=== PATIENT | male | born 1960 | race Caucasian/White ===

== ENCOUNTER → 2017-10-24 | Outpatient (CLI) | payer MEDICARE, OTHER ==
[2017-10-24 16:33] LABS: HCT 40.1 % (39.0-53.0); HGB 13.1 gm/dL (13.0-17.5); MCH 28.2 pg (25.0-35.0); MCHC 32.7 g/dL (31.0-37.0); MCV 86.2 fL (80.0-100.0); Mean Platelet Volume 7.5; Platelet Count 250 k/uL (150-450); RBC 4.65 m/uL (4.30-5.90); RDW 13.3 % (11.5-15.5); WBC 9.9 k/uL (3.8-10.6)
[2017-10-24 16:43] LABS: ALT 35 U/L (21-72); AST 23 U/L (17-59); Albumin 3.8 g/dL (3.5-5.0); Alkaline Phosphatase 69 U/L (38-126); Anion Gap 13 mmol/L; Blood Urea Nitrogen 24 mg/dL (9-20); Calcium 8.9 mg/dL (8.4-10.2); Carbon Dioxide 26 mmol/L (22-30); Chloride 105 mmol/L (98-107); Glucose 194 mg/dL (74-99); Potassium 4.2 mmol/L (3.5-5.1); Sodium 144 mmol/L (137-145); Total Bilirubin 0.2 mg/dL (0.2-1.3); Total Protein 6.8 g/dL (6.3-8.2)
[2017-10-24 16:46] LABS: Partial Thromboplastin Time 26.1 sec (22.0-30.0); Prothrombin Time 10.2 sec (9.0-12.0)
[2017-10-24 17:03] LABS: Appearance,Urine Clear (Clear); Bacteria,Urine Rare /hpf; Bilirubin,Urine Negative (Negative); Blood,Urine Negative (Negative); Color,Urine Yellow; Glucose,Urine (UA) Negative (Negative); Ketones,Urine Negative (Negative); Leukocyte Esterase,Urine Moderate (Negative); PH, Urine 5.5 (5.0-8.0); Protein,Urine Trace (Negative); RBC,Urine 2 /hpf (0-5); Specific Gravity,Urine 1.018 (1.001-1.035); Urobilinogen,Urine <2.0 mg/dL (<2.0); WBC,Urine 23 /hpf (0-5)
== END | disposition home or self-care (01) ==
LOC: LABPAT 15:52
PROVIDERS: ATTEND Orthopaedic Surgery
DX: Z01.812 Encounter for preprocedural laboratory examination (principal); Z79.01 Long term (current) use of anticoagulants
CPT/HCPCS: 36415; 80053; 81001; 85027; 85610; 85730; 87070

== ENCOUNTER → 2018-05-12 | Outpatient (CLI) | payer MEDICARE, OTHER ==
[2018-05-12 14:05] LABS: Basophils % (A) 0 %; Eosinophils # (A) 0.2 k/uL (0-0.7); Eosinophils % (A) 2 %; HGB 13.6 gm/dL (13.0-17.5); Lymphocytes % (A) 19 %; MCH 29.4 pg (25.0-35.0); MCHC 33.3 g/dL (31.0-37.0); MCV 88.3 fL (80.0-100.0); Mean Platelet Volume 7.4; Monocytes # (A) 0.5 k/uL (0-1.0); Monocytes % (A) 5 %; Neutrophils # (A) 7.3 k/uL (1.3-7.7); Neutrophils % (A) 71 %; Platelet Count 240 k/uL (150-450); RBC 4.64 m/uL (4.30-5.90); RDW 13.3 % (11.5-15.5); WBC 10.3 k/uL (3.8-10.6)
[2018-05-12 14:09] LABS: Appearance,Urine Clear (Clear); Bacteria,Urine Rare /hpf; Bilirubin,Urine Negative (Negative); Blood,Urine Negative (Negative); Color,Urine Yellow; Glucose,Urine (UA) Trace (Negative); Ketones,Urine Negative (Negative); Leukocyte Esterase,Urine Moderate (Negative); Mucus,Urine Rare /hpf; Nitrite,Urine Negative (Negative); PH, Urine 5.5 (5.0-8.0); Protein,Urine Trace (Negative); RBC,Urine 1 /hpf (0-5); Specific Gravity,Urine 1.018 (1.001-1.035); Squamous Epithelial Cell,Urine <1 /hpf (0-4); Urobilinogen,Urine <2.0 mg/dL (<2.0); WBC,Urine 25 /hpf (0-5)
[2018-05-12 14:21] LABS: INR 1.1 (<1.2); Partial Thromboplastin Time 27.1 sec (22.0-30.0); Prothrombin Time 10.4 sec (9.0-12.0)
[2018-05-12 14:51] LABS: ALT 34 U/L (21-72); AST 22 U/L (17-59); Albumin 3.8 g/dL (3.5-5.0); Alkaline Phosphatase 64 U/L (38-126); Anion Gap 9 mmol/L; Blood Urea Nitrogen 22 mg/dL (9-20); Calcium 9.2 mg/dL (8.4-10.2); Carbon Dioxide 28 mmol/L (22-30); Chloride 103 mmol/L (98-107); Glucose 157 mg/dL (74-99); Potassium 4.5 mmol/L (3.5-5.1); Sodium 140 mmol/L (137-145); Total Bilirubin 0.3 mg/dL (0.2-1.3); Total Protein 6.8 g/dL (6.3-8.2)
== END ==
LOC: LABPAT 13:07
PROVIDERS: ATTEND Orthopaedic Surgery
DX: Z01.812 Encounter for preprocedural laboratory examination (principal)
CPT/HCPCS: 36415; 80053; 81001; 85025; 85610; 85730; 87070

== ENCOUNTER → 2018-05-30 | Outpatient (CLI) | payer MEDICARE, OTHER ==
--- NOTE | 2018-05-30 11:57 | MR ---
EXAMINATION TYPE: MR shoulder RT wo con DATE OF EXAM: 05/30/2018 COMPARISON: NONE HISTORY: Right shoulder pain TECHNIQUE: Multiplanar, multisequence imaging of the right shoulder is performed without contrast. FINDINGS: Rotator Cuff: There is full-thickness retracted tear of the supraspinatus tendon retracted to level o f the acromioclavicular joint. There is mild to moderate diffuse atrophy of the supraspinatus muscle bulk. There is also full-thickness retracted tear of the infraspinatus tendon retracted almost to the acrom ioclavicular joints seen best near paracoronal image 24. Adjacent fluid is present extending and surr ounding the infraspinatus and teres minor muscles. Muscle bulk is fairly well maintained at level of the infraspinatus. Teres minor tendon remains intact. Subscapularis tendon is felt intact. Acromioclavicular Joint: There is moderate to severe joint space loss with capsular hypertrophy super iorly and moderate to severe inferior spurring. Underlying fat plane is lost. Glenohumeral Joint: There is high riding humeral head. There is moderate to large joint effusion. Mar ked superior glenohumeral joint space narrowing is present. Labrum: The superior labrum has advanced narrowing relative to the superiorly displaced humeral head. No abnormal signal is noted. Biceps Tendon: The long head of biceps is in normal location within bicipital groove. Bone marrow signal: No focal abnormal marrow signal is appreciated. Other: No additional significant abnormality is appreciated. IMPRESSION: Full-thickness retracted rotator cuff tears of supraspinatus and infraspinatus tendons wi th evidence of instability as there is high riding humeral head noted. Moderate to advanced AC and gl enohumeral joint arthropathy is seen.
== END | disposition home or self-care (01) ==
LOC: RADMRIMAIN 10:53
PROVIDERS: ATTEND Family Medicine
DX: M75.121 Complete rotator cuff tear or rupture of right shoulder, not specified as traumatic (principal); M19.011 Primary osteoarthritis, right shoulder

== ENCOUNTER → 2018-09-05 | Outpatient (CLI) | payer MEDICARE, OTHER ==
[2018-09-05 12:49] LABS: HCT 41.7 % (39.0-53.0); HGB 13.4 gm/dL (13.0-17.5); MCH 28.4 pg (25.0-35.0); MCHC 32.2 g/dL (31.0-37.0); MCV 88.1 fL (80.0-100.0); Mean Platelet Volume 6.9; Platelet Count 229 k/uL (150-450); RBC 4.73 m/uL (4.30-5.90); RDW 13.1 % (11.5-15.5); WBC 8.4 k/uL (3.8-10.6)
[2018-09-05 12:52] LABS: ALT 31 U/L (21-72); AST 19 U/L (17-59); Albumin 3.9 g/dL (3.5-5.0); Alkaline Phosphatase 64 U/L (38-126); Anion Gap 8 mmol/L; Blood Urea Nitrogen 27 mg/dL (9-20); Calcium 8.9 mg/dL (8.4-10.2); Carbon Dioxide 26 mmol/L (22-30); Chloride 106 mmol/L (98-107); Glucose 227 mg/dL (74-99); Potassium 4.5 mmol/L (3.5-5.1); Sodium 140 mmol/L (137-145); Total Bilirubin 0.4 mg/dL (0.2-1.3); Total Protein 6.7 g/dL (6.3-8.2)
[2018-09-05 12:59] LABS: Partial Thromboplastin Time 30.5 sec (22.0-30.0); Prothrombin Time 10.3 sec (9.0-12.0)
[2018-09-05 14:58] LABS: Appearance,Urine Clear (Clear); Bilirubin,Urine Negative (Negative); Blood,Urine Negative (Negative); Color,Urine Yellow; Glucose,Urine (UA) Negative (Negative); Ketones,Urine Negative (Negative); Leukocyte Esterase,Urine Small (Negative); Mucus,Urine Rare /hpf; Nitrite,Urine Negative (Negative); PH, Urine 5.5 (5.0-8.0); Protein,Urine Trace (Negative); RBC,Urine 1 /hpf (0-5); Specific Gravity,Urine 1.022 (1.001-1.035); Squamous Epithelial Cell,Urine 1 /hpf (0-4); Urobilinogen,Urine <2.0 mg/dL (<2.0); WBC,Urine 8 /hpf (0-5)
== END | disposition home or self-care (01) ==
LOC: LABPAT 11:33
PROVIDERS: ATTEND Orthopaedic Surgery
DX: Z01.812 Encounter for preprocedural laboratory examination (principal)
CPT/HCPCS: 36415; 80053; 81001; 85027; 85610; 85730; 87070

== ENCOUNTER → 2019-01-04 | Outpatient (CLI) | payer MEDICARE, OTHER ==
--- NOTE | 2019-01-04 15:38 | CT ---
EXAMINATION TYPE: CT soft tissue neck w con DATE OF EXAM: 01/04/2019 COMPARISON: None HISTORY: 58-year-old male for small history of thyroid cancer, Cervicalagia TECHNIQUE: Contiguous axial scanning of the soft tissues of the neck performed with IV Contrast, sarah ent injected with 100 mL of Isovue 300. Coronal/sagittal reconstructions performed. CT DLP: 1059.8 mGycm Automated exposure control for dose reduction was used. FINDINGS: Visualized intracranial structures, maxillary sinuses, and mastoid air cells appear clear. Rightward nasal septal deviation. Nasopharynx is clear. Bilateral palatine tonsillar hypertrophy and hypertrophy of the bilateral lingual tonsils as well. Epiglottis and prevertebral soft tissues are within normal limits. Slight medialization of the right common carotid artery resulting in asymmetric effacement of the rig ht piriform sinus. Glottic and subglottic structures as well as the tracheal column and visualized up per lungs otherwise appear clear. Patient is status post thyroidectomy. No abnormal enhancing soft tissue or nodularity seen within the thyroidectomy bed. Submandibular and parotid glands appear satisfactory though there is prominent fatty infiltration of the glands. Scattered nonenlarged cervical lymph nodes on both sides of the neck Bones: Mild degenerative disc disease throughout the cervical spine with scattered facet and uncovert ebral joint spurring causing variable mild neuroforaminal stenoses particularly on the left at C3-C4 and on the right at C4-C5. IMPRESSION: 1. STATUS POST THYROIDECTOMY. NO EVIDENCE FOR LOCOREGIONAL RECURRENCE OR CERVICAL LYMPHADENOPATHY. 2. BILATERAL PALATINE AND LINGUAL TONSILLAR HYPERTROPHY CROWDING THE OROPHARYNX.
== END | disposition home or self-care (01) ==
LOC: RADCTMAIN 13:44
PROVIDERS: ATTEND Family Medicine
DX: J35.1 Hypertrophy of tonsils (principal); E89.0 Postprocedural hypothyroidism; Z85.850 Personal history of malignant neoplasm of thyroid
CPT/HCPCS: 70491; Q9967

== ENCOUNTER 2020-06-10 21:32 | Emergency (ER) | payer MEDICARE, OTHER ==
[2020-06-10 21:42] VITALS: RESP 18
[2020-06-10] MEDS ORDERED: SODIUM CHLORIDE 0.9% 1,000 ML IV STA (22:09)
--- NOTE | 2020-06-10 23:05 | XR ---
EXAMINATION TYPE: XR chest 2V DATE OF EXAM: 06/10/2020 COMPARISON: 07/17/2017 HISTORY: Weakness TECHNIQUE: FINDINGS: Heart is normal. Lungs are clear of consolidation. There is no pleural effusion. There is n o heart failure. Bony thorax is intact. There is minor spurring in the thoracic spine. IMPRESSION: No active cardiopulmonary disease. No adverse change.
[2020-06-10 23:21] LABS: Basophils # (A) 0.1 k/uL (0-0.2); Basophils % (A) 2 %; Eosinophils # (A) 0.1 k/uL (0-0.7); Eosinophils % (A) 2 %; HCT 42.9 % (39.0-53.0); HGB 14.3 gm/dL (13.0-17.5); Lymphocytes # (A) 1.1 k/uL (1.0-4.8); Lymphocytes % (A) 16 %; MCH 30.7 pg (25.0-35.0); MCHC 33.4 g/dL (31.0-37.0); MCV 91.8 fL (80.0-100.0); Mean Platelet Volume 7.7; Monocytes # (A) 0.6 k/uL (0-1.0); Monocytes % (A) 8 %; Neutrophils % (A) 70 %; Platelet Count 262 k/uL (150-450); RBC 4.67 m/uL (4.30-5.90); RDW 12.1 % (11.5-15.5); WBC 7.1 k/uL (3.8-10.6)
[2020-06-10 23:25] LABS: Calcium 8.7 mg/dL (8.4-10.2); Total Bilirubin 0.7 mg/dL (0.2-1.3); Total Protein 7.4 g/dL (6.3-8.2)
--- NOTE | 2020-06-10 23:41 | ED ---
Weakness HPI - General Chief complaint: Weakness Stated complaint: Weakness Time Seen by Provider: 06/10/20 21:43 Source: patient, EMS Mode of arrival: EMS Limitations: no limitations - History of Present Illness Initial comments: Patient is a 59-year-old male, with history of heart disease, diabetes, presenting to emergency Department via EMS with complaints of possible dehydration. Patient states he is about 2.5 weeks out from being diagnosed with Covid. Patient states he did get the okay to return to work. He states he was feeling a little bit drained and weak today. He states he has been able to drink fluids with his appetite is low. He denies any chest pain, trouble breathing. Denies any abdominal pain, nausea, vomiting or diarrhea. He denies any fever or chills. Patient came into the ER via EMS along with his mother for a separate issue. He has no further complaints at this time. Upon arrival to the ER, his vital signs are stable. - Related Data Home Medications Medication Instructions Recorded Confirmed Betamethasone Dipropionate 1 applic TOPICAL BID PRN 01/22/15 05/18/18 [Diprolene AF 0.05% Cream] Clotrimazole Cream [Lotrimin Cream] 1 applic TOPICAL BID PRN 01/22/15 05/18/18 Fish Oil/Dha/Epa [Fish Oil 1,200 1 cap PO TID 01/22/15 05/18/18 mg Fish Oil] Levothyroxine Sodium [Unithroid] 350 mcg PO DAILY 01/22/15 05/18/18 Loratadine [Claritin] 10 mg PO DAILY 01/22/15 05/18/18 Methocarbamol [Robaxin] 500 mg PO QID PRN 01/22/15 05/18/18 Methylphenidate HCl [Ritalin] 10 mg PO DAILY 01/22/15 05/18/18 Metoprolol Tartrate [Lopressor] 50 mg PO BID 01/22/15 05/18/18 Mupirocin 2% Oint [Bactroban 2% 1 applic TOPICAL HS PRN 01/22/15 05/18/18 Oint] Niacin [Niaspan] 2,000 mg PO HS 01/22/15 05/18/18 Nitroglycerin Sl Tabs [Nitrostat] 0.4 mg SUBLINGUAL Q5M PRN 01/22/15 05/18/18 OLANZapine 7.5 mg PO HS 01/22/15 05/18/18 diphenhydrAMINE [Benadryl] 25 mg PO QID PRN 01/22/15 05/18/18 metFORMIN HCL 1,000 mg PO BID 01/22/15 05/18/18 Aspirin 81 mg PO DAILY 11/24/15 05/18/18 HYDROcodone/APAP 5-325MG [[place] 1 tab PO QID PRN 11/24/15 05/18/18 5-325] Simethicone Chew [Mylicon Chew] 80 mg PO DAILY 11/24/15 05/18/18 Simvastatin [Zocor] 80 mg PO HS 11/24/15 05/18/18 Testosterone [Androgel 1% Gel Pump] 1 pump TRANSDERM Q48H 11/24/15 05/18/18 carBAMazepine [TEGretol XR] 200 mg PO Q12H 11/24/15 05/18/18 traMADol HCl [Ultram] 50 mg PO DAILY PRN 11/24/15 05/18/18 Gabapentin [Neurontin] 300 mg PO DAILY 07/17/17 05/18/18 Gabapentin [Neurontin] 300 mg PO HS 07/17/17 05/18/18 Insulin Degludec [Tresiba 130 - 140 unit SQ HS 07/17/17 05/18/18 Flextouch U-200] Insulin Aspart [NovoLOG Flexpen] 35 - 40 units SQ AC-TID 05/18/18 05/18/18 Naproxen [Naprosyn] 500 mg PO Q12HR 05/18/18 05/18/18 Testosterone [Androgel 1% Gel Pump] 2 pump TOPICAL Q48H 05/18/18 05/18/18 Previous Rx's Medication Instructions Recorded Pantoprazole [Protonix] 40 mg PO BID #60 tablet. 07/18/17 Allergies Allergy/AdvReac Type Severity Reaction Status Date / Time codeine phosphate Allergy SOB Verified 06/10/20 21:42 [From Tylenol-Codeine] guaifenesin Allergy dehydration Verified 06/10/20 21:42 levofloxacin [From Levaquin] Allergy Anaphylaxis Verified 06/10/20 21:42 Penicillins Allergy Rash/Hives Verified 06/10/20 21:42 quetiapine Allergy headache Verified 06/10/20 21:42 topiramate Allergy dehydration Verified 06/10/20 21:42 meperidine HCl [From Demerol] AdvReac "altered Verified 06/10/20 21:42 state of mind" olanzapine AdvReac > 7.6 mg Verified 06/10/20 21:42 causes sleepiness entex Allergy Unknown Uncoded 06/10/20 21:42 wool Allergy twitches Uncoded 06/10/20 21:42 QUET AdvReac Unknown Uncoded 06/10/20 21:42 Review of Systems ROS Statement: Those systems with pertinent positive or pertinent negative responses have been documented in the HPI. ROS Other: All systems not noted in ROS Statement are negative. 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, obesity History of Any Multi-Drug Resistant Organisms: None Reported Past Surgical History: Joint Replacement, Tonsillectomy Additional Past Surgical History / Comment(s): L total knee arthroplasty, stephani eye surgery, thyroidectomy Past Anesthesia/Blood Transfusion Reactions: No Reported Reaction Additional Past Anesthesia/Blood Transfusion Reaction / Comment(s): had reaction to drainage tube-"had to be knocked out-woke up swining" Past Psychological History: ADD/ADHD, Anxiety, Bipolar, Depression, PTSD Past Alcohol Use History: Occasional Past Drug Use History: None Reported - Past Family History Father Family Medical History: Coronary Artery Disease (CAD), Diabetes Mellitus Additional Family Medical History / Comment(s): Father has had CABG. He is 79 yrs. old. Mother Family Medical History: Cancer, Diabetes Mellitus Additional Family Medical History / Comment(s): Mother had colon cancer with surgery. She is 75 yrs old. General Exam - General Exam Comments Initial Comments: GENERAL: Patient is well-developed and well-nourished. Patient is nontoxic and in no acute distress. HEAD: Atraumatic, normocephalic. EYES: Pupils equal round and reactive to light, extraocular movements intact, sclera anicteric, conjunctiva are normal. Eyelids were unremarkable. ENT: TMs normal, nares patent, oropharynx clear without exudates. Moist mucous membranes. NECK: Normal range of motion, supple without lymphadenopathy or JVD. LUNGS: Unlabored respirations. Breath sounds clear to auscultation bilaterally and equal. No wheezes rales or rhonchi. HEART: Regular rate and rhythm without murmurs, rubs or gallops. ABDOMEN: Soft, nontender, normoactive bowel sounds. No guarding, no rebound. No masses appreciated. : Deferred MUSCULOSKELETAL: Normal extremities with adequate strength and normal range of motion, no pitting or edema. No clubbing or cyanosis. NEUROLOGICAL: Patient is alert and oriented x 3. Motor and sensory are also intact. Cranial nerves II through XII grossly intact. Symmetrical smile. Normal speech, normal gait. PSYCH: Normal mood, normal affect. SKIN: Warm, Dry, normal turgor, no rashes or lesions noted. Limitations: no limitations Course Vital Signs 06/10/20 21:36 Temperature 99.2 F Pulse Rate 71 Respiratory 18 Rate Blood Pressure 105/37 O2 Sat by Pulse 97 Oximetry Medical Decision Making - Medical Decision Making Patient is a 59-year-old male presenting via EMS with complaints of possible dehydration, not feeling well today. He tested positive for COVID about 12 days ago. He did get the clear to return to work. His vital signs are stable. His exam is unremarkable, he is afebrile. Chest x-ray shows no acute process. Labs show a normal white count, creatinine is a bit elevated from baseline at 1.74, BUN is 36. Rest of labs is unremarkable. COVID test is pending. Patient received 1 L bolus of fluids. He has been eating and drinking the ER. He is stable for discharge. I discussed with patient to continue to increase fluid intake. We had a long discussion about his body is still recovering from a viral infection. He can follow up with his PCP. He is in agreement this plan of care. Return parameters were discussed with the patient he verbalizes understanding. Case discussed with Dr. Fregoso. - Lab Data Result diagrams: 06/10/20 22:50 06/10/20 22:50 Lab Results 06/10/20 06/10/20 Range/Units 22:50 22:50 WBC 7.1 (3.8-10.6) k/uL RBC 4.67 (4.30-5.90) m/uL Hgb 14.3 (13.0-17.5) gm/dL Hct 42.9 (39.0-53.0) % MCV 91.8 (80.0-100.0) fL MCH 30.7 (25.0-35.0) pg MCHC 33.4 (31.0-37.0) g/dL RDW 12.1 (11.5-15.5) % Plt Count 262 (150-450) k/uL Neutrophils % 70 % Lymphocytes % 16 % Monocytes % 8 % Eosinophils % 2 % Basophils % 2 % Neutrophils # 5.0 (1.3-7.7) k/uL Lymphocytes # 1.1 (1.0-4.8) k/uL Monocytes # 0.6 (0-1.0) k/uL Eosinophils # 0.1 (0-0.7) k/uL Basophils # 0.1 (0-0.2) k/uL Sodium 138 (137-145) mmol/L Potassium 5.0 (3.5-5.1) mmol/L Chloride 104 (98-107) mmol/L Carbon Dioxide 26 (22-30) mmol/L Anion Gap 8 mmol/L BUN 36 H (9-20) mg/dL Creatinine 1.74 H (0.66-1.25) mg/dL Est GFR (CKD-EPI)AfAm 49 (>60 ml/min/1.73 sqM) Est GFR (CKD-EPI)NonAf 42 (>60 ml/min/1.73 sqM) Glucose 114 H (74-99) mg/dL Calcium 8.7 (8.4-10.2) mg/dL Total Bilirubin 0.7 (0.2-1.3) mg/dL AST 43 (17-59) U/L ALT 34 (4-49) U/L Alkaline Phosphatase 66 (38-126) U/L Total Protein 7.4 (6.3-8.2) g/dL Albumin 4.0 (3.5-5.0) g/dL Disposition Clinical Impression: Dehydration, Viral illness Disposition: HOME SELF-CARE Condition: Stable Instructions (If sedation given, give patient instructions): Dehydration (ED) Additional Instructions: Please return to the Emergency Department if symptoms worsen or any other concerns. Continue to increase fluid intake. Follow-up with PCP. Is patient prescribed a controlled substance at d/c from ED?: No Referrals: Tati Dacosta DO [Primary Care Provider] - 1-2 days
[2020-06-11 00:26] VITALS: BP 114/66; PULSE 65; TEMP 98.3
== END 2020-06-11 00:26 | disposition home or self-care (01) ==
LOC: EC 21:32
DX: B34.9 Viral infection, unspecified (principal); E86.0 Dehydration; F31.9 Bipolar disorder, unspecified; F42.9 Obsessive-compulsive disorder, unspecified; F90.9 Attention-deficit hyperactivity disorder, unspecified type; F43.10 Post-traumatic stress disorder, unspecified; G47.33 Obstructive sleep apnea (adult) (pediatric); Z99.89 Dependence on other enabling machines and devices; Z79.899 Other long term (current) drug therapy; Z88.0 Allergy status to penicillin; Z88.1 Allergy status to other antibiotic agents; Z88.5 Allergy status to narcotic agent; Z88.8 Allergy status to other drugs, medicaments and biological substances; Z91.048 Other nonmedicinal substance allergy status; Z96.652 Presence of left artificial knee joint; Z20.828 Contact with and (suspected) exposure to other viral communicable diseases
CPT/HCPCS: 80053; 85025; 71046; 99285; 96360; U0003

== ENCOUNTER 2020-10-30 20:30 | Inpatient (IN) | payer MEDICARE, OTHER ==
[2020-10-30 22:08] LABS: Basophils # (A) 0.1 k/uL (0-0.2); Basophils % (A) 0 %; Eosinophils # (A) 0.4 k/uL (0-0.7); Eosinophils % (A) 4 %; HCT 39.4 % (39.0-53.0); HGB 13.4 gm/dL (13.0-17.5); Lymphocytes # (A) 1.4 k/uL (1.0-4.8); Lymphocytes % (A) 13 %; MCH 30.1 pg (25.0-35.0); MCHC 34.1 g/dL (31.0-37.0); MCV 88.3 fL (80.0-100.0); Mean Platelet Volume 7.4; Monocytes # (A) 0.7 k/uL (0-1.0); Monocytes % (A) 6 %; Neutrophils # (A) 8.7 k/uL (1.3-7.7); Neutrophils % (A) 76 %; Platelet Count 345 k/uL (150-450); RBC 4.46 m/uL (4.30-5.90); RDW 12.3 % (11.5-15.5); WBC 11.4 k/uL (3.8-10.6)
[2020-10-30 22:25] LABS: Calcium 9.4 mg/dL (8.4-10.2); Potassium 3.9 mmol/L (3.5-5.1); Total Bilirubin 0.5 mg/dL (0.2-1.3); Total Protein 7.4 g/dL (6.3-8.2)
--- NOTE | 2020-10-30 22:33 | XR ---
EXAMINATION TYPE: XR toes RT DATE OF EXAM: 10/30/2020 COMPARISON: NONE HISTORY: Pain TECHNIQUE: 3 views FINDINGS: There are some destructive changes involving the tuft of the distal phalanx of the big toe. There is soft tissue swelling. The metatarsals are intact. IMPRESSION: Destructive changes in the big toe suggestive of osteomyelitis.
[2020-10-30] MEDS ORDERED: VANCOMYCIN IV PER PHARMACY 1 EACH MISC MISCELLANE PRN (22:52)
[2020-10-30] MEDS ORDERED: SODIUM CHLORIDE 0.9% 1,000 ML IV STA (22:52)
[2020-10-30] MEDS: VANCOMYCIN 2,000 MG in SODIUM CHLORIDE 0.9% 500 ML 500 ML IVPB STA (23:06)
[2020-10-30] MEDS: CEFEPIME 2 GM in SODIUM CHLORIDE 0.9% 100 ML IVPB SCH (23:09)
--- NOTE | 2020-10-30 23:15 | ED ---
Skin/Abscess/FB HPI - General Chief complaint: Skin/Abscess/Foreign Body Stated complaint: toe infection Time Seen by Provider: 10/30/20 21:51 Source: patient Mode of arrival: wheelchair Limitations: no limitations - History of Present Illness Initial comments: 60-year-old male with history of diabetes presents to emergency Department with a chief complaint of a diabetic ulcer. 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 Patient reports the wounds on his right first and second toe have been progressively getting worse, yellow discharge, erythematous. Denies significant foul smell, for a toe. He does have diabetic neuropathy so he has limited sensation in his lower extremities.reports chills but no fevers. Denies any calf pain. - Related Data Home Medications Medication Instructions Recorded Confirmed Betamethasone Dipropionate 1 applic TOPICAL BID PRN 01/22/15 05/18/18 [Diprolene AF 0.05% Cream] Clotrimazole Cream [Lotrimin Cream] 1 applic TOPICAL BID PRN 01/22/15 05/18/18 Fish Oil/Dha/Epa [Fish Oil 1,200 1 cap PO TID 01/22/15 05/18/18 mg Fish Oil] Levothyroxine Sodium [Unithroid] 350 mcg PO DAILY 01/22/15 05/18/18 Loratadine [Claritin] 10 mg PO DAILY 01/22/15 05/18/18 Methocarbamol [Robaxin] 500 mg PO QID PRN 01/22/15 05/18/18 Methylphenidate HCl [Ritalin] 10 mg PO DAILY 01/22/15 05/18/18 Metoprolol Tartrate [Lopressor] 50 mg PO BID 01/22/15 05/18/18 Mupirocin 2% Oint [Bactroban 2% 1 applic TOPICAL HS PRN 01/22/15 05/18/18 Oint] Niacin [Niaspan] 2,000 mg PO HS 01/22/15 05/18/18 Nitroglycerin Sl Tabs [Nitrostat] 0.4 mg SUBLINGUAL Q5M PRN 01/22/15 05/18/18 OLANZapine 7.5 mg PO HS 01/22/15 05/18/18 diphenhydrAMINE [Benadryl] 25 mg PO QID PRN 01/22/15 05/18/18 metFORMIN HCL 1,000 mg PO BID 01/22/15 05/18/18 Aspirin 81 mg PO DAILY 11/24/15 05/18/18 HYDROcodone/APAP 5-325MG [[place] 1 tab PO QID PRN 11/24/15 05/18/18 5-325] Simethicone Chew [Mylicon Chew] 80 mg PO DAILY 11/24/15 05/18/18 Simvastatin [Zocor] 80 mg PO HS 11/24/15 05/18/18 Testosterone [Androgel 1% Gel Pump] 1 pump TRANSDERM Q48H 11/24/15 05/18/18 carBAMazepine [TEGretol XR] 200 mg PO Q12H 11/24/15 05/18/18 traMADol HCl [Ultram] 50 mg PO DAILY PRN 11/24/15 05/18/18 Gabapentin [Neurontin] 300 mg PO DAILY 07/17/17 05/18/18 Gabapentin [Neurontin] 300 mg PO HS 07/17/17 05/18/18 Insulin Degludec [Tresiba 130 - 140 unit SQ HS 07/17/17 05/18/18 Flextouch U-200] Insulin Aspart [NovoLOG Flexpen] 35 - 40 units SQ AC-TID 05/18/18 05/18/18 Naproxen [Naprosyn] 500 mg PO Q12HR 05/18/18 05/18/18 Testosterone [Androgel 1% Gel Pump] 2 pump TOPICAL Q48H 05/18/18 05/18/18 Previous Rx's Medication Instructions Recorded Pantoprazole [Protonix] 40 mg PO BID #60 tablet. 07/18/17 Allergies Allergy/AdvReac Type Severity Reaction Status Date / Time codeine phosphate Allergy SOB Verified 10/30/20 20:53 [From Tylenol-Codeine] guaifenesin Allergy dehydration Verified 10/30/20 20:53 levofloxacin [From Levaquin] Allergy Anaphylaxis Verified 10/30/20 20:53 Penicillins Allergy Rash/Hives Verified 10/30/20 20:53 quetiapine Allergy headache Verified 10/30/20 20:53 topiramate Allergy dehydration Verified 10/30/20 20:53 meperidine HCl [From Demerol] AdvReac "altered Verified 10/30/20 20:53 state of mind" olanzapine AdvReac > 7.6 mg Verified 10/30/20 20:53 causes sleepiness entex Allergy Unknown Uncoded 06/10/20 21:42 wool Allergy twitches Uncoded 06/10/20 21:42 QUET AdvReac Unknown Uncoded 06/10/20 21:42 Review of Systems ROS Statement: Those systems with pertinent positive or pertinent negative responses have been documented in the HPI. ROS Other: All systems not noted in ROS Statement are negative. 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, obesity History of Any Multi-Drug Resistant Organisms: None Reported Past Surgical History: Joint Replacement, Tonsillectomy Additional Past Surgical History / Comment(s): L total knee arthroplasty, stephani eye surgery, thyroidectomy Past Anesthesia/Blood Transfusion Reactions: No Reported Reaction Additional Past Anesthesia/Blood Transfusion Reaction / Comment(s): had reaction to drainage tube-"had to be knocked out-woke up swining" Past Psychological History: ADD/ADHD, Anxiety, Bipolar, Depression, PTSD Smoking Status: Former smoker Past Alcohol Use History: Occasional Past Drug Use History: None Reported - Past Family History Father Family Medical History: Coronary Artery Disease (CAD), Diabetes Mellitus Additional Family Medical History / Comment(s): Father has had CABG. He is 79 yrs. old. Mother Family Medical History: Cancer, Diabetes Mellitus Additional Family Medical History / Comment(s): Mother had colon cancer with surgery. She is 75 yrs old. General Exam Limitations: no limitations General appearance: alert, in no apparent distress, obese Head exam: Present: atraumatic, normocephalic, normal inspection Eye exam: Present: normal appearance, PERRL, EOMI Pupils: Present: normal accommodation ENT exam: Present: normal exam, normal oropharynx, mucous membranes moist Neck exam: Present: normal inspection, full ROM. Absent: tenderness Respiratory exam: Present: normal lung sounds bilaterally. Absent: respiratory distress Cardiovascular Exam: Present: regular rate, normal rhythm, normal heart sounds Extremities exam: Present: full ROM, normal capillary refill. Absent: normal inspection (Warm, erythematous, yellow discharge, on the right first and second toe. He does not have any nails on either toe.), tenderness (Diabetic neuropathy so no sensation in the toes), pedal edema Back exam: Present: normal inspection, full ROM. Absent: tenderness Neurological exam: Present: alert, oriented X3, normal gait Psychiatric exam: Present: normal affect, normal mood Skin exam: Present: warm, dry, intact, normal color Course Vital Signs 10/30/20 10/30/20 20:48 22:00 Temperature 99.2 F Pulse Rate 95 82 Respiratory 17 16 Rate Blood Pressure 111/61 112/70 O2 Sat by Pulse 96 97 Oximetry Medical Decision Making - Medical Decision Making 60-year-old male with type 2 diabetes and diabetic ulcers presents to the emergency department with a chief complaint of diabetic ulcer. On physical examination, he has erythematous, swollen and some yellow discharge noted on the is right big toe. Similar changes also noted to the second toe. CBC shows mild leukocytosis. CMP reveals elevated BUN and creatinine, however this appears to be his baseline. Lactic 3.5. Patient started on IV fluids and antibiotics. I spoke with inpatient pharmacy who suggested vancomycin and cefepime. Patient will be admitted for further medical management. Case discussed with . I spoke with Jessica Stubbs NP. Admitting is Dr Dixon Infectious disease on consult - Lab Data Result diagrams: 10/30/20 21:57 10/30/20 21:57 Lab Results 10/30/20 10/30/20 10/30/20 Range/Units 21:57 21:57 21:57 WBC 11.4 H (3.8-10.6) k/uL RBC 4.46 (4.30-5.90) m/uL Hgb 13.4 (13.0-17.5) gm/dL Hct 39.4 (39.0-53.0) % MCV 88.3 (80.0-100.0) fL MCH 30.1 (25.0-35.0) pg MCHC 34.1 (31.0-37.0) g/dL RDW 12.3 (11.5-15.5) % Plt Count 345 (150-450) k/uL MPV 7.4 Neutrophils % 76 % Lymphocytes % 13 % Monocytes % 6 % Eosinophils % 4 % Basophils % 0 % Neutrophils # 8.7 H (1.3-7.7) k/uL Lymphocytes # 1.4 (1.0-4.8) k/uL Monocytes # 0.7 (0-1.0) k/uL Eosinophils # 0.4 (0-0.7) k/uL Basophils # 0.1 (0-0.2) k/uL Sodium 136 L (137-145) mmol/L Potassium 3.9 (3.5-5.1) mmol/L Chloride 93 L (98-107) mmol/L Carbon Dioxide 28 (22-30) mmol/L Anion Gap 15 mmol/L BUN 38 H (9-20) mg/dL Creatinine 1.39 H (0.66-1.25) mg/dL Est GFR (CKD-EPI)AfAm 64 (>60 ml/min/1.73 sqM) Est GFR (CKD-EPI)NonAf 55 (>60 ml/min/1.73 sqM) Glucose 178 H (74-99) mg/dL Plasma Lactic Acid Jt 3.5 H* (0.7-2.0) mmol/L Calcium 9.4 (8.4-10.2) mg/dL Total Bilirubin 0.5 (0.2-1.3) mg/dL AST 36 (17-59) U/L ALT 51 H (4-49) U/L Alkaline Phosphatase 80 (38-126) U/L Total Protein 7.4 (6.3-8.2) g/dL Albumin 4.0 (3.5-5.0) g/dL Disposition Clinical Impression: Diabetic ulcer of toe, Osteomyelitis of toe of right foot Disposition: ADMITTED IP TO THIS HOSP Condition: Fair Is patient prescribed a controlled substance at d/c from ED?: No Referrals: Tati Dacosta DO [Primary Care Provider] - 1-2 days Time of Disposition: 23:15
[2020-10-30] MEDS ORDERED: ONDANSETRON 4 MG/2 ML VIAL IVP PRN (23:21)
[2020-10-30] MEDS ORDERED: NALOXONE 0.4 MG/ML 1 ML VIAL IV PRN (23:21)
[2020-10-30] MEDS ORDERED: LORazepam 2 MG/ML INJ IV PRN (23:21)
[2020-10-30] MEDS ORDERED: ACETAMINOPHEN TAB 325 MG TAB PO PRN (23:21)
[2020-10-30] MEDS ORDERED: HYDROcodone/APAP 5-325MG 1 EACH TAB PO STA (23:55)
[2020-10-31] MEDS: VANCOMYCIN 2,000 MG in SODIUM CHLORIDE 0.9% 500 ML 500 ML IVPB STA (00:05)
[2020-10-31] MEDS: SODIUM CHLORIDE 0.9% 1,000 ML IV SCH ×2 (00:08→13:14)
[2020-10-31] MEDS ORDERED: HYDROcodone/APAP 5-325MG 1 EACH TAB PO PRN ×2 (05:01→05:59)
[2020-10-31] MEDS ORDERED: LEVOTHYROXINE 100 MCG TAB PO SCH (06:30)
[2020-10-31 06:46] LABS: Basophils % (A) 0 %; Eosinophils # (A) 0.3 k/uL (0-0.7); Eosinophils % (A) 4 %; HCT 36.8 % (39.0-53.0); HGB 12.4 gm/dL (13.0-17.5); Lymphocytes # (A) 1.8 k/uL (1.0-4.8); Lymphocytes % (A) 19 %; MCH 30.1 pg (25.0-35.0); MCHC 33.8 g/dL (31.0-37.0); MCV 89.2 fL (80.0-100.0); Mean Platelet Volume 7.5; Monocytes # (A) 0.8 k/uL (0-1.0); Monocytes % (A) 8 %; Neutrophils # (A) 6.3 k/uL (1.3-7.7); Neutrophils % (A) 68 %; Platelet Count 292 k/uL (150-450); RBC 4.13 m/uL (4.30-5.90); RDW 11.8 % (11.5-15.5); WBC 9.3 k/uL (3.8-10.6)
[2020-10-31 07:01] LABS: African American GFR (CKD) 69 (>60 ml/min/1.73 sqM); Anion Gap 9 mmol/L; Blood Urea Nitrogen 36 mg/dL (9-20); Calcium 8.4 mg/dL (8.4-10.2); Carbon Dioxide 32 mmol/L (22-30); Chloride 96 mmol/L (98-107); Glucose 147 mg/dL (74-99); Non-African American GFR(CKD) 60 (>60 ml/min/1.73 sqM); Potassium 3.6 mmol/L (3.5-5.1); Sodium 137 mmol/L (137-145)
[2020-10-31 07:24] LABS: Glucose,Whole Blood 136 mg/dL (75-99)
[2020-10-31] MEDS: GABAPENTIN 300 MG CAP PO SCH ×2 (08:02→21:30)
[2020-10-31] MEDS: INSULIN ASPART (NovoLOG) 100 UNIT/ML VIAL SQ SCH ×4 (08:02→21:31)
[2020-10-31] MEDS ORDERED: BETAMETHASONE DIPROPIONATE 0.05% CREAM 15 GM TUBE TOPICAL PRN (08:10)
[2020-10-31] MEDS ORDERED: MUPIROCIN 2% OINT 22 GM TUBE TOPICAL PRN (08:10)
[2020-10-31] MEDS ORDERED: methocarbamoL 500 MG TAB PO PRN (08:10)
[2020-10-31] MEDS ORDERED: NITROGLYCERIN SL TABS 0.4 MG TAB SUBLINGUAL PRN (08:10)
[2020-10-31] MEDS ORDERED: GABAPENTIN 100 MG CAP PO SCH (09:00)
[2020-10-31] MEDS ORDERED: NON FORMULARY DRUG (Fish Oil/Dha/Epa [Fish Oil 1,200 Mg Fish Oil] 1 EACH Capsule) PO SCH (09:00)
[2020-10-31] MEDS: LORATADINE 10 MG TAB PO SCH (09:03)
[2020-10-31] MEDS: ASPIRIN 81 MG PO SCH (09:03)
[2020-10-31] MEDS: METOPROLOL TARTRATE 50 MG TAB PO SCH ×2 (09:03→21:30)
[2020-10-31] MEDS: PANTOPRAZOLE 40 MG TABLET PO SCH ×2 (09:03→17:36)
[2020-10-31] MEDS: SIMETHICONE 80 MG CHEWABLE PO SCH (09:03)
[2020-10-31] MEDS ORDERED: ALBUTEROL HFA INHALER INHALATION PRN (12:04)
[2020-10-31] MEDS ORDERED: guaiFENesin-DM 600/30MG 1 EACH TAB.ER.12H PO PRN (12:04)
[2020-10-31] MEDS ORDERED: ALBUTEROL NEBULIZED 2.5 MG/3 ML INHALATION PRN (12:04)
[2020-10-31] MEDS ORDERED: CLOTRIMAZOLE 1% CREAM 15 GM TUBE TOPICAL PRN (12:04)
[2020-10-31 12:06] LABS: Glucose,Whole Blood 174 mg/dL (75-99)
[2020-10-31] MEDS ORDERED: methocarbamoL 750 MG TAB PO PRN (12:12)
[2020-10-31] MEDS: CEFEPIME 2 GM in SODIUM CHLORIDE 0.9% 100 ML IVPB SCH (12:18)
[2020-10-31] MEDS ORDERED: INSULIN ASPART (NovoLOG) 100 UNIT/ML VIAL SQ SCH (12:30)
[2020-10-31] MEDS: VITAMIN C PO SCH (12:31)
[2020-10-31] MEDS: SUPER B COMPLEX PO SCH (12:31)
--- NOTE | 2020-10-31 13:13 | P.GSCN ---
History of Present Illness History of present illness: 60-year-old gentleman patient came to the emergency room sent by his money manager he noticed a redness swelling and drainage from the left foot big toe for the last 1 week patient also has a callus on the left foot second toe. Patient had a x-ray of the foot showed or destructive changes involving the distal phalanx consistent with ostial mellitus medical history history of diabetes hypert ension. Patient had a left greater total knee done in the past On examination neck is supple no bruit appreciated Chest clear first and second sound normal good entry both lungs Abdomen soft nontender Vascular brachial radial and femoral pulses are palpable dorsal pedis is palpable patient has a Brown induration of the both lower extremity suggestive of chronic venous hypertension left big toe is painful tender infected with the open open wound on the plantar aspect of the big toe draining pus Plan is patient is an IV antibiotic most likely she will need a amputation of the big toe I will discuss with infectious disease follow with you 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 Pt resides with mother and father. He uses a cane to ambulate. He was in [place]. He drives. Smoking Status: Former smoker Past Alcohol Use History: Occasional Additional Past Alcohol Use History / Comment(s): Pt started smoking in 1981 and quit in 2007. He is around 2nd hand smoke. Past Drug Use History: None Reported - Past Family History Father Family Medical History: Coronary Artery Disease (CAD), Diabetes Mellitus Additional Family Medical History / Comment(s): Father has had CABG. He is 79 yrs. old. Mother Family Medical History: Cancer, Diabetes Mellitus Additional Family Medical History / Comment(s): Mother had colon cancer with surgery. She is 75 yrs old. Medications and Allergies Home Medications Medication Instructions Recorded Confirmed Type Betamethasone Dipropionate 1 applic TOPICAL BID PRN 01/22/15 10/31/20 History [Diprolene AF 0.05% Cream] Clotrimazole Cream [Lotrimin Cream] 1 applic TOPICAL BID PRN 01/22/15 10/31/20 History Loratadine [Claritin] 10 mg PO PC-BRKFST 01/22/15 10/31/20 History Metoprolol Tartrate [Lopressor] 50 mg PO AC-BID 01/22/15 10/31/20 History Mupirocin 2% Oint [Bactroban 2% 1 applic TOPICAL HS PRN 01/22/15 10/31/20 History Oint] Nitroglycerin Sl Tabs [Nitrostat] 0.4 mg SL Q5M PRN 01/22/15 10/31/20 History diphenhydrAMINE [Benadryl] 25 - 50 mg PO QID 01/22/15 10/31/20 History metFORMIN HCL 1,000 mg PO AC-BID 01/22/15 10/31/20 History Aspirin 81 mg PO HS 11/24/15 10/31/20 History HYDROcodone/APAP 5-325MG [[place] 1 tab PO QID PRN 11/24/15 10/31/20 History 5-325] Simethicone Chew [Mylicon Chew] 80 mg PO DAILY PRN 11/24/15 10/31/20 History Gabapentin [Neurontin] 300 mg PO BID 07/17/17 10/31/20 History Insulin Degludec [Tresiba 60 unit SQ BID 07/17/17 10/31/20 History Flextouch U-200] Insulin Aspart [NovoLOG Flexpen] See Protocol SQ AC-TID 05/18/18 10/31/20 History Acetaminophen Tab [Tylenol Tab] 500 mg PO QID PRN 10/31/20 10/31/20 History Albuterol Inhaler [Ventolin Hfa 1 puff INHALATION RT-QID PRN 10/31/20 10/31/20 History Inhaler] Albuterol Nebulized [Ventolin 2.5 mg INHALATION RT-QID PRN 10/31/20 10/31/20 History Nebulized] Alogliptin Benzoate [Alogliptin] 25 mg PO PC-BRKFST 10/31/20 10/31/20 History Atorvastatin [Lipitor] 40 mg PO HS 10/31/20 10/31/20 History Bydureon 2mg/0.85ml Auto Injector 2 mg SQ Q7D 10/31/20 10/31/20 History Cholecalciferol [Vitamin D3 (25 50 mcg PO PC-BRKFST 10/31/20 10/31/20 History Mcg = 1000 Iu)] Diclofenac Sodium [Voltaren Gel] 1 applic TOPICAL AC-BID 10/31/20 10/31/20 History Empagliflozin [Jardiance] 25 mg PO PC-BRKFST 10/31/20 10/31/20 History Fish Oil/Dha/Epa [Fish Oil 1,200 1 cap PO -BRKFST 10/31/20 10/31/20 History mg Fish Oil] Fluticasone Nasal [place] [Flonase 2 spr EA NOSTRIL DAILY PRN 10/31/20 10/31/20 History Nasal [place]] Guaifenesin/Dextromethorphan 1 tab PO Q12H PRN 10/31/20 10/31/20 History [Mucinex Dm ER 1,200-60 mg Tab] Levothyroxine Sodium [Synthroid] 300 mcg PO AC-BRKFST 10/31/20 10/31/20 History Lipo-Flavonoid Plus 1 tab PO TID 10/31/20 10/31/20 History Magnesium Oxide [Davies] 500 mg PO AC-BID 10/31/20 10/31/20 History Melatonin 5 mg PO HS PRN 10/31/20 10/31/20 History Methocarbamol [Robaxin-750] 750 mg PO QID PRN 10/31/20 10/31/20 History Ahvqpugj-Qyprdjpwol-Djtc Oint 1 applic TOPICAL DAILY PRN 10/31/20 10/31/20 History [Triple Antibiotic Ointment] OLANZapine 7.5 mg PO HS 10/31/20 10/31/20 History Pantoprazole [Protonix] 40 mg PO PC-BRKFST 10/31/20 10/31/20 History Pentoxifylline [TRENtal] 400 mg PO BID 10/31/20 10/31/20 History SILVER sulfADIAZINE Cream 1 - 2 gm TOPICAL DAILY PRN 10/31/20 10/31/20 History [Silvadene 1% Cream] Sildenafil Citrate 50 mg PO DAILY PRN 10/31/20 10/31/20 History Super B Complex W/Vitamin C 1 tab PO PC-BRKFST 10/31/20 10/31/20 History Tamsulosin HCl [Flomax] 0.4 mg PO AC-SUPPER 10/31/20 10/31/20 History Testosterone [Androgel 1.62% Gel 1 pump TOPICAL Q48H 10/31/20 10/31/20 History Pump] Testosterone [Androgel 1.62% Gel 2 pump TOPICAL Q48H 10/31/20 10/31/20 History Pump] Valsartan 320 mg PO PC-BRKFST 10/31/20 10/31/20 History Vitamin E 400 unit PO PC-BRKFST 10/31/20 10/31/20 History carBAMazepine 400 mg PO BID@1800,2100 10/31/20 10/31/20 History carBAMazepine [TEGretol] 200 mg PO PC-BRKFST 10/31/20 10/31/20 History hydroCHLOROthiazide [Hydrodiuril] 25 mg PO AC-BID 10/31/20 10/31/20 History Allergies Allergy/AdvReac Type Severity Reaction Status Date / Time codeine phosphate Allergy Dyspnea Verified 10/31/20 10:09 [From Tylenol-Codeine] levofloxacin [From Levaquin] Allergy Anaphylaxis Verified 10/31/20 10:09 Penicillins Allergy Rash/Hives Verified 10/31/20 10:09 quetiapine Allergy headache Verified 10/31/20 10:09 guaifenesin AdvReac dehydration Verified 10/31/20 10:09 meperidine HCl [From Demerol] AdvReac "altered Verified 10/31/20 10:09 state of mind" olanzapine AdvReac > 7.6 mg Verified 10/31/20 10:09 causes sleepiness phenylephrine AdvReac dehydration Verified 10/31/20 10:09 pseudoephedrine AdvReac Unknown Verified 10/31/20 10:10 [From Entex T] topiramate AdvReac Dehydration Verified 10/31/20 10:09 and Manic wool AdvReac Urticarial Verified 10/31/20 10:09 gin AdvReac Headache Uncoded 10/31/20 10:09 Surgical - Exam Vital Signs Temp Pulse Resp BP Pulse Ox 99.2 F 95 17 111/61 96 10/30/20 20:48 10/30/20 20:48 10/30/20 20:48 10/30/20 20:48 10/30/20 20:48 Results - Labs 10/31/20 05:39 10/31/20 05:39 Abnormal Lab Results - Last 24 Hours (Table) 10/30/20 10/30/20 10/30/20 Range/Units 21:57 21:57 21:57 WBC 11.4 H (3.8-10.6) k/uL RBC (4.30-5.90) m/uL Hgb (13.0-17.5) gm/dL Hct (39.0-53.0) % Neutrophils # 8.7 H (1.3-7.7) k/uL Sodium 136 L (137-145) mmol/L Chloride 93 L (98-107) mmol/L Carbon Dioxide (22-30) mmol/L BUN 38 H (9-20) mg/dL Creatinine 1.39 H (0.66-1.25) mg/dL Glucose 178 H (74-99) mg/dL POC Glucose (mg/dL) (75-99) mg/dL Plasma Lactic Acid Jt 3.5 H* (0.7-2.0) mmol/L ALT 51 H (4-49) U/L 10/31/20 10/31/20 10/31/20 Range/Units 05:39 05:39 07:22 WBC (3.8-10.6) k/uL RBC 4.13 L (4.30-5.90) m/uL Hgb 12.4 L (13.0-17.5) gm/dL Hct 36.8 L (39.0-53.0) % Neutrophils # (1.3-7.7) k/uL Sodium (137-145) mmol/L Chloride 96 L (98-107) mmol/L Carbon Dioxide 32 H (22-30) mmol/L BUN 36 H (9-20) mg/dL Creatinine 1.30 H (0.66-1.25) mg/dL Glucose 147 H (74-99) mg/dL POC Glucose (mg/dL) 136 H (75-99) mg/dL Plasma Lactic Acid Jt (0.7-2.0) mmol/L ALT (4-49) U/L 10/31/20 Range/Units 12:01 WBC (3.8-10.6) k/uL RBC (4.30-5.90) m/uL Hgb (13.0-17.5) gm/dL Hct (39.0-53.0) % Neutrophils # (1.3-7.7) k/uL Sodium (137-145) mmol/L Chloride (98-107) mmol/L Carbon Dioxide (22-30) mmol/L BUN (9-20) mg/dL Creatinine (0.66-1.25) mg/dL Glucose (74-99) mg/dL POC Glucose (mg/dL) 174 H (75-99) mg/dL Plasma Lactic Acid Jt (0.7-2.0) mmol/L ALT (4-49) U/L Diabetes panel 10/30/20 10/31/20 Range/Units 21:57 05:39 Sodium 136 L 137 (137-145) mmol/L Potassium 3.9 3.6 (3.5-5.1) mmol/L Chloride 93 L 96 L (98-107) mmol/L Carbon Dioxide 28 32 H (22-30) mmol/L BUN 38 H 36 H (9-20) mg/dL Creatinine 1.39 H 1.30 H (0.66-1.25) mg/dL Glucose 178 H 147 H (74-99) mg/dL Calcium 9.4 8.4 (8.4-10.2) mg/dL AST 36 (17-59) U/L ALT 51 H (4-49) U/L Alkaline Phosphatase 80 (38-126) U/L Total Protein 7.4 (6.3-8.2) g/dL Albumin 4.0 (3.5-5.0) g/dL Calcium panel 10/30/20 10/31/20 Range/Units 21:57 05:39 Calcium 9.4 8.4 (8.4-10.2) mg/dL Albumin 4.0 (3.5-5.0) g/dL Pituitary panel 10/30/20 10/31/20 Range/Units 21:57 05:39 Sodium 136 L 137 (137-145) mmol/L Potassium 3.9 3.6 (3.5-5.1) mmol/L Chloride 93 L 96 L (98-107) mmol/L Carbon Dioxide 28 32 H (22-30) mmol/L BUN 38 H 36 H (9-20) mg/dL Creatinine 1.39 H 1.30 H (0.66-1.25) mg/dL Glucose 178 H 147 H (74-99) mg/dL Calcium 9.4 8.4 (8.4-10.2) mg/dL Adrenal panel 10/30/20 10/31/20 Range/Units 21:57 05:39 Sodium 136 L 137 (137-145) mmol/L Potassium 3.9 3.6 (3.5-5.1) mmol/L Chloride 93 L 96 L (98-107) mmol/L Carbon Dioxide 28 32 H (22-30) mmol/L BUN 38 H 36 H (9-20) mg/dL Creatinine 1.39 H 1.30 H (0.66-1.25) mg/dL Glucose 178 H 147 H (74-99) mg/dL Calcium 9.4 8.4 (8.4-10.2) mg/dL Total Bilirubin 0.5 (0.2-1.3) mg/dL AST 36 (17-59) U/L ALT 51 H (4-49) U/L Alkaline Phosphatase 80 (38-126) U/L Total Protein 7.4 (6.3-8.2) g/dL Albumin 4.0 (3.5-5.0) g/dL
[2020-10-31] MEDS: VITAMIN E (DL,TOCOPHERYL ACET) 400 UNIT CAP PO SCH (13:14)
[2020-10-31] MEDS: LINAGLIPTIN 5 MG TABLET PO SCH (13:14)
[2020-10-31] MEDS: DICLOFENAC SODIUM GEL 100 GM TUBE TOPICAL SCH ×2 (13:15→17:36)
[2020-10-31] MEDS: CHOLECALCIFEROL 25 MCG (1000 IU) TABLET PO SCH (13:18)
--- NOTE | 2020-10-31 13:19 | P.GSCN ---
History of Present Illness Consult date: 10/31/20 History of present illness: CHIEF COMPLAINT: Infection of the right great toe and second toe HISTORY OF PRESENT ILLNESS: This is a 60-year-old male with a known history of diabetes mellitus. He presents to the emergency room with complaints of worsening infection in his right great toe. He was sent to the emergency room by his crystal flat grinder who advised him to come to the emergency department to get IV antibiotics. Apparently 2 weeks ago patient had the right great toenail removed. And had developed an infection he had been on Keflex and outpatient setting. However, he has had worsening infection in the right great toe and second toe. There is increase in erythema, the toe is fluctuant. There is a yellowish drainage from the bottom portion of the toe. And the second toe is also erythematous. He has no pain but has diabetic neuropathy. He denies any fever, chills or sweats. PAST MEDICAL HISTORY: See list. PAST SURGICAL HISTORY: See list. MEDICATIONS: See list. ALLERGIES: See list. SOCIAL HISTORY: No illicit drug use. REVIEW OF SYSTEMS: CONSTITUTIONAL: Denies fever or chills. HEENT: Denies blurred vision, vision changes, or eye pain. Denies hemoptysis CARDIOVASCULAR: Denies chest pain or pressure. RESPIRATORY: No shortness of breath. GASTROINTESTINAL: See HPI for pertinent findings HEMATOLOGIC: Denies bleeding disorders. GENITOURINARY: Denies any blood in urine or increased urinary frequency. SKIN: Denies pruitis. Denies rash. PHYSICAL EXAM: VITAL SIGNS: Reviewed GENERAL: Well-developed in no acute distress. HEENT: No sclera icterus. Extraocular movements grossly intact. Moist buccal mucosa. Head is atraumatic, normocephalic. No nasal drainage. ABDOMEN: Soft. Nondistended. Nontender NEUROLOGIC: Alert and oriented. Cranial nerves II through XII grossly intact. Extremities: Right great toe has significant erythema and swelling. The toe is fluctuant. There is drainage from an opening on the bottom of the toe that she yellowish in color. The right great toenail has been removed. Second toes also red. He has significant foot swelling as well. No pain with palpation but has diabetic neuropathy LABORATORY DATA: WBC 11.4 down to 9.3 hemoglobin 12.4 creatinine 1.30 lactic 3.5 down to 1.8 A1c pending IMAGING: Right great toe x-ray shows destructive changes in the big toe suggestive of osteomyelitis ASSESSMENT: 1. Osteomyelitis of the right great toe and cellulitis of the second right toe 2. Diabetes mellitus type 2 PLAN: -Continue antibiotics per infectious disease -Recommend vascular surgery consult -Recommend tight control blood sugars -Continue supportive care -Further recommendations forthcoming per surgeon Thank you for this consultation Physician Facilities Maintenance Worker note has been reviewed by physician. Signing provider agrees with the documented findings, assessment, and plan of care. 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 Pt resides with mother and father. He uses a cane to ambulate. He was in [place]. He drives. Smoking Status: Former smoker Past Alcohol Use History: Occasional Additional Past Alcohol Use History / Comment(s): Pt started smoking in 1981 and quit in 2007. He is around 2nd hand smoke. Past Drug Use History: None Reported - Past Family History Father Family Medical History: Coronary Artery Disease (CAD), Diabetes Mellitus Additional Family Medical History / Comment(s): Father has had CABG. He is 79 yrs. old. Mother Family Medical History: Cancer, Diabetes Mellitus Additional Family Medical History / Comment(s): Mother had colon cancer with surgery. She is 75 yrs old. Medications and Allergies Home Medications Medication Instructions Recorded Confirmed Type Betamethasone Dipropionate 1 applic TOPICAL BID PRN 01/22/15 10/31/20 History [Diprolene AF 0.05% Cream] Clotrimazole Cream [Lotrimin Cream] 1 applic TOPICAL BID PRN 01/22/15 10/31/20 History Loratadine [Claritin] 10 mg PO PC-BRKFST 01/22/15 10/31/20 History Metoprolol Tartrate [Lopressor] 50 mg PO AC-BID 01/22/15 10/31/20 History Mupirocin 2% Oint [Bactroban 2% 1 applic TOPICAL HS PRN 01/22/15 10/31/20 History Oint] Nitroglycerin Sl Tabs [Nitrostat] 0.4 mg SL Q5M PRN 01/22/15 10/31/20 History diphenhydrAMINE [Benadryl] 25 - 50 mg PO QID 01/22/15 10/31/20 History metFORMIN HCL 1,000 mg PO AC-BID 01/22/15 10/31/20 History Aspirin 81 mg PO HS 11/24/15 10/31/20 History HYDROcodone/APAP 5-325MG [[place] 1 tab PO QID PRN 11/24/15 10/31/20 History 5-325] Simethicone Chew [Mylicon Chew] 80 mg PO DAILY PRN 11/24/15 10/31/20 History Gabapentin [Neurontin] 300 mg PO BID 07/17/17 10/31/20 History Insulin Degludec [Tresiba 60 unit SQ BID 07/17/17 10/31/20 History Flextouch U-200] Insulin Aspart [NovoLOG Flexpen] See Protocol SQ AC-TID 05/18/18 10/31/20 History Acetaminophen Tab [Tylenol Tab] 500 mg PO QID PRN 10/31/20 10/31/20 History Albuterol Inhaler [Ventolin Hfa 1 puff INHALATION RT-QID PRN 10/31/20 10/31/20 History Inhaler] Albuterol Nebulized [Ventolin 2.5 mg INHALATION RT-QID PRN 10/31/20 10/31/20 History Nebulized] Alogliptin Benzoate [Alogliptin] 25 mg PO PC-BRKFST 10/31/20 10/31/20 History Atorvastatin [Lipitor] 40 mg PO HS 10/31/20 10/31/20 History Bydureon 2mg/0.85ml Auto Injector 2 mg SQ Q7D 10/31/20 10/31/20 History Cholecalciferol [Vitamin D3 (25 50 mcg PO -KT 10/31/20 10/31/20 History Mcg = 1000 Iu)] Diclofenac Sodium [Voltaren Gel] 1 applic TOPICAL AC-BID 10/31/20 10/31/20 History Empagliflozin [Jardiance] 25 mg PO -KT 10/31/20 10/31/20 History Fish Oil/Dha/Epa [Fish Oil 1,200 1 cap PO -[facility] 10/31/20 10/31/20 History mg Fish Oil] Fluticasone Nasal [place] [Flonase 2 spr EA NOSTRIL DAILY PRN 10/31/20 10/31/20 History Nasal [place]] Guaifenesin/Dextromethorphan 1 tab PO Q12H PRN 10/31/20 10/31/20 History [Mucinex Dm ER 1,200-60 mg Tab] Levothyroxine Sodium [Synthroid] 300 mcg PO AC-KT 10/31/20 10/31/20 History Lipo-Flavonoid Plus 1 tab PO TID 10/31/20 10/31/20 History Magnesium Oxide [[place]] 500 mg PO AC-BID 10/31/20 10/31/20 History Melatonin 5 mg PO HS PRN 10/31/20 10/31/20 History Methocarbamol [Robaxin-750] 750 mg PO QID PRN 10/31/20 10/31/20 History Dpirxvyo-Dajmpnwirk-Vwjl Oint 1 applic TOPICAL DAILY PRN 10/31/20 10/31/20 History [Triple Antibiotic Ointment] OLANZapine 7.5 mg PO HS 10/31/20 10/31/20 History Pantoprazole [Protonix] 40 mg PO -BRKFST 10/31/20 10/31/20 History Pentoxifylline [TRENtal] 400 mg PO BID 10/31/20 10/31/20 History SILVER sulfADIAZINE Cream 1 - 2 gm TOPICAL DAILY PRN 10/31/20 10/31/20 History [Silvadene 1% Cream] Sildenafil Citrate 50 mg PO DAILY PRN 10/31/20 10/31/20 History Super B Complex W/Vitamin C 1 tab PO PC-BRKFST 10/31/20 10/31/20 History Tamsulosin HCl [Flomax] 0.4 mg PO AC-SUPPER 10/31/20 10/31/20 History Testosterone [Androgel 1.62% Gel 1 pump TOPICAL Q48H 10/31/20 10/31/20 History Pump] Testosterone [[place] 1.62% Gel 2 pump TOPICAL Q48H 10/31/20 10/31/20 History Pump] Valsartan 320 mg PO PC-BRKFST 10/31/20 10/31/20 History Vitamin E 400 unit PO PC-BRKFST 10/31/20 10/31/20 History carBAMazepine 400 mg PO BID@1800,2100 10/31/20 10/31/20 History carBAMazepine [TEGretol] 200 mg PO PC-BRKFST 10/31/20 10/31/20 History hydroCHLOROthiazide [Hydrodiuril] 25 mg PO AC-BID 10/31/20 10/31/20 History Allergies Allergy/AdvReac Type Severity Reaction Status Date / Time codeine phosphate Allergy Dyspnea Verified 10/31/20 10:09 [From Tylenol-Codeine] levofloxacin [From Levaquin] Allergy Anaphylaxis Verified 10/31/20 10:09 Penicillins Allergy Rash/Hives Verified 10/31/20 10:09 quetiapine Allergy headache Verified 10/31/20 10:09 guaifenesin AdvReac dehydration Verified 10/31/20 10:09 meperidine HCl [From Demerol] AdvReac "altered Verified 10/31/20 10:09 state of mind" olanzapine AdvReac > 7.6 mg Verified 10/31/20 10:09 causes sleepiness phenylephrine AdvReac dehydration Verified 10/31/20 10:09 pseudoephedrine AdvReac Unknown Verified 10/31/20 10:10 [From Entex T] topiramate AdvReac Dehydration Verified 10/31/20 10:09 and Manic wool AdvReac Urticarial Verified 10/31/20 10:09 gin AdvReac Headache Uncoded 10/31/20 10:09 Surgical - Exam Vital Signs Temp Pulse Resp BP Pulse Ox 99.2 F 95 17 111/61 96 10/30/20 20:48 10/30/20 20:48 10/30/20 20:48 10/30/20 20:48 10/30/20 20:48 Results - Labs 10/31/20 05:39 10/31/20 05:39 Abnormal Lab Results - Last 24 Hours (Table) 10/30/20 10/30/20 10/30/20 Range/Units 21:57 21:57 21:57 WBC 11.4 H (3.8-10.6) k/uL RBC (4.30-5.90) m/uL Hgb (13.0-17.5) gm/dL Hct (39.0-53.0) % Neutrophils # 8.7 H (1.3-7.7) k/uL Sodium 136 L (137-145) mmol/L Chloride 93 L (98-107) mmol/L Carbon Dioxide (22-30) mmol/L BUN 38 H (9-20) mg/dL Creatinine 1.39 H (0.66-1.25) mg/dL Glucose 178 H (74-99) mg/dL POC Glucose (mg/dL) (75-99) mg/dL Plasma Lactic Acid Jt 3.5 H* (0.7-2.0) mmol/L ALT 51 H (4-49) U/L 10/31/20 10/31/20 10/31/20 Range/Units 05:39 05:39 07:22 WBC (3.8-10.6) k/uL RBC 4.13 L (4.30-5.90) m/uL Hgb 12.4 L (13.0-17.5) gm/dL Hct 36.8 L (39.0-53.0) % Neutrophils # (1.3-7.7) k/uL Sodium (137-145) mmol/L Chloride 96 L (98-107) mmol/L Carbon Dioxide 32 H (22-30) mmol/L BUN 36 H (9-20) mg/dL Creatinine 1.30 H (0.66-1.25) mg/dL Glucose 147 H (74-99) mg/dL POC Glucose (mg/dL) 136 H (75-99) mg/dL Plasma Lactic Acid Jt (0.7-2.0) mmol/L ALT (4-49) U/L 10/31/20 Range/Units 12:01 WBC (3.8-10.6) k/uL RBC (4.30-5.90) m/uL Hgb (13.0-17.5) gm/dL Hct (39.0-53.0) % Neutrophils # (1.3-7.7) k/uL Sodium (137-145) mmol/L Chloride (98-107) mmol/L Carbon Dioxide (22-30) mmol/L BUN (9-20) mg/dL Creatinine (0.66-1.25) mg/dL Glucose (74-99) mg/dL POC Glucose (mg/dL) 174 H (75-99) mg/dL Plasma Lactic Acid Jt (0.7-2.0) mmol/L ALT (4-49) U/L Diabetes panel 10/30/20 10/31/20 Range/Units 21:57 05:39 Sodium 136 L 137 (137-145) mmol/L Potassium 3.9 3.6 (3.5-5.1) mmol/L Chloride 93 L 96 L (98-107) mmol/L Carbon Dioxide 28 32 H (22-30) mmol/L BUN 38 H 36 H (9-20) mg/dL Creatinine 1.39 H 1.30 H (0.66-1.25) mg/dL Glucose 178 H 147 H (74-99) mg/dL Calcium 9.4 8.4 (8.4-10.2) mg/dL AST 36 (17-59) U/L ALT 51 H (4-49) U/L Alkaline Phosphatase 80 (38-126) U/L Total Protein 7.4 (6.3-8.2) g/dL Albumin 4.0 (3.5-5.0) g/dL Calcium panel 10/30/20 10/31/20 Range/Units 21:57 05:39 Calcium 9.4 8.4 (8.4-10.2) mg/dL Albumin 4.0 (3.5-5.0) g/dL Pituitary panel 10/30/20 10/31/20 Range/Units 21:57 05:39 Sodium 136 L 137 (137-145) mmol/L Potassium 3.9 3.6 (3.5-5.1) mmol/L Chloride 93 L 96 L (98-107) mmol/L Carbon Dioxide 28 32 H (22-30) mmol/L BUN 38 H 36 H (9-20) mg/dL Creatinine 1.39 H 1.30 H (0.66-1.25) mg/dL Glucose 178 H 147 H (74-99) mg/dL Calcium 9.4 8.4 (8.4-10.2) mg/dL Adrenal panel 10/30/20 10/31/20 Range/Units 21:57 05:39 Sodium 136 L 137 (137-145) mmol/L Potassium 3.9 3.6 (3.5-5.1) mmol/L Chloride 93 L 96 L (98-107) mmol/L Carbon Dioxide 28 32 H (22-30) mmol/L BUN 38 H 36 H (9-20) mg/dL Creatinine 1.39 H 1.30 H (0.66-1.25) mg/dL Glucose 178 H 147 H (74-99) mg/dL Calcium 9.4 8.4 (8.4-10.2) mg/dL Total Bilirubin 0.5 (0.2-1.3) mg/dL AST 36 (17-59) U/L ALT 51 H (4-49) U/L Alkaline Phosphatase 80 (38-126) U/L Total Protein 7.4 (6.3-8.2) g/dL Albumin 4.0 (3.5-5.0) g/dL
[2020-10-31 14:06] VITALS: BMI 40.8
[2020-10-31] MEDS: VANCOMYCIN 2,000 MG in SODIUM CHLORIDE 0.9% 500 ML 500 ML IVPB SCH (16:26)
--- NOTE | 2020-10-31 16:36 | P.CONS ---
History of Present Illness - Reason for Consult Consult date: 10/31/20 Right big toeOsteomyelitis Requesting physician: Velvet Dixon - Chief Complaint Right big toe infection x weeks - History of Present Illness Patient is a 60-year-old male with past medical history significant for diabetes mellitus in this patient did have a extraction of the right big toe nail by his documentation nurse patient seemed to have a problem with nonhealing swelling and redness of the right big toe for the last 2 weeks, patient has been treated with an antibiotic by mouth with the patient was taking 3 times a day again The Patient Did Not Remember the Name of That Capsule, Which Apparently Did Have a X-Ray Done at His Guest Services Manager Office and Was Told There Is Infection in the Morning and Advised to Go to the Hospital for IV Antibiotic Therapy, patient denies having any fever or any chills, patient did complain of pain to the right big toe to be more of a throbbing in nature 6-7 out of 10 and no radiation with associated swelling redness and did have mild drainage no foul-smelling though patient was evaluated by the ER physician on arrival to the ER the patient did have low-grade fever of 99.4 white count mildly elevated at 11.4, lactic acid wa s elevated patient did have x-rays of the right foot with evidence of destructive changes in the big toe suggestive of ostial myelitis patient was admitted to the hospital infectious disease was consulted for further management of antibiotic therapy Review of Systems Positive point has been mentioned in the HPI rest of the systems are negative 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, obesity History of Any Multi-Drug Resistant Organisms: None Reported Past Surgical History: Joint Replacement, Tonsillectomy Additional Past Surgical History / Comment(s): L total knee arthroplasty, stephani eye surgery, thyroidectomy Past Anesthesia/Blood Transfusion Reactions: No Reported Reaction Additional Past Anesthesia/Blood Transfusion Reaction / Comm: had reaction to drainage tube-"had to be knocked out-woke up swinging" Past Psychological History: ADD/ADHD, Anxiety, Bipolar, Depression, PTSD Additional Psychological History / Comment(s): implusive control disorder. Pt resides with mother and father. He uses a cane to ambulate. He was in [place]. He drives. Smoking Status: Former smoker Past Alcohol Use History: Occasional Additional Past Alcohol Use History / Comment(s): Pt started smoking in 1981 and quit in 2007. He is around 2nd hand smoke. Past Drug Use History: None Reported - Past Family History Father Family Medical History: Coronary Artery Disease (CAD), Diabetes Mellitus Additional Family Medical History / Comment(s): Father has had CABG. He is 79 yrs. old. Mother Family Medical History: Cancer, Diabetes Mellitus Additional Family Medical History / Comment(s): Mother had colon cancer with surgery. She is 75 yrs old. Medications and Allergies Home Medications Medication Instructions Recorded Confirmed Type Betamethasone Dipropionate 1 applic TOPICAL BID PRN 01/22/15 10/31/20 History [Diprolene AF 0.05% Cream] Clotrimazole Cream [Lotrimin Cream] 1 applic TOPICAL BID PRN 01/22/15 10/31/20 History Loratadine [Claritin] 10 mg PO PC-BRKFST 01/22/15 10/31/20 History Metoprolol Tartrate [Lopressor] 50 mg PO AC-BID 01/22/15 10/31/20 History Mupirocin 2% Oint [Bactroban 2% 1 applic TOPICAL HS PRN 01/22/15 10/31/20 History Oint] Nitroglycerin Sl Tabs [Nitrostat] 0.4 mg SL Q5M PRN 01/22/15 10/31/20 History diphenhydrAMINE [Benadryl] 25 - 50 mg PO QID 01/22/15 10/31/20 History metFORMIN HCL 1,000 mg PO AC-BID 01/22/15 10/31/20 History Aspirin 81 mg PO HS 11/24/15 10/31/20 History HYDROcodone/APAP 5-325MG [[place] 1 tab PO QID PRN 11/24/15 10/31/20 History 5-325] Simethicone Chew [Mylicon Chew] 80 mg PO DAILY PRN 11/24/15 10/31/20 History Gabapentin [Neurontin] 300 mg PO BID 07/17/17 10/31/20 History Insulin Degludec [Tresiba 60 unit SQ BID 07/17/17 10/31/20 History Flextouch U-200] Insulin Aspart [NovoLOG Flexpen] See Protocol SQ AC-TID 05/18/18 10/31/20 History Acetaminophen Tab [Tylenol Tab] 500 mg PO QID PRN 10/31/20 10/31/20 History Albuterol Inhaler [Ventolin Hfa 1 puff INHALATION RT-QID PRN 10/31/20 10/31/20 History Inhaler] Albuterol Nebulized [Ventolin 2.5 mg INHALATION RT-QID PRN 10/31/20 10/31/20 History Nebulized] Alogliptin Benzoate [Alogliptin] 25 mg PO PC-BRKFST 10/31/20 10/31/20 History Atorvastatin [Lipitor] 40 mg PO HS 10/31/20 10/31/20 History Bydureon 2mg/0.85ml Auto Injector 2 mg SQ Q7D 10/31/20 10/31/20 History Cholecalciferol [Vitamin D3 (25 50 mcg PO PC-BRKFST 10/31/20 10/31/20 History Mcg = 1000 Iu)] Diclofenac Sodium [Voltaren Gel] 1 applic TOPICAL AC-BID 10/31/20 10/31/20 History Empagliflozin [Jardiance] 25 mg PO PC-BRKFST 10/31/20 10/31/20 History Fish Oil/Dha/Epa [Fish Oil 1,200 1 cap PO PC-BRKFST 10/31/20 10/31/20 History mg Fish Oil] Fluticasone Nasal [place] [Flonase 2 spr EA NOSTRIL DAILY PRN 10/31/20 10/31/20 History Nasal [place]] Guaifenesin/Dextromethorphan 1 tab PO Q12H PRN 10/31/20 10/31/20 History [Mucinex Dm ER 1,200-60 mg Tab] Levothyroxine Sodium [Synthroid] 300 mcg PO AC-BRKFST 10/31/20 10/31/20 History Lipo-Flavonoid Plus 1 tab PO TID 10/31/20 10/31/20 History Magnesium Oxide [Davies] 500 mg PO AC-BID 10/31/20 10/31/20 History Melatonin 5 mg PO HS PRN 10/31/20 10/31/20 History Methocarbamol [Robaxin-750] 750 mg PO QID PRN 10/31/20 10/31/20 History Zbluyqmm-Eumqrpxfrz-Nnwk Oint 1 applic TOPICAL DAILY PRN 10/31/20 10/31/20 History [Triple Antibiotic Ointment] OLANZapine 7.5 mg PO HS 10/31/20 10/31/20 History Pantoprazole [Protonix] 40 mg PO PC-BRKFST 10/31/20 10/31/20 History Pentoxifylline [TRENtal] 400 mg PO BID 10/31/20 10/31/20 History SILVER sulfADIAZINE Cream 1 - 2 gm TOPICAL DAILY PRN 10/31/20 10/31/20 History [Silvadene 1% Cream] Sildenafil Citrate 50 mg PO DAILY PRN 10/31/20 10/31/20 History Super B Complex W/Vitamin C 1 tab PO PC-BRKFST 10/31/20 10/31/20 History Tamsulosin HCl [Flomax] 0.4 mg PO AC-SUPPER 10/31/20 10/31/20 History Testosterone [Androgel 1.62% Gel 1 pump TOPICAL Q48H 10/31/20 10/31/20 History Pump] Testosterone [Androgel 1.62% Gel 2 pump TOPICAL Q48H 10/31/20 10/31/20 History Pump] Valsartan 320 mg PO PC-BRKFST 10/31/20 10/31/20 History Vitamin E 400 unit PO PC-BRKFST 10/31/20 10/31/20 History carBAMazepine 400 mg PO BID@1800,2100 10/31/20 10/31/20 History carBAMazepine [TEGretol] 200 mg PO PC-BRKFST 10/31/20 10/31/20 History hydroCHLOROthiazide [Hydrodiuril] 25 mg PO AC-BID 10/31/20 10/31/20 History Allergies Allergy/AdvReac Type Severity Reaction Status Date / Time codeine phosphate Allergy Dyspnea Verified 10/31/20 10:09 [From Tylenol-Codeine] levofloxacin [From Levaquin] Allergy Anaphylaxis Verified 10/31/20 10:09 Penicillins Allergy Rash/Hives Verified 10/31/20 10:09 quetiapine Allergy headache Verified 10/31/20 10:09 guaifenesin AdvReac dehydration Verified 10/31/20 10:09 meperidine HCl [From Demerol] AdvReac "altered Verified 10/31/20 10:09 state of mind" olanzapine AdvReac > 7.6 mg Verified 10/31/20 10:09 causes sleepiness phenylephrine AdvReac dehydration Verified 10/31/20 10:09 pseudoephedrine AdvReac Unknown Verified 10/31/20 10:10 [From Entex T] topiramate AdvReac Dehydration Verified 10/31/20 10:09 and Manic wool AdvReac Urticarial Verified 10/31/20 10:09 gin AdvReac Headache Uncoded 10/31/20 10:09 Physical Exam Vitals: Vital Signs Temp Pulse Pulse Resp BP BP Pulse Ox 10/31/20 12:02 98.6 F 72 18 109/74 94 L 10/31/20 08:00 72 18 10/31/20 04:58 98 F 77 18 117/66 96 10/31/20 00:35 83 16 117/73 10/30/20 22:00 82 16 112/70 97 10/30/20 20:48 99.2 F 95 17 111/61 96 Intake and Output 10/31/20 10/31/20 10/31/20 06:59 14:59 22:59 Other: Voiding Method Toilet # Voids 1 Weight 122.016 kg GENERAL DESCRIPTION: Middle-aged male lying in bed, no distress. No tachypnea or accessory muscle of respiration use. HEENT: Shows Pallor , no scleral icterus. Oral mucous membrane is dry. No pharyngeal erythema or thrush NECK: Trachea central, no thyromegaly. LUNGS: Unlabored breathing. Clear to auscultation anteriorly. No wheeze or crackle. HEART: S1, S2, regular rate and rhythm. No loud murmur ABDOMEN: Soft, no tenderness , guarding or rigidity, no organomegaly EXTREMITIES: Right big toe did have swelling redness crepitus purulent drainage SKIN: No rash, no masses palpable. NEUROLOGICAL: The patient is awake, alert, oriented x3, mood and affect normal. Results CBC & Chem 7: 10/31/20 05:39 10/31/20 05:39 Labs: Abnormal Lab Results - Last 24 Hours (Table) 10/30/20 10/30/20 10/30/20 Range/Units 21:57 21:57 21:57 WBC 11.4 H (3.8-10.6) k/uL RBC (4.30-5.90) m/uL Hgb (13.0-17.5) gm/dL Hct (39.0-53.0) % Neutrophils # 8.7 H (1.3-7.7) k/uL Sodium 136 L (137-145) mmol/L Chloride 93 L (98-107) mmol/L Carbon Dioxide (22-30) mmol/L BUN 38 H (9-20) mg/dL Creatinine 1.39 H (0.66-1.25) mg/dL Glucose 178 H (74-99) mg/dL POC Glucose (mg/dL) (75-99) mg/dL Plasma Lactic Acid Jt 3.5 H* (0.7-2.0) mmol/L ALT 51 H (4-49) U/L 10/31/20 10/31/20 10/31/20 Range/Units 05:39 05:39 07:22 WBC (3.8-10.6) k/uL RBC 4.13 L (4.30-5.90) m/uL Hgb 12.4 L (13.0-17.5) gm/dL Hct 36.8 L (39.0-53.0) % Neutrophils # (1.3-7.7) k/uL Sodium (137-145) mmol/L Chloride 96 L (98-107) mmol/L Carbon Dioxide 32 H (22-30) mmol/L BUN 36 H (9-20) mg/dL Creatinine 1.30 H (0.66-1.25) mg/dL Glucose 147 H (74-99) mg/dL POC Glucose (mg/dL) 136 H (75-99) mg/dL Plasma Lactic Acid Jt (0.7-2.0) mmol/L ALT (4-49) U/L 10/31/20 Range/Units 12:01 WBC (3.8-10.6) k/uL RBC (4.30-5.90) m/uL Hgb (13.0-17.5) gm/dL Hct (39.0-53.0) % Neutrophils # (1.3-7.7) k/uL Sodium (137-145) mmol/L Chloride (98-107) mmol/L Carbon Dioxide (22-30) mmol/L BUN (9-20) mg/dL Creatinine (0.66-1.25) mg/dL Glucose (74-99) mg/dL POC Glucose (mg/dL) 174 H (75-99) mg/dL Plasma Lactic Acid Jt (0.7-2.0) mmol/L ALT (4-49) U/L Assessment and Plan Assessment: 1- patient presented to hospital with a right big toe pain swelling and redness started after he did have extension of the toenail by his documentation nurse more than 2 weeks ago failing outpatient oral antibiotic therapy with evidence of destructive changes on the x-ray representing acute osteomyelitis in this patient with underlying diabetes mellitus 2-Patient with multiple antibiotic ALLERGIES that would limit the number of antibiotic safe to use (1) Osteomyelitis of toe of right foot Current Visit: Yes Status: Acute Code(s): M86.9 - OSTEOMYELITIS, UNSPECIFIED SNOMED Code(s): 550638010 Plan: 1-Vancomycin pharmacy to dose target trough of 15 while watching kidney function and Vanco trough closely 2-cefepime 2 g every 12 hours 3-await possible amputation and deep cultures per vascular surgery We will follow on clinical condition and cultures to further adjust medication if needed Thank you for this consultation will follow this patient with you Time with Patient: Greater than 30
[2020-10-31 17:00] LABS: Glucose,Whole Blood 147 mg/dL (75-99)
[2020-10-31] MEDS: MAGNESIUM OXIDE 400 MG TAB PO SCH (17:35)
[2020-10-31] MEDS: carBAMazepine 200 MG TAB PO SCH ×2 (17:36→21:30)
[2020-10-31] MEDS: TAMSULOSIN 0.4 MG CAP.ER.24H PO SCH (17:36)
[2020-10-31 20:53] LABS: Glucose,Whole Blood 199 mg/dL (75-99)
[2020-10-31 20:55] LABS: Glucose,Whole Blood 184 mg/dL (75-99)
[2020-10-31] MEDS ORDERED: MELATONIN 5 MG TABLET PO PRN (21:00)
[2020-10-31] MEDS ORDERED: GABAPENTIN 300 MG CAP PO SCH (21:00)
[2020-10-31] MEDS ORDERED: INSULIN DETEMIR (LEVEMIR) 100 UNIT/ML SYR SQ SCH (21:00)
[2020-10-31] MEDS: OLANZapine 7.5 MG TAB PO SCH (21:29)
[2020-10-31] MEDS: HYDROcodone/APAP 5-325MG 1 EACH TAB PO PRN (21:29)
[2020-10-31] MEDS: PENTOXIFYLLINE 400 MG TABLET.ER PO SCH (21:30)
[2020-10-31] MEDS: ATORVASTATIN 40 MG TAB PO SCH (21:30)
--- NOTE | 2020-10-31 22:40 | P.HPIM ---
History of Present Illness H&P Date: 10/31/20 Chief Complaint: foot infection Patient is a 60-year-old male with a known history of diabetes type 2 insulin- dependent, morbid obesity BMI 40.9, hypertension, hyperlipidemia, osteoarthritis, obstructive sleep apnea on CPAP at home, hypothyroidism and degenerative disc disease and chronic back pain, anxiety, bipolar disorder and PTSD and multiple other medical problems presents to ER due to complaints of right great toe infection. Patient was seen by his baby attendant yesterday and was advised to go to ER for IV antibiotics. Patient has been having pain, redness and swelling of the great toe for the past 1 to 2 days. Patient is also having purulent discharge on the plantar surface of the great toe. Patient does have diabetic neuropathy and has limited sensation in his lower extremities. Patient denied any complaints of fever. Did have some chills at home. No complaints of chest pain or shortness of breath. There is no dysuria or hematuria. Lab data showed WBC 11.4, hemoglobin 13.4 and platelets 345 Sodium 136 potassium 3.9 chloride 93 BUN 38 and creatinine 1.39 and lactic acid level 3.5 and coronavirus PCR not detected X-ray of the toe showed destructive changes in the big toe suggestive of osteomyelitis. Review of Systems Constitutional: Patient denies any fever . + chills . No generalized weakness or weight loss. Abdomen: Patient denied nausea vomiting and diarrhea and abdominal pain. Cardiovascular: Patient denies any chest pain or short of breath no palpitations. Respiratory: patient denied any cough or sputum production. No shortness of breath Neurologic: Patient denied any numbness or tingling headache. Musculoskeletal: Patient denies any complaints of joint swelling or deformity.Right toe swelling and redness and pain. Skin: Negative Psychiatric: Negative Endocrine: No heat or cold intolerance. No recent weight gain. Genitourinary: No dysuria or hematuria. 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, obesity History of Any Multi-Drug Resistant Organisms: None Reported Past Surgical History: Joint Replacement, Tonsillectomy Additional Past Surgical History / Comment(s): L total knee arthroplasty, stephani eye surgery, thyroidectomy Past Anesthesia/Blood Transfusion Reactions: No Reported Reaction Additional Past Anesthesia/Blood Transfusion Reaction / Comment(s): had reaction to drainage tube-"had to be knocked out-woke up swinging" Past Psychological History: ADD/ADHD, Anxiety, Bipolar, Depression, PTSD Additional Psychological History / Comment(s): implusive control disorder. Pt resides with mother and father. He uses a cane to ambulate. He was in [place]. He drives. Smoking Status: Former smoker Past Alcohol Use History: Occasional Additional Past Alcohol Use History / Comment(s): Pt started smoking in 1981 and quit in 2007. He is around 2nd hand smoke. Past Drug Use History: None Reported - Past Family History Father Family Medical History: Coronary Artery Disease (CAD), Diabetes Mellitus Additional Family Medical History / Comment(s): Father has had CABG. He is 79 yrs. old. Mother Family Medical History: Cancer, Diabetes Mellitus Additional Family Medical History / Comment(s): Mother had colon cancer with surgery. She is 75 yrs old. Medications and Allergies Home Medications Medication Instructions Recorded Confirmed Type Betamethasone Dipropionate 1 applic TOPICAL BID PRN 01/22/15 10/31/20 History [Diprolene AF 0.05% Cream] Clotrimazole Cream [Lotrimin Cream] 1 applic TOPICAL BID PRN 01/22/15 10/31/20 History Loratadine [Claritin] 10 mg PO PC-BRKFST 01/22/15 10/31/20 History Metoprolol Tartrate [Lopressor] 50 mg PO AC-BID 01/22/15 10/31/20 History Mupirocin 2% Oint [Bactroban 2% 1 applic TOPICAL HS PRN 01/22/15 10/31/20 History Oint] Nitroglycerin Sl Tabs [Nitrostat] 0.4 mg SL Q5M PRN 01/22/15 10/31/20 History diphenhydrAMINE [Benadryl] 25 - 50 mg PO QID 01/22/15 10/31/20 History metFORMIN HCL 1,000 mg PO AC-BID 01/22/15 10/31/20 History Aspirin 81 mg PO HS 11/24/15 10/31/20 History HYDROcodone/APAP 5-325MG [[place] 1 tab PO QID PRN 11/24/15 10/31/20 History 5-325] Simethicone Chew [Mylicon Chew] 80 mg PO DAILY PRN 11/24/15 10/31/20 History Gabapentin [Neurontin] 300 mg PO BID 07/17/17 10/31/20 History Insulin Degludec [Tresiba 60 unit SQ BID 07/17/17 10/31/20 History Flextouch U-200] Insulin Aspart [NovoLOG Flexpen] See Protocol SQ AC-TID 05/18/18 10/31/20 History Acetaminophen Tab [Tylenol Tab] 500 mg PO QID PRN 10/31/20 10/31/20 History Albuterol Inhaler [Ventolin Hfa 1 puff INHALATION RT-QID PRN 10/31/20 10/31/20 History Inhaler] Albuterol Nebulized [Ventolin 2.5 mg INHALATION RT-QID PRN 10/31/20 10/31/20 History Nebulized] Alogliptin Benzoate [Alogliptin] 25 mg PO PC-BRKFST 10/31/20 10/31/20 History Atorvastatin [Lipitor] 40 mg PO HS 10/31/20 10/31/20 History Bydureon 2mg/0.85ml Auto Injector 2 mg SQ Q7D 10/31/20 10/31/20 History Cholecalciferol [Vitamin D3 (25 50 mcg PO PC-BRKFST 10/31/20 10/31/20 History Mcg = 1000 Iu)] Diclofenac Sodium [Voltaren Gel] 1 applic TOPICAL AC-BID 10/31/20 10/31/20 History Empagliflozin [Jardiance] 25 mg PO PC-BRKFST 10/31/20 10/31/20 History Fish Oil/Dha/Epa [Fish Oil 1,200 1 cap PO PC-BRKFST 10/31/20 10/31/20 History mg Fish Oil] Fluticasone Nasal [place] [Flonase 2 spr EA NOSTRIL DAILY PRN 10/31/20 10/31/20 History Nasal [place]] Guaifenesin/Dextromethorphan 1 tab PO Q12H PRN 10/31/20 10/31/20 History [Mucinex Dm ER 1,200-60 mg Tab] Levothyroxine Sodium [Synthroid] 300 mcg PO AC-BRKFST 10/31/20 10/31/20 History Lipo-Flavonoid Plus 1 tab PO TID 10/31/20 10/31/20 History Magnesium Oxide [[place]ies] 500 mg PO AC-BID 10/31/20 10/31/20 History Melatonin 5 mg PO HS PRN 10/31/20 10/31/20 History Methocarbamol [Robaxin-750] 750 mg PO QID PRN 10/31/20 10/31/20 History Axklwisr-Gclmdblfla-Jzql Oint 1 applic TOPICAL DAILY PRN 10/31/20 10/31/20 History [Triple Antibiotic Ointment] OLANZapine 7.5 mg PO HS 10/31/20 10/31/20 History Pantoprazole [Protonix] 40 mg PO PC-BRKFST 10/31/20 10/31/20 History Pentoxifylline [TRENtal] 400 mg PO BID 10/31/20 10/31/20 History SILVER sulfADIAZINE Cream 1 - 2 gm TOPICAL DAILY PRN 10/31/20 10/31/20 History [Silvadene 1% Cream] Sildenafil Citrate 50 mg PO DAILY PRN 10/31/20 10/31/20 History Super B Complex W/Vitamin C 1 tab PO PC-BRKFST 10/31/20 10/31/20 History Tamsulosin HCl [Flomax] 0.4 mg PO AC-SUPPER 10/31/20 10/31/20 History Testosterone [Androgel 1.62% Gel 1 pump TOPICAL Q48H 10/31/20 10/31/20 History Pump] Testosterone [Androgel 1.62% Gel 2 pump TOPICAL Q48H 10/31/20 10/31/20 History Pump] Valsartan 320 mg PO PC-BRKFST 10/31/20 10/31/20 History Vitamin E 400 unit PO PC-BRKFST 10/31/20 10/31/20 History carBAMazepine 400 mg PO BID@1800,2100 10/31/20 10/31/20 History carBAMazepine [TEGretol] 200 mg PO PC-BRKFST 10/31/20 10/31/20 History hydroCHLOROthiazide [Hydrodiuril] 25 mg PO AC-BID 10/31/20 10/31/20 History Allergies Allergy/AdvReac Type Severity Reaction Status Date / Time codeine phosphate Allergy Dyspnea Verified 10/31/20 10:09 [From Tylenol-Codeine] levofloxacin [From Levaquin] Allergy Anaphylaxis Verified 10/31/20 10:09 Penicillins Allergy Rash/Hives Verified 10/31/20 10:09 quetiapine Allergy headache Verified 10/31/20 10:09 guaifenesin AdvReac dehydration Verified 10/31/20 10:09 meperidine HCl [From Demerol] AdvReac "altered Verified 10/31/20 10:09 state of mind" olanzapine AdvReac > 7.6 mg Verified 10/31/20 10:09 causes sleepiness phenylephrine AdvReac dehydration Verified 10/31/20 10:09 pseudoephedrine AdvReac Unknown Verified 10/31/20 10:10 [From Entex T] topiramate AdvReac Dehydration Verified 10/31/20 10:09 and Manic wool AdvReac Urticarial Verified 10/31/20 10:09 gin AdvReac Headache Uncoded 10/31/20 10:09 Physical Exam Vitals: Vital Signs Temp Pulse Pulse Resp BP BP Pulse Ox 10/31/20 04:58 98 F 77 18 117/66 96 10/31/20 00:35 83 16 117/73 10/30/20 22:00 82 16 112/70 97 10/30/20 20:48 99.2 F 95 17 111/61 96 Intake and Output 10/30/20 10/31/20 10/31/20 22:59 06:59 14:59 Other: Weight 122.016 kg PHYSICAL EXAMINATION: Patient is lying in the bed comfortably, no acute distress, awake alert and oriented.obese. HEENT: Normocephalic. Neck is supple. Pupils reactive. Nostrils clear. Oral cavity is moist. Ears reveal no drainage. Neck reveals no JVD, carotid bruits, or thyromegaly. CHEST EXAMINATION: Trachea is central. Symmetrical expansion. Lung wolf clear to auscultation and percussion. CARDIAC: Normal S1, S2 with no gallops. No murmurs ABDOMEN: Soft. Bowel sounds normal. No organomegaly. No abdominal bruits. Extremities: reveal no edema. No clubbing or cyanosis Right toe swelling redness and chronic lower extremity brawny skin discol oration. Following discharge from the right great toe plantar surface. Neurologically awake, alert, oriented x3 with well-coordinated movements. No focal deficits noted Skin: No rash or skin lesions. Psychiatric: Coperative. Nonsuicidal Musculoskeletal: No joint swelling or deformity. Normal range of motion. Results CBC & Chem 7: 10/31/20 05:39 10/31/20 05:39 Labs: Abnormal Lab Results - Last 24 Hours (Table) 10/30/20 10/30/20 10/30/20 Range/Units 21:57 21:57 21:57 WBC 11.4 H (3.8-10.6) k/uL RBC (4.30-5.90) m/uL Hgb (13.0-17.5) gm/dL Hct (39.0-53.0) % Neutrophils # 8.7 H (1.3-7.7) k/uL Sodium 136 L (137-145) mmol/L Chloride 93 L (98-107) mmol/L Carbon Dioxide (22-30) mmol/L BUN 38 H (9-20) mg/dL Creatinine 1.39 H (0.66-1.25) mg/dL Glucose 178 H (74-99) mg/dL POC Glucose (mg/dL) (75-99) mg/dL Plasma Lactic Acid Jt 3.5 H* (0.7-2.0) mmol/L ALT 51 H (4-49) U/L 10/31/20 10/31/20 10/31/20 Range/Units 05:39 05:39 07:22 WBC (3.8-10.6) k/uL RBC 4.13 L (4.30-5.90) m/uL Hgb 12.4 L (13.0-17.5) gm/dL Hct 36.8 L (39.0-53.0) % Neutrophils # (1.3-7.7) k/uL Sodium (137-145) mmol/L Chloride 96 L (98-107) mmol/L Carbon Dioxide 32 H (22-30) mmol/L BUN 36 H (9-20) mg/dL Creatinine 1.30 H (0.66-1.25) mg/dL Glucose 147 H (74-99) mg/dL POC Glucose (mg/dL) 136 H (75-99) mg/dL Plasma Lactic Acid Jt (0.7-2.0) mmol/L ALT (4-49) U/L Thrombosis Risk Factor Assmnt - DVT/VTE Prophylaxis DVT/VTE Prophylaxis: Pharmacologic Prophylaxis ordered - Choose All That Apply Any of the Below Risk Factors Present?: Yes Each Factor Represents 1 point: Age 41-60 years, Obesity (BMI >25), Swollen legs (current) Other Risk Factors: No Other congenital or acquired thrombophilia - If yes, enter type in comment: No Thrombosis Risk Factor Assessment Total Risk Factor Score: 3 Thrombosis Risk Factor Assessment Level: Moderate Risk Assessment and Plan Assessment: Right great toe diabetic foot infection. Failed outpatient antibiotic therapy. Possible acute osteomyelitis of the great toe Lactic acidosis Acute kidney injury likely prerenal. 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 Diabetic peripheral neuropathy DVT prophylaxis with heparin subcu Plan: Patient will be continued IV hydration with normal saline and broad-spectrum antibiotics in the form of vancomycin and cefepime. Follow-up blood cultures and continue with wound care. Vascular surgery and ID and general surgery was consulted. Possible suspected underlying peripheral vascular disease and patient may need amputation of the great toe. Further recommendations based on clinical course. Continue with insulin dosing and adjust as needed. Prognosis is guarded at this time. Time with Patient: Greater than 30
[2020-11-01] MEDS: SODIUM CHLORIDE 0.9% 1,000 ML IV SCH ×3 (00:06→23:29)
[2020-11-01] MEDS: HEPARIN SODIUM,PORCINE 5,000 UNIT/ML 1 ML VIAL SQ SCH ×4 (00:07→23:25)
[2020-11-01] MEDS: LEVOTHYROXINE 100 MCG TAB PO SCH (06:22)
[2020-11-01] MEDS ORDERED: LEVOTHYROXINE 100 MCG TAB PO SCH (06:30)
[2020-11-01 07:23] LABS: Glucose,Whole Blood 162 mg/dL (75-99)
[2020-11-01 07:58] LABS: Glucose,Whole Blood 166 mg/dL (75-99)
[2020-11-01 08:05] LABS: Basophils # (A) 0.1 k/uL (0-0.2); Basophils % (A) 1 %; Eosinophils # (A) 0.3 k/uL (0-0.7); Eosinophils % (A) 4 %; HCT 36.4 % (39.0-53.0); HGB 12.3 gm/dL (13.0-17.5); Lymphocytes # (A) 1.4 k/uL (1.0-4.8); Lymphocytes % (A) 18 %; MCHC 33.7 g/dL (31.0-37.0); MCV 89.1 fL (80.0-100.0); Mean Platelet Volume 7.4; Monocytes # (A) 0.4 k/uL (0-1.0); Monocytes % (A) 5 %; Neutrophils # (A) 5.6 k/uL (1.3-7.7); Neutrophils % (A) 71 %; Platelet Count 301 k/uL (150-450); RBC 4.08 m/uL (4.30-5.90); RDW 12.3 % (11.5-15.5); WBC 7.8 k/uL (3.8-10.6)
[2020-11-01] MEDS: SIMETHICONE 80 MG CHEWABLE PO SCH (08:07)
[2020-11-01] MEDS: PENTOXIFYLLINE 400 MG TABLET.ER PO SCH ×2 (08:08→22:01)
[2020-11-01] MEDS: GABAPENTIN 300 MG CAP PO SCH ×2 (08:10→21:20)
[2020-11-01] MEDS: LINAGLIPTIN 5 MG TABLET PO SCH (08:10)
[2020-11-01] MEDS: LORATADINE 10 MG TAB PO SCH (08:10)
[2020-11-01] MEDS: PANTOPRAZOLE 40 MG TABLET PO SCH ×2 (08:10→17:52)
[2020-11-01] MEDS: METOPROLOL TARTRATE 50 MG TAB PO SCH ×2 (08:10→21:19)
[2020-11-01 08:11] LABS: African American GFR (CKD) >90 (>60 ml/min/1.73 sqM); Anion Gap 10 mmol/L; Blood Urea Nitrogen 25 mg/dL (9-20); Calcium 8.8 mg/dL (8.4-10.2); Carbon Dioxide 28 mmol/L (22-30); Chloride 101 mmol/L (98-107); Glucose 175 mg/dL (74-99); Non-African American GFR(CKD) 81 (>60 ml/min/1.73 sqM); Potassium 3.8 mmol/L (3.5-5.1); Sodium 139 mmol/L (137-145)
[2020-11-01] MEDS: carBAMazepine 200 MG TAB PO SCH ×3 (08:11→22:01)
[2020-11-01] MEDS: INSULIN ASPART (NovoLOG) 100 UNIT/ML VIAL SQ SCH ×4 (08:12→21:09)
[2020-11-01] MEDS: DICLOFENAC SODIUM GEL 100 GM TUBE TOPICAL SCH ×2 (08:12→17:52)
[2020-11-01] MEDS: VITAMIN C PO SCH (08:13)
[2020-11-01] MEDS: MAGNESIUM OXIDE 400 MG TAB PO SCH ×2 (08:13→17:52)
[2020-11-01] MEDS: SUPER B COMPLEX PO SCH (08:13)
[2020-11-01] MEDS: CHOLECALCIFEROL 25 MCG (1000 IU) TABLET PO SCH (08:13)
[2020-11-01] MEDS: VANCOMYCIN 2,000 MG in SODIUM CHLORIDE 0.9% 500 ML 500 ML IVPB SCH ×2 (08:13→19:48)
[2020-11-01] MEDS: ASPIRIN 81 MG PO SCH (08:14)
[2020-11-01] MEDS: VITAMIN E (DL,TOCOPHERYL ACET) 400 UNIT CAP PO SCH (08:14)
--- NOTE | 2020-11-01 11:15 | P.PN ---
Progress Note - Text Progress Note Date: 11/01/20 Patient's currently nothing by mouth. He scheduled for left great toe. Patient today by Dr. Vega. On exam there is draining pus from his toe. The second toes inflamed as well.
[2020-11-01 11:45] LABS: Glucose,Whole Blood 153 mg/dL (75-99)
[2020-11-01] MEDS ORDERED: KETAMINE 10 MG/ML 20 ML VIAL ONE (12:57)
[2020-11-01] MEDS ORDERED: MIDAZOLAM 2 MG/2 ML VIAL ONE (12:57)
[2020-11-01] MEDS ORDERED: PROPOFOL 10 MG/ML 20 ML VIAL IV ONE (12:57)
[2020-11-01] MEDS ORDERED: LIDOCAINE 1% INJ 10MG/ML (20 ML MDV) ONE (12:57)
[2020-11-01] MEDS ORDERED: fentaNYL (PF) 50 MCG/ML 2 ML AMP ONE (12:57)
[2020-11-01] MEDS ORDERED: SODIUM CHLORIDE 0.9% 1,000 ML IV ONE (13:00)
[2020-11-01] MEDS ORDERED: LIDOCAINE 1% (PF) 10 MG/ML (30 ML SDV) SQ ONE (13:00)
[2020-11-01] MEDS ORDERED: LACTATED RINGERS 1,000 ML IV ONE (13:37)
[2020-11-01 13:56] LABS: Hemoglobin A1C 6.4 % (4.0-6.0)
[2020-11-01 14:09] LABS: Glucose,Whole Blood 126 mg/dL (75-99)
[2020-11-01] MEDS: CEFEPIME 2 GM in SODIUM CHLORIDE 0.9% 100 ML IVPB SCH ×4 (15:12→23:27)
[2020-11-01] MEDS: HYDROcodone/APAP 5-325MG 1 EACH TAB PO PRN ×2 (15:17→21:20)
--- NOTE | 2020-11-01 16:02 | CONS ---
CONSULTATION This is a 60 year old gentleman who has been admitted with multiple medical problems. Patient noticed some bilateral lower extremity swelling, consulted for vascular evaluation. The patient has no history of claudication or rest pain. No history of DVT in the past. PAST SURGICAL HISTORY: Patient has had a C-spine surgery in the past and also patient had a pericardial window placed in the past. EXAMINATION: The patient was seen in his room. Brachial, radial pulses are palpable. Bilateral femorals are palpable. Left foot dorsal pedis is 1+, right foot by the Doppler. There is mild swelling noted of the lower extremity. No evidence of any varicosity and no history of brown induration. No calf tenderness noted. At this point, patient is stable from vascular point of view. Patient has mild swelling of the lower extremity, probably CELSO styles will help. Thank you for this consultation. MARTHA / CARINE: [id number] /
--- NOTE | 2020-11-01 16:07 | OP ---
OPERATIVE REPORT PREOP DIAGNOSIS: Wet gangrene left foot big toe. POSTOP DIAGNOSIS: Wet gangrene left foot big toe. OPERATION: Left foot big toe amputation at metatarsophalangeal joint. DESCRIPTION OF PROCEDURE: This patient was brought to the operating room and the left foot was prepped and drapes applied in a usual sterile manner. Under local and IV sedation, 1% lidocaine was infiltrated into the left foot and incision was made on the dorsal aspect of the foot. Elliptical incision went circumferentially around the big toe and toward the plantar aspect and deepened through skin, fat, and fascia. The patient has history of redness and swelling for the last 2 weeks. Then we deepened the incision, plantar and dorsal aspect. Tendons were divided off the big toe and there was some bleeding noted which was controlled by 5-0 Prolene suture. The incisions were deepened to the metatarsophalangeal joint and big toe was from the head of the metatarsal bone and specimen was removed which was sent for culture and sensitivity. Hemostasis was controlled. The wound was copiously irrigated with hydrogen peroxide and saline and incision was closed with 2 layers using 0-Vicryl with interrupted suture and 3-0 nylon interrupted suture. Dressing applied. The patient tolerated the procedure well and transferred to the recovery room in satisfactory condition. MMODL / IJN: [id number] /
[2020-11-01 17:12] LABS: Glucose,Whole Blood 109 mg/dL (75-99)
[2020-11-01] MEDS: TAMSULOSIN 0.4 MG CAP.ER.24H PO SCH (17:52)
[2020-11-01 20:04] LABS: Glucose,Whole Blood 129 mg/dL (75-99)
[2020-11-01] MEDS: ATORVASTATIN 40 MG TAB PO SCH (21:19)
[2020-11-01] MEDS: OLANZapine 7.5 MG TAB PO SCH (22:01)
[2020-11-02 07:42] LABS: Glucose,Whole Blood 159 mg/dL (75-99)
[2020-11-02] MEDS: INSULIN ASPART (NovoLOG) 100 UNIT/ML VIAL SQ SCH ×4 (08:41→21:46)
[2020-11-02] MEDS: DICLOFENAC SODIUM GEL 100 GM TUBE TOPICAL SCH ×2 (08:42→15:36)
[2020-11-02] MEDS: GABAPENTIN 300 MG CAP PO SCH ×2 (08:42→21:47)
[2020-11-02] MEDS: ASPIRIN 81 MG PO SCH (08:42)
[2020-11-02] MEDS: PENTOXIFYLLINE 400 MG TABLET.ER PO SCH ×2 (08:42→21:47)
[2020-11-02] MEDS: METOPROLOL TARTRATE 50 MG TAB PO SCH ×2 (08:42→21:47)
[2020-11-02] MEDS: LORATADINE 10 MG TAB PO SCH (08:42)
[2020-11-02] MEDS: carBAMazepine 200 MG TAB PO SCH ×3 (08:42→21:47)
[2020-11-02] MEDS: LINAGLIPTIN 5 MG TABLET PO SCH (08:43)
[2020-11-02] MEDS: MAGNESIUM OXIDE 400 MG TAB PO SCH ×2 (08:43→16:04)
[2020-11-02] MEDS: CHOLECALCIFEROL 25 MCG (1000 IU) TABLET PO SCH (08:43)
[2020-11-02] MEDS: SIMETHICONE 80 MG CHEWABLE PO SCH (08:43)
[2020-11-02] MEDS: LEVOTHYROXINE 100 MCG TAB PO SCH (08:43)
[2020-11-02] MEDS: PANTOPRAZOLE 40 MG TABLET PO SCH ×2 (08:43→16:05)
[2020-11-02] MEDS: VITAMIN E (DL,TOCOPHERYL ACET) 400 UNIT CAP PO SCH (08:43)
[2020-11-02] MEDS: HEPARIN SODIUM,PORCINE 5,000 UNIT/ML 1 ML VIAL SQ SCH ×3 (08:43→23:05)
[2020-11-02] MEDS: VITAMIN C PO SCH (08:46)
[2020-11-02] MEDS: SUPER B COMPLEX PO SCH (08:46)
[2020-11-02] MEDS: VANCOMYCIN 2,000 MG in SODIUM CHLORIDE 0.9% 500 ML 500 ML IVPB SCH ×2 (08:48→20:51)
[2020-11-02] MEDS: HYDROcodone/APAP 5-325MG 1 EACH TAB PO PRN ×3 (08:54→20:52)
[2020-11-02 09:24] LABS: African American GFR (CKD) 95.1 (60.0-200.0)
--- NOTE | 2020-11-02 10:05 | PN ---
PROGRESS NOTE 60 -year-old gentleman who came in with left foot big toe wet gangrene. Patient went for amputation of the left foot big toe. The second toe has redness that is improving. Today we have changed the dressing. Continue with IV antibiotic. He has minimal drainage noted. One foot elevation, nonweightbearing. MMODL / IJN: [id number] /
[2020-11-02 11:07] LABS: Glucose,Whole Blood 203 mg/dL (75-99)
[2020-11-02] MEDS: CEFEPIME 2 GM in SODIUM CHLORIDE 0.9% 100 ML IVPB SCH ×2 (12:17→23:06)
[2020-11-02] MEDS: TAMSULOSIN 0.4 MG CAP.ER.24H PO SCH (16:08)
[2020-11-02 17:45] LABS: Glucose,Whole Blood 134 mg/dL (75-99)
[2020-11-02] MEDS: SODIUM CHLORIDE 0.9% 1,000 ML IV SCH ×2 (19:00→23:07)
--- NOTE | 2020-11-02 19:14 | PN ---
PROGRESS NOTE DATE OF SERVICE: 11/02/2020 REASON FOR FOLLOWUP: Left big toe osteomyelitis. INTERVAL HISTORY: The patient is currently afebrile. The patient is breathing comfortably. He is status post left big toe amputation. Tolerated the procedure. Did mention the pain is coming back. No chest pain, shortness of breath or cough. No abdominal pain or diarrhea. PHYSICAL EXAMINATION: Blood pressure 149/84, pulse of 73, temperature 98.3. He is 97% on room air. General description: The patient is a middle-aged male lying in bed in no distress. Respiratory system: Unlabored breathing, clear to auscultation anteriorly. Heart S1, S2. Regular rate and rhythm. Abdomen soft, no tenderness. The left big toe is currently dressed up. No obvious drainage on the dressing. LABS: Wound cultures currently pending. DIAGNOSTIC IMPRESSION/PLAN: Patient with left big toe osteomyelitis status post amputation, failing outpatient therapy. The patient is covered cefepime and vancomycin to continue while waiting for the culture to finalize. Continue supportive care. MMODL / IJN: [id number] /
[2020-11-02 20:50] LABS: Glucose,Whole Blood 191 mg/dL (75-99)
[2020-11-02] MEDS: ATORVASTATIN 40 MG TAB PO SCH (21:47)
[2020-11-02] MEDS: OLANZapine 7.5 MG TAB PO SCH (21:47)
--- NOTE | 2020-11-03 01:53 | P.PN ---
Subjective Progress Note Date: 11/01/20 Patient is a 60-year-old male with a known history of diabetes type 2 insulin- dependent, morbid obesity BMI 40.9, hypertension, hyperlipidemia, osteoarthritis, obstructive sleep apnea on CPAP at home, hypothyroidism and degenerative disc disease and chronic back pain, anxiety, bipolar disorder and PTSD and multiple other medical problems presents to ER due to complaints of right great toe infection. Patient was seen by his materials branch chief yesterday and was advised to go to ER for IV antibiotics. Patient has been having pain, redness and swelling of the great toe for the past 1 to 2 days. Patient is also having purulent discharge on the plantar surface of the great toe. Patient does have diabetic neuropathy and has limited sensation in his lower extremities. Patient denied any complaints of fever. Did have some chills at home. No complaints of chest pain or shortness of breath. There is no dysuria or hematuria. Lab data showed WBC 11.4, hemoglobin 13.4 and platelets 345 Sodium 136 potassium 3.9 chloride 93 BUN 38 and creatinine 1.39 and lactic acid level 3.5 and coronavirus PCR not detected X-ray of the toe showed destructive changes in the big toe suggestive of osteomyelitis. 11/01/2020 Patient is currently lying in the bed. He still complains of right great toe and leg pain. Patient is scheduled for to amputation today. Patient is being continued on broad-spectrum antibiotics. Blood sugar is controlled. Patient states that he takes 130 units of Levemir. Since the blood sugar is not elevated we will continue with insulin sliding scale currently. Patient is n.p.o. Monitor CBC. Denied any complaints of chest pain or shortness of breath. Patient has been afebrile. No nausea vomiting or abdominal pain or diarrhea. Medications reviewed. Objective - Vital Signs Vital signs: Vital Signs Temp 98.0 F 11/01/20 14:04 Pulse 69 11/01/20 14:30 Resp 16 11/01/20 14:30 BP 141/84 11/01/20 14:30 Pulse Ox 99 11/01/20 14:30 Intake & Output 10/31/20 11/01/20 11/01/20 18:59 06:59 18:59 Intake Total 2520 850 600 Output Total 100 Balance 2520 850 500 Weight 122.016 kg Intake: IV 600 Intake, IV Titration 1800 100 Amount Cefepime 2 gm In Sodium 100 100 Chloride 0.9% 100 ml @ 200 mls/hr IVPB Q12H [facility] Rx#:[id number] Sodium Chloride 0.9% 1, 1200 000 ml @ 75 mls/hr IV . [id number] [facility] Rx#:[id number] Vancomycin 2,000 mg In 500 Sodium Chloride 0.9% 500 ml 500 ml @ 167 mls/hr IVPB Q16H [facility] Rx#: [id number] Oral 720 750 Output: Estimated Blood Loss 100 Other: Voiding Method Toilet Toilet # Voids 4 3 - Exam PHYSICAL EXAMINATION: Patient is lying in the bed comfortably, no acute distress, awake alert and oriented.obese. HEENT: Normocephalic. Neck is supple. Pupils reactive. Nostrils clear. Oral cavity is moist. Ears reveal no drainage. Neck reveals no JVD, carotid bruits, or thyromegaly. CHEST EXAMINATION: Trachea is central. Symmetrical expansion. Lung wolf clear to auscultation and percussion. CARDIAC: Normal S1, S2 with no gallops. No murmurs ABDOMEN: Soft. Bowel sounds normal. No organomegaly. No abdominal bruits. Extremities: reveal no edema. No clubbing or cyanosis Right toe swelling redness and chronic lower extremity brawny skin discoloration. Following discharge from the right great toe plantar surface. Neurologically awake, alert, oriented x3 with well-coordinated movements. No focal deficits noted Skin: No rash or skin lesions. Psychiatric: Coperative. Nonsuicidal Musculoskeletal: No joint swelling or deformity. Normal range of motion. - Labs CBC & Chem 7: 11/01/20 07:33 11/02/20 05:21 Labs: Abnormal Lab Results - Last 24 Hours (Table) 10/31/20 10/31/20 10/31/20 Range/Units 16:56 20:49 20:53 RBC (4.30-5.90) m/uL Hgb (13.0-17.5) gm/dL Hct (39.0-53.0) % BUN (9-20) mg/dL Glucose (74-99) mg/dL POC Glucose (mg/dL) 147 H 199 H 184 H (75-99) mg/dL Hemoglobin A1c (4.0-6.0) % 11/01/20 11/01/20 11/01/20 Range/Units 07:22 07:33 07:33 RBC 4.08 L (4.30-5.90) m/uL Hgb 12.3 L (13.0-17.5) gm/dL Hct 36.4 L (39.0-53.0) % BUN 25 H (9-20) mg/dL Glucose 175 H (74-99) mg/dL POC Glucose (mg/dL) 162 H (75-99) mg/dL Hemoglobin A1c (4.0-6.0) % 11/01/20 11/01/20 11/01/20 Range/Units 07:36 07:56 11:43 RBC (4.30-5.90) m/uL Hgb (13.0-17.5) gm/dL Hct (39.0-53.0) % BUN (9-20) mg/dL Glucose (74-99) mg/dL POC Glucose (mg/dL) 166 H 153 H (75-99) mg/dL Hemoglobin A1c 6.4 H (4.0-6.0) % 11/01/20 Range/Units 14:06 RBC (4.30-5.90) m/uL Hgb (13.0-17.5) gm/dL Hct (39.0-53.0) % BUN (9-20) mg/dL Glucose (74-99) mg/dL POC Glucose (mg/dL) 126 H (75-99) mg/dL Hemoglobin A1c (4.0-6.0) % Microbiology - Last 24 Hours (Table) 10/31/20 12:05 Gram Stain - Preliminary Toe - Right First Wound Culture - Preliminary 10/30/20 22:10 Blood Culture - Preliminary Blood No Growth after 24 hours 10/30/20 21:57 Blood Culture - Preliminary Blood No Growth after 24 hours Assessment and Plan Assessment: Right great toe diabetic foot infection. Failed outpatient antibiotic therapy. Possible acute osteomyelitis of the great toe Lactic acidosis Acute kidney injury likely prerenal. 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 Diabetic peripheral neuropathy DVT prophylaxis with heparin subcu Plan: Patient will be continued IV hydration with normal saline and broad-spectrum antibiotics in the form of vancomycin and cefepime. Follow-up blood cultures and continue with wound care. Vascular surgery and ID and general surgery is following. OR today. . Possible suspected underlying peripheral vascular disease and patient may need amputation of the great toe. Further r ecommendations based on clinical course. Continue with insulin dosing and adjust as needed. Prognosis is guarded at this time. Time with Patient: Greater than 30
--- NOTE | 2020-11-03 01:58 | P.PN ---
Subjective Progress Note Date: 11/02/20 Principal diagnosis: s/p Right great toe amputation. OM Patient is a 60-year-old male with a known history of diabetes type 2 insulin- dependent, morbid obesity BMI 40.9, hypertension, hyperlipidemia, osteoarthritis, obstructive sleep apnea on CPAP at home, hypothyroidism and degenerative disc disease and chronic back pain, anxiety, bipolar disorder and PTSD and multiple other medical problems presents to ER due to complaints of right great toe infection. Patient was seen by his deoiling machine operator yesterday and was advised to go to ER for IV antibiotics. Patient has been having pain, redness and swelling of the great toe for the past 1 to 2 days. Patient is also having purulent discharge on the plantar surface of the great toe. Patient does have diabetic neuropathy and has limited sensation in his lower extremities. Patient denied any complaints of fever. Did have some chills at home. No complaints of chest pain or shortness of breath. There is no dysuria or hematuria. Lab data showed WBC 11.4, hemoglobin 13.4 and platelets 345 Sodium 136 potassium 3.9 chloride 93 BUN 38 and creatinine 1.39 and lactic acid level 3.5 and coronavirus PCR not detected X-ray of the toe showed destructive changes in the big toe suggestive of osteomyelitis. 11/01/2020 Patient is currently lying in the bed. He still complains of right great toe and leg pain. Patient is scheduled for to amputation today. Patient is being continued on broad-spectrum antibiotics. Blood sugar is controlled. Patient states that he takes 130 units of Levemir. Since the blood sugar is not elevated we will continue with insulin sliding scale currently. Patient is n.p.o. Monitor CBC. Denied any complaints of chest pain or shortness of breath. Patient has been afebrile. No nausea vomiting or abdominal pain or diarrhea. 11/02/2020 Patient is status post amputation of the great toe. Pain is controlled. Patient is being continued on antibiotics now vancomycin and cefepime. ID is on board. Follow-up wound culture report. Patient has been afebrile. No complain ts of nausea vomiting abdominal pain. Blood sugar is controlled with slight insulin sliding scale. We will continue to follow and adjust insulin dose at home. Patient is on 130 units of Levemir/Lantus as per home medications but patient is only insulin sliding scale currently. Current medications reviewed. Medications reviewed. Objective - Vital Signs Vital signs: Vital Signs Temp 98.3 F 11/02/20 20:25 Pulse 76 11/02/20 20:47 Resp 20 11/02/20 20:25 BP 152/72 11/02/20 20:25 Pulse Ox 98 11/02/20 20:25 Intake & Output 11/02/20 11/02/20 11/03/20 06:59 18:59 06:59 Intake Total 1340 Output Total 800 Balance 540 Intake: Intake, IV Titration 1100 Amount Cefepime 2 gm In Sodium Chloride 0.9% 100 ml @ 200 mls/hr IVPB Q12H [facility] Rx#:[id number] Sodium Chloride 0.9% 1, 600 000 ml @ 75 mls/hr IV . [id number] [facility] Rx#:[id number] Vancomycin 2,000 mg In 500 Sodium Chloride 0.9% 500 ml 500 ml @ 167 mls/hr IVPB Q12H [facility] Rx#: [id number] Oral 240 Output: Urine 800 Other: Voiding Method Toilet # Voids - Exam PHYSICAL EXAMINATION: Patient is lying in the bed comfortably, no acute distress, awake alert and oriented.obese. HEENT: Normocephalic. Neck is supple. Pupils reactive. Nostrils clear. Oral cavity is moist. Ears reveal no drainage. Neck reveals no JVD, carotid bruits, or thyromegaly. CHEST EXAMINATION: Trachea is central. Symmetrical expansion. Lung wolf clear to auscultation and percussion. CARDIAC: Normal S1, S2 with no gallops. No murmurs ABDOMEN: Soft. Bowel sounds normal. No organomegaly. No abdominal bruits. Extremities: reveal no edema. No clubbing or cyanosis Right great toe amputation. Wound is dressed at this time. Neurologically awake, alert, oriented x3 with well-coordinated movements. No focal deficits noted Skin: No rash or skin lesions. Psychiatric: Coperative. Nonsuicidal Musculoskeletal: No joint swelling or deformity. Normal range of motion. - Labs CBC & Chem 7: 11/01/20 07:33 11/02/20 05:21 Labs: Abnormal Lab Results - Last 24 Hours (Table) 11/02/20 11/02/20 11/02/20 Range/Units 07:40 11:06 17:43 POC Glucose (mg/dL) 159 H 203 H 134 H (75-99) mg/dL 11/02/20 Range/Units 20:45 POC Glucose (mg/dL) 191 H (75-99) mg/dL Microbiology - Last 24 Hours (Table) 10/30/20 22:10 Blood Culture - Preliminary Blood No Growth after 72 hours 10/30/20 21:57 Blood Culture - Preliminary Blood No Growth after 72 hours 11/01/20 13:22 Gram Stain - Preliminary Toe - Right First Tissue Culture - Preliminary 11/01/20 13:22 Anaerobic Culture - Preliminary Toe - Right First Assessment and Plan Assessment: Right great toe diabetic foot infection. Failed outpatient antibiotic therapy. s/p Amputation acute osteomyelitis of the great toe Lactic acidosis Acute kidney injury likely prerenal. 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 Diabetic peripheral neuropathy DVT prophylaxis with heparin subcu Plan: Patient will be continued IV hydration with normal saline and broad-spectrum antibiotics in the form of vancomycin and cefepime. Follow-up blood cultures and continue with wound care. Vascular surgery and ID and general surgery is following. s/p amputation of the great toe. Further recommendations based on clinical course. Continue with insulin dosing and adjust as needed. Prognosis is guarded at this time. Time with Patient: Greater than 30
[2020-11-03] MEDS ORDERED: VANCOMYCIN TROUGH DUE 1 EACH MISC MISCELLANE ONE (07:00)
[2020-11-03 07:30] LABS: Glucose,Whole Blood 143 mg/dL (75-99)
[2020-11-03] MEDS: INSULIN ASPART (NovoLOG) 100 UNIT/ML VIAL SQ SCH ×4 (07:41→22:18)
[2020-11-03] MEDS: LORATADINE 10 MG TAB PO SCH (07:41)
[2020-11-03] MEDS: VITAMIN E (DL,TOCOPHERYL ACET) 400 UNIT CAP PO SCH (07:41)
[2020-11-03] MEDS: HEPARIN SODIUM,PORCINE 5,000 UNIT/ML 1 ML VIAL SQ SCH ×3 (07:41→22:18)
[2020-11-03] MEDS: LEVOTHYROXINE 100 MCG TAB PO SCH (07:44)
[2020-11-03] MEDS: GABAPENTIN 300 MG CAP PO SCH ×2 (07:44→22:03)
[2020-11-03] MEDS: CHOLECALCIFEROL 25 MCG (1000 IU) TABLET PO SCH (07:44)
[2020-11-03] MEDS: SIMETHICONE 80 MG CHEWABLE PO SCH (07:44)
[2020-11-03] MEDS: ASPIRIN 81 MG PO SCH (07:44)
[2020-11-03] MEDS: PANTOPRAZOLE 40 MG TABLET PO SCH ×2 (07:44→17:34)
[2020-11-03] MEDS: MAGNESIUM OXIDE 400 MG TAB PO SCH ×2 (07:44→17:34)
[2020-11-03] MEDS: LINAGLIPTIN 5 MG TABLET PO SCH (07:44)
[2020-11-03] MEDS: carBAMazepine 200 MG TAB PO SCH ×3 (07:44→22:02)
[2020-11-03] MEDS: PENTOXIFYLLINE 400 MG TABLET.ER PO SCH ×2 (07:45→22:01)
[2020-11-03] MEDS: METOPROLOL TARTRATE 50 MG TAB PO SCH ×2 (07:45→22:02)
[2020-11-03] MEDS: DICLOFENAC SODIUM GEL 100 GM TUBE TOPICAL SCH ×2 (07:49→17:35)
[2020-11-03] MEDS: VANCOMYCIN 2,000 MG in SODIUM CHLORIDE 0.9% 500 ML 500 ML IVPB SCH (07:51)
[2020-11-03 10:42] LABS: Basophils # (A) 0.03 X 10*3/uL (0.00-0.10); Basophils % (A) 0.4 %; Eosinophils # (A) 0.24 X 10*3/uL (0.04-0.35); Eosinophils % (A) 3.1 %; HCT 34.9 % (39.6-50.0); HGB 11.3 g/dL (13.0-17.0); Lymphocytes # (A) 1.58 X 10*3/uL (0.90-5.00); Lymphocytes % (A) 20.4 %; MCH 29.5 pg (27.0-32.0); MCHC 32.4 g/dL (32.0-37.0); MCV 91.1 fL (80.0-97.0); Mean Platelet Volume 10.3 fL (9.5-12.2); Monocytes # (A) 0.65 X 10*3/uL (0.20-1.00); Monocytes % (A) 8.4 %; Neutrophils # (A) 5.22 X 10*3/uL (1.80-7.70); Neutrophils % (A) 67.4 %; Platelet Count 313 X 10*3/uL (140-440); RBC 3.83 X 10*6/uL (4.40-5.60); RDW 11.6 % (11.5-14.5); WBC 7.74 X 10*3/uL (4.50-10.00)
[2020-11-03 10:58] LABS: BUN/Creat Ratio 26.67 Ratio (12.00-20.00); Calcium 8.9 mg/dL (8.7-10.3); Non-African American GFR(CKD) 93.2 (60.0-200.0); Potassium 4.5 mmol/L (3.5-5.5)
[2020-11-03] MEDS: HYDROcodone/APAP 5-325MG 1 EACH TAB PO PRN ×2 (11:00→22:12)
[2020-11-03 11:35] LABS: Glucose,Whole Blood 211 mg/dL (75-99)
[2020-11-03] MEDS: CEFEPIME 2 GM in SODIUM CHLORIDE 0.9% 100 ML IVPB SCH ×2 (12:29→22:00)
--- NOTE | 2020-11-03 12:41 | P.PN ---
Subjective Progress Note Date: 11/03/20 s/p Right great toe amputation. OM Patient is a 60-year-old male with a known history of diabetes type 2 insulin- dependent, morbid obesity BMI 40.9, hypertension, hyperlipidemia, os teoarthritis, obstructive sleep apnea on CPAP at home, hypothyroidism and degenerative disc disease and chronic back pain, anxiety, bipolar disorder and PTSD and multiple other medical problems presents to ER due to complaints of right great toe infection. Patient was seen by his chair post machine operator yesterday and was advised to go to ER for IV antibiotics. Patient has been having pain, redness and swelling of the great toe for the past 1 to 2 days. Patient is also having purulent discharge on the plantar surface of the great toe. Patient does have diabetic neuropathy and has limited sensation in his lower extremities. Patient denied any complaints of fever. Did have some chills at home. No complaints of chest pain or shortness of breath. There is no dysuria or hematuria. Lab data showed WBC 11.4, hemoglobin 13.4 and platelets 345 Sodium 136 potassium 3.9 chloride 93 BUN 38 and creatinine 1.39 and lactic acid level 3.5 and coronavirus PCR not detected X-ray of the toe showed destructive changes in the big toe suggestive of osteomyelitis. 11/01/2020 Patient is currently lying in the bed. He still complains of right great toe and leg pain. Patient is scheduled for to amputation today. Patient is being continued on broad-spectrum antibiotics. Blood sugar is controlled. Patient states that he takes 130 units of Levemir. Since the blood sugar is not elevated we will continue with insulin sliding scale currently. Patient is n.p.o. Monitor CBC. Denied any complaints of chest pain or shortness of breath. Patient has been afebrile. No nausea vomiting or abdominal pain or diarrhea. 11/02/2020 Patient is status post amputation of the great toe. Pain is controlled. Patient is being continued on antibiotics now vancomycin and cefepime. ID is on board. Follow-up wound culture report. Patient has been afebrile. No complaints of nausea vomiting abdominal pain. Blood sugar is controlled with slight insulin sliding scale. We will continue to follow and adjust insulin dose at home. Patient is on 130 units of Levemir/Lantus as per home medications but patient is only insulin sliding scale currently. 11/03/2020 Patient is seen and evaluated in follow-up with no acute overnight issues. Patient is status post right great toe amputation with Dr. Vega. Patient is maintained on IV antibiotics in the form cefepime and vancomycin and infectious disease is following. Preliminary wound culture showing presumptive MRSA and waiting for finalization. Patient will likely require IV antibiotic therapy. Patient is to continue with nonweightbearing of that right lower extremity. Patient currently has the lower extremity elevated and continued to do so while at rest. Patient will likely be requiring some form of rehab and social work following working on accepting facilities. Review of systems: Constitutional: No reports of fatigue, fever, or chills Cardiovascular: No reports of chest pain or palpitations Respiratory: No reports of shortness of breath or cough GI: No reports of nausea, vomiting, or diarrhea : No reports of dysuria or retention Neurovascular: No reports of weakness or numbness All medications have been reviewed. Objective - Vital Signs Vital signs: Vital Signs Temp 97.8 F 11/03/20 05:30 Pulse 71 11/03/20 05:30 Resp 20 11/03/20 05:30 BP 162/82 11/03/20 05:30 Pulse Ox 97 11/03/20 05:30 Intake & Output 11/02/20 11/03/20 11/03/20 18:59 06:59 18:59 Intake Total 1340 1200 Output Total 800 1600 500 Balance 540 -400 -500 Intake: Intake, IV Titration 1100 1200 Amount Cefepime 2 gm In Sodium 100 Chloride 0.9% 100 ml @ 200 mls/hr IVPB Q12H [facility] Rx#:[id number] Sodium Chloride 0.9% 1, 600 600 000 ml @ 75 mls/hr IV . [id number] [facility] Rx#:[id number] Vancomycin 2,000 mg In 500 500 Sodium Chloride 0.9% 500 ml 500 ml @ 167 mls/hr IVPB Q12H [facility] Rx#: [id number] Oral 240 Output: Urine 800 1600 500 Other: Voiding Method Toilet Toilet - Exam Patient is lying in the bed comfortably, no acute distress, awake alert and oriented.obese. HEENT: Normocephalic. Neck is supple. Pupils reactive. Nostrils clear. Oral cavity is moist. Ears reveal no drainage. Neck reveals no JVD, carotid bruits, or thyromegaly. CHEST EXAMINATION: Trachea is central. Symmetrical expansion. Lung wolf clear to auscultation and percussion. CARDIAC: Normal S1, S2 with no gallops. No murmurs ABDOMEN: Soft. Bowel sounds normal. No organomegaly. No abdominal bruits. Extremities: reveal no edema. No clubbing or cyanosis Right great toe amputation. Wound is dressed at this time. Dressing is dry and intact with lower extremity elevated Neurologically awake, alert, oriented x3 with well-coordinated movements. No focal deficits noted Skin: No rash or skin lesions. Psychiatric: Cooperative. Non-suicidal Musculoskeletal: No joint swelling or deformity. Normal range of motion. - Labs CBC & Chem 7: 11/03/20 06:39 11/03/20 06:39 Labs: Abnormal Lab Results - Last 24 Hours (Table) 11/02/20 11/02/20 11/03/20 Range/Units 17:43 20:45 06:39 RBC (4.40-5.60) X 10*6/uL Hgb (13.0-17.0) g/dL Hct (39.6-50.0) % BUN/Creatinine Ratio 26.67 H (12.00-20.00) Ratio Glucose 155 H (70-110) mg/dL POC Glucose (mg/dL) 134 H 191 H (75-99) mg/dL 11/03/20 11/03/20 Range/Units 06:39 07:08 RBC 3.83 L (4.40-5.60) X 10*6/uL Hgb 11.3 L (13.0-17.0) g/dL Hct 34.9 L (39.6-50.0) % BUN/Creatinine Ratio (12.00-20.00) Ratio Glucose (70-110) mg/dL POC Glucose (mg/dL) 143 H (75-99) mg/dL Microbiology - Last 24 Hours (Table) 10/31/20 12:05 Gram Stain - Preliminary Toe - Right First Wound Culture - Preliminary Presumptive MRSA 10/30/20 22:10 Blood Culture - Preliminary Blood No Growth after 72 hours 10/30/20 21:57 Blood Culture - Preliminary Blood No Growth after 72 hours Assessment and Plan Assessment: Right great toe diabetic foot infection. Failed outpatient antibiotic therapy. s/p Amputation acute osteomyelitis of the great toe Lactic acidosis Acute kidney injury likely prerenal. 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 Diabetic peripheral neuropathy DVT prophylaxis with heparin subcu Plan: Patient will be continued IV hydration with normal saline and broad-spectrum antibiotics in the form of vancomycin and cefepime. Preliminary culture sowing presumptive MRSA and awaiting finalization. Patient will likely require IV antibiotic therapy in the outpatient setting. Infectious disease following. Continue to monitor blood sugars before meals and at bedtime and continue sliding scale at this time. Will hold home dose as blood sugars have been on the lower side. Social work following and working on placement for continued PT/OT therapy along with IV antibiotic therapy.
--- NOTE | 2020-11-03 14:10 | PN ---
PROGRESS NOTE This patient was seen today. This patient had a left big toe amputation done. The patient has also some mild tenderness noted in the left foot second toe. No drainage noted. PLAN: Plan is if the patient goes to snf, patient needs to be seen by me this Tuesday in my office and continue with IV antibiotic and local care. The patient should be still nonweightbearing. MMMARILUL / IJN: [id number] /
[2020-11-03 17:00] LABS: Glucose,Whole Blood 177 mg/dL (75-99)
[2020-11-03] MEDS: TAMSULOSIN 0.4 MG CAP.ER.24H PO SCH (17:34)
[2020-11-03 20:18] LABS: Glucose,Whole Blood 185 mg/dL (75-99)
[2020-11-03] MEDS: ATORVASTATIN 40 MG TAB PO SCH (22:02)
[2020-11-03] MEDS: OLANZapine 7.5 MG TAB PO SCH (22:03)
[2020-11-03] MEDS: VANCOMYCIN 1,750 MG in SODIUM CHLORIDE 0.9% 500 ML 500 ML IVPB SCH (22:36)
[2020-11-03] MEDS: SODIUM CHLORIDE 0.9% 1,000 ML IV SCH (22:41)
[2020-11-03] MEDS: FLUTICASONE 50MCG/SPRAY NASAL 16GM EA NOSTRIL PRN (23:22)
--- NOTE | 2020-11-04 03:41 | PN ---
PROGRESS NOTE DATE OF SERVICE: 11/03/2020 REASON FOR FOLLOWUP: Left big toe osteomyelitis. INTERVAL HISTORY: Patient is currently afebrile. The patient is breathing comfortably. Denies having any chest pain. No shortness of breath or cough. No abdominal pain or any worsening pain to the left foot. PHYSICAL EXAMINATION: Blood pressure 173/88 with a pulse of 66, temperature 98.2. He is 96% on room air. General description is a middle-aged male up in the chair in no distress. Respiratory system: Unlabored breathing, clear to auscultation anteriorly. Heart S1, S2. Regular rate and rhythm. Abdomen is soft, no tenderness. Left big toe is currently dressed. No obvious drainage on the dressing. LAB: Hemoglobin 11.1, white count 7.74, creatinine 0.92. Local culture with MRSA. DIAGNOSTIC IMPRESSION AND PLAN: Patient with MRSA left big toe osteomyelitis, status post left big toe amputation with infected part removed. Patient will be considered for a short course of IV vancomycin on discharge especially with the patient is going to the [facility]. This was discussed with the case aide. MMODL / IJN: [id number] /
[2020-11-04] MEDS: CEFEPIME 2 GM in SODIUM CHLORIDE 0.9% 100 ML IVPB SCH ×2 (03:50→12:17)
[2020-11-04 05:02] VITALS: RESP 18
[2020-11-04 07:03] LABS: Glucose,Whole Blood 184 mg/dL (75-99)
[2020-11-04] MEDS: LORATADINE 10 MG TAB PO SCH (08:31)
[2020-11-04] MEDS: PENTOXIFYLLINE 400 MG TABLET.ER PO SCH (08:31)
[2020-11-04] MEDS: VITAMIN E (DL,TOCOPHERYL ACET) 400 UNIT CAP PO SCH (08:31)
[2020-11-04] MEDS: HEPARIN SODIUM,PORCINE 5,000 UNIT/ML 1 ML VIAL SQ SCH ×2 (08:31→16:48)
[2020-11-04] MEDS: METOPROLOL TARTRATE 50 MG TAB PO SCH (08:31)
[2020-11-04] MEDS: ASPIRIN 81 MG PO SCH (08:31)
[2020-11-04] MEDS: SIMETHICONE 80 MG CHEWABLE PO SCH (08:31)
[2020-11-04] MEDS: GABAPENTIN 300 MG CAP PO SCH (08:31)
[2020-11-04] MEDS: LINAGLIPTIN 5 MG TABLET PO SCH (08:31)
[2020-11-04] MEDS: MAGNESIUM OXIDE 400 MG TAB PO SCH ×2 (08:32→17:53)
[2020-11-04] MEDS: PANTOPRAZOLE 40 MG TABLET PO SCH ×2 (08:32→17:53)
[2020-11-04] MEDS: CHOLECALCIFEROL 25 MCG (1000 IU) TABLET PO SCH (08:32)
[2020-11-04] MEDS: LEVOTHYROXINE 100 MCG TAB PO SCH (08:32)
[2020-11-04] MEDS: VANCOMYCIN 1,750 MG in SODIUM CHLORIDE 0.9% 500 ML 500 ML IVPB SCH (08:33)
[2020-11-04] MEDS: INSULIN ASPART (NovoLOG) 100 UNIT/ML VIAL SQ SCH ×3 (08:33→17:53)
[2020-11-04] MEDS: carBAMazepine 200 MG TAB PO SCH ×2 (08:33→17:53)
[2020-11-04] MEDS: FLUTICASONE 50MCG/SPRAY NASAL 16GM EA NOSTRIL PRN (08:35)
[2020-11-04] MEDS: DICLOFENAC SODIUM GEL 100 GM TUBE TOPICAL SCH ×2 (08:35→17:53)
[2020-11-04 11:30] LABS: Glucose,Whole Blood 257 mg/dL (75-99)
[2020-11-04 11:53] VITALS: BP 158/83; PULSE 69; TEMP 98.2
[2020-11-04] MEDS: SODIUM CHLORIDE 0.9% 1,000 ML IV SCH (11:53)
[2020-11-04] MEDS ORDERED: LIDOCAINE 1% INJ 10MG/ML (20 ML MDV) SQ ONE (13:02)
--- NOTE | 2020-11-04 13:35 | IR ---
PICC LINE PLACEMENT: HISTORY: Infection requiring long-term antibiotic therapy PROCEDURE: Ultrasound and fluoroscopic guidance of PICC line placement. COMPLICATIONS: None ANESTHESIA: 1. 1% Lidocaine locally. FINDINGS/TECHNIQUE: The procedure was explained to the patient. The risks, complications, benefits and alternatives were discussed and any questions were answered. Informed consent was obtained. The patient was placed supine on the fluoroscopic table and prepped and draped in the usual sterile fash ion. Utilizing a 21 gauge needle and sonographic and fluoroscopic guidance, access in the left basi lic vein was achieved and there is placement of a 0.018 guidewire. The vein is patent. A 4-F sheath was placed over the guidewire. The guidewire and dilator were removed and a 4-F. PICC line was plac ed through the sheath with the tip at the level of the SVC. The sheath was removed, the catheter was flushed and sutured into position. The patient was stable throughout the procedure and remained sta ble upon discharge from the Department of Radiology. The vein puncture was patent under ultrasound. A james scale image was obtained to document patency of the vein punctured. All elements of the maximal barrier technique were utilized. FLUOROSCOPY TIME: 0.2 minutes and one image submitted IMPRESSION: Successful PICC line placement under ultrasound and fluoroscopic guidance.
--- NOTE | 2020-11-04 14:09 | P.DS ---
Providers Date of admission: 10/30/20 23:12 Expected date of discharge: 11/04/20 Attending physician: Velvet Dixon Consults: 10/30/20 23:21 Consult Physician Stat Consulting Provider: Aziza Bauman Consult Reason/Comments: Diabetic ulcer, osteomyelitis Do you want consulting provider notified?: Yes 10/31/20 10:37 Consult Physician Stat Consulting Provider: Buddy Ortiz Consult Reason/Comments: Non-healing diabetic ulcer on right 1st and 2nd toe, osteomyelitis Do you want consulting provider notified?: Yes 10/31/20 12:27 Consult Physician Routine Consulting Provider: Mick Vega Consult Reason/Comments: Right great toe osteomyelitis Do you want consulting provider notified?: Yes Primary care physician: Tati Brown Hospital Course: Final diagnosis left great toe diabetic foot infection. Failed outpatient antibiotic therapy. s/p Amputation acute osteomyelitis of the great toe Lactic acidosis Acute kidney injury likely prerenal. 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 Diabetic peripheral neuropathy DVT prophylaxis with heparin subcu Discharge disposition Patient is being discharged in a stable condition with guarded prognosis to [facility]. Patient will follow-up with Dr. Brown in the outpatient setting upon discharge. Patient also instructed to follow-up with vascular surgery Dr. Vega in the outpatient setting. Patient did receive a PICC line and is maintained on IV antibiotics in the form of vancomycin twice daily for the next 2 weeks and pharmacy to dose. Total time taken is greater than 35 minutes. Hospital course Patient is a 60-year-old male with a known history of diabetes type 2 insulin- dependent, morbid obesity BMI 40.9, hypertension, hyperlipidemia, osteoarthritis, obstructive sleep apnea on CPAP at home, hypothyroidism and degenerative disc disease and chronic back pain, anxiety, bipolar disorder and PTSD and multiple other medical problems presents to ER due to complaints of right great toe infection. Patient was seen by his pmp project manager yesterday and was advised to go to ER for IV antibiotics. Patient has been having pain, redness and swelling of the great toe for the past 1 to 2 days. Patient is also having purulent discharge on the plantar surface of the great toe. Patient does have diabetic neuropathy and has limited sensation in his lower extremities. Patient denied any complaints of fever. Did have some chills at home. No complaints of chest pain or shortness of breath. There is no dysuria or hematuria. Lab data showed WBC 11.4, hemoglobin 13.4 and platelets 345 Sodium 136 potassium 3.9 chloride 93 BUN 38 and creatinine 1.39 and lactic acid level 3.5 and coronavirus PCR not detected X-ray of the toe showed destructive changes in the big toe suggestive of osteomyelitis. 11/01/2020 Patient is currently lying in the bed. He still complains of right great toe and leg pain. Patient is scheduled for to amputation today. Patient is being continued on broad-spectrum antibiotics. Blood sugar is controlled. Patient states that he takes 130 units of Levemir. Since the blood sugar is not elevated we will continue with insulin sliding scale currently. Patient is n.p.o. Monitor CBC. Denied any complaints of chest pain or shortness of breath. Patient has been afebrile. No nausea vomiting or abdominal pain or diarrhea. 11/02/2020 Patient is status post amputation of the great toe. Pain is controlled. Patient is being continued on antibiotics now vancomycin and cefepime. ID is on board. Follow-up wound culture report. Patient has been afebrile. No complaints of nausea vomiting abdominal pain. Blood sugar is controlled with slight insulin sliding scale. We will continue to follow and adjust insulin dose at home. Patient is on 130 units of Levemir/Lantus as per home medications but patient is only insulin sliding scale currently. 11/03/2020 Patient is seen and evaluated in follow-up with no acute overnight issues. Patient is status post left great toe amputation with Dr. Vega. Patient is maintained on IV antibiotics in the form cefepime and vancomycin and infectious disease is following. Preliminary wound culture showing presumptive MRSA and waiting for finalization. Patient will likely require IV antibiotic therapy. Patient is to continue with nonweightbearing of that right lower extremity. Patient currently has the lower extremity elevated and continued to do so while at rest. Patient will likely be requiring some form of rehab and social work following working on accepting facilities. 11/04/2020 Patient has received a PICC line and will be continuing with IV vancomycin twice daily with pharmacy to dose and close monitoring of outpatient labs for the next 2 weeks. Patient also going to [facility] for continued PT/OT therapy. Patient is to continue with nonweightbearing of that left lower extremity. Cultures finalized showing MRSA. Currently patient denies any chest pain, shortness of breath, or palpitations. Patient is afebrile. Patient denies any nausea or vomiting and is tolerating diet. Recommend to continue with Accu-Cheks before meals and at bedtime and continue sliding scale at this time. Patient does take long-acting insulin although has not been requiring it during hospitalization. Patient to follow-up with Dr. Vega this Tuesday for his appointment. On exam vital signs are stable. Cardio S1, S2 are muffled. Respiratory system shows diminished breath sounds at the bases with no rhonchi noted. Abdomen is soft , obese, and nontender. Nervous system shows diffuse weakness. Please refer to medication reconciliation sheet for a list of medications. Patient Condition at Discharge: Fair Plan - Discharge Summary New Discharge Prescriptions: New Vancomycin 1,750 mg IVPB Q12HR 14 Days #28 vial INSULIN ASPART (NovoLOG) [NovoLOG (formulary)] 0 unit SQ ACHS vial Pantoprazole [Protonix] 40 mg PO AC-BID tablet. Continue Nitroglycerin Sl Tabs [Nitrostat] 0.4 mg SL Q5M PRN PRN Reason: Chest Pain Metoprolol Tartrate [Lopressor] 50 mg PO AC-BID Loratadine [Claritin] 10 mg PO PC-BRKFST diphenhydrAMINE [Benadryl] 25 - 50 mg PO QID Clotrimazole Cream [Lotrimin Cream] 1 applic TOPICAL BID PRN PRN Reason: fungal infection Betamethasone Dipropionate [Diprolene AF 0.05% Cream] 1 applic TOPICAL BID PRN PRN Reason: right hand rash Mupirocin 2% Oint [Bactroban 2% Oint] 1 applic TOPICAL HS PRN PRN Reason: MINOR CUTS/SORES Aspirin 81 mg PO HS Simethicone Chew [Mylicon Chew] 80 mg PO DAILY PRN PRN Reason: Indigestion Insulin Degludec [Tresiba Flextouch U-200] 60 unit SQ BID Testosterone [Androgel 1.62% Gel Pump] 1 pump TOPICAL Q48H Testosterone [Androgel 1.62% Gel Pump] 2 pump TOPICAL Q48H Bydureon 2mg/0.85ml Auto Injector 2 mg SQ Q7D Lipo-Flavonoid Plus 1 tab PO TID Super B Complex W/Vitamin C 1 tab PO PC-BRKFST Acetaminophen Tab [Tylenol] 500 mg PO QID PRN PRN Reason: Pain Albuterol Inhaler [Ventolin Hfa Inhaler] 1 puff INHALATION RT-QID PRN PRN Reason: Shortness Of Breath Albuterol Nebulized [Ventolin Nebulized] 2.5 mg INHALATION RT-QID PRN PRN Reason: Shortness Of Breath Alogliptin Benzoate [Alogliptin] 25 mg PO PC-BRKFST Atorvastatin [Lipitor] 40 mg PO HS Cholecalciferol [Vitamin D3 (25 Mcg = 1000 Iu)] 50 mcg PO PC-BRKFST Empagliflozin [Jardiance] 25 mg PO PC-BRKFST Fish Oil/Dha/Epa [Fish Oil 1,200 mg Fish Oil] 1 cap PO PC-BRKFST Fluticasone Nasal Leon [Flonase Nasal Leon] 2 spr EA NOSTRIL DAILY PRN PRN Reason: Allergy Symptoms Guaifenesin/Dextromethorphan [Mucinex Dm ER 1,200-60 mg Tab] 1 tab PO Q12H PRN PRN Reason: Congestion Levothyroxine Sodium [Synthroid] 300 mcg PO AC-BRKFST Magnesium Oxide [Davies] 500 mg PO AC-BID Melatonin 5 mg PO HS PRN PRN Reason: Insomnia Fvnsbssm-Tkumsbxflm-Gspb Oint [Triple Antibiotic Ointment] 1 applic TOPICAL DAILY PRN PRN Reason: minor cuts/sores Pentoxifylline [TRENtal] 400 mg PO BID Sildenafil Citrate 50 mg PO DAILY PRN PRN Reason: E.D. SILVER sulfADIAZINE Cream [Silvadene 1% Cream] 1 - 2 gm TOPICAL DAILY PRN PRN Reason: cuts/sores Tamsulosin HCl [Flomax] 0.4 mg PO AC-SUPPER Vitamin E 400 unit PO PC-BRKFST carBAMazepine 400 mg PO BID@1800,2100 #6 tab Gabapentin [Neurontin] 300 mg PO BID #6 cap HYDROcodone/APAP 5-325MG [[place] 5-325] 1 tab PO QID PRN #10 tab PRN Reason: Pain OLANZapine 7.5 mg PO HS #6 tab Methocarbamol [Robaxin-750] 750 mg PO QID PRN #10 tab PRN Reason: Muscle Spasm carBAMazepine [TEGretol] 200 mg PO -BRKFST #4 tab Diclofenac Sodium [Voltaren Gel] 1 applic TOPICAL AC-BID #15 gram Discontinued metFORMIN HCL 1,000 mg PO AC-BID Insulin Aspart [NovoLOG Flexpen] See Protocol SQ AC-TID hydroCHLOROthiazide [Hydrodiuril] 25 mg PO AC-BID Pantoprazole [Protonix] 40 mg PO -BRKFST Valsartan 320 mg PO -BRKFST Discharge Medication List Betamethasone Dipropionate [Diprolene AF 0.05% Cream] 1 applic TOPICAL BID PRN 01/22/15 [History] Clotrimazole Cream [Lotrimin Cream] 1 applic TOPICAL BID PRN 01/22/15 [History] Loratadine [Claritin] 10 mg PO -BRKFST 01/22/15 [History] Metoprolol Tartrate [Lopressor] 50 mg PO AC-BID 01/22/15 [History] Mupirocin 2% Oint [Bactroban 2% Oint] 1 applic TOPICAL HS PRN 01/22/15 [History] Nitroglycerin Sl Tabs [Nitrostat] 0.4 mg SL Q5M PRN 01/22/15 [History] diphenhydrAMINE [Benadryl] 25 - 50 mg PO QID 01/22/15 [History] Aspirin 81 mg PO HS 11/24/15 [History] Simethicone Chew [Mylicon Chew] 80 mg PO DAILY PRN 11/24/15 [History] Insulin Degludec [Tresiba Flextouch U-200] 60 unit SQ BID 07/17/17 [History] Acetaminophen Tab [Tylenol] 500 mg PO QID PRN 10/31/20 [History] Albuterol Inhaler [Ventolin Hfa Inhaler] 1 puff INHALATION RT-QID PRN 10/31/20 [History] Albuterol Nebulized [Ventolin Nebulized] 2.5 mg INHALATION RT-QID PRN 10/31/20 [History] Alogliptin Benzoate [Alogliptin] 25 mg PO -BRKFST 10/31/20 [History] Atorvastatin [Lipitor] 40 mg PO HS 10/31/20 [History] Bydureon 2mg/0.85ml Auto Injector 2 mg SQ Q7D 10/31/20 [History] Cholecalciferol [Vitamin D3 (25 Mcg = 1000 Iu)] 50 mcg PO PC-BRKFST 10/31/20 [History] Empagliflozin [Jardiance] 25 mg PO PC-BRKFST 10/31/20 [History] Fish Oil/Dha/Epa [Fish Oil 1,200 mg Fish Oil] 1 cap PO PC-BRKFST 10/31/20 [History] Fluticasone Nasal Leon [Flonase Nasal Leon] 2 spr EA NOSTRIL DAILY PRN 10/31/20 [History] Guaifenesin/Dextromethorphan [Mucinex Dm ER 1,200-60 mg Tab] 1 tab PO Q12H PRN 10/31/20 [History] Levothyroxine Sodium [Synthroid] 300 mcg PO AC-BRKFST 10/31/20 [History] Lipo-Flavonoid Plus 1 tab PO TID 10/31/20 [History] Magnesium Oxide [Davies] 500 mg PO AC-BID 10/31/20 [History] Melatonin 5 mg PO HS PRN 10/31/20 [History] Nsspuzlh-Irpbqszkvc-Bssh Oint [Triple Antibiotic Ointment] 1 applic TOPICAL DAILY PRN 10/31/20 [History] Pentoxifylline [TRENtal] 400 mg PO BID 10/31/20 [History] SILVER sulfADIAZINE Cream [Silvadene 1% Cream] 1 - 2 gm TOPICAL DAILY PRN 10/31/20 [History] Sildenafil Citrate 50 mg PO DAILY PRN 10/31/20 [History] Super B Complex W/Vitamin C 1 tab PO PC-BRKFST 10/31/20 [History] Tamsulosin HCl [Flomax] 0.4 mg PO AC-SUPPER 10/31/20 [History] Testosterone [Androgel 1.62% Gel Pump] 1 pump TOPICAL Q48H 10/31/20 [History] Testosterone [Androgel 1.62% Gel Pump] 2 pump TOPICAL Q48H 10/31/20 [History] Vitamin E 400 unit PO PC-BRKFST 10/31/20 [History] Diclofenac Sodium [Voltaren Gel] 1 applic TOPICAL AC-BID #15 gram 11/04/20 [Rx] Gabapentin [Neurontin] 300 mg PO BID #6 cap 11/04/20 [Rx] HYDROcodone/APAP 5-325MG [[place] 5-325] 1 tab PO QID PRN #10 tab 11/04/20 [Rx] INSULIN ASPART (NovoLOG) [NovoLOG (formulary)] 0 unit SQ ACHS vial 11/04/20 [Rx] Methocarbamol [Robaxin-750] 750 mg PO QID PRN #10 tab 11/04/20 [Rx] OLANZapine 7.5 mg PO HS #6 tab 11/04/20 [Rx] Pantoprazole [Protonix] 40 mg PO AC-BID tablet. 11/04/20 [Rx] Vancomycin 1,750 mg IVPB Q12HR 14 Days #28 vial 11/04/20 [Rx] carBAMazepine 400 mg PO BID@1800,2100 #6 tab 11/04/20 [Rx] carBAMazepine [TEGretol] 200 mg PO PC-BRKFST #4 tab 11/04/20 [Rx] Follow up Appointment(s)/Referral(s): Tati Brown DO [Primary Care Provider] - 1-2 days Mick Vega MD [STAFF PHYSICIAN] - 11/07/20 10:15 am Ambulatory/Diagnostic Orders: Basic Metabolic Panel [LAB.AMB] Time Frame: 1 Week, Location: None Selected C Reactive Protein [LAB.AMB] Location: None Selected Complete Blood Count w/diff [LAB.AMB] Time Frame: 1 Week, Location: None Select ed Erythrocyte Sedimentation Rate [LAB.AMB] Location: None Selected Activity/Diet/Wound Care/Special Instructions: Patient is going to [facility] Activity as tolerated Continue with IV antibiotic therapy in the form of vancomycin with pharmacy to dose twice daily for 2 weeks Repeat labs weekly Continue to monitor blood sugars before meals and at bedtime and treat accordingly with sliding scale Continue consistent carbohydrate diet Follow-up with Dr. Vega in the outpatient setting this Tuesday for follow-up appointment Follow-up with infectious disease in the outpatient setting Discharge Disposition: TRANSFER TO [facility]/F
[2020-11-04] MEDS: HYDROcodone/APAP 5-325MG 1 EACH TAB PO PRN (16:47)
[2020-11-04 17:03] LABS: Glucose,Whole Blood 198 mg/dL (75-99)
[2020-11-04] MEDS: TAMSULOSIN 0.4 MG CAP.ER.24H PO SCH (17:53)
[2020-11-05] MEDS ORDERED: VANCOMYCIN TROUGH DUE 1 EACH MISC MISCELLANE ONE (08:00)
== END 2020-11-04 20:00 | DRG 617 ==
LOC: EC 20:30 → 5NMEDONC 23:12
PROVIDERS: ADMIT Internal Medicine; ATTEND Internal Medicine
PROC: 02HV33Z Insertion of Infusion Device into Superior Vena Cava, Percutaneous Approach (ICD-10-PCS; 2020-11-04)
PROC: 0Y6Q0Z0 Detachment at Left 1st Toe, Complete, Open Approach (ICD-10-PCS; principal; 2020-11-04 11:20)
DX: E11.69 Type 2 diabetes mellitus with other specified complication (principal); M86.172 Other acute osteomyelitis, left ankle and foot; Z68.41 Body mass index [BMI] 40.0-44.9, adult; E11.52 Type 2 diabetes mellitus with diabetic peripheral angiopathy with gangrene; I96 Gangrene, not elsewhere classified; E87.1 Hypo-osmolality and hyponatremia; E87.2 Acidosis; Z16.24 Resistance to multiple antibiotics; N17.9 Acute kidney failure, unspecified; L97.519 Non-pressure chronic ulcer of other part of right foot with unspecified severity; E86.1 Hypovolemia; E66.01 Morbid (severe) obesity due to excess calories; E11.621 Type 2 diabetes mellitus with foot ulcer; E11.42 Type 2 diabetes mellitus with diabetic polyneuropathy; Z79.4 Long term (current) use of insulin; F31.9 Bipolar disorder, unspecified; Z20.822 Contact with and (suspected) exposure to COVID-19; F43.10 Post-traumatic stress disorder, unspecified; L03.031 Cellulitis of right toe; F90.9 Attention-deficit hyperactivity disorder, unspecified type; I87.8 Other specified disorders of veins; K21.9 Gastro-esophageal reflux disease without esophagitis; E78.5 Hyperlipidemia, unspecified; I10 Essential (primary) hypertension; G47.33 Obstructive sleep apnea (adult) (pediatric); E89.0 Postprocedural hypothyroidism; M47.9 Spondylosis, unspecified; M17.0 Bilateral primary osteoarthritis of knee; G51.0 Bell's palsy; G89.29 Other chronic pain; M54.9 Dorsalgia, unspecified; Z79.82 Long term (current) use of aspirin; Z79.890 Hormone replacement therapy; Z79.899 Other long term (current) drug therapy; Z85.850 Personal history of malignant neoplasm of thyroid; Z71.3 Dietary counseling and surveillance; Z90.89 Acquired absence of other organs; Z96.652 Presence of left artificial knee joint; Z87.891 Personal history of nicotine dependence; Z98.890 Other specified postprocedural states; Z88.1 Allergy status to other antibiotic agents; Z88.5 Allergy status to narcotic agent; Z88.0 Allergy status to penicillin; Z88.8 Allergy status to other drugs, medicaments and biological substances; Z91.048 Other nonmedicinal substance allergy status; Z82.49 Family history of ischemic heart disease and other diseases of the circulatory system; Z80.0 Family history of malignant neoplasm of digestive organs; Z83.3 Family history of diabetes mellitus; B95.62 Methicillin resistant Staphylococcus aureus infection as the cause of diseases classified elsewhere
CPT/HCPCS: 36415; 36573; 80048; 80053; 80202; 82565; 83036; 83605; 85025; 87040; 87070; 87075; 87077; 87186; 87205; 87635; 94640; 96361; 96365; 99284

== ENCOUNTER 2020-12-26 05:43 | Inpatient (IN) | payer MEDICARE, OTHER ==
[2020-12-26] MEDS ORDERED: DEXAMETHASONE SOD PHOSPHATE 10 MG/ML 1 ML VIAL IV STA (05:50)
[2020-12-26] MEDS ORDERED: SODIUM CHLORIDE 0.9% 1,000 ML IV STA ×2 (05:50)
[2020-12-26] MEDS ORDERED: valACYclovir 500 MG TAB PO STA (05:50)
--- NOTE | 2020-12-26 05:52 | ED ---
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 4 days of slurred speech which she attributed to prior Castro's palsy bilateral resolved. Patient also admits to taking increasing medications tonight for chronic pain. Patient denying any active headache or head trauma. No recent fevers. Patient is having slurred speech which he doesattempt to talk. Patient also complaining of generalized weakness over the last few days (Reynaldo Dunn) - Related Data Home Medications Medication Instructions Recorded Confirmed Betamethasone Dipropionate 1 applic TOPICAL BID PRN 01/22/15 12/26/20 [Diprolene AF 0.05% Cream] Loratadine [Claritin] 10 mg PO PC-BRKFST PRN 01/22/15 12/26/20 Nitroglycerin Sl Tabs [Nitrostat] 0.4 mg SL Q5M PRN 01/22/15 12/26/20 Insulin Degludec [Tresiba 60 unit SQ BID 07/17/17 12/26/20 Flextouch U-200] Albuterol Nebulized [Ventolin 2.5 mg INHALATION RT-Q4H PRN 10/31/20 12/26/20 Nebulized] Bydureon 2mg/0.85ml Auto Injector 2 mg SQ Q7D 10/31/20 12/26/20 Empagliflozin [Jardiance] 25 mg PO PC-BRKFST 10/31/20 12/26/20 Fish Oil/Dha/Epa [Fish Oil 1,200 1 cap PO PC-BRKFST 10/31/20 12/26/20 mg Fish Oil] Fluticasone Nasal [place] [Flonase 2 spr EA NOSTRIL DAILY PRN 10/31/20 12/26/20 Nasal [place]] Pentoxifylline [TRENtal] 400 mg PO BID 10/31/20 12/26/20 Sildenafil Citrate 50 mg PO DAILY PRN 10/31/20 12/26/20 Tamsulosin HCl [Flomax] 0.4 mg PO AC-SUPPER 10/31/20 12/26/20 Testosterone [Androgel 1.62% Gel 1 pump TOPICAL Q48H 10/31/20 12/26/20 Pump] Testosterone [Androgel 1.62% Gel 2 pump TOPICAL Q48H 10/31/20 12/26/20 Pump] Albuterol Sulfate [Proventil Hfa] 2 puff INHALATION RT-QID PRN 12/26/20 12/26/20 Atorvastatin [Lipitor] 40 mg PO HS 12/26/20 12/26/20 Levothyroxine Sodium [Synthroid] 350 mcg PO DAILY 12/26/20 12/26/20 Metoprolol Succinate [Toprol XL] 50 mg PO BID 12/26/20 12/26/20 OLANZapine 7.5 mg PO HS 12/26/20 12/26/20 Previous Rx's Medication Instructions Recorded Diclofenac Sodium [Voltaren Gel] 1 applic TOPICAL AC-BID #15 gram 11/04/20 Pantoprazole [Protonix] 40 mg PO AC-BID tablet. 11/04/20 carBAMazepine 400 mg PO BID@1800,2100 #6 tab 11/04/20 carBAMazepine [TEGretol] 200 mg PO PC-BRKFST #4 tab 11/04/20 Aspirin 325 mg PO DAILY tab 12/31/20 Collagenase [Santyl] 1 applic TOPICAL DAILY applic 12/31/20 Gabapentin [Neurontin] 300 mg PO BID #6 cap 12/31/20 HYDROcodone/APAP 5-325MG [[place] 1 tab PO HS PRN #6 tab 12/31/20 5-325] predniSONE [Deltasone] 20 mg PO BID tab 12/31/20 valACYclovir [Valtrex] 1,000 mg PO BID 7 Days #14 tab 12/31/20 Allergies Allergy/AdvReac Type Severity Reaction Status Date / Time codeine phosphate Allergy Dyspnea Verified 12/26/20 11:15 [From Tylenol-Codeine] levofloxacin [From Levaquin] Allergy Anaphylaxis Verified 12/26/20 11:15 Penicillins Allergy Rash/Hives Verified 12/26/20 11:15 quetiapine Allergy headache Verified 12/26/20 11:15 guaifenesin AdvReac dehydration Verified 12/26/20 11:15 meperidine HCl [From Demerol] AdvReac "altered Verified 12/26/20 11:15 state of mind" olanzapine AdvReac > 7.6 mg Verified 12/26/20 11:15 causes sleepiness phenylephrine AdvReac dehydration Verified 12/26/20 11:15 pseudoephedrine AdvReac Unknown Verified 12/26/20 11:15 [From Entex T] topiramate AdvReac Dehydration Verified 12/26/20 11:15 and Manic wool AdvReac Urticarial Verified 12/26/20 11:15 gin AdvReac Headache Uncoded 10/31/20 10:09 Review of Systems ROS Other: All systems not noted in ROS Statement are negative. <Reynaldo Guthrie - Last Filed: 12/26/20 08:51> ROS Other: All systems not noted in ROS Statement are negative. <Reynaldo Dunn - Last Filed: 12/31/20 21:54> ROS Statement: Those systems with pertinent positive or pertinent negative responses have been documented in the HPI. 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, obesity History of Any Multi-Drug Resistant Organisms: MRSA Date of last positivie culture/infection: 10/31/20 MDRO Source:: MRSA TOE Past Surgical History: Joint Replacement, Tonsillectomy Additional Past Surgical History / Comment(s): L total knee arthroplasty, stephani eye surgery, thyroidectomy Past Anesthesia/Blood Transfusion Reactions: No Reported Reaction Additional Past Anesthesia/Blood Transfusion Reaction / Comment(s): had reaction to drainage tube-"had to be knocked out-woke up swinging" Past Psychological History: ADD/ADHD, Anxiety, Bipolar, Depression, PTSD Additional Psychological History / Comment(s): implusive control disorder. Pt resides with mother and father. He uses a cane to ambulate. He was in [place]. He drives. Smoking Status: Former smoker Past Alcohol Use History: Occasional Additional Past Alcohol Use History / Comment(s): Pt started smoking in 1981 and quit in 2007. He is around 2nd hand smoke. Past Drug Use History: None Reported - Past Family History Father Family Medical History: Coronary Artery Disease (CAD), Diabetes Mellitus Additional Family Medical History / Comment(s): Father has had CABG. He is 79 yrs. old. Mother Family Medical History: Cancer, Diabetes Mellitus Additional Family Medical History / Comment(s): Mother had colon cancer with surgery. She is 75 yrs old. <Reynaldo Dunn - Last Filed: 12/31/20 21:54> General Exam General appearance: alert, in no apparent distress Head exam: Present: atraumatic, normocephalic, normal inspection Eye exam: Present: normal appearance, PERRL, EOMI. Absent: scleral icterus, conjunctival injection, periorbital swelling ENT exam: Present: normal exam, mucous membranes moist Neck exam: Present: normal inspection. Absent: tenderness, meningismus, lymphadenopathy Respiratory exam: Present: normal lung sounds bilaterally. Absent: respiratory distress, wheezes, rales, rhonchi, stridor Cardiovascular Exam: Present: regular rate, normal rhythm, normal heart sounds. Absent: systolic murmur, diastolic murmur, rubs, gallop, clicks GI/Abdominal exam: Present: soft, normal bowel sounds. Absent: distended, tenderness, guarding, rebound, rigid Extremities exam: Present: normal inspection, full ROM, normal capillary refill. Absent: tenderness, pedal edema, joint swelling, calf tenderness Back exam: Present: normal inspection Neurological exam: Present: alert, oriented X3, CN II-XII intact Expanded Neurological exam: Present: ataxia, other Patient oriented to: Present: person, place, time Speech: Present: expressive aphasia Ataxia: Present: yes Cerebellar function: Finger to Nose: Normal, Heel to Raymond: Normal, Romberg: Normal Upper motor neuron: Romulo Neglect: Normal, Pronator Drift: Normal, Babinski Sign: Normal, Sensory Extinction: Normal Sensory exam: Upper Extremity Light Touch: Normal, Upper Extremity Pin Prick: Normal, Upper Extremity Temperature: Normal, UE 2 Point Discrimination: Normal, Lower Extremity Light Touch: Normal, Lower Extremity Pin Prick: Normal, Lower Extremity Temperature: Normal, LE 2 Point Discrimination: Normal Motor strength exam: RUE: 5, LUE: 5, RLE: 5, LLE: 5 Eye Response: (4) open spontaneously Motor Response: (6) obeys commands Verbal Response: (5) oriented Psychiatric exam: Present: normal affect, normal mood Skin exam: Present: warm, dry, intact, normal color. Absent: rash <Reynaldo Dunn - Last Filed: 12/31/20 21:54> - General Exam Comments Initial Comments: NIH of 2, 4 days (Reynaldo Dunn) Course <Reynaldo Dunn - Last Filed: 12/31/20 21:54> Vital Signs 12/26/20 12/26/20 12/26/20 05:47 06:59 07:00 Temperature 98.4 F 98.3 F Pulse Rate 85 75 76 Respiratory 20 20 18 Rate Blood Pressure 104/70 105/59 104/54 O2 Sat by Pulse 98 95 94 L Oximetry 12/26/20 12/26/20 12:00 13:58 Temperature 98.3 F Pulse Rate 89 89 Respiratory 18 18 Rate Blood Pressure 110/55 110/55 O2 Sat by Pulse 96 96 Oximetry - Reevaluation(s) Reevaluation #1: 12/26/20 06:51 Medical record is reviewed (Reynaldo Dunn) Reevaluation #2: 12/26/20 06:51 Patient symptoms remain here in the emergency department. 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 Patient coming in for slurred speech worsening mental status. Patient is having signs of acute CVA (Reynaldo Dunn) - Lab Data Lab Results 12/26/20 12/26/20 12/26/20 Range/Units 05:59 06:10 06:10 WBC 9.6 (3.8-10.6) k/uL RBC 4.31 (4.30-5.90) m/uL Hgb 12.6 L (13.0-17.5) gm/dL Hct 37.7 L (39.0-53.0) % MCV 87.5 (80.0-100.0) fL MCH 29.3 (25.0-35.0) pg MCHC 33.5 (31.0-37.0) g/dL RDW 12.8 (11.5-15.5) % Plt Count 314 (150-450) k/uL MPV 7.6 Absolute Nucleated RBC (0.00-0.00) X 10*3/uL Neutrophils % 72 % Lymphocytes % 17 % Monocytes % 6 % Eosinophils % 3 % Basophils % 0 % Neutrophils # 7.0 (1.3-7.7) k/uL Lymphocytes # 1.7 (1.0-4.8) k/uL Monocytes # 0.6 (0-1.0) k/uL Eosinophils # 0.3 (0-0.7) k/uL Basophils # 0.0 (0-0.2) k/uL NRBC/100 WBC Diff (0.0-0.0) /100 WBCS PT 10.4 (9.0-12.0) sec INR 1.0 (<1.2) APTT 25.8 (22.0-30.0) sec Sodium (137-145) mmol/L Potassium (3.5-5.1) mmol/L Chloride (98-107) mmol/L Carbon Dioxide (22-30) mmol/L Anion Gap mmol/L BUN (9-20) mg/dL Creatinine (0.66-1.25) mg/dL Est GFR (CKD-EPI)AfAm (>60 ml/min/1.73 sqM) Est GFR (CKD-EPI)NonAf (>60 ml/min/1.73 sqM) BUN/Creatinine Ratio (12.00-20.00) Ratio Glucose (74-99) mg/dL POC Glucose (mg/dL) 152 H (75-99) mg/dL POC Glu [employer] Member ID Meena Liriano Calcium (8.4-10.2) mg/dL Phosphorus (2.5-4.5) mg/dL Magnesium (1.6-2.3) mg/dL Total Bilirubin (0.2-1.3) mg/dL AST (17-59) U/L ALT (4-49) U/L Alkaline Phosphatase (38-126) U/L Creatine Kinase (55-170) U/L Troponin I (0.000-0.034) ng/mL Total Protein (6.3-8.2) g/dL Albumin (3.5-5.0) g/dL Triglycerides (0.0-149.0) mg/dL Cholesterol (0-200) mg/dL LDL Cholesterol, Calc (0.0-131.0) mg/dL VLDL Cholesterol, Calc (5.00-40.00) mg/dL HDL Cholesterol (40.0-60.0) mg/dL Cholesterol/HDL Ratio Vitamin B12 (200.0-944.0) pg/mL Folate ng/mL Serum Alcohol mg/dL Coronavirus (PCR) (Not Detectd) 12/26/20 12/26/20 12/26/20 Range/Units 06:10 06:10 09:35 WBC (3.8-10.6) k/uL RBC (4.30-5.90) m/uL Hgb (13.0-17.5) gm/dL Hct (39.0-53.0) % MCV (80.0-100.0) fL MCH (25.0-35.0) pg MCHC (31.0-37.0) g/dL RDW (11.5-15.5) % Plt Count (150-450) k/uL MPV Absolute Nucleated RBC (0.00-0.00) X 10*3/uL Neutrophils % % Lymphocytes % % Monocytes % % Eosinophils % % Basophils % % Neutrophils # (1.3-7.7) k/uL Lymphocytes # (1.0-4.8) k/uL Monocytes # (0-1.0) k/uL Eosinophils # (0-0.7) k/uL Basophils # (0-0.2) k/uL NRBC/100 WBC Diff (0.0-0.0) /100 WBCS PT (9.0-12.0) sec INR (<1.2) APTT (22.0-30.0) sec Sodium 139 (137-145) mmol/L Potassium 4.5 (3.5-5.1) mmol/L Chloride 100 (98-107) mmol/L Carbon Dioxide 31 H (22-30) mmol/L Anion Gap 8 mmol/L BUN 57 H (9-20) mg/dL Creatinine 1.87 H (0.66-1.25) mg/dL Est GFR (CKD-EPI)AfAm 45 (>60 ml/min/1.73 sqM) Est GFR (CKD-EPI)NonAf 39 (>60 ml/min/1.73 sqM) BUN/Creatinine Ratio (12.00-20.00) Ratio Glucose 150 H (74-99) mg/dL POC Glucose (mg/dL) (75-99) mg/dL POC Glu [employer] Member ID Calcium 8.7 (8.4-10.2) mg/dL Phosphorus 4.4 (2.5-4.5) mg/dL Magnesium 3.0 H (1.6-2.3) mg/dL Total Bilirubin 0.4 (0.2-1.3) mg/dL AST 24 (17-59) U/L ALT 22 (4-49) U/L Alkaline Phosphatase 57 (38-126) U/L Creatine Kinase 58 (55-170) U/L Troponin I <0.012 <0.012 (0.000-0.034) ng/mL Total Protein 6.9 (6.3-8.2) g/dL Albumin 3.6 (3.5-5.0) g/dL Triglycerides (0.0-149.0) mg/dL Cholesterol (0-200) mg/dL LDL Cholesterol, Calc (0.0-131.0) mg/dL VLDL Cholesterol, Calc (5.00-40.00) mg/dL HDL Cholesterol (40.0-60.0) mg/dL Cholesterol/HDL Ratio Vitamin B12 (200.0-944.0) pg/mL Folate ng/mL Serum Alcohol <10 mg/dL Coronavirus (PCR) (Not Detectd) 12/26/20 12/26/20 12/26/20 Range/Units 12:08 13:07 16:36 WBC (3.8-10.6) k/uL RBC (4.30-5.90) m/uL Hgb (13.0-17.5) gm/dL Hct (39.0-53.0) % MCV (80.0-100.0) fL MCH (25.0-35.0) pg MCHC (31.0-37.0) g/dL RDW (11.5-15.5) % Plt Count (150-450) k/uL MPV Absolute Nucleated RBC (0.00-0.00) X 10*3/uL Neutrophils % % Lymphocytes % % Monocytes % % Eosinophils % % Basophils % % Neutrophils # (1.3-7.7) k/uL Lymphocytes # (1.0-4.8) k/uL Monocytes # (0-1.0) k/uL Eosinophils # (0-0.7) k/uL Basophils # (0-0.2) k/uL NRBC/100 WBC Diff (0.0-0.0) /100 WBCS PT (9.0-12.0) sec INR (<1.2) APTT (22.0-30.0) sec Sodium (137-145) mmol/L Potassium (3.5-5.1) mmol/L Chloride (98-107) mmol/L Carbon Dioxide (22-30) mmol/L Anion Gap mmol/L BUN (9-20) mg/dL Creatinine (0.66-1.25) mg/dL Est GFR (CKD-EPI)AfAm (>60 ml/min/1.73 sqM) Est GFR (CKD-EPI)NonAf (>60 ml/min/1.73 sqM) BUN/Creatinine Ratio (12.00-20.00) Ratio Glucose (74-99) mg/dL POC Glucose (mg/dL) 155 H (75-99) mg/dL POC Glu [employer] Crew Member ID Katheryn Davies Calcium (8.4-10.2) mg/dL Phosphorus (2.5-4.5) mg/dL Magnesium (1.6-2.3) mg/dL Total Bilirubin (0.2-1.3) mg/dL AST (17-59) U/L ALT (4-49) U/L Alkaline Phosphatase (38-126) U/L Creatine Kinase (55-170) U/L Troponin I <0.012 (0.000-0.034) ng/mL Total Protein (6.3-8.2) g/dL Albumin (3.5-5.0) g/dL Triglycerides (0.0-149.0) mg/dL Cholesterol (0-200) mg/dL LDL Cholesterol, Calc (0.0-131.0) mg/dL VLDL Cholesterol, Calc (5.00-40.00) mg/dL HDL Cholesterol (40.0-60.0) mg/dL Cholesterol/HDL Ratio Vitamin B12 (200.0-944.0) pg/mL Folate ng/mL Serum Alcohol mg/dL Coronavirus (PCR) Not Detected (Not Detectd) 12/26/20 12/27/20 12/27/20 Range/Units 20:29 05:33 05:33 WBC 7.19 (3.8-10.6) k/uL RBC 3.73 L (4.30-5.90) m/uL Hgb 10.8 L (13.0-17.5) gm/dL Hct 34.4 L (39.0-53.0) % MCV 92.2 (80.0-100.0) fL MCH 29.0 (25.0-35.0) pg MCHC 31.4 L (31.0-37.0) g/dL RDW 12.4 (11.5-15.5) % Plt Count 297 (150-450) k/uL MPV 10.7 Absolute Nucleated RBC 0 (0.00-0.00) X 10*3/uL Neutrophils % % Lymphocytes % % Monocytes % % Eosinophils % % Basophils % % Neutrophils # (1.3-7.7) k/uL Lymphocytes # (1.0-4.8) k/uL Monocytes # (0-1.0) k/uL Eosinophils # (0-0.7) k/uL Basophils # (0-0.2) k/uL NRBC/100 WBC Diff 0 (0.0-0.0) /100 WBCS PT (9.0-12.0) sec INR (<1.2) APTT (22.0-30.0) sec Sodium 142 (137-145) mmol/L Potassium 4.7 (3.5-5.1) mmol/L Chloride 105 (98-107) mmol/L Carbon Dioxide 28.7 (22-30) mmol/L Anion Gap 8.30 mmol/L BUN 35.0 H (9-20) mg/dL Creatinine 1.3 (0.66-1.25) mg/dL Est GFR (CKD-EPI)AfAm 69.2 (>60 ml/min/1.73 sqM) Est GFR (CKD-EPI)NonAf 59.7 L (>60 ml/min/1.73 sqM) BUN/Creatinine Ratio 26.92 H (12.00-20.00) Ratio Glucose 180 H (74-99) mg/dL POC Glucose (mg/dL) 197 H (75-99) mg/dL POC Glu [employer] Crew Member ID GildardoEstela Calcium 8.6 L (8.4-10.2) mg/dL Phosphorus (2.5-4.5) mg/dL Magnesium (1.6-2.3) mg/dL Total Bilirubin (0.2-1.3) mg/dL AST (17-59) U/L ALT (4-49) U/L Alkaline Phosphatase (38-126) U/L Creatine Kinase (55-170) U/L Troponin I (0.000-0.034) ng/mL Total Protein (6.3-8.2) g/dL Albumin (3.5-5.0) g/dL Triglycerides 160.0 H (0.0-149.0) mg/dL Cholesterol 158 (0-200) mg/dL LDL Cholesterol, Calc 95.0 (0.0-131.0) mg/dL VLDL Cholesterol, Calc 32.00 (5.00-40.00) mg/dL HDL Cholesterol 31.0 L (40.0-60.0) mg/dL Cholesterol/HDL Ratio 5.10 Vitamin B12 (200.0-944.0) pg/mL Folate ng/mL Serum Alcohol mg/dL Coronavirus (PCR) (Not Detectd) 12/27/20 Range/Units 05:33 WBC (3.8-10.6) k/uL RBC (4.30-5.90) m/uL Hgb (13.0-17.5) gm/dL Hct (39.0-53.0) % MCV (80.0-100.0) fL MCH (25.0-35.0) pg MCHC (31.0-37.0) g/dL RDW (11.5-15.5) % Plt Count (150-450) k/uL MPV Absolute Nucleated RBC (0.00-0.00) X 10*3/uL Neutrophils % % Lymphocytes % % Monocytes % % Eosinophils % % Basophils % % Neutrophils # (1.3-7.7) k/uL Lymphocytes # (1.0-4.8) k/uL Monocytes # (0-1.0) k/uL Eosinophils # (0-0.7) k/uL Basophils # (0-0.2) k/uL NRBC/100 WBC Diff (0.0-0.0) /100 WBCS PT (9.0-12.0) sec INR (<1.2) APTT (22.0-30.0) sec Sodium (137-145) mmol/L Potassium (3.5-5.1) mmol/L Chloride (98-107) mmol/L Carbon Dioxide (22-30) mmol/L Anion Gap mmol/L BUN (9-20) mg/dL Creatinine (0.66-1.25) mg/dL Est GFR (CKD-EPI)AfAm (>60 ml/min/1.73 sqM) Est GFR (CKD-EPI)NonAf (>60 ml/min/1.73 sqM) BUN/Creatinine Ratio (12.00-20.00) Ratio Glucose (74-99) mg/dL POC Glucose (mg/dL) (75-99) mg/dL POC Glu [employer] Crew Member ID Calcium (8.4-10.2) mg/dL Phosphorus (2.5-4.5) mg/dL Magnesium (1.6-2.3) mg/dL Total Bilirubin (0.2-1.3) mg/dL AST (17-59) U/L ALT (4-49) U/L Alkaline Phosphatase (38-126) U/L Creatine Kinase (55-170) U/L Troponin I (0.000-0.034) ng/mL Total Protein (6.3-8.2) g/dL Albumin (3.5-5.0) g/dL Triglycerides (0.0-149.0) mg/dL Cholesterol (0-200) mg/dL LDL Cholesterol, Calc (0.0-131.0) mg/dL VLDL Cholesterol, Calc (5.00-40.00) mg/dL HDL Cholesterol (40.0-60.0) mg/dL Cholesterol/HDL Ratio Vitamin B12 426.0 (200.0-944.0) pg/mL Folate 8.7 ng/mL Serum Alcohol mg/dL Coronavirus (PCR) (Not Detectd) Disposition <Reynaldo Guthrie - Last Filed: 12/26/20 08:51> <Reynaldo Dunn - Last Filed: 12/31/20 21:54> Clinical Impression: CVA (cerebral vascular accident), Castro's palsy Disposition: ADMITTED IP TO THIS [facility] Condition: Stable
[2020-12-26] MEDS ORDERED: DEXAMETHASONE SOD PHOSPHATE 4 MG/ML 1 ML VIAL IV SCH (06:00)
[2020-12-26 06:02] LABS: Glucose,Whole Blood 152 mg/dL (75-99)
[2020-12-26 06:19] LABS: Basophils % (A) 0 %; Eosinophils # (A) 0.3 k/uL (0-0.7); Eosinophils % (A) 3 %; HCT 37.7 % (39.0-53.0); HGB 12.6 gm/dL (13.0-17.5); Lymphocytes # (A) 1.7 k/uL (1.0-4.8); Lymphocytes % (A) 17 %; MCH 29.3 pg (25.0-35.0); MCHC 33.5 g/dL (31.0-37.0); MCV 87.5 fL (80.0-100.0); Mean Platelet Volume 7.6; Monocytes # (A) 0.6 k/uL (0-1.0); Monocytes % (A) 6 %; Neutrophils % (A) 72 %; Platelet Count 314 k/uL (150-450); RBC 4.31 m/uL (4.30-5.90); RDW 12.8 % (11.5-15.5); WBC 9.6 k/uL (3.8-10.6)
[2020-12-26 06:28] LABS: Partial Thromboplastin Time 25.8 sec (22.0-30.0); Prothrombin Time 10.4 sec (9.0-12.0)
[2020-12-26] MEDS ORDERED: ASPIRIN 325 MG TAB PO STA (06:54)
--- NOTE | 2020-12-26 06:54 | XR ---
EXAMINATION TYPE: XR chest 1V DATE OF EXAM: 12/26/2020 COMPARISON: Chest x-ray June 10, 2020 HISTORY: Altered mental status and weakness. TECHNIQUE: Single AP portable frontal upright view of the chest is obtained. FINDINGS: Diminished inspiration on current study. There is no suspicious new focal air space opacity , pleural effusion, or pneumothorax seen. The cardiac silhouette size is enlarged. The osseous str uctures are intact. IMPRESSION: Mild cardiomegaly without acute pulmonary process.
[2020-12-26 07:51] LABS: ALT 22 U/L (4-49); AST 24 U/L (17-59); African American GFR (CKD) 45 (>60 ml/min/1.73 sqM); Albumin 3.6 g/dL (3.5-5.0); Alcohol <10 mg/dL; Alkaline Phosphatase 57 U/L (38-126); Anion Gap 8 mmol/L; Blood Urea Nitrogen 57 mg/dL (9-20); Calcium 8.7 mg/dL (8.4-10.2); Carbon Dioxide 31 mmol/L (22-30); Chloride 100 mmol/L (98-107); Creatine Kinase 58 U/L (55-170); Glucose 150 mg/dL (74-99); Non-African American GFR(CKD) 39 (>60 ml/min/1.73 sqM); Phosphorus 4.4 mg/dL (2.5-4.5); Potassium 4.5 mmol/L (3.5-5.1); Sodium 139 mmol/L (137-145); Total Bilirubin 0.4 mg/dL (0.2-1.3); Total Protein 6.9 g/dL (6.3-8.2)
--- NOTE | 2020-12-26 08:17 | CT ---
EXAMINATION TYPE: CT brain wo con for TPA DATE OF EXAM: 12/26/2020 HISTORY: Weakness, acute onset neuro deficit. CT DLP: 1086.4 mGycm. Automated Exposure Control for Dose Reduction was Utilized. TECHNIQUE: CT scan of the head is performed without contrast. COMPARISON: None. FINDINGS: There is no acute intracranial hemorrhage or midline shift identified. There is mild diff use ventricular and sulcal prominence consistent with diffuse age-related cerebral atrophy. Thornton-whit e matter differentiation is maintained. Patchy cerumen in the bilateral external auditory canals. Th e globes are intact and the visualized sinuses are clear. IMPRESSION: No acute intracranial hemorrhage or midline shift.
[2020-12-26] MEDS: SODIUM CHLORIDE 0.9% 1,000 ML IV SCH ×2 (08:48→19:41)
[2020-12-26] MEDS ORDERED: valACYclovir 500 MG TAB PO SCH (09:00)
[2020-12-26] MEDS ORDERED: valACYclovir HCL 1,000 MG TABLET PO SCH (09:00)
--- NOTE | 2020-12-26 10:01 | ECHOF ---
Referral Reason:Thrombus MEASUREMENTS -------- HEIGHT: 172.7 cm WEIGHT: 127.9 kg BP: IVSd: 1.1 cm (0.6 - 1.1) LVIDd: 4.3 cm (3.9 - 5.3) LVPWd: 1.3 cm (0.6 - 1.1) IVSs: 1.7 cm LVIDs: 2.3 cm LVPWs: 1.9 cm MV EXCURSION: 15.618 mm (> 18.000) MV EF SLOPE: 169 mm/s (70 - 150) EPSS: 0.7 cm MV E Onur: 1.03 m/s MV DecT: 186 ms MV A Onur: 0.93 m/s MV E/A Ratio: 1.11 RAP: 5.00 mmHg RVSP: 8.86 mmHg FINDINGS -------- This was a technically difficult study with suboptimal views. The left ventricular size is normal. Left ventricular wall thickness is normal. Overall left vent ricular systolic function is normal with, an EF between 55 - 60 %. The RV was not well visualized. The left atrial size is normal. The right atrium was not well visualized. Lumason used The aortic valve was not well visualized. The mitral valve is normal. There is trace mitral regurgitation. The tricuspid valve appears structurally normal. Trace tricuspid regurgitation present. Right inder tricular systolic pressure is normal at < 35 mmHg. The pulmonic valve was not well visualized. The aortic root size is normal. Normal inferior vena cava with normal inspiratory collapse consistent with estimated right atrial pre ssure of 5 mmHg. There is no pericardial effusion. CONCLUSIONS -------- 1. The left ventricular size is normal. 2. Left ventricular wall thickness is normal. 3. Overall left ventricular systolic function is normal with, an EF between 55 - 60 %. 4. There is trace mitral regurgitation. 5. Trace tricuspid regurgitation present. 6. There is no pericardial effusion. PEDIATRIC OCCUPATIONAL THERAPIST: Rosalind Verma RDCS
--- NOTE | 2020-12-26 16:04 | US ---
EXAMINATION TYPE: US carotid duplex BILAT DATE OF EXAM: 12/26/2020 COMPARISON: NONE CLINICAL HISTORY: Facial weakness, rule out CVA. facial weakness EXAM MEASUREMENTS: RIGHT: Peak Systolic Velocity (PSV) cm/sec ----- Right CCA: 66.3 ----- Right ICA: 76.4 ----- Right ECA: 63.4 ICA/CCA ratio: 1.2 RIGHT: End Diastole cm/sec ----- Right CCA: 15.4 ----- Right ICA: 21.2 ----- Right ECA: 0 LEFT: Peak Systolic Velocity (PSV) cm/sec ----- Left CCA: 72.1 ----- Left ICA: 88.1 ----- Left ECA: 105.5 ICA/CCA ratio: 1.2 LEFT: End Diastole cm/sec ----- Left CCA: 15.4 ----- Left ICA: 18.3 ----- Left ECA: 9.5 VERTEBRALS (direction of flow): Right Vertebral: Antegrade Left Vertebral: Antegrade Rhythm: Normal No significant stenosis seen. There is mild plaque at the right carotid bulb which is not hemodynamic ally significant. IMPRESSION: No evidence of hemodynamically significant stenosis bilaterally. Criteria for Assigning % of Stenosis / Diameter reduction (Estimation based on the indirect measurements of the internal carotid artery velocities (ICA PSV). 1. Normal (no stenosis)=ICA PSV < 125 cm/s: ratio < 2.0: ICA EDV<40 cm/s. 2. Less than 50% stenosis=ICA PSV < 125 cm/s: ratio < 2.0: ICA EDV<40 cm/s. 3. 50 to 69% stenosis=ICA PSV of 125 to 230 cm/s: ration 2.0 ? 4.0: ICA EDV 40-100 cm/s. 4. Greater than 70% stenosis to near occlusion= ICA PSV > 230 cm/s: ratio > 4.0: ICA EDV > 100 cm/s. 5. Near occlusion= ICA PSV velocities may be low or undetectable: variable ratio and ICA EDV. 6. Total occlusion=unable to detect flow.
[2020-12-26 16:37] LABS: Glucose,Whole Blood 155 mg/dL (75-99)
[2020-12-26] MEDS ORDERED: LORATADINE 10 MG TAB PO PRN (17:01)
[2020-12-26] MEDS ORDERED: NITROGLYCERIN SL TABS 0.4 MG TAB SUBLINGUAL PRN (17:01)
[2020-12-26] MEDS ORDERED: BETAMETHASONE DIPROPIONATE 0.05% CREAM 15 GM TUBE TOPICAL PRN (17:01)
[2020-12-26] MEDS ORDERED: NON FORMULARY DRUG (Sildenafil Citrate [Sildenafil Citrate] 100 MG Tablet) PO PRN (17:01)
[2020-12-26] MEDS ORDERED: ALBUTEROL NEBULIZED 2.5 MG/3 ML INHALATION PRN (17:01)
[2020-12-26] MEDS ORDERED: ALBUTEROL HFA INHALER INHALATION PRN (17:01)
[2020-12-26] MEDS ORDERED: HYDROcodone/APAP 5-325MG 1 EACH TAB PO PRN (17:01)
[2020-12-26] MEDS ORDERED: FLUTICASONE 50MCG/SPRAY NASAL 16GM EA NOSTRIL PRN (17:01)
--- NOTE | 2020-12-26 17:12 | P.HPIM ---
History of Present Illness Patient is a 60-year-old male came in with the weakness in the left side of the face involving the forehead patient is diagnosed with Castro's palsy. Patient had a history was positive water through 4 years ago. Patient was comparing of generalized weakness and able to take care of himself at home. Patient has multiple medical problems including diabetes mellitus with the diabetic foot infections and patient had a recent amputation procedure on the left foot and patient has VAC in place patient has significant weakness will need to be evaluated by physical therapy and occupational therapy may need placement again. Patient appears to be quite weak. On exam patient does have asterixis I discontinued anticholinergic medications are do not see any medications because encephalopathy EEG will be obtained neurology was consulted. Review of Systems REVIEW OF SYSTEMS: CONSTITUTIONAL: No fever, no malaise, no fatigue. HEENT: No recent visual problems or hearing problems. Denied any sore throat. CARDIOVASCULAR: No chest pain, orthopnea, PND, no palpitations, no syncope. PULMONARY: No shortness of breath, no cough, no hemoptysis. GASTROINTESTINAL: No diarrhea, no nausea, no vomiting, no abdominal pain. NEUROLOGICAL: No headaches. HEMATOLOGICAL: Denies any bleeding or petechiae. GENITOURINARY: Denies any burning micturition, frequency, or urgency. MUSCULOSKELETAL/RHEUMATOLOGICAL: Denies any joint pain, swelling, or any muscle pain. ENDOCRINE: Denies any polyuria or polydipsia. The rest of the 14-point review of systems is negative. 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, BLAYNE with CPAP, IDDM type II, neuropathy bilateral lower extremities, hypothroid- thyroidectomy d/t cancer, arthritis/ DJD in back and bilateral knees, obesity History of Any Multi-Drug Resistant Organisms: MRSA Date of last positivie culture/infection: 10/31/20 MDRO Source:: MRSA TOE Past Surgical History: Joint Replacement, Tonsillectomy Additional Past Surgical History / Comment(s): L great toe amputation, L total knee arthroplasty, stephani eye surgery, thyroidectomy Past Anesthesia/Blood Transfusion Reactions: No Reported Reaction Additional Past Anesthesia/Blood Transfusion Reaction / Comment(s): had reaction to drainage tube-"had to be knocked out-woke up swinging" Smoking Status: Former smoker, Second hand smoke exposure - Past Family History Father Family Medical History: Coronary Artery Disease (CAD), Diabetes Mellitus Additional Family Medical History / Comment(s): Father has had CABG. He is 84 yrs. old. Mother Family Medical History: Cancer, Diabetes Mellitus Additional Family Medical History / Comment(s): Mother had colon cancer with surgery. She is 80 yrs old. Medications and Allergies Home Medications Medication Instructions Recorded Confirmed Type Betamethasone Dipropionate 1 applic TOPICAL BID PRN 01/22/15 12/26/20 History [Diprolene AF 0.05% Cream] Loratadine [Claritin] 10 mg PO PC-BRKFST PRN 01/22/15 12/26/20 History Nitroglycerin Sl Tabs [Nitrostat] 0.4 mg SL Q5M PRN 01/22/15 12/26/20 History Aspirin 81 mg PO HS 11/24/15 12/26/20 History Insulin Degludec [Tresiba 60 unit SQ BID 07/17/17 12/26/20 History Flextouch U-200] Albuterol Nebulized [Ventolin 2.5 mg INHALATION RT-Q4H PRN 10/31/20 12/26/20 History Nebulized] Bydureon 2mg/0.85ml Auto Injector 2 mg SQ Q7D 10/31/20 12/26/20 History Empagliflozin [Jardiance] 25 mg PO PC-BRKFST 10/31/20 12/26/20 History Fish Oil/Dha/Epa [Fish Oil 1,200 1 cap PO PC-BRKFST 10/31/20 12/26/20 History mg Fish Oil] Fluticasone Nasal [place] [Flonase 2 spr EA NOSTRIL DAILY PRN 10/31/20 12/26/20 History Nasal [place]] Pentoxifylline [TRENtal] 400 mg PO BID 10/31/20 12/26/20 History Sildenafil Citrate 50 mg PO DAILY PRN 10/31/20 12/26/20 History Tamsulosin HCl [Flomax] 0.4 mg PO AC-SUPPER 10/31/20 12/26/20 History Testosterone [Androgel 1.62% Gel 1 pump TOPICAL Q48H 10/31/20 12/26/20 History Pump] Testosterone [Androgel 1.62% Gel 2 pump TOPICAL Q48H 10/31/20 12/26/20 History Pump] Diclofenac Sodium [Voltaren Gel] 1 applic TOPICAL AC-BID #15 gram 11/04/20 12/26/20 Rx Gabapentin [Neurontin] 300 mg PO BID #6 cap 11/04/20 12/26/20 Rx Pantoprazole [Protonix] 40 mg PO AC-BID tablet. 11/04/20 12/26/20 Rx carBAMazepine 400 mg PO BID@1800,2100 #6 tab 11/04/20 12/26/20 Rx carBAMazepine [TEGretol] 200 mg PO PC-BRKFST #4 tab 11/04/20 12/26/20 Rx Albuterol Sulfate [Proventil Hfa] 2 puff INHALATION RT-QID PRN 12/26/20 12/26/20 History Atorvastatin [Lipitor] 40 mg PO HS 12/26/20 12/26/20 History HYDROcodone/APAP 5-325MG [[place] 1 tab PO HS PRN 12/26/20 12/26/20 History 5-325] Levothyroxine Sodium [Synthroid] 350 mcg PO DAILY 12/26/20 12/26/20 History Metoprolol Succinate [Toprol XL] 50 mg PO BID 12/26/20 12/26/20 History OLANZapine 7.5 mg PO HS 12/26/20 12/26/20 History Allergies Allergy/AdvReac Type Severity Reaction Status Date / Time codeine phosphate Allergy Dyspnea Verified 12/26/20 11:15 [From Tylenol-Codeine] levofloxacin [From Levaquin] Allergy Anaphylaxis Verified 12/26/20 11:15 Penicillins Allergy Rash/Hives Verified 12/26/20 11:15 quetiapine Allergy headache Verified 12/26/20 11:15 guaifenesin AdvReac dehydration Verified 12/26/20 11:15 meperidine HCl [From Demerol] AdvReac "altered Verified 12/26/20 11:15 state of mind" olanzapine AdvReac > 7.6 mg Verified 12/26/20 11:15 causes sleepiness phenylephrine AdvReac dehydration Verified 12/26/20 11:15 pseudoephedrine AdvReac Unknown Verified 12/26/20 11:15 [From Entex T] topiramate AdvReac Dehydration Verified 12/26/20 11:15 and Manic wool AdvReac Urticarial Verified 12/26/20 11:15 gin AdvReac Headache Uncoded 10/31/20 10:09 Physical Exam Vitals: Vital Signs Temp Pulse Pulse Resp BP BP Pulse Ox 12/26/20 14:00 98.4 F 82 20 115/72 98 12/26/20 13:58 98.3 F 89 18 110/55 96 12/26/20 12:00 89 18 110/55 96 12/26/20 07:00 98.3 F 76 18 104/54 94 L 12/26/20 06:59 75 20 105/59 95 12/26/20 05:47 98.4 F 85 20 104/70 98 Intake and Output 12/26/20 12/26/20 12/26/20 06:59 14:59 22:59 Other: Voiding Method Urinal # Voids 1 Weight 127.913 kg 127.913 kg 127.9 kg PHYSICAL EXAMINATION: GENERAL: The patient is alert and oriented x3, not in any acute distress. Well developed, well nourished. HEENT: Pupils are round and equally reacting to light. EOMI. No scleral icterus. No conjunctival pallor. Normocephalic, atraumatic. No pharyngeal erythema. No thyromegaly. CARDIOVASCULAR: S1 and S2 present. No murmurs, rubs, or gallops. PULMONARY: Chest is clear to auscultation, no wheezing or crackles. ABDOMEN: Soft, nontender, nondistended, normoactive bowel sounds. No palpable organomegaly. MUSCULOSKELETAL: No joint swelling or deformity. EXTREMITIES: No cyanosis, clubbing, or pedal edema. Patient has a amputation of the left great toe with a wound VAC in place NEUROLOGICAL: Does have lower motor neuron palsy of the facial nerve paralysis and also forehead as well as the lower part of the entire left side of the face. Patient has significant asterixis generalized weakness no other focal weakness apart from described above. SKIN: No rashes. Results CBC & Chem 7: 12/26/20 06:10 12/26/20 06:10 Labs: Abnormal Lab Results - Last 24 Hours (Table) 12/26/20 12/26/20 12/26/20 Range/Units 05:59 06:10 06:10 Hgb 12.6 L (13.0-17.5) gm/dL Hct 37.7 L (39.0-53.0) % Carbon Dioxide 31 H (22-30) mmol/L BUN 57 H (9-20) mg/dL Creatinine 1.87 H (0.66-1.25) mg/dL Glucose 150 H (74-99) mg/dL POC Glucose (mg/dL) 152 H (75-99) mg/dL Magnesium 3.0 H (1.6-2.3) mg/dL 12/26/20 Range/Units 16:36 Hgb (13.0-17.5) gm/dL Hct (39.0-53.0) % Carbon Dioxide (22-30) mmol/L BUN (9-20) mg/dL Creatinine (0.66-1.25) mg/dL Glucose (74-99) mg/dL POC Glucose (mg/dL) 155 H (75-99) mg/dL Magnesium (1.6-2.3) mg/dL Thrombosis Risk Factor Assmnt - Choose All That Apply Any of the Below Risk Factors Present?: Yes Each Factor Represents 1 point: Age 41-60 years, Medical pt on bed rest, Obesity (BMI >25), Swollen legs (current) Other Risk Factors: Yes Each Risk Factor Represents 2 Points: Malignancy Other congenital or acquired thrombophilia - If yes, enter type in comment: No Thrombosis Risk Factor Assessment Total Risk Factor Score: 6 Thrombosis Risk Factor Assessment Level: High Risk Assessment and Plan Plan: Generalized weakness due to recent hospitalization and peripheral neuropathy from diabetes mellitus patient the leg be evaluated by physical therapy and occupational therapy will need to be discharged to subacute rehabilitation again. 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 -Type 2 diabetes mellitus patient blood sugars are expected to go because of which I'm we will increase the long-acting insulin and continue with the rest of the regimen patient is on very high-dose of for insulin and on multiple occasions for diabetes mellitus -Diabetic peripheral neuropathy -Acute renal failure baseline creatinine is within normal limits patient has elevated creatinine to 1.8 probably prerenal azotemia patient will be started on IV fluids will repeat basic metabolic profile again tomorrow -Gastroesophageal reflux disease -Hyperlipidemia -Hypertension -Sleep apnea -Hyperthyroidism next and-peripheral vascular disease -Diabetes mellitus with a amputation of the left great toe patient has a wound VAC in place which will be continued -DVT Prophylaxis with subcutaneous heparin
[2020-12-26] MEDS ORDERED: AUTO INJECTOR SQ SCH (17:15)
[2020-12-26] MEDS ORDERED: BYDUREON SQ SCH (17:15)
[2020-12-26] MEDS: DICLOFENAC SODIUM GEL 100 GM TUBE TOPICAL SCH (18:01)
[2020-12-26] MEDS: TAMSULOSIN 0.4 MG CAP.ER.24H PO SCH (18:01)
[2020-12-26] MEDS: carBAMazepine 200 MG TAB PO SCH ×2 (18:02→20:31)
[2020-12-26] MEDS: PANTOPRAZOLE 40 MG TABLET PO SCH (18:02)
[2020-12-26] MEDS: INSULIN DETEMIR (LEVEMIR) 100 UNIT/ML SYR SQ SCH (20:30)
[2020-12-26] MEDS: GABAPENTIN 300 MG CAP PO SCH (20:31)
[2020-12-26] MEDS: valACYclovir 500 MG TAB PO SCH (20:31)
[2020-12-26] MEDS: METOPROLOL SUCCINATE (ER) 50 MG TAB.ER.24H PO SCH (20:31)
[2020-12-26] MEDS: predniSONE 20 MG TAB PO SCH (20:31)
[2020-12-26] MEDS: ATORVASTATIN 80 MG TAB PO SCH (20:31)
[2020-12-26] MEDS: OLANZapine 7.5 MG TAB PO SCH (20:32)
[2020-12-26] MEDS: PENTOXIFYLLINE 400 MG TABLET.ER PO SCH (20:32)
[2020-12-26 20:36] LABS: Glucose,Whole Blood 197 mg/dL (75-99)
[2020-12-26] MEDS ORDERED: ASPIRIN 81 MG PO SCH (21:00)
[2020-12-26] MEDS ORDERED: ATORVASTATIN 40 MG TAB PO SCH (21:00)
--- NOTE | 2020-12-26 23:23 | P.CNNES ---
History of Present Illness Consult date: 12/26/20 Requesting physician: Reynaldo Dunn Reason for Consult: CVA History of Present Illness: Patient is a 60-year-old male came to the hospital clean room technician today at 5:43 AM because of difficulty with walking and talking. Patient states that he woke up at 3 AM from a very weird dream. He got up, went to the bathroom. When he was trying to get back to his bed, he couldn't walk, couldn't talk therefore he called the ambulance by pressed emergency alert, and EMS was called. Patient states he has strength in the arms but has no strength in the legs. Patient not a very good historian. As per EMS flow sheet when they arrived patient was alert and oriented 4 sitting on the edge of the bed. Patient had complained of increased weakness, tremors and severe difficulty standing/walking. Patient states that he has been seen by his PCP Dr. Breaux yesterday 12/25/2020 for the increased weakness and had his medications adjusted and was scheduled for an MRI to rule out CVA/aneurysm. He had mentioned that he had gotten out of bed to use the bathroom and nearly fell multiple times due to severe weakness and tremors. Patient has a wound VAC connected to his left foot due to recent toe amputation. His blood glucose was 191. Blood pressure 134/94, pulse rate 75 saturation 99% and temperature 99.1. Vital signs on arrival blood pressure 104/70, pulse rate 85, temperature 98.4. Blood test shows normal CBC, PT/PTT, electrolytes, BU and is 57, creatinine 1.87. Hepatic panel is normal. Troponin negative. Blood alcohol level negative. [place] virus PCR negative. CT head showed no acute intracranial hemorrhage or midline shift. Chest x-ray showed mild cardiomegaly without acute pulmonary process. 2-D echo showed left-ventricular size normal. Left ventricular wall thickness is normal. EF is 55-60%. Trace MR. EKG with normal sinus rhythm. Patient's last hemoglobin A1c 6.4 on 11/01/2020. Patient's home medications include [place], Lipitor 40 mg, olanzapine 7.5 mg at bedtime, metoprolol, carbamazepine 200 mg in the morning and 400 mg twice a day, (total 1000 mg daily), gabapentin 300 mg twice a day, insulin, aspirin 81 mg. 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 Patient states that he uses crutches. At present patient states that he still f eels weakness in the legs and arms. His speech outcomes and goes". Speech therapist was just recently in, and patient states that he was told that he is "grasping for words". He never had a CVA before. He denies any worsening of his Castro's palsy. Patient has smoked 1 pack per day for 5-6 years, quit in 2007. He has hypertension. He has diabetes since December 1996. Review of Systems Patient has left big toe amputation. Patient denies any chest pain shortness of breath, denies any double vision. Denies any loss of vision. Denies hoarseness sore throat dysphagia. Denies abdominal pain, nausea vomiting diarrhea. 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, BLAYNE with CPAP, IDDM type II, neuropathy bilateral lower extremities, hypothroid- thyroidectomy d/t cancer, arthritis/ DJD in back and bilateral knees, obesity History of Any Multi-Drug Resistant Organisms: MRSA Date of last positivie culture/infection: 10/31/20 MDRO Source:: MRSA TOE Past Surgical History: Joint Replacement, Tonsillectomy Additional Past Surgical History / Comment(s): L great toe amputation, L total knee arthroplasty, stephani eye surgery, thyroidectomy Past Anesthesia/Blood Transfusion Reactions: No Reported Reaction Additional Past Anesthesia/Blood Transfusion Reaction / Comment(s): had reaction to drainage tube-"had to be knocked out-woke up swinging" Smoking Status: Former smoker, Second hand smoke exposure - Past Family History Father Family Medical History: Coronary Artery Disease (CAD), Diabetes Mellitus Additional Family Medical History / Comment(s): Father has had CABG. He is 84 yrs. old. Mother Family Medical History: Cancer, Diabetes Mellitus Additional Family Medical History / Comment(s): Mother had colon cancer with surgery. She is 80 yrs old. Medications and Allergies Home Medications Medication Instructions Recorded Confirmed Type Betamethasone Dipropionate 1 applic TOPICAL BID PRN 01/22/15 12/26/20 History [Diprolene AF 0.05% Cream] Loratadine [Claritin] 10 mg PO PC-BRKFST PRN 01/22/15 12/26/20 History Nitroglycerin Sl Tabs [Nitrostat] 0.4 mg SL Q5M PRN 01/22/15 12/26/20 History Aspirin 81 mg PO HS 11/24/15 12/26/20 History Insulin Degludec [Tresiba 60 unit SQ BID 07/17/17 12/26/20 History Flextouch U-200] Albuterol Nebulized [Ventolin 2.5 mg INHALATION RT-Q4H PRN 10/31/20 12/26/20 History Nebulized] Bydureon 2mg/0.85ml Auto Injector 2 mg SQ Q7D 10/31/20 12/26/20 History Empagliflozin [Jardiance] 25 mg PO PC-BRKFST 10/31/20 12/26/20 History Fish Oil/Dha/Epa [Fish Oil 1,200 1 cap PO PC-BRKFST 10/31/20 12/26/20 History mg Fish Oil] Fluticasone Nasal [place] [Flonase 2 spr EA NOSTRIL DAILY PRN 10/31/20 12/26/20 History Nasal [place]] Pentoxifylline [TRENtal] 400 mg PO BID 10/31/20 12/26/20 History Sildenafil Citrate 50 mg PO DAILY PRN 10/31/20 12/26/20 History Tamsulosin HCl [Flomax] 0.4 mg PO AC-SUPPER 10/31/20 12/26/20 History Testosterone [Androgel 1.62% Gel 1 pump TOPICAL Q48H 10/31/20 12/26/20 History Pump] Testosterone [Androgel 1.62% Gel 2 pump TOPICAL Q48H 10/31/20 12/26/20 History Pump] Diclofenac Sodium [Voltaren Gel] 1 applic TOPICAL AC-BID #15 gram 11/04/20 12/26/20 Rx Gabapentin [Neurontin] 300 mg PO BID #6 cap 11/04/20 12/26/20 Rx Pantoprazole [Protonix] 40 mg PO AC-BID tablet. 11/04/20 12/26/20 Rx carBAMazepine 400 mg PO BID@1800,2100 #6 tab 11/04/20 12/26/20 Rx carBAMazepine [TEGretol] 200 mg PO PC-BRKFST #4 tab 11/04/20 12/26/20 Rx Albuterol Sulfate [Proventil Hfa] 2 puff INHALATION RT-QID PRN 12/26/20 12/26/20 History Atorvastatin [Lipitor] 40 mg PO HS 12/26/20 12/26/20 History HYDROcodone/APAP 5-325MG [[place] 1 tab PO HS PRN 12/26/20 12/26/20 History 5-325] Levothyroxine Sodium [Synthroid] 350 mcg PO DAILY 12/26/20 12/26/20 History Metoprolol Succinate [Toprol XL] 50 mg PO BID 12/26/20 12/26/20 History OLANZapine 7.5 mg PO HS 12/26/20 12/26/20 History Allergies Allergy/AdvReac Type Severity Reaction Status Date / Time codeine phosphate Allergy Dyspnea Verified 12/26/20 11:15 [From Tylenol-Codeine] levofloxacin [From Levaquin] Allergy Anaphylaxis Verified 12/26/20 11:15 Penicillins Allergy Rash/Hives Verified 12/26/20 11:15 quetiapine Allergy headache Verified 12/26/20 11:15 guaifenesin AdvReac dehydration Verified 12/26/20 11:15 meperidine HCl [From Demerol] AdvReac "altered Verified 12/26/20 11:15 state of mind" olanzapine AdvReac > 7.6 mg Verified 12/26/20 11:15 causes sleepiness phenylephrine AdvReac dehydration Verified 12/26/20 11:15 pseudoephedrine AdvReac Unknown Verified 12/26/20 11:15 [From Entex T] topiramate AdvReac Dehydration Verified 12/26/20 11:15 and Manic wool AdvReac Urticarial Verified 12/26/20 11:15 gin AdvReac Headache Uncoded 10/31/20 10:09 Physical Examination - Vital Signs Vital Signs: Vital Signs Temp Pulse Pulse Resp BP BP Pulse Ox 12/26/20 14:00 98.4 F 82 20 115/72 98 05/07/21 13:58 98.3 F 89 18 110/55 96 12/26/20 12:00 89 18 110/55 96 12/26/20 07:00 98.3 F 76 18 104/54 94 L 12/26/20 06:59 75 20 105/59 95 12/26/20 05:47 98.4 F 85 20 104/70 98 Intake and Output 12/26/20 12/26/20 12/26/20 06:59 14:59 22:59 Other: # Voids 1 Weight 127.913 kg 127.913 kg Patient is a middle aged male, in no acute distress. Patient is alert awake oriented to time place and person. Speech is mildly slurred, but is probably baseline and language functions are normal. Attention, concentration and fund of knowledge is adequate. Patient knows that he is in [facility], and that it is December 2020. On cranial examination, pupils are round and reacting to light, visual wolf are full on confrontation, extraocular muscles are intact with no nystagmus. Patient has left facial weakness, peripheral type with some blepharospasm, tongue protrudes to the midline. Palatal elevation and sensation normal, hearing and shoulder shrug normal, facial sensation normal. Shoulder shrug normal. On muscle strength testing, there is no pronator drift and the strength is normal in arms and legs distally and proximally. Deep tendon reflexes are 2+ in the biceps, brachioradialis and knees, patient has amputated toe on the left. Flat plantar on the right. Sensory to touch is equal with no neglect. Cerebellar function showed no ataxia for [id number] testing. No dysdiadochokinesia. Tone and bulk of muscles normal. Gait patient walks with a walker here although at home he uses crutches. On general examination, there is no carotid bruit or murmur, S1-S2 audible. Abdomen is soft nontender. Chest is clear. Patient has trophic skin changes from peripheral arterial disease in the lower legs. He has bilateral knee surgeries in the past. Patient has prominent myoclonic jerks of his upper extremities bilaterally. Results - Laboratory Findings CBC and BMP: 12/26/20 06:10 12/26/20 06:10 Abnormal Lab Findings: Abnormal Labs 12/26/20 12/26/20 12/26/20 05:59 06:10 06:10 Hgb 12.6 L Hct 37.7 L Carbon Dioxide 31 H BUN 57 H Creatinine 1.87 H Glucose 150 H POC Glucose (mg/dL) 152 H Magnesium 3.0 H Assessment and Plan Assessment: * 60-year-old male admitted with an episode of difficulty with walking, and speaking. Patient's current examination is nonfocal. He has significant myoclonic jerks of outstretched hands, consistent with metabolic dysfunction, or from medication use. His falls could be related to myoclonic jerks. H owever need to rule out TIA/CVA. * Diabetes * Peripheral arterial disease, status post left big toe amputation * Bipolar disorder * History of left Castro's palsy with residual deficits. Plan: * MRI of the brain to rule out any acute stroke. * Carotid Doppler revealed no hemodynamically significant stenosis bilaterally. Antegrade flow in both vertebral arteries. * 2-D echo showed normal left ventricular size. Normal left-ventricular wall thickness. EF is 55-60%. Trace MR. * Hemoglobin A1c 6.4 on 11/01/2020. * Continue aspirin 325 mg and Lipitor 80 mg. * Check fasting lipid panel, B12, folate. * Tegretol level is 7.6 (4-12). Patient is on fairly high dose Tegretol, but levels are acceptable range. * Limit opiates, Neurontin, as these can produce myoclonic jerks. * Dr. Villaseñor covering neurology service over the weekend.
[2020-12-27] MEDS: HEPARIN SODIUM,PORCINE/PF 5,000 UNIT/0.5 ML SYRINGE SQ SCH ×4 (01:34→21:40)
[2020-12-27] MEDS: SODIUM CHLORIDE 0.9% 1,000 ML IV SCH ×3 (02:09→21:41)
[2020-12-27] MEDS: LEVOTHYROXINE 100 MCG TAB PO SCH (05:46)
[2020-12-27] MEDS: ASPIRIN 325 MG TAB PO SCH (07:54)
[2020-12-27] MEDS: METOPROLOL SUCCINATE (ER) 50 MG TAB.ER.24H PO SCH ×2 (07:54→21:39)
[2020-12-27] MEDS: predniSONE 20 MG TAB PO SCH ×2 (07:54→21:40)
[2020-12-27] MEDS: valACYclovir 500 MG TAB PO SCH ×2 (07:55→21:38)
[2020-12-27] MEDS: PENTOXIFYLLINE 400 MG TABLET.ER PO SCH ×2 (07:55→21:39)
[2020-12-27] MEDS: PANTOPRAZOLE 40 MG TABLET PO SCH ×2 (07:56→17:43)
[2020-12-27] MEDS: carBAMazepine 200 MG TAB PO SCH ×3 (07:56→21:39)
[2020-12-27] MEDS: DICLOFENAC SODIUM GEL 100 GM TUBE TOPICAL SCH ×2 (07:56→17:39)
[2020-12-27] MEDS: INSULIN DETEMIR (LEVEMIR) 100 UNIT/ML SYR SQ SCH ×2 (07:57→21:38)
[2020-12-27] MEDS: GABAPENTIN 300 MG CAP PO SCH ×2 (07:57→21:39)
[2020-12-27] MEDS: NON FORMULARY DRUG (Empagliflozin [Jardiance] 25 MG Tablet) PO SCH (07:57)
[2020-12-27 09:25] LABS: HCT 34.4 % (39.6-50.0); HGB 10.8 g/dL (13.0-17.0); MCHC 31.4 g/dL (32.0-37.0); MCV 92.2 fL (80.0-97.0); Mean Platelet Volume 10.7 fL (9.5-12.2); Platelet Count 297 X 10*3/uL (140-440); RBC 3.73 X 10*6/uL (4.40-5.60); RDW 12.4 % (11.5-14.5); WBC 7.19 X 10*3/uL (4.50-10.00)
[2020-12-27 09:38] LABS: African American GFR (CKD) 69.2 (60.0-200.0); Anion Gap 8.3 mmol/L (4.00-12.00); BUN/Creat Ratio 26.92 Ratio (12.00-20.00); Calcium 8.6 mg/dL (8.7-10.3); Carbon Dioxide 28.7 mmol/L (21.6-31.8); Chol/HDL Ratio 5.1; Folate, Serum 8.7 ng/mL; Non-African American GFR(CKD) 59.7 (60.0-200.0); Potassium 4.7 mmol/L (3.5-5.5)
--- NOTE | 2020-12-27 12:37 | P.PN ---
Subjective Patient is a 60-year-old male came in with the weakness in the left side of the face involving the forehead patient is diagnosed with Castro's palsy. Patient had a history was positive water through 4 years ago. Patient was comparing of generalized weakness and able to take care of himself at home. Patient has multiple medical problems including diabetes mellitus with the diabetic foot infections and patient had a recent amputation procedure on the left foot and patient has VAC in place patient has significant weakness will need to be evalua sundeep by physical therapy and occupational therapy may need placement again. Patient appears to be quite weak. On exam patient does have asterixis I discontinued anticholinergic medications are do not see any medications because encephalopathy EEG will be obtained neurology was consulted. 12/27/2020 Neurology evaluated the patient and patient apparently gave him history of slurred speech. Patient does have generalized weakness for which patient will be getting rotation. Because of the episode of slurred speech and myoclonic activity, neurology is recommending MRI. Patient's creatinine improved 1.3 patient will be continued on IV fluids but will cut down the IV fluids to 75 mL per hour patient had a Tegretol level which is within normal limits and the B12 level is also within normal limits. Patient's hemoglobin did drop but this is secondary to hemodynamic effect from IV fluids. That sugars are fairly well controlled in spite of systemic steroids. Constitutional: Denied any fatigue denied any fever. Cardio vascular: denied any chest pain, palpitations Gastrointestinal denied any nausea vomiting Pulmonary: Denied any shortness of breath cough Neurologic denied any new focal deficits All inpatient medications were reviewed and appropriate changes in these medications as dictated in the interval history and assessment and plan. Objective - Vital Signs Vital signs: Vital Signs Temp 97.5 F L 12/27/20 07:00 Pulse 72 12/27/20 08:00 Resp 18 12/27/20 08:00 BP 127/79 12/27/20 07:00 Pulse Ox 95 12/27/20 07:36 Intake & Output 12/26/20 12/27/20 12/27/20 18:59 06:59 18:59 Output Total 2800 Balance -2800 Weight 127.9 kg Output: Urine 2800 Other: Voiding Method Urinal Urinal Urinal # Voids 1 1 1 - Exam PHYSICAL EXAMINATION: GENERAL: The patient is alert and oriented x3, not in any acute distress. Well developed, well nourished. HEENT: Pupils are round and equally reacting to light. EOMI. No scleral icterus. No conjunctival pallor. Normocephalic, atraumatic. No pharyngeal erythema. No thyromegaly. CARDIOVASCULAR: S1 and S2 present. No murmurs, rubs, or gallops. PULMONARY: Chest is clear to auscultation, no wheezing or crackles. ABDOMEN: Soft, nontender, nondistended, normoactive bowel sounds. No palpable organomegaly. MUSCULOSKELETAL: No joint swelling or deformity. EXTREMITIES: No cyanosis, clubbing, or pedal edema. Patient has a amputation of the left great toe with a wound VAC in place NEUROLOGICAL: Does have lower motor neuron palsy of the facial nerve paralysis and also forehead as well as the lower part of the entire left side of the face. Patient has significant asterixis generalized weakness no other focal weakness apart from described above. SKIN: No rashes. - Labs CBC & Chem 7: 12/27/20 05:33 12/27/20 05:33 Labs: Abnormal Lab Results - Last 24 Hours (Table) 12/26/20 12/26/20 12/27/20 Range/Units 16:36 20:29 05:33 RBC (4.40-5.60) X 10*6/uL Hgb (13.0-17.0) g/dL Hct (39.6-50.0) % MCHC (32.0-37.0) g/dL BUN 35.0 H (9.0-27.0) mg/dL Est GFR (CKD-EPI)NonAf 59.7 L (60.0-200.0) BUN/Creatinine Ratio 26.92 H (12.00-20.00) Ratio Glucose 180 H (70-110) mg/dL POC Glucose (mg/dL) 155 H 197 H (75-99) mg/dL Calcium 8.6 L (8.7-10.3) mg/dL Triglycerides 160.0 H (0.0-149.0) mg/dL HDL Cholesterol 31.0 L (40.0-60.0) mg/dL 12/27/20 Range/Units 05:33 RBC 3.73 L (4.40-5.60) X 10*6/uL Hgb 10.8 L (13.0-17.0) g/dL Hct 34.4 L (39.6-50.0) % MCHC 31.4 L (32.0-37.0) g/dL BUN (9.0-27.0) mg/dL Est GFR (CKD-EPI)NonAf (60.0-200.0) BUN/Creatinine Ratio (12.00-20.00) Ratio Glucose (70-110) mg/dL POC Glucose (mg/dL) (75-99) mg/dL Calcium (8.7-10.3) mg/dL Triglycerides (0.0-149.0) mg/dL HDL Cholesterol (40.0-60.0) mg/dL Assessment and Plan Plan: Generalized weakness due to recent hospitalization and peripheral neuropathy from diabetes mellitus patient the leg be evaluated by physical therapy and occupational therapy will need to be discharged to subacute rehabilitation again. 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 Patient is also being evaluated for TIA, my suspicion is extremely low for TIA patient had a normal ejection fraction carotid Doppler did not show any significant abnormality -Myoclonus /asterixis: Etiology of this encephalopathy is not clear neurology evaluated the patient, Tegretol levels are essentially within normal limits -Type 2 diabetes mellitus patient blood sugars are expected to go because of which I'm we will increase the long-acting insulin and continue with the rest of the regimen patient is on very high-dose of for insulin and on multiple occasions for diabetes mellitus -Diabetic peripheral neuropathy -Acute renal failure baseline creatinine is within normal limits patient has elevated creatinine to 1.8, with fluids it has come down to 1.3 patient will continued on fluids were cut down trended down to 75 mL per hour -Gastroesophageal reflux disease -Hyperlipidemia -Hypertension -Sleep apnea -Hyperthyroidism next and-peripheral vascular disease -Diabetes mellitus with a amputation of the left great toe patient has a wound VAC in place which will be continued -DVT Prophylaxis with subcutaneous heparin
[2020-12-27] MEDS: TAMSULOSIN 0.4 MG CAP.ER.24H PO SCH (17:42)
--- NOTE | 2020-12-27 19:31 | P.PN ---
Subjective Progress Note Date: 12/27/20 The patient is a 60-year-old male who is seen in neurologic follow-up on December 27, 2020, via teleneurology. The patient reports that he was feeling fine until he began eating lunch. He said that after he ate his lunch he started to feel little bit weak. He reports having some jerky movements of his extremities. He was able to sit, carefully. His symptoms resolved. The patient reports having myoclonic jerking movements of his upper extremities for the past 6 months or so. He reports a history of Castro's palsy, on 2 separate occasions. The patient's chart has been reviewed. His neurologic symptoms are somewhat inconsistent. Objective - Vital Signs Vital signs: Vital Signs Temp 97.7 F 12/27/20 15:00 Pulse 73 12/27/20 15:00 Resp 18 12/27/20 15:00 BP 127/83 12/27/20 15:00 Pulse Ox 99 12/27/20 15:00 Intake & Output 12/26/20 12/27/20 12/27/20 18:59 06:59 18:59 Output Total 2800 Balance -2800 Weight 127.9 kg Output: Urine 2800 Other: Voiding Method Urinal Urinal Urinal # Voids 1 1 3 - Exam Gen.: The patient is reclining in the bed. He is in no acute distress. He is obese. HEENT: Head is atraumatic, normocephalic. Fundus not visualized. There is no scleral icterus. Mucous membranes are moist. Extremities: There is evidence of venous stasis the bilateral lower extremities. Patient also has a VAC to his left foot. He is status post amputation of the left great toe. Neurological examination Mental status: The patient is awake, alert and oriented 3. His speech is clear. Cranial nerves: Pupils are equal at 3 millimeters and reactive. Visual field testing is inconsistent. Extraocular movements are intact. There is no nystagmus. Facial sensation is intact. There is left ptosis and left lower motor neuron facial droop. Patient is unable to raise his left eyebrow. Tongue protrudes midline. Shoulder shrug is symmetric. Motor: Strength is 5/5. Coordination: There are noted to be myoclonic jerking type movements of the fingers and hands, with [id number] testing. Deep tendon reflexes: 3+/4+ in the bilateral upper extremities. Bilateral patellar reflexes 2+/4+. Abnormal movements: Myoclonic jerking movements of the fingers and hands. There are darting movements of the patient's tongue. - Labs CBC & Chem 7: 12/27/20 05:33 12/27/20 05:33 Labs: Abnormal Lab Results - Last 24 Hours (Table) 12/26/20 12/26/20 12/27/20 Range/Units 16:36 20:29 05:33 RBC (4.40-5.60) X 10*6/uL Hgb (13.0-17.0) g/dL Hct (39.6-50.0) % MCHC (32.0-37.0) g/dL BUN 35.0 H (9.0-27.0) mg/dL Est GFR (CKD-EPI)NonAf 59.7 L (60.0-200.0) BUN/Creatinine Ratio 26.92 H (12.00-20.00) Ratio Glucose 180 H (70-110) mg/dL POC Glucose (mg/dL) 155 H 197 H (75-99) mg/dL Calcium 8.6 L (8.7-10.3) mg/dL Triglycerides 160.0 H (0.0-149.0) mg/dL HDL Cholesterol 31.0 L (40.0-60.0) mg/dL 12/27/20 Range/Units 05:33 RBC 3.73 L (4.40-5.60) X 10*6/uL Hgb 10.8 L (13.0-17.0) g/dL Hct 34.4 L (39.6-50.0) % MCHC 31.4 L (32.0-37.0) g/dL BUN (9.0-27.0) mg/dL Est GFR (CKD-EPI)NonAf (60.0-200.0) BUN/Creatinine Ratio (12.00-20.00) Ratio Glucose (70-110) mg/dL POC Glucose (mg/dL) (75-99) mg/dL Calcium (8.7-10.3) mg/dL Triglycerides (0.0-149.0) mg/dL HDL Cholesterol (40.0-60.0) mg/dL Assessment and Plan Assessment: 1. Left peripheral facial droop, with inconsistent history of intermittent weakness, [id number] TIA 2. Myoclonic jerking movements of the bilateral upper extremities with tardive dyskinetic movements of the tongue-likely secondary to previous medication effect 3. 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 Recent amputation of the left great toe 5. History of bipolar disorder 6. Diabetes mellitus type 2 Plan: 1. We'll change MRI order to stat, so that will be done first thing Tuesday morning. If MRI reveals no signs of acute infarct and patient remains neurologically stable, then he will be safe for discharge. Time with Patient: Less than 30 (spent 25 minutes with patient via teleneurology)
[2020-12-27] MEDS: ATORVASTATIN 80 MG TAB PO SCH (21:39)
[2020-12-27] MEDS: OLANZapine 7.5 MG TAB PO SCH (21:39)
[2020-12-27 21:49] LABS: Glucose,Whole Blood 116 mg/dL (75-99)
[2020-12-28] MEDS: LEVOTHYROXINE 100 MCG TAB PO SCH (05:37)
[2020-12-28] MEDS: NON FORMULARY DRUG (Empagliflozin [Jardiance] 25 MG Tablet) PO SCH (07:15)
[2020-12-28] MEDS: ASPIRIN 325 MG TAB PO SCH (07:15)
[2020-12-28] MEDS: DICLOFENAC SODIUM GEL 100 GM TUBE TOPICAL SCH ×2 (07:15→12:36)
[2020-12-28] MEDS: predniSONE 20 MG TAB PO SCH ×2 (07:15→21:09)
[2020-12-28] MEDS: PENTOXIFYLLINE 400 MG TABLET.ER PO SCH ×2 (07:16→21:10)
[2020-12-28] MEDS: GABAPENTIN 300 MG CAP PO SCH ×2 (07:16→21:09)
[2020-12-28] MEDS: valACYclovir 500 MG TAB PO SCH ×2 (07:16→21:10)
[2020-12-28] MEDS: HEPARIN SODIUM,PORCINE/PF 5,000 UNIT/0.5 ML SYRINGE SQ SCH ×3 (07:16→21:10)
[2020-12-28] MEDS: METOPROLOL SUCCINATE (ER) 50 MG TAB.ER.24H PO SCH ×2 (07:16→21:09)
[2020-12-28] MEDS: PANTOPRAZOLE 40 MG TABLET PO SCH ×2 (07:17→16:49)
[2020-12-28] MEDS: INSULIN DETEMIR (LEVEMIR) 100 UNIT/ML SYR SQ SCH ×2 (07:17→21:10)
[2020-12-28] MEDS: carBAMazepine 200 MG TAB PO SCH ×3 (07:17→21:10)
--- NOTE | 2020-12-28 12:06 | P.PN ---
Subjective Patient is a 60-year-old male came in with the weakness in the left side of the face involving the forehead patient is diagnosed with Castro's palsy. Patient had a history was positive water through 4 years ago. Patient was comparing of generalized weakness and able to take care of himself at home. Patient has multiple medical problems including diabetes mellitus with the diabetic foot infections and patient had a recent amputation procedure on the left foot and patient has VAC in place patient has significant weakness will need to be evalua sundeep by physical therapy and occupational therapy may need placement again. Patient appears to be quite weak. On exam patient does have asterixis I discontinued anticholinergic medications are do not see any medications because encephalopathy EEG will be obtained neurology was consulted. 12/27/2020 Neurology evaluated the patient and patient apparently gave him history of slurred speech. Patient does have generalized weakness for which patient will be getting rotation. Because of the episode of slurred speech and myoclonic activity, neurology is recommending MRI. Patient's creatinine improved 1.3 patient will be continued on IV fluids but will cut down the IV fluids to 75 mL per hour patient had a Tegretol level which is within normal limits and the B12 level is also within normal limits. Patient's hemoglobin did drop but this is secondary to hemodynamic effect from IV fluids. That sugars are fairly well controlled in spite of systemic steroids. 12/28/2020 Patient is awaiting MRI and EEG tomorrow. Patient probably can be discharged to subacute rehabilitation after that. Constitutional: Denied any fatigue denied any fever. Cardio vascular: denied any chest pain, palpitations Gastrointestinal denied any nausea vomiting Pulmonary: Denied any shortness of breath cough Neurologic denied any new focal deficits All inpatient medications were reviewed and appropriate changes in these medications as dictated in the interval history and assessment and plan. Objective - Vital Signs Vital signs: Vital Signs Temp 98.1 F 12/28/20 07:00 Pulse 75 12/28/20 08:00 Resp 16 12/28/20 08:00 BP 131/76 12/28/20 07:00 Pulse Ox 95 12/28/20 08:48 Intake & Output 12/27/20 12/28/20 12/28/20 18:59 06:59 18:59 Intake Total 240 660 200 Output Total 900 250 Balance 240 -240 -50 Intake: Oral 240 660 200 Output: Urine 900 250 Other: Voiding Method Urinal Urinal Urinal # Voids 3 2 2 - Exam PHYSICAL EXAMINATION: GENERAL: The patient is alert and oriented x3, not in any acute distress. Well developed, well nourished. HEENT: Pupils are round and equally reacting to light. EOMI. No scleral icterus. No conjunctival pallor. Normocephalic, atraumatic. No pharyngeal erythema. No thyromegaly. CARDIOVASCULAR: S1 and S2 present. No murmurs, rubs, or gallops. PULMONARY: Chest is clear to auscultation, no wheezing or crackles. ABDOMEN: Soft, nontender, nondistended, normoactive bowel sounds. No palpable organomegaly. MUSCULOSKELETAL: No joint swelling or deformity. EXTREMITIES: No cyanosis, clubbing, or pedal edema. Patient has a amputation of the left great toe with a wound VAC in place NEUROLOGICAL: Does have lower motor neuron palsy of the facial nerve paralysis and also forehead as well as the lower part of the entire left side of the face. Patient has significant asterixis generalized weakness no other focal weakness apart from described above. SKIN: No rashes. - Labs CBC & Chem 7: 12/27/20 05:33 12/27/20 05:33 Labs: Abnormal Lab Results - Last 24 Hours (Table) 12/27/20 Range/Units 21:47 POC Glucose (mg/dL) 116 H (75-99) mg/dL Assessment and Plan Plan: Generalized weakness due to recent hospitalization and peripheral neuropathy from diabetes mellitus patient the leg be evaluated by physical therapy and occupational therapy will need to be discharged to subacute rehabilitation again. 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 Patient is also being evaluated for TIA, my suspicion is low for TIA patient had a normal ejection fraction carotid Doppler did not show any significant abnormality -Myoclonus /asterixis: Etiology of this encephalopathy is not clear neurology evaluated the patient, Tegretol levels are essentially within normal limits. Patient will undergo EGD tomorrow -Type 2 diabetes mellitus patient blood sugars are expected to go because of w mounika I'm we will increase the long-acting insulin and continue with the rest of the regimen patient is on very high-dose of for insulin and on multiple occasions for diabetes mellitus, patient's blood sugars are well controlled -Diabetic peripheral neuropathy -Acute renal failure baseline creatinine is within normal limits patient has elevated creatinine to 1.8, with fluids it has come down to 1.3, repeat basic metabolic profile tomorrow this can you IV fluids -Gastroesophageal reflux disease -Hyperlipidemia -Hypertension -Sleep apnea -Hyperthyroidism next and-peripheral vascular disease -Diabetes mellitus with a amputation of the left great toe patient has a wound VAC in place which will be continued -DVT Prophylaxis with subcutaneous heparin
[2020-12-28] MEDS: TAMSULOSIN 0.4 MG CAP.ER.24H PO SCH (16:49)
[2020-12-28 20:43] LABS: Glucose,Whole Blood 180 mg/dL (75-99)
[2020-12-28] MEDS: ATORVASTATIN 80 MG TAB PO SCH (21:09)
[2020-12-28] MEDS: OLANZapine 7.5 MG TAB PO SCH (21:10)
[2020-12-29] MEDS: LEVOTHYROXINE 100 MCG TAB PO SCH (05:33)
[2020-12-29 07:12] LABS: Glucose,Whole Blood 146 mg/dL (75-99)
[2020-12-29] MEDS: NON FORMULARY DRUG (Empagliflozin [Jardiance] 25 MG Tablet) PO SCH (08:02)
[2020-12-29] MEDS: GABAPENTIN 300 MG CAP PO SCH ×2 (08:06→21:51)
[2020-12-29] MEDS: PANTOPRAZOLE 40 MG TABLET PO SCH ×2 (08:06→17:59)
[2020-12-29] MEDS: predniSONE 20 MG TAB PO SCH ×2 (08:06→21:51)
[2020-12-29] MEDS: INSULIN DETEMIR (LEVEMIR) 100 UNIT/ML SYR SQ SCH ×2 (08:06→21:49)
[2020-12-29] MEDS: HEPARIN SODIUM,PORCINE/PF 5,000 UNIT/0.5 ML SYRINGE SQ SCH ×3 (08:06→21:51)
[2020-12-29] MEDS: ASPIRIN 325 MG TAB PO SCH (08:06)
[2020-12-29] MEDS: METOPROLOL SUCCINATE (ER) 50 MG TAB.ER.24H PO SCH ×2 (08:06→21:51)
[2020-12-29] MEDS: valACYclovir 500 MG TAB PO SCH ×2 (08:08→21:50)
[2020-12-29] MEDS: DICLOFENAC SODIUM GEL 100 GM TUBE TOPICAL SCH ×2 (08:08→15:24)
[2020-12-29] MEDS: carBAMazepine 200 MG TAB PO SCH ×3 (08:10→21:51)
[2020-12-29] MEDS: PENTOXIFYLLINE 400 MG TABLET.ER PO SCH ×2 (08:10→21:50)
[2020-12-29 09:25] LABS: African American GFR (CKD) 84.7 (60.0-200.0); BUN/Creat Ratio 21.82 Ratio (12.00-20.00); Calcium 8.9 mg/dL (8.7-10.3); Non-African American GFR(CKD) 73.1 (60.0-200.0); Potassium 5.3 mmol/L (3.5-5.5)
--- NOTE | 2020-12-29 10:39 | P.CONS ---
History of Present Illness - Chief Complaint Gait disturbance - History of Present Illness I had the opportunity to see patient for inpatient rehab consultation with regard to gait disturbance. Patient admitted to [facility] December 26 with history of falling down. Patient describes this as getting up off toilet and sitting back down and toilet roughly. Patient noted to have left [place] palsy/facial weakness as well as mental status change. Seen by neurology, Dr. Junior is working up stroke and EEG and MRI pending. Carotid Doppler, head CT were both negative. Chest x-ray with mild cardiomegaly. Speech therapy reports swallow and communication/cognition evaluations within normal limits and discontinue. PT reports supervision to minimal assistance for bed mobility transfers and minimal assistance for gait 40 feet with roller walker. OT prescribed. Previous functional history as elicited from patient: 60-year-old ambidextrous per these right more than left) male who lives and 2 floor home with his parents. Previously mom was lying most of the cooking but doubt i.e. LAD. Dad does the laundry in the driving of the mom. Patient describes independent with own driving, sitdown shower and gait with crutches and right arm and can in left hand. Patient currently on long-term/disability from an AV. PCP Dr. Breaux. Patient has history smoking and no longer smokes and doesn't drink. Review of Systems Review of systems: ENT: Denies sneezes or discharge. Eyes: Denies discharge or photophobia. Cardiac: Denies chest pain or palpitation. Pulmonary: Denies cough or shortness of breath. Gastrointestinal: Denies nausea, emesis, constipation, diarrhea. Genitourinary: Denies discharge or frequency. Musculoskeletal: Denies muscle or bone aches. Recent amputation left great toe. Neurologic: Denies motor or sensory change. Endocrine: Denies shakes or sweats. Oncology: Denies cancers. Dermatologic: Denies rash, itching, pruritus. ALLERGY/immunology: Denies sneezes, rashes. 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, BLAYNE with CPAP, IDDM type II, neuropathy bilateral lower extremities, hypothroid- thyroidectomy d/t cancer, arthritis/ DJD in back and bilateral knees, obesity History of Any Multi-Drug Resistant Organisms: MRSA Year Discovered:: 10/31/20 MDRO Source:: MRSA TOE Past Surgical History: Joint Replacement, Tonsillectomy Additional Past Surgical History / Comment(s): L great toe amputation, L total knee arthroplasty, stephani eye surgery, thyroidectomy Past Anesthesia/Blood Transfusion Reactions: No Reported Reaction Additional Past Anesthesia/Blood Transfusion Reaction / Comm: had reaction to drainage tube-"had to be knocked out-woke up swinging" Smoking Status: Former smoker, Second hand smoke exposure - Past Family History Father Family Medical History: Coronary Artery Disease (CAD), Diabetes Mellitus Additional Family Medical History / Comment(s): Father has had CABG. He is 84 yrs. old. Mother Family Medical History: Cancer, Diabetes Mellitus Additional Family Medical History / Comment(s): Mother had colon cancer with surgery. She is 80 yrs old. Medications and Allergies Home Medications Medication Instructions Recorded Confirmed Type Betamethasone Dipropionate 1 applic TOPICAL BID PRN 01/22/15 12/26/20 History [Diprolene AF 0.05% Cream] Loratadine [Claritin] 10 mg PO PC-BRKFST PRN 01/22/15 12/26/20 History Nitroglycerin Sl Tabs [Nitrostat] 0.4 mg SL Q5M PRN 01/22/15 12/26/20 History Aspirin 81 mg PO HS 11/24/15 12/26/20 History Insulin Degludec [Tresiba 60 unit SQ BID 07/17/17 12/26/20 History Flextouch U-200] Albuterol Nebulized [Ventolin 2.5 mg INHALATION RT-Q4H PRN 10/31/20 12/26/20 History Nebulized] Bydureon 2mg/0.85ml Auto Injector 2 mg SQ Q7D 10/31/20 12/26/20 History Empagliflozin [Jardiance] 25 mg PO PC-BRKFST 10/31/20 12/26/20 History Fish Oil/Dha/Epa [Fish Oil 1,200 1 cap PO PC-BRKFST 10/31/20 12/26/20 History mg Fish Oil] Fluticasone Nasal [place] [Flonase 2 spr EA NOSTRIL DAILY PRN 10/31/20 12/26/20 History Nasal [place]] Pentoxifylline [TRENtal] 400 mg PO BID 10/31/20 12/26/20 History Sildenafil Citrate 50 mg PO DAILY PRN 10/31/20 12/26/20 History Tamsulosin HCl [Flomax] 0.4 mg PO AC-SUPPER 10/31/20 12/26/20 History Testosterone [Androgel 1.62% Gel 1 pump TOPICAL Q48H 10/31/20 12/26/20 History Pump] Testosterone [Androgel 1.62% Gel 2 pump TOPICAL Q48H 10/31/20 12/26/20 History Pump] Diclofenac Sodium [Voltaren Gel] 1 applic TOPICAL AC-BID #15 gram 11/04/20 12/26/20 Rx Gabapentin [Neurontin] 300 mg PO BID #6 cap 11/04/20 12/26/20 Rx Pantoprazole [Protonix] 40 mg PO AC-BID tablet. 11/04/20 12/26/20 Rx carBAMazepine 400 mg PO BID@1800,2100 #6 tab 11/04/20 12/26/20 Rx carBAMazepine [TEGretol] 200 mg PO PC-BRKFST #4 tab 11/04/20 12/26/20 Rx Albuterol Sulfate [Proventil Hfa] 2 puff INHALATION RT-QID PRN 12/26/20 12/26/20 History Atorvastatin [Lipitor] 40 mg PO HS 12/26/20 12/26/20 History HYDROcodone/APAP 5-325MG [[place] 1 tab PO HS PRN 12/26/20 12/26/20 History 5-325] Levothyroxine Sodium [Synthroid] 350 mcg PO DAILY 12/26/20 12/26/20 History Metoprolol Succinate [Toprol XL] 50 mg PO BID 12/26/20 12/26/20 History OLANZapine 7.5 mg PO HS 12/26/20 12/26/20 History Allergies Allergy/AdvReac Type Severity Reaction Status Date / Time codeine phosphate Allergy Dyspnea Verified 12/26/20 11:15 [From Tylenol-Codeine] levofloxacin [From Levaquin] Allergy Anaphylaxis Verified 12/26/20 11:15 Penicillins Allergy Rash/Hives Verified 12/26/20 11:15 quetiapine Allergy headache Verified 12/26/20 11:15 guaifenesin AdvReac dehydration Verified 12/26/20 11:15 meperidine HCl [From Demerol] AdvReac "altered Verified 12/26/20 11:15 state of mind" olanzapine AdvReac > 7.6 mg Verified 12/26/20 11:15 causes sleepiness phenylephrine AdvReac dehydration Verified 12/26/20 11:15 pseudoephedrine AdvReac Unknown Verified 12/26/20 11:15 [From Entex T] topiramate AdvReac Dehydration Verified 12/26/20 11:15 and Manic wool AdvReac Urticarial Verified 12/26/20 11:15 gin AdvReac Headache Uncoded 10/31/20 10:09 Physical Exam Vitals: Vital Signs Temp Pulse Resp BP Pulse Ox 12/29/20 08:00 73 18 12/29/20 07:00 97.8 F 73 18 158/96 99 12/29/20 00:25 98.1 F 68 18 139/75 99 12/28/20 20:00 72 18 12/28/20 19:31 97.6 F 73 16 150/84 100 12/28/20 14:40 97.9 F 72 18 144/89 96 12/28/20 12:37 75 16 Intake and Output 12/28/20 12/29/20 12/29/20 22:59 06:59 14:59 Intake Total 590 250 Output Total 625 1050 Balance -35 -800 Intake: Oral 590 250 Output: Urine 625 1050 Other: Voiding Method Urinal Urinal # Voids 2 2 # Bowel Movements 1 Skin: Good color, texture, turgor. General: Obese build and comfortable appearance. Head: Normocephalic, atraumatic. Eyes: Symmetric. Pupils equal round. Ears: Symmetric. Hearing within normal limits. Mouth: Clear. Neck: Supple. Carotid without bruit. Cardiac: Regular rate and rhythm. Lungs: Clear anteriorly and posteriorly. Abdomen: Soft active nontender. Extremities: Normal tone. Left foot clean and dressed. Neurological: Mental status: Alert, cooperative, pleasant. Cranial nerves: Symmetric facial tone and trapezius. Motor: Normal strength and isolation all 4 limbs. Sensation: Intact throughout. DTRs: Symmetric and equal throughout. Mobility: Sits and stands without assistance or verbal cueing or loss of balance. Results CBC & Chem 7: 12/27/20 05:33 12/29/20 05:08 Labs: Abnormal Lab Results - Last 24 Hours (Table) 12/28/20 12/29/20 12/29/20 Range/Units 20:42 05:08 07:11 BUN/Creatinine Ratio 21.82 H (12.00-20.00) Ratio Glucose 146 H (70-110) mg/dL POC Glucose (mg/dL) 180 H 146 H (75-99) mg/dL Assessment and Plan (1) Rader's palsy Current Visit: Yes Status: Acute Code(s): G51.0 - RADER'S PALSY SNOMED Code(s): 362089887 (2) CVA (cerebral vascular accident) Current Visit: Yes Status: Acute Code(s): I63.9 - CEREBRAL INFARCTION, UNSPECIFIED SNOMED Code(s): 657930615 Plan: Impression: 1. Gait disturbance due to stroke or TIA with now resolved left facial weakn ess. 2. Bipolar. 3. Hypothyroid. 4. ASCVD with history of recent left great toe amputation. 5. Diabetes. 6. Hypertension. 7. Dyslipidemia. 8. Sleep apnea. 9. Osteoarthritis. 10. Reflux. Comments and plan: At this time PT and SCHOOL BUSINESS MANAGER have evaluated patient. In fact SCHOOL BUSINESS MANAGER as determined there are no goals to work and is discontinued. Would await OT evaluation. At this time it seems reasonable suspect that patient had TIA which is now resolved. Will however follow closely with yourself for ongoing PT and OT and possible safety concerns and need for inpatient rehab.
[2020-12-29 11:47] LABS: Glucose,Whole Blood 136 mg/dL (75-99)
--- NOTE | 2020-12-29 16:03 | P.PN ---
Subjective Progress Note Date: 12/29/20 Patient was seen at bedside. The please refer to Dr. Junior's and Dr. Villaseñor's note for further neurological detailed history as well as workup. Patient denies any further myoclonic jerks. He feels back to baseline. Objective - Vital Signs Vital signs: Vital Signs Temp 97.6 F 12/29/20 15:00 Pulse 70 12/29/20 15:00 Resp 18 12/29/20 15:00 BP 142/83 12/29/20 15:00 Pulse Ox 100 12/29/20 15:00 Intake & Output 12/28/20 12/29/20 12/29/20 18:59 06:59 18:59 Intake Total 840 600 240 Output Total 250 1675 760 Balance 590 -3495 -520 Intake: Oral 840 600 240 Output: Urine 250 1675 760 Other: Voiding Method Urinal Urinal Urinal # Voids 2 2 # Bowel Movements 1 - Exam Gen.: The patient is reclining in the bed. He is in no acute distress. He is obese. Extremities: There is evidence of venous stasis the bilateral lower extremities. Patient also has a VAC to his left foot. He is status post amputation of the left great toe. Neurological examination Mental status: The patient is awake, alert and oriented 3. His speech is clear . Cranial nerves: Pupils are equal at 3 millimeters and reactive. Visual field testing is inconsistent. Extraocular movements are intact. There is no nystagmus. Facial sensation is intact. There is left ptosis and left lower motor neuron facial droop. Patient is unable to raise his left eyebrow. Tongue protrudes midline. Shoulder shrug is symmetric. Motor: Strength is 5/5. Coordination: There are noted to be myoclonic jerking type movements of the fingers and hands, with [id number] testing. There is no further myoclonic jerks. Deep tendon reflexes: 3+/4+ in the bilateral upper extremities. Bilateral patellar reflexes 2+/4+. - Labs CBC & Chem 7: 12/27/20 05:33 12/29/20 05:08 Labs: Abnormal Lab Results - Last 24 Hours (Table) 12/28/20 12/29/20 12/29/20 Range/Units 20:42 05:08 07:11 BUN/Creatinine Ratio 21.82 H (12.00-20.00) Ratio Glucose 146 H (70-110) mg/dL POC Glucose (mg/dL) 180 H 146 H (75-99) mg/dL 12/29/20 Range/Units 11:46 BUN/Creatinine Ratio (12.00-20.00) Ratio Glucose (70-110) mg/dL POC Glucose (mg/dL) 136 H (75-99) mg/dL Assessment and Plan Assessment: 1. Left peripheral facial droop, with inconsistent history of intermittent weakness. On examination is nonfocal. Possible TIA 2. Myoclonic jerking movements of the bilateral upper extremities with tardive dyskinetic movements of the tongue-likely secondary to previous medication effect---resolved 3. 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 Recent amputation of the left great toe 5. History of bipolar disorder 6. Diabetes mellitus type 2 Plan: * Carotid Doppler revealed no hemodynamically significant stenosis bilaterally. Antegrade flow in both vertebral arteries. * 2-D echo showed normal left ventricular size. Normal left-ventricular wall thickness. EF is 55-60%. Trace MR. * Hemoglobin A1c 6.4 on 11/01/2020. * Continue aspirin 325 mg and Lipitor 80 mg. * Check fasting lipid panel, B12, folate. * Tegretol level is 7.6 (4-12). Patient is on fairly high dose Tegretol, but levels are acceptable range. * Limit opiates, Neurontin, as these can produce myoclonic jerks. * EEG (12/29/2020) ordered by primary team: Preliminary report: It is an abnormal routine EEG. The background slowing is suggestive of mild encephalopathy. There are focal slowing, epileptiform discharges or seizure on the EEG. * Pending MRI Brain. If MRI reveals no signs of acute infarct and patient remains neurologically stable, then he will be safe for discharge. The plan is discussed with the patient's nurse. Josue Bass MD Neuro-Hospitalist Time with Patient: Less than 30
--- NOTE | 2020-12-29 16:11 | PN ---
PROGRESS NOTE DATE OF SERVICE: 12/29/2020 This 60-year-old gentleman who was admitted with weakness and diabetic peripheral neuropathy is being evaluated to rule out the possibility of acute stroke at this time. The patient had an MRI ordered as well as EEG. No chest pain. No palpitations. No fever. The patient had bilateral Castro's palsy with partial recovery on both sides. On exam, alert and oriented x3. Pulse 70, blood pressure 142/83, respiration 18, temperature 97.6, pulse ox 100% on 2 L. HEENT: Conjunctivae normal. NECK: No jugular venous distention. CARDIOVASCULAR SYSTEM: S1, S2 muffled. RESPIRATORY SYSTEM: Breath sounds diminished at the bases. ABDOMEN: Soft, non-tender. NERVOUS SYSTEM: Mild diffuse weakness and bilateral facial palsy, old, right more than the left. Labs show glucose 146, WBC 7.1, hemoglobin 10.8. ASSESSMENT: 1. Weakness. Rule out acute TIA or acute stroke. 2. Peripheral neuropathy. 3. History of bilateral Castro's palsy, right more than the left. 4. History of myoclonus. 5. Diabetes mellitus, type 2. 6. Diabetic peripheral neuropathy. 7. Acute renal failure. 8. Gastroesophageal reflux disease. 9. Hypertension. 10.Hyperlipidemia. 11.Sleep apnea. 12.Hypothyroidism. 13.Degenerative joint disease. 14.History of methicillin-resistant Staphylococcus aeruginosa. 15.Attention deficit disorder, attention deficit hyperactivity disorder. 16.Anxiety, bipolar, depression, post-traumatic stress disorder. 17.History of impulse control disorder. RECOMMENDATIONS AND DISCUSSION: I recommend to continue current medications, continue with the monitoring, symptomatic treatment. I recommend MRI and EEG, further neuro workup, PT/OT evaluation. Guarded prognosis because of multiple complex medical issues. Further recommendations to follow. Dr. Parker is evaluating the patient for possible inpatient rehab. MMODL / IJN: [id number] /
--- NOTE | 2020-12-29 17:05 | EEG ---
ELECTROENCEPHALOGRAM REPORT DATE OF SERVICE: 12/29/2020. CLINICAL HISTORY: This is a 60-year-old gentleman with myoclonic jerks. Video EEG is obtained to evaluate for seizure epileptiform activity. RELEVANT MEDICATION: The patient is on Tegretol. DESCRIPTION: Wakefulness and drowsiness are obtained. During wakefulness there is a posterior- dominant rhythm of 6-7 hertz activity. The activity is well modulated. During drowsiness there is slowing and attenuation of the background activity. There is no physiological stage II sleep. There is no focal slowing. Interictal and ictal: None. ACTIVATION PROCEDURE: Photic stimulation did not evoke a posterior driving response. Hyperventilation is not performed. CLINICAL INTERPRETATION: This is an abnormal routine EEG. The background slowing is suggestive of mild encephalopathy. There are no focal slowing, epileptiform discharges or seizure on the EEG. Clinical correlation is recommended. MARTHA / CARINE: [id number] / MTDD
[2020-12-29] MEDS: TAMSULOSIN 0.4 MG CAP.ER.24H PO SCH (17:59)
--- NOTE | 2020-12-29 18:05 | MR ---
EXAMINATION TYPE: MR brain wo con DATE OF EXAM: 12/29/2020 COMPARISON: None HISTORY: CVA Multiplanar multiecho imaging of the brain was performed without contrast. There is mild cerebral atrophy. There is no mass effect nor mid line shift. There is no evidence of i ntracranial hemorrhage. Diffusion images show no evidence of an acute infarct. There are a few scatte red small foci of abnormal increased signal at the james-white matter junction of both cerebral hemisp heres on the FLAIR images. Total number is approximately 10 and these measure 2 to 3 mm. Brainstem is intact. There is no evidence of posterior fossa mass. Corpus callosum is intact. Sella t urcica is intact. There is no evidence of orbital mass. IMPRESSION: Mild atrophy. Scattered small white matter high signal foci of uncertain significance. This could rel ate to minimal microvascular ischemia. No evidence of cortical infarct.
[2020-12-29 18:29] LABS: Glucose,Whole Blood 200 mg/dL (75-99)
[2020-12-29 20:46] LABS: Glucose,Whole Blood 208 mg/dL (75-99)
[2020-12-29] MEDS: ATORVASTATIN 80 MG TAB PO SCH (21:50)
[2020-12-29] MEDS: OLANZapine 7.5 MG TAB PO SCH (21:51)
[2020-12-30] MEDS: LEVOTHYROXINE 100 MCG TAB PO SCH (05:35)
[2020-12-30] MEDS: ASPIRIN 325 MG TAB PO SCH (07:18)
[2020-12-30] MEDS: HEPARIN SODIUM,PORCINE/PF 5,000 UNIT/0.5 ML SYRINGE SQ SCH ×2 (07:18→17:19)
[2020-12-30] MEDS: GABAPENTIN 300 MG CAP PO SCH ×2 (07:18→20:33)
[2020-12-30] MEDS: PANTOPRAZOLE 40 MG TABLET PO SCH ×2 (07:18→17:19)
[2020-12-30] MEDS: METOPROLOL SUCCINATE (ER) 50 MG TAB.ER.24H PO SCH ×2 (07:19→20:33)
[2020-12-30] MEDS: INSULIN DETEMIR (LEVEMIR) 100 UNIT/ML SYR SQ SCH ×2 (07:19→21:51)
[2020-12-30] MEDS: NON FORMULARY DRUG (Empagliflozin [Jardiance] 25 MG Tablet) PO SCH (07:19)
[2020-12-30] MEDS: predniSONE 20 MG TAB PO SCH ×2 (07:19→20:33)
[2020-12-30] MEDS: carBAMazepine 200 MG TAB PO SCH ×3 (07:21→21:44)
[2020-12-30 07:22] LABS: Glucose,Whole Blood 129 mg/dL (75-99)
[2020-12-30] MEDS: PENTOXIFYLLINE 400 MG TABLET.ER PO SCH ×2 (07:22→21:44)
[2020-12-30] MEDS: valACYclovir 500 MG TAB PO SCH ×2 (07:22→21:44)
[2020-12-30] MEDS: DICLOFENAC SODIUM GEL 100 GM TUBE TOPICAL SCH ×2 (07:23→17:08)
[2020-12-30 09:10] LABS: Basophils # (A) 0.03 X 10*3/uL (0.00-0.10); Basophils % (A) 0.3 %; Eosinophils # (A) 0.14 X 10*3/uL (0.04-0.35); Eosinophils % (A) 1.4 %; HCT 37.3 % (39.6-50.0); HGB 11.9 g/dL (13.0-17.0); Lymphocytes # (A) 2.06 X 10*3/uL (0.90-5.00); Lymphocytes % (A) 20.5 %; MCH 28.9 pg (27.0-32.0); MCHC 31.9 g/dL (32.0-37.0); MCV 90.5 fL (80.0-97.0); Mean Platelet Volume 10.1 fL (9.5-12.2); Monocytes # (A) 0.74 X 10*3/uL (0.20-1.00); Monocytes % (A) 7.4 %; Neutrophils # (A) 7.01 X 10*3/uL (1.80-7.70); Neutrophils % (A) 69.9 %; Platelet Count 337 X 10*3/uL (140-440); RBC 4.12 X 10*6/uL (4.40-5.60); RDW 12.2 % (11.5-14.5); WBC 10.03 X 10*3/uL (4.50-10.00)
[2020-12-30 09:47] LABS: African American GFR (CKD) 84.7 (60.0-200.0); Anion Gap 8.4 mmol/L (4.00-12.00); BUN/Creat Ratio 21.82 Ratio (12.00-20.00); Calcium 8.9 mg/dL (8.7-10.3); Carbon Dioxide 26.6 mmol/L (21.6-31.8); Non-African American GFR(CKD) 73.1 (60.0-200.0); Potassium 5.3 mmol/L (3.5-5.5)
[2020-12-30 11:45] LABS: Glucose,Whole Blood 144 mg/dL (75-99)
--- NOTE | 2020-12-30 15:50 | PN ---
PROGRESS NOTE DATE OF SERVICE: 12/30/2020 This 60-year-old gentleman admitted with multiple medical issues, including weakness and tiredness, also had old bilateral Castro's palsy. The patient also had an MRI scan which did not show any acute stroke at this time. TIA was suspected, but the patient also had a significant left toe infection as well as wound V.A.C. Dr. Bauman is following the patient closely. Cultures are not available. Past medical history reviewed. REVIEW OF SYSTEMS: CARDIOVASCULAR SYSTEM: No angina, palpitations. RESPIRATORY SYSTEM: As mentioned earlier. GI: As mentioned earlier. : No dysuria or retention. NERVOUS SYSTEM: No numbness. Otherwise as mentioned earlier. CURRENT MEDICATIONS: [place] 5 mg, Ventolin, aspirin, Lipitor, diprolene, Tegretol, Flonase, Neurontin, heparin, Synthroid, Toprol-XL, prednisone and Valtrex. PHYSICAL EXAMINATION: Patient is alert, oriented x3. Pulse is 75, blood pressure 133/80, respiration 15, temperature 97.6, pulse ox 100% on 2 L. HEENT: Conjunctivae normal. NECK: No jugular venous distention. CARDIOVASCULAR SYSTEM: S1, S2 muffled. RESPIRATORY SYSTEM: Breath sounds diminished at the bases. No rhonchi. No crackles. ABDOMEN: Soft, non-tender. LEGS: Left foot infection. NERVOUS SYSTEM: Diffusely weak. Old facial palsy, right more than the left. LABS: WBC 10.3, hemoglobin 11.9. ASSESSMENT: 1. Weakness, possible acute transient ischemic attack. No acute stroke evident on the MRI scan. 2. Left foot toe infection with wound V.A.C. 3. Peripheral neuropathy, bilateral. 4. History of bilateral Castro's palsy, right more than the left. 5. History of myoclonus. 6. Diabetes mellitus, type 2. 7. Diabetic peripheral neuropathy. 8. Acute renal failure. 9. Gastroesophageal reflux disease. 10.Hypertension. 11.Hyperlipidemia. 12.Sleep apnea. 13.Hypothyroidism. 14.History of degenerative joint disease. 15.History of methicillin-resistant Staphylococcus aeruginosa. 16.History of attention deficit disorder, attention deficit hyperactivity disorder. 17.Anxiety, bipolar, depression, post-traumatic stress disorder. 18.History of impulse control disorder. RECOMMENDATIONS AND DISCUSSION: I recommend to continue current medications, continue with the monitoring, symptomatic treatment. I would also recommend cultures. Continue the rest of medications. Continue with Lipitor and aspirin. Closely follow with Neurology as well as Infectious Disease. Guarded prognosis because of multiple complex medical issues. Further recommendations to follow. MMMARILUL / IJN: [id number] /
[2020-12-30 16:59] LABS: Glucose,Whole Blood 176 mg/dL (75-99)
[2020-12-30] MEDS: COLLAGENASE 250 UNIT/GM OINTMENT 30 GM TUBE TOPICAL SCH (17:19)
[2020-12-30] MEDS: TAMSULOSIN 0.4 MG CAP.ER.24H PO SCH (17:19)
--- NOTE | 2020-12-30 18:43 | CONS ---
DATE OF CONSULTATION: 12/30/2020 This is a 60 -year-old gentleman. The patient had gangrene of the left foot big toe. Patient went for ray amputation and also there was superficial ulcer of the tip of the 2nd and 3rd toe. The patient went home on VAC therapy. The patient had an episode of facial numbness and difficulty in speech. He has been admitted for further evaluation. The patient had a CT scan of the brain which was negative for intracranial bleed or ischemia. Ultrasound of the carotid shows 60 to 49% stenosis bilaterally. PHYSICAL EXAMINATION: Patient was seen in his room, lying comfortably in bed. NECK: Supple. Trachea central. CHEST: Clear to auscultation. ABDOMEN: Soft. Femorals are 1+ bilateral. Left foot stump is granulating and 2nd, 3rd toe has superficial ulcer. PLAN: We will hold back therapy and start him on Santyl cream daily. The patient is under the care of Infectious Disease. The patient will follow in the wound clinic at [facility] on Tuesday. We will follow with you. MMMARILUL / ADRYN: [id number] / MTDD
[2020-12-30] MEDS: ATORVASTATIN 80 MG TAB PO SCH (20:33)
[2020-12-30] MEDS: OLANZapine 7.5 MG TAB PO SCH (21:44)
[2020-12-30 21:55] LABS: Glucose,Whole Blood 143 mg/dL (75-99)
--- NOTE | 2020-12-30 23:44 | P.CONS ---
History of Present Illness - Reason for Consult Consult date: 12/30/20 Left toe infection Requesting physician: Russell Thompson - Chief Complaint slurred speech x few days - History of Present Illness Patient is a 60-year male who was recently admitted at this facility did have an draining of the left great toe patient status post amputation of the left big toe cultures were positive for MRSA and the patient was advised vancomycin pharmacy to dose local wound care has been wound VAC to the left big toe patient was discharged to the custodial for the patient has been discharged home patient have her follow-up with me in the office and has been following up with Dr. Vega the wound care center patient admitted to the hospital with on 12/27/2019 for evaluation of slurred speech and patient is currently being worked up for possible CVA patient is in the hospital for 4 days and the patient wound VAC was not changed infectious disease consulted last evening for evaluation of the left foot and local wound care, patient denies having any fever or any chills, patient denies having pain to the left foot decapitation site, patient did have a superficial incision and hammertoe deformity of the left second and third toe however repeat denies any pain to those area did have minimal swelling but no drainage and the patient is c urrently not on any systemic antibiotic therapy the patient did not have any fever during this hospital stay did have a normal white count slightly up to 10.03 today Review of Systems Positive point has been mentioned in the HPI rest of the systems are negative Past Medical History Past Medical History: Cancer, Chest Pain / Angina, Diabetes Mellitus, GERD/Reflux, Hyperlipidemia, Hypertension, Osteoarthritis (OA), Sleep Apnea/C PAP/BIPAP, Thyroid Disorder, Vascular Disorder Additional Past Medical History / Comment(s): Skin disorder which pt states is from being in [place]-causes sores, chronic venous stasis, pt recently had L great toe osteomylitis/amputation and currently has wound vac in place, 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, BLAYNE with CPAP, IDDM type II, neuropathy bilateral lower extremities, hypothroid- thyroidectomy d/t cancer, arthritis/ DJD in back and bilateral knees, obesity History of Any Multi-Drug Resistant Organisms: MRSA Year Discovered:: 10/31/20 MDRO Source:: MRSA TOE Past Surgical History: Joint Replacement, Tonsillectomy Additional Past Surgical History / Comment(s): L great toe amputation, L total knee arthroplasty, stephani eye surgery, thyroidectomy Past Anesthesia/Blood Transfusion Reactions: No Reported Reaction Additional Past Anesthesia/Blood Transfusion Reaction / Comm: had reaction to drainage tube-"had to be knocked out-woke up swinging" Smoking Status: Former smoker, Second hand smoke exposure - Past Family History Father Family Medical History: Coronary Artery Disease (CAD), Diabetes Mellitus Additional Family Medical History / Comment(s): Father has had CABG. He is 84 yrs. old. Mother Family Medical History: Cancer, Diabetes Mellitus Additional Family Medical History / Comment(s): Mother had colon cancer with surgery. She is 80 yrs old. Medications and Allergies Home Medications Medication Instructions Recorded Confirmed Type Betamethasone Dipropionate 1 applic TOPICAL BID PRN 01/22/15 12/26/20 History [Diprolene AF 0.05% Cream] Loratadine [Claritin] 10 mg PO PC-BRKFST PRN 01/22/15 12/26/20 History Nitroglycerin Sl Tabs [Nitrostat] 0.4 mg SL Q5M PRN 01/22/15 12/26/20 History Insulin Degludec [Tresiba 60 unit SQ BID 07/17/17 12/26/20 History Flextouch U-200] Albuterol Nebulized [Ventolin 2.5 mg INHALATION RT-Q4H PRN 10/31/20 12/26/20 History Nebulized] Bydureon 2mg/0.85ml Auto Injector 2 mg SQ Q7D 10/31/20 12/26/20 History Empagliflozin [Jardiance] 25 mg PO PC-BRKFST 10/31/20 12/26/20 History Fish Oil/Dha/Epa [Fish Oil 1,200 1 cap PO PC-BRKFST 10/31/20 12/26/20 History mg Fish Oil] Fluticasone Nasal [place] [Flonase 2 spr EA NOSTRIL DAILY PRN 10/31/20 12/26/20 History Nasal [place]] Pentoxifylline [TRENtal] 400 mg PO BID 10/31/20 12/26/20 History Sildenafil Citrate 50 mg PO DAILY PRN 10/31/20 12/26/20 History Tamsulosin HCl [Flomax] 0.4 mg PO AC-SUPPER 10/31/20 12/26/20 History Testosterone [Androgel 1.62% Gel 1 pump TOPICAL Q48H 10/31/20 12/26/20 History Pump] Testosterone [Androgel 1.62% Gel 2 pump TOPICAL Q48H 10/31/20 12/26/20 History Pump] Diclofenac Sodium [Voltaren Gel] 1 applic TOPICAL AC-BID #15 gram 11/04/20 12/26/20 Rx Pantoprazole [Protonix] 40 mg PO AC-BID tablet. 11/04/20 12/26/20 Rx carBAMazepine 400 mg PO BID@1800,2100 #6 tab 11/04/20 12/26/20 Rx carBAMazepine [TEGretol] 200 mg PO PC-BRKFST #4 tab 11/04/20 12/26/20 Rx Albuterol Sulfate [Proventil Hfa] 2 puff INHALATION RT-QID PRN 12/26/20 12/26/20 History Atorvastatin [Lipitor] 40 mg PO HS 12/26/20 12/26/20 History Levothyroxine Sodium [Synthroid] 350 mcg PO DAILY 12/26/20 12/26/20 History Metoprolol Succinate [Toprol XL] 50 mg PO BID 12/26/20 12/26/20 History OLANZapine 7.5 mg PO HS 12/26/20 12/26/20 History Aspirin 325 mg PO DAILY tab 12/31/20 Rx Collagenase [Santyl] 1 applic TOPICAL DAILY applic 12/31/20 Rx Gabapentin [Neurontin] 300 mg PO BID #6 cap 12/31/20 Rx HYDROcodone/APAP 5-325MG [[place] 1 tab PO HS PRN #6 tab 12/31/20 Rx 5-325] predniSONE [Deltasone] 20 mg PO BID tab 12/31/20 Rx valACYclovir [Valtrex] 1,000 mg PO BID 7 Days #14 tab 12/31/20 Rx Allergies Allergy/AdvReac Type Severity Reaction Status Date / Time codeine phosphate Allergy Dyspnea Verified 12/26/20 11:15 [From Tylenol-Codeine] levofloxacin [From Levaquin] Allergy Anaphylaxis Verified 12/26/20 11:15 Penicillins Allergy Rash/Hives Verified 12/26/20 11:15 quetiapine Allergy headache Verified 12/26/20 11:15 guaifenesin AdvReac dehydration Verified 12/26/20 11:15 meperidine HCl [From Demerol] AdvReac "altered Verified 12/26/20 11:15 state of mind" olanzapine AdvReac > 7.6 mg Verified 12/26/20 11:15 causes sleepiness phenylephrine AdvReac dehydration Verified 12/26/20 11:15 pseudoephedrine AdvReac Unknown Verified 12/26/20 11:15 [From Entex T] topiramate AdvReac Dehydration Verified 12/26/20 11:15 and Manic wool AdvReac Urticarial Verified 12/26/20 11:15 gin AdvReac Headache Uncoded 10/31/20 10:09 Physical Exam Vitals: Vital Signs Temp Pulse Resp BP Pulse Ox 12/30/20 07:00 97.6 F 75 15 133/83 100 12/30/20 01:07 98.4 F 73 16 163/77 99 12/29/20 20:00 70 18 12/29/20 19:28 98.0 F 73 14 153/81 100 12/29/20 15:00 97.6 F 70 18 142/83 100 12/29/20 13:23 73 18 Intake and Output 12/29/20 12/30/20 12/30/20 22:59 06:59 14:59 Intake Total 416 Output Total 1560 550 700 Balance -1560 -550 -284 Intake: Oral 416 Output: Urine 1560 550 700 Other: Voiding Method Toilet Urinal # Voids 1 1 # Bowel Movements 1 GENERAL DESCRIPTION: Middle-aged male lying in bed, no distress. No tachypnea or accessory muscle of respiration use. HEENT: Shows Pallor , no scleral icterus. Oral mucous membrane is dry. No pharyngeal erythema or thrush NECK: Trachea central, no thyromegaly. LUNGS: Unlabored breathing. Clear to auscultation anteriorly. No wheeze or crackle. HEART: S1, S2, regular rate and rhythm. No loud murmur ABDOMEN: Soft, no tenderness , guarding or rigidity, no organomegaly EXTREMITIES: Left Big toe amputation site base looks clean with no slough tissue however he did have significant swelling of the second and third toe with hammertoe deformity. SKIN: No rash, no masses palpable. NEUROLOGICAL: The patient is awake, alert, oriented x3, mood and affect normal. Results CBC & Chem 7: 12/30/20 05:35 12/30/20 05:35 Labs: Abnormal Lab Results - Last 24 Hours (Table) 12/29/20 12/29/20 12/29/20 Range/Units 11:46 18:27 20:44 WBC (4.50-10.00) X 10*3/uL RBC (4.40-5.60) X 10*6/uL Hgb (13.0-17.0) g/dL Hct (39.6-50.0) % MCHC (32.0-37.0) g/dL Immature Gran # (0.00-0.04) X 10*3/uL BUN/Creatinine Ratio (12.00-20.00) Ratio POC Glucose (mg/dL) 136 H 200 H 208 H (75-99) mg/dL 12/30/20 12/30/20 12/30/20 Range/Units 05:35 05:35 07:21 WBC 10.03 H (4.50-10.00) X 10*3/uL RBC 4.12 L (4.40-5.60) X 10*6/uL Hgb 11.9 L (13.0-17.0) g/dL Hct 37.3 L (39.6-50.0) % MCHC 31.9 L (32.0-37.0) g/dL Immature Gran # 0.05 H (0.00-0.04) X 10*3/uL BUN/Creatinine Ratio 21.82 H (12.00-20.00) Ratio POC Glucose (mg/dL) 129 H (75-99) mg/dL Assessment and Plan Assessment: 1-patient with left foot/great toe amputation site wound, patient wound bed looks clean with no evidence of any slough tissue or cellulitis recommend local wound care 2-patient did have a hammertoe deformity to the left second and third toe with evidence of more swelling and slight redness to the left second toe concern for secondary infection (1) Osteomyelitis of left foot Status: Acute Code(s): M86.9 - OSTEOMYELITIS, UNSPECIFIED SNOMED Code(s): [id number] Plan: 1-we will obtain x-rays of the left foot 2-check a CRP and sed rate 3-vascular surgery to evaluate his second toe and the patient may need amputation of the toe with concern for hammertoe deformity and recurrent infection versus IV antibiotic therapy 4-local wound care with Aquacel silver dressing and hold on the wound VAC We will follow on clinical condition and cultures to further adjust medication if needed Thank you for this consultation we will follow the patient along with you Time with Patient: Greater than 30
[2020-12-31] MEDS: HEPARIN SODIUM,PORCINE/PF 5,000 UNIT/0.5 ML SYRINGE SQ SCH ×3 (00:41→16:20)
[2020-12-31] MEDS: LEVOTHYROXINE 100 MCG TAB PO SCH (06:01)
[2020-12-31 07:56] LABS: Glucose,Whole Blood 139 mg/dL (75-99)
[2020-12-31 08:11] VITALS: BP 143/82; PULSE 73; RESP 15; TEMP 98.6
[2020-12-31] MEDS: DICLOFENAC SODIUM GEL 100 GM TUBE TOPICAL SCH (08:22)
[2020-12-31] MEDS: carBAMazepine 200 MG TAB PO SCH (08:26)
[2020-12-31] MEDS: PENTOXIFYLLINE 400 MG TABLET.ER PO SCH (08:26)
[2020-12-31] MEDS: valACYclovir 500 MG TAB PO SCH (08:26)
[2020-12-31] MEDS: METOPROLOL SUCCINATE (ER) 50 MG TAB.ER.24H PO SCH (08:27)
[2020-12-31] MEDS: predniSONE 20 MG TAB PO SCH (08:27)
[2020-12-31] MEDS: NON FORMULARY DRUG (Empagliflozin [Jardiance] 25 MG Tablet) PO SCH (08:27)
[2020-12-31] MEDS: INSULIN DETEMIR (LEVEMIR) 100 UNIT/ML SYR SQ SCH (08:27)
[2020-12-31] MEDS: PANTOPRAZOLE 40 MG TABLET PO SCH (08:27)
[2020-12-31] MEDS: GABAPENTIN 300 MG CAP PO SCH (08:27)
[2020-12-31] MEDS: ASPIRIN 325 MG TAB PO SCH (08:27)
[2020-12-31] MEDS: COLLAGENASE 250 UNIT/GM OINTMENT 30 GM TUBE TOPICAL SCH (08:28)
--- NOTE | 2020-12-31 08:32 | XR ---
EXAMINATION TYPE: XR foot complete LT DATE OF EXAM: 12/31/2020 COMPARISON: NONE HISTORY: Pain TECHNIQUE: Three views are submitted. FINDINGS: The osseous structures are intact. There is no acute fracture or dislocation. Calcaneal spur noted . Soft tissue edema seen. There is previous amputation of the first digit. There is loss of cortical margin of the tuft of the second digit. IMPRESSION: 1. Findings suggestive of osteomyelitis distal phalanx second digit. 2. Correlate for diffuse cellulitis. 3. Postsurgical changes.
[2020-12-31] MEDS ORDERED: VANCOMYCIN IV PER PHARMACY 1 EACH MISC MISCELLANE PRN (10:08)
[2020-12-31] MEDS ORDERED: VANCOMYCIN 2,500 MG in SODIUM CHLORIDE 0.9% 500 ML 500 ML IVPB ONE (10:30)
[2020-12-31 12:01] LABS: Glucose,Whole Blood 165 mg/dL (75-99)
--- NOTE | 2020-12-31 12:54 | P.DS ---
Providers Date of admission: 12/27/20 14:20 Expected date of discharge: 12/31/20 Attending physician: Russell Thompson Consults: 12/26/20 06:54 Consult Physician Routine Consulting Provider: Ester Junior Consult Reason/Comments: cva Do you want consulting provider notified?: Yes 12/29/20 08:30 Consult Physician Routine Consulting Provider: Paul Parker Consult Reason/Comments: possible IPR Do you want consulting provider notified?: Yes 12/29/20 15:16 Consult Physician Routine Consulting Provider: Aziza aBuman Consult Reason/Comments: left toe infection, wound vac on from home-care Do you want consulting provider notified?: Yes 12/30/20 11:32 Consult Physician Routine Consulting Provider: Mick Vega Consult Reason/Comments: evalulation of left second toe Do you want consulting provider notified?: Yes Primary care physician: Tati Brown Hospital Course: Final diagnosis Weakness, possible acute transient ischemic attack. 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 Patient will follow-up with Dr. Brown upon discharge. Patient will continue with IV antibiotics per infectious disease and will be following also up with the wound care center on scheduled appointment January 05 at 4:[address] Vega. Total time taken is greater than 35 minutes. Hospital course This is a 60-year-old male who was recently admitted with weakness and fatigue along with Castro's palsy and neurological workup with MRI did not show an acute stroke with possible TIA suspected. Patient also found to have significant left toe infection and wound VAC and was being closely monitored by infectious disease. Patient will continue with IV antibiotic therapy and will be following up with Dr. Bauman along with Dr. Vega in the outpatient setting. Does have a scheduled appointment on Tuesday at 4:[address] Vega at the wound care center. Patient to continue with local wound care. Patient will also continue on aspirin and statin in the outpatient setting. Currently no reports of chest pain, shortness of breath, or palpitations. Patient is afebrile. No reports of nausea or vomiting and patient is tolerating diet. Patient will be discharged to [facility] today. Guarded prognosis. On exam vital signs are stable. Cardio S1, S2 are muffled. Respiratory shows diminished breath sounds at the bases with no wheezing or rhonchi noted. Abdomen is soft and nontender. Nervous system shows mild diffuse weakness. Please refer to medication reconciliation sheet for a list of medications. Patient Condition at Discharge: Stable Plan - Discharge Summary Discharge Rx Participant: No New Discharge Prescriptions: New Aspirin 325 mg PO DAILY tab predniSONE [Deltasone] 20 mg PO BID tab valACYclovir [Valtrex] 1,000 mg PO BID 7 Days #14 tab Collagenase [Santyl] 1 applic TOPICAL DAILY applic Continue Nitroglycerin Sl Tabs [Nitrostat] 0.4 mg SL Q5M PRN PRN Reason: Chest Pain Loratadine [Claritin] 10 mg PO PC-BRKFST PRN PRN Reason: Allergy Symptoms Betamethasone Dipropionate [Diprolene AF 0.05% Cream] 1 applic TOPICAL BID PRN PRN Reason: right hand rash Insulin Degludec [Tresiba Flextouch U-200] 60 unit SQ BID Testosterone [Androgel 1.62% Gel Pump] 1 pump TOPICAL Q48H Testosterone [Androgel 1.62% Gel Pump] 2 pump TOPICAL Q48H Bydureon 2mg/0.85ml Auto Injector 2 mg SQ Q7D Albuterol Nebulized [Ventolin Nebulized] 2.5 mg INHALATION RT-Q4H PRN PRN Reason: Shortness Of Breath Empagliflozin [Jardiance] 25 mg PO PC-BRKFST Fish Oil/Dha/Epa [Fish Oil 1,200 mg Fish Oil] 1 cap PO PC-BRKFST Fluticasone Nasal [place] [Flonase Nasal [place]] 2 spr EA NOSTRIL DAILY PRN PRN Reason: Allergy Symptoms Pentoxifylline [TRENtal] 400 mg PO BID Sildenafil Citrate 50 mg PO DAILY PRN PRN Reason: E.D. Tamsulosin HCl [Flomax] 0.4 mg PO AC-SUPPER Pantoprazole [Protonix] 40 mg PO AC-BID tablet. carBAMazepine 400 mg PO BID@1800,2100 #6 tab carBAMazepine [TEGretol] 200 mg PO PC-BRKFST #4 tab Diclofenac Sodium [Voltaren Gel] 1 applic TOPICAL AC-BID #15 gram Levothyroxine Sodium [Synthroid] 350 mcg PO DAILY Metoprolol Succinate [Toprol XL] 50 mg PO BID OLANZapine 7.5 mg PO HS Albuterol Sulfate [Proventil Hfa] 2 puff INHALATION RT-QID PRN PRN Reason: Wheezing Atorvastatin [Lipitor] 40 mg PO HS Gabapentin [Neurontin] 300 mg PO BID #6 cap Changed HYDROcodone/APAP 5-325MG [[place] 5-325] 1 tab PO HS PRN #6 tab PRN Reason: Pain Discontinued Aspirin 81 mg PO HS Discharge Medication List Betamethasone Dipropionate [Diprolene AF 0.05% Cream] 1 applic TOPICAL BID PRN 01/22/15 [History] Loratadine [Claritin] 10 mg PO PC-BRKFST PRN 01/22/15 [History] Nitroglycerin Sl Tabs [Nitrostat] 0.4 mg SL Q5M PRN 01/22/15 [History] Insulin Degludec [Tresiba Flextouch U-200] 60 unit SQ BID 07/17/17 [History] Albuterol Nebulized [Ventolin Nebulized] 2.5 mg INHALATION RT-Q4H PRN 10/31/20 [History] Bydureon 2mg/0.85ml Auto Injector 2 mg SQ Q7D 10/31/20 [History] Empagliflozin [Jardiance] 25 mg PO PC-BRKFST 10/31/20 [History] Fish Oil/Dha/Epa [Fish Oil 1,200 mg Fish Oil] 1 cap PO PC-BRKFST 10/31/20 [History] Fluticasone Nasal [place] [Flonase Nasal [place]] 2 spr EA NOSTRIL DAILY PRN 10/31/20 [History] Pentoxifylline [TRENtal] 400 mg PO BID 10/31/20 [History] Sildenafil Citrate 50 mg PO DAILY PRN 10/31/20 [History] Tamsulosin HCl [Flomax] 0.4 mg PO AC-SUPPER 10/31/20 [History] Testosterone [Androgel 1.62% Gel Pump] 1 pump TOPICAL Q48H 10/31/20 [History] Testosterone [Androgel 1.62% Gel Pump] 2 pump TOPICAL Q48H 10/31/20 [History] Diclofenac Sodium [Voltaren Gel] 1 applic TOPICAL AC-BID #15 gram 11/04/20 [Rx] Pantoprazole [Protonix] 40 mg PO AC-BID tablet. 11/04/20 [Rx] carBAMazepine 400 mg PO BID@1800,2100 #6 tab 11/04/20 [Rx] carBAMazepine [TEGretol] 200 mg PO PC-BRKFST #4 tab 11/04/20 [Rx] Albuterol Sulfate [Proventil Hfa] 2 puff INHALATION RT-QID PRN 12/26/20 [History] Atorvastatin [Lipitor] 40 mg PO HS 12/26/20 [History] Levothyroxine Sodium [Synthroid] 350 mcg PO DAILY 12/26/20 [History] Metoprolol Succinate [Toprol XL] 50 mg PO BID 12/26/20 [History] OLANZapine 7.5 mg PO HS 12/26/20 [History] Aspirin 325 mg PO DAILY tab 12/31/20 [Rx] Collagenase [Santyl] 1 applic TOPICAL DAILY applic 12/31/20 [Rx] Gabapentin [Neurontin] 300 mg PO BID #6 cap 12/31/20 [Rx] HYDROcodone/APAP 5-325MG [[place] 5-325] 1 tab PO HS PRN #6 tab 12/31/20 [Rx] predniSONE [Deltasone] 20 mg PO BID tab 12/31/20 [Rx] valACYclovir [Valtrex] 1,000 mg PO BID 7 Days #14 tab 12/31/20 [Rx] Follow up Appointment(s)/Referral(s): Tati Brown DO [Primary Care Provider] - 1-2 days Mick Vega MD [STAFF PHYSICIAN] - 1 Week Activity/Diet/Wound Care/Special Instructions: Appointment for wound care at [facility] on January 05 at 4:15pm with Dr. Vega Patient is going to [facility] Activity as tolerated Continue with IV antibiotics Continue to monitor blood sugars before meals and at bedtime continue with local wound care Continue consistent carb diet Repeat labs in 2-3 days Follow-up with Dr. Vega outpatient on scheduled appointment Discharge Disposition: TRANSFER TO SNF/ECF
--- NOTE | 2020-12-31 13:19 | CDI ---
Documentation Clarification Form Date: 12/31/2020 01:06:40 PM From: Lisette Diaz CCS, CCDS Admit Date: 12/27/2020 02:20:00 PM Patient Name: Naga Landaverde Visit Number: [id number] Discharge Date: ATTENTION: The Clinical Documentation Specialists (CDI) and [facility] Coding Staff appreciate your assistance in clarifying documentation. Please respond to the clarification below the line at the bottom and electronically sign. The CDI & [facility] Coding staff will review the response and follow-up if needed. Please note: Queries are made part of the Legal Health Record. If you have any questions, please contact the author of this message via ITS. Dr. Russell Thompson: Diabetes is documented in the 12/26 History & Physical and subsequent Progress Notes. Additional specificity regarding the diabetes diagnosis and associated conditions is requested. History/Risk Factors per the 12/26 H/P: Castro's Palsy, DM II, recent Left Great Toe Amputation with Wound VAC in place, GERD, Hyperlipidemia, Hypertension, Osteoarthritis, Hypothyroid status post Thyroidectomy, DJD, Chronic venous stasis, BLAYNE, MRSA. Clinical Indicators: Presented to the ED on 12/26 with Altered mental status & weakness. Patient admits to taking increased medications for chronic pain. Slurred speech. Patient had bilateral Castro's Palsy recently with resolved symptoms. Admitted with CVA & Castro's Palsy. Home medications: Toprol, Tegretol, Nitro sl, Claritin, Synthroid, Insulin sq, Jardiance, Lipitor,INH Albuterol, Valtrex, Prednisone, [place], Neurontin, Santyl and Aspirin LAB: BUN 57, Creatinine 1.87 Glucose 12/26: 150. 5/8: 180. 5/10: 146. 5/11: 107 Treatment 12/26: IV Decadron, IV fluid 1,000 mls @ 999 mls/hr q1H, IV fluid 1,000 mls @ 75 mls/hr q13H, INH Ventolin, Home meds. 12/27: Heparin sq 12/31: IV Vancomycin Please clarify any associated conditions of diabetes, if known: [ ] Hyperglycemia [ ] Other, please specify [ ] Unable to Determine (Template Last Revised: October 2020) Hyperglycemia MTDD
--- NOTE | 2020-12-31 19:04 | P.PN ---
Subjective Progress Note Date: 12/31/20 patient was seen at bedside and he feels back to baseline. He denies of any new neurological symptoms. MR the brain is reported as mild atrophy. Scattered small white matter high signal foci of uncertain significance. This could relate to minimal microvascular ischemia. No evidence of cortical infarct. I reviewed the MRI of the brain and on DWI, I don't see anything that started out for acute/subacute ischemic stroke. Objective - Vital Signs Vital signs: Vital Signs Temp 98.6 F 12/31/20 07:00 Pulse 73 12/31/20 07:00 Resp 15 12/31/20 07:00 BP 143/82 12/31/20 07:00 Pulse Ox 94 L 12/31/20 07:00 Intake & Output 12/31/20 12/31/20 01/01/21 06:59 18:59 06:59 Intake Total 1080 1118 Output Total 2975 1000 Balance -1895 118 Intake: Oral 1080 1118 Output: Urine 2975 1000 Other: Voiding Method Toilet Toilet Urinal Urinal # Voids 3 # Bowel Movements 0 - Exam Gen.: The patient is reclining in the bed. He is in no acute distress. He is obese. Extremities: There is evidence of venous stasis the bilateral lower extremities. Patient also has a VAC to his left foot. He is status post amputation of the left great toe. Neurological examination Mental status: The patient is awake, alert and oriented 3. His speech is clear. Cranial nerves: Pupils are equal at 3 millimeters and reactive. Visual field testing is inconsistent. Extraocular movements are intact. There is no nystagmus. Facial sensation is intact. There is left ptosis and left lower motor neuron facial droop. Patient is unable to raise his left eyebrow. Tongue protrudes midline. Shoulder shrug is symmetric. Motor: Strength is 5/5. Coordination: There are noted to be myoclonic jerking type movements of the fingers and hands, with [id number] testing. There is no further myoclonic jerks. Deep tendon reflexes: 3+/4+ in the bilateral upper extremities. Bilateral patellar reflexes 2+/4+. - Labs CBC & Chem 7: 12/30/20 05:35 12/30/20 05:35 Labs: Abnormal Lab Results - Last 24 Hours (Table) 12/30/20 12/31/20 12/31/20 Range/Units 21:49 06:30 06:30 ESR 40 H (0-15) mm/hr POC Glucose (mg/dL) 143 H (75-99) mg/dL C-Reactive Protein 1.6 H (<1.0) mg/dL 12/31/20 12/31/20 Range/Units 07:54 11:59 ESR (0-15) mm/hr POC Glucose (mg/dL) 139 H 165 H (75-99) mg/dL C-Reactive Protein (<1.0) mg/dL Microbiology - Last 24 Hours (Table) 12/30/20 16:08 Blood Culture - Preliminary Blood No Growth after 24 hours 12/30/20 16:27 Gram Stain - Preliminary Toe - Left Second Wound Culture - Preliminary Assessment and Plan Assessment: 1. Left peripheral facial droop, with inconsistent history of intermittent weakness. On examination is nonfocal. Possible TIA. Not acute or subacute ischemia 2. Myoclonic jerking movements of the bilateral upper extremities with tardive dyskinetic movements of the tongue-likely secondary to previous medication effect---resolved 3. 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 Recent amputation of the left great toe 5. History of bipolar disorder 6. Diabetes mellitus type 2 Plan: * Carotid Doppler revealed no hemodynamically significant stenosis bilaterally. Antegrade flow in both vertebral arteries. * 2-D echo showed normal left ventricular size. Normal left-ventricular wall thickness. EF is 55-60%. Trace MR. * Hemoglobin A1c 6.4 on 11/01/2020. * Continue aspirin 325 mg and Lipitor 80 mg. * Check fasting lipid panel, B12, folate. * Tegretol level is 7.6 (4-12). Patient is on fairly high dose Tegretol, but levels are acceptable range. * Limit opiates, Neurontin, as these can produce myoclonic jerks. * EEG (12/29/2020) ordered by primary team: It is an abnormal routine EEG. The background slowing is suggestive of mild encephalopathy. There are focal slowing, epileptiform discharges or seizure on the EEG. * MR the brain is reported as mild atrophy. Scattered small white matter high signal foci of uncertain significance. This could relate to minimal microvascular ischemia. No evidence of cortical infarct. I reviewed the MRI of the brain and on DWI, I don't see anything that started out for acute/subacute ischemic stroke. * There is no further neurological work-up. The patient needs to follow-up with a neurologist as outpatient within 2 weeks. The plan is discussed with the patient's nurse. Josue Bass MD Neuro-Hospitalist Time with Patient: Less than 30
[2020-12-31] MEDS ORDERED: VANCOMYCIN 1,750 MG in SODIUM CHLORIDE 0.9% 500 ML 500 ML IVPB SCH (21:00)
== END 2020-12-31 16:29 | DRG 638 ==
LOC: EC 05:43 → 6NMEDSUR 09:02 → 3SCARD 11:54 → 6NMEDSUR 12:03 → OBSVTOIN 12-27 14:20
PROVIDERS: ADMIT Hospitalist; ATTEND Hospitalist
DX: E11.69 Type 2 diabetes mellitus with other specified complication (principal); M86.172 Other acute osteomyelitis, left ankle and foot; G45.9 Transient cerebral ischemic attack, unspecified; N17.9 Acute kidney failure, unspecified; E11.628 Type 2 diabetes mellitus with other skin complications; E11.51 Type 2 diabetes mellitus with diabetic peripheral angiopathy without gangrene; E11.42 Type 2 diabetes mellitus with diabetic polyneuropathy; E11.65 Type 2 diabetes mellitus with hyperglycemia; Z79.4 Long term (current) use of insulin; Z89.412 Acquired absence of left great toe; Z20.822 Contact with and (suspected) exposure to COVID-19; L08.9 Local infection of the skin and subcutaneous tissue, unspecified; M20.42 Other hammer toe(s) (acquired), left foot; I65.23 Occlusion and stenosis of bilateral carotid arteries; R47.81 Slurred speech; G25.3 Myoclonus; R27.8 Other lack of coordination; E89.0 Postprocedural hypothyroidism; K21.9 Gastro-esophageal reflux disease without esophagitis; E78.5 Hyperlipidemia, unspecified; E66.9 Obesity, unspecified; G47.33 Obstructive sleep apnea (adult) (pediatric); G89.29 Other chronic pain; M19.90 Unspecified osteoarthritis, unspecified site; I10 Essential (primary) hypertension; F43.10 Post-traumatic stress disorder, unspecified; F41.9 Anxiety disorder, unspecified; F32.9 Major depressive disorder, single episode, unspecified; F90.9 Attention-deficit hyperactivity disorder, unspecified type; F63.9 Impulse disorder, unspecified; F17.210 Nicotine dependence, cigarettes, uncomplicated; R29.6 Repeated falls; Z96.652 Presence of left artificial knee joint; Z88.1 Allergy status to other antibiotic agents; Z88.5 Allergy status to narcotic agent; Z88.0 Allergy status to penicillin; Z88.8 Allergy status to other drugs, medicaments and biological substances; Z91.048 Other nonmedicinal substance allergy status; Z79.82 Long term (current) use of aspirin; Z79.899 Other long term (current) drug therapy; Z79.890 Hormone replacement therapy; Z79.2 Long term (current) use of antibiotics; Z86.69 Personal history of other diseases of the nervous system and sense organs; Z86.14 Personal history of Methicillin resistant Staphylococcus aureus infection; Z82.49 Family history of ischemic heart disease and other diseases of the circulatory system; Z83.3 Family history of diabetes mellitus; Z80.0 Family history of malignant neoplasm of digestive organs; G51.0 Bell's palsy; G47.30 Sleep apnea, unspecified; R29.810 Facial weakness; F31.9 Bipolar disorder, unspecified; R26.9 Unspecified abnormalities of gait and mobility; I25.10 Atherosclerotic heart disease of native coronary artery without angina pectoris; Z91.81 History of falling
CPT/HCPCS: 36415; 70450; 70551; 71045; 80048; 80053; 80061; 80156; 80299; 80320; 82550; 82607; 82746; 83735; 84100; 84443; 84484; 85025; 85027; 85610; 85652; 85730; 86140; 87040; 87070; 87077; 87186; 87205; 87635; 93005; 93306; 93880; 94640; 94760; 95816; 95819; 96374; 99285

== ENCOUNTER → 2021-03-23 | Outpatient (CLI) | payer MEDICARE, OTHER ==
[2021-03-23 21:19] LABS: African American GFR (CKD) 69.2 (60.0-200.0); Albumin 3.6 g/dL (3.80-4.90); Albumin/Globulin Ratio 1.24 (1.60-3.17); Anion Gap 12.9 mmol/L (4.00-12.00); BUN/Creat Ratio 22.31 Ratio (12.00-20.00); Calcium 8.8 mg/dL (8.7-10.3); Carbon Dioxide 25.1 mmol/L (21.6-31.8); Chol/HDL Ratio 5.41; Globulin 2.9 g/dL (1.6-3.3); Non-African American GFR(CKD) 59.7 (60.0-200.0); Total Bilirubin 0.3 mg/dL (0.2-1.2); Total Protein 6.5 g/dL (6.2-8.2)
[2021-03-23 21:24] LABS: Hemoglobin A1C 9.1 % (4.0-6.0)
[2021-03-23 23:01] LABS: Urine Creatinine 106.3 mg/dL
== END | disposition home or self-care (01) ==
LOC: LABWHC1 12:23
PROVIDERS: ATTEND Internal Medicine Endocrinology, Diabetes & Metabolism
DX: E11.65 Type 2 diabetes mellitus with hyperglycemia (principal)
CPT/HCPCS: 36415; 80053; 80061; 82043; 82570; 83036; 83721; 84443

== ENCOUNTER 2021-04-12 19:55 | Inpatient (IN) | payer MEDICARE, OTHER ==
[2021-04-12] MEDS ORDERED: SODIUM CHLORIDE 0.9% 1,000 ML IV STA (21:33)
[2021-04-12] MEDS ORDERED: SODIUM CHLORIDE 0.9% 500 ML 500 ML IV ONE (21:33)
--- NOTE | 2021-04-12 22:10 | ED ---
Altered Mental Status HPI - General Chief Complaint: Altered Mental Status Stated Complaint: Mental health Time Seen by Provider: 04/12/21 21:22 Source: patient, EMS, RN notes reviewed, old records reviewed Mode of arrival: EMS Limitations: altered mental status - History of Present Illness Initial Comments: This is a 60-year-old male to the ER for evaluation. Patient presents today for evaluation regards to altered mental status unresponsiveness weakness. Patient has history of psychiatric illness as well as complicated medical history. On arrival to the ER he is very somnolent and a poor story and states he feels weak all over and is mildly dizzy. Patient is recent fevers or traumas, no change in medications denies drugs or alcohol. MD Complaint: altered mental status, confusion, decreased responsiveness -: hour(s) Severity: moderate Consistency of Symptoms: waxing and waning, getting worse Context: history of similar presentation Associated Symptoms: denies other symptoms - Related Data Home Medications Medication Instructions Recorded Confirmed Loratadine [Claritin] 10 mg PO PC-BRKFST PRN 01/22/15 04/12/21 Nitroglycerin Sl Tabs [Nitrostat] 0.4 mg SL Q5M PRN 01/22/15 04/12/21 Insulin Degludec [Tresiba 60 unit SQ BID 07/17/17 04/12/21 Flextouch U-200] Albuterol Nebulized [Ventolin 2.5 mg INHALATION RT-Q4H PRN 10/31/20 04/12/21 Nebulized] Bydureon 2mg/0.85ml Auto Injector 2 mg SQ Q7D 10/31/20 04/12/21 Empagliflozin [Jardiance] 25 mg PO PC-BRKFST 10/31/20 04/12/21 Fish Oil/Dha/Epa [Fish Oil 1,200 1 cap PO PC-BRKFST 10/31/20 04/12/21 mg Fish Oil] Fluticasone Nasal [place] [Flonase 2 spr EA NOSTRIL DAILY PRN 10/31/20 04/12/21 Nasal [place]] Pentoxifylline [TRENtal] 400 mg PO BID 10/31/20 04/12/21 Sildenafil Citrate 50 mg PO DAILY PRN 10/31/20 04/12/21 Tamsulosin HCl [Flomax] 0.4 mg PO AC-SUPPER 10/31/20 04/12/21 Testosterone [Androgel 1.62% Gel 1 pump TOPICAL Q48H 10/31/20 04/12/21 Pump] Testosterone [Androgel 1.62% Gel 2 pump TOPICAL Q48H 10/31/20 04/12/21 Pump] Albuterol Sulfate [Proventil Hfa] 2 puff INHALATION RT-QID PRN 12/26/20 04/12/21 Atorvastatin [Lipitor] 40 mg PO HS 12/26/20 04/12/21 Levothyroxine Sodium [Synthroid] 350 mcg PO DAILY 12/26/20 04/12/21 Metoprolol Succinate [Toprol XL] 50 mg PO BID 12/26/20 04/12/21 OLANZapine 7.5 mg PO HS 12/26/20 04/12/21 Baclofen [Lioresal] 20 mg PO BID PRN 04/12/21 04/12/21 Sulfamethoxazole/Trimethoprim 1 tab PO BID 04/12/21 04/12/21 [Bactrim DS 800-160 mg] carBAMazepine [carBAMazepine ER] 400 mg PO Q12H 04/12/21 04/12/21 hydroCHLOROthiazide [Hydrodiuril] 25 mg PO BID 04/12/21 04/12/21 Previous Rx's Medication Instructions Recorded Diclofenac Sodium [Voltaren Gel] 1 applic TOPICAL AC-BID #15 gram 11/04/20 Pantoprazole [Protonix] 40 mg PO AC-BID tablet. 11/04/20 carBAMazepine [TEGretol] 200 mg PO PC-BRKFST #4 tab 11/04/20 Aspirin 325 mg PO DAILY tab 12/31/20 Gabapentin [Neurontin] 300 mg PO BID #6 cap 12/31/20 Allergies Allergy/AdvReac Type Severity Reaction Status Date / Time codeine phosphate Allergy Dyspnea Verified 04/12/21 22:28 [From Tylenol-Codeine] levofloxacin [From Levaquin] Allergy Anaphylaxis Verified 04/12/21 22:28 Penicillins Allergy Rash/Hives Verified 04/12/21 22:28 quetiapine Allergy headache Verified 04/12/21 22:28 guaifenesin AdvReac dehydration Verified 04/12/21 22:28 meperidine HCl [From Demerol] AdvReac "altered Verified 04/12/21 22:28 state of mind" olanzapine AdvReac > 7.6 mg Verified 04/12/21 22:28 causes sleepiness phenylephrine AdvReac dehydration Verified 04/12/21 22:28 pseudoephedrine AdvReac Unknown Verified 04/12/21 22:28 [From Entex T] topiramate AdvReac Dehydration Verified 04/12/21 22:28 and Manic wool AdvReac Urticarial Verified 04/12/21 22:28 gin AdvReac Headache Uncoded 10/31/20 10:09 Review of Systems ROS Statement: Those systems with pertinent positive or pertinent negative responses have been documented in the HPI. ROS Other: All systems not noted in ROS Statement are negative. 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, BLAYNE with CPAP, IDDM type II, neuropathy bilateral lower extremities, hypothroid- thyroidectomy d/t cancer, arthritis/ DJD in back and bilateral knees, obesity History of Any Multi-Drug Resistant Organisms: None Reported, MRSA Date of last positivie culture/infection: 10/31/20 MDRO Source:: MRSA TOE Past Surgical History: Joint Replacement, Tonsillectomy Additional Past Surgical History / Comment(s): L great toe amputation, L total knee arthroplasty, stephani eye surgery, thyroidectomy Past Anesthesia/Blood Transfusion Reactions: No Reported Reaction Additional Past Anesthesia/Blood Transfusion Reaction / Comment(s): had reaction to drainage tube-"had to be knocked out-woke up swinging" Past Psychological History: ADD/ADHD, Anxiety, Bipolar, Depression, PTSD Smoking Status: Former smoker, Second hand smoke exposure Past Alcohol Use History: None Reported Past Drug Use History: None Reported - Past Family History Father Family Medical History: Coronary Artery Disease (CAD), Diabetes Mellitus Additional Family Medical History / Comment(s): Father has had CABG. He is 84 yrs. old. Mother Family Medical History: Cancer, Diabetes Mellitus Additional Family Medical History / Comment(s): Mother had colon cancer with surgery. She is 80 yrs old. General Exam Limitations: altered mental status, physical limitation General appearance: alert, lethargic, obese Head exam: Present: atraumatic, normocephalic, normal inspection Eye exam: Present: normal appearance, PERRL, EOMI. Absent: scleral icterus, conjunctival injection, periorbital swelling ENT exam: Present: normal exam, mucous membranes moist Neck exam: Present: normal inspection. Absent: tenderness, meningismus, lymphadenopathy Respiratory exam: Present: normal lung sounds bilaterally. Absent: respiratory distress, wheezes, rales, rhonchi, stridor Cardiovascular Exam: Present: regular rate, normal rhythm, normal heart sounds. Absent: systolic murmur, diastolic murmur, rubs, gallop, clicks GI/Abdominal exam: Present: soft, normal bowel sounds. Absent: distended, tenderness, guarding, rebound, rigid Extremities exam: Present: normal inspection, full ROM, normal capillary refill. Absent: tenderness, pedal edema, joint swelling, calf tenderness Back exam: Present: normal inspection Neurological exam: Present: alert, oriented X3, CN II-XII intact Psychiatric exam: Present: normal affect, normal mood Skin exam: Present: warm, dry, intact, normal color. Absent: rash Course Vital Signs 04/12/21 04/12/21 04/13/21 19:59 20:06 00:00 Pulse Rate 82 68 67 Respiratory 18 18 18 Rate Blood Pressure 114/67 167/72 153/95 O2 Sat by Pulse 95 97 97 Oximetry - Reevaluation(s) Reevaluation #1: 04/13/21 01:07 Medical record is reviewed Reevaluation #2: 04/13/21 01:07 Patient symptoms are mildly improving here in the emergency department but he states he still does not feel completely well her back to himself Reevaluation #3: 04/13/21 01:07 Patient denies any headache chest pain shortness breath or abdominal pain - Consultations Consultation #1: Spoke with [facility] review admit this patient Medical Decision Making - Medical Decision Making 60 male to the ER for altered mental status and unresponsiveness. No acute cause found patient replacement observation he still does not feel that he is at baseline - Lab Data Result diagrams: 04/12/21 22:24 04/12/21 22:24 Lab Results 04/12/21 04/12/21 04/12/21 Range/Units 22:24 22:24 22:24 WBC 9.0 (3.8-10.6) k/uL RBC 4.36 (4.30-5.90) m/uL Hgb 14.0 (13.0-17.5) gm/dL Hct 42.0 (39.0-53.0) % MCV 96.4 (80.0-100.0) fL MCH 32.1 (25.0-35.0) pg MCHC 33.3 (31.0-37.0) g/dL RDW 14.0 (11.5-15.5) % Plt Count 353 (150-450) k/uL MPV 7.3 Neutrophils % 58 % Lymphocytes % 27 % Monocytes % 7 % Eosinophils % 3 % Basophils % 1 % Neutrophils # 5.2 (1.3-7.7) k/uL Lymphocytes # 2.4 (1.0-4.8) k/uL Monocytes # 0.6 (0-1.0) k/uL Eosinophils # 0.3 (0-0.7) k/uL Basophils # 0.1 (0-0.2) k/uL PT 10.6 (9.0-12.0) sec INR 1.0 (<1.2) APTT 24.0 (22.0-30.0) sec Sodium (137-145) mmol/L Potassium (3.5-5.1) mmol/L Chloride (98-107) mmol/L Carbon Dioxide (22-30) mmol/L Anion Gap mmol/L BUN (9-20) mg/dL Creatinine (0.66-1.25) mg/dL Est GFR (CKD-EPI)AfAm (>60 ml/min/1.73 sqM) Est GFR (CKD-EPI)NonAf (>60 ml/min/1.73 sqM) Glucose (74-99) mg/dL POC Glucose (mg/dL) (75-99) mg/dL POC Glu P[employer] D[employer] Worker ID Calcium (8.4-10.2) mg/dL Total Bilirubin (0.2-1.3) mg/dL AST (17-59) U/L ALT (4-49) U/L Alkaline Phosphatase (38-126) U/L Ammonia (<30) umol/L Creatine Kinase (55-170) U/L Troponin I (0.000-0.034) ng/mL Total Protein (6.3-8.2) g/dL Albumin (3.5-5.0) g/dL Urine Color Yellow Urine Appearance Clear (Clear) Urine pH 6.0 (5.0-8.0) Ur Specific [place] 1.018 (1.001-1.035) Urine Protein Negative (Negative) Urine Glucose (UA) 4+ H (Negative) Urine Ketones Negative (Negative) Urine Blood Negative (Negative) Urine Nitrite Negative (Negative) Urine Bilirubin Negative (Negative) Urine Urobilinogen <2.0 (<2.0) mg/dL Ur Leukocyte Esterase Negative (Negative) Urine Opiates Screen Not Detected (NotDetected) Ur Oxycodone Screen Not Detected (NotDetected) Urine Methadone Screen Not Detected (NotDetected) Ur Propoxyphene Screen Not Detected (NotDetected) Ur Barbiturates Screen Not Detected (NotDetected) U Tricyclic Antidepress Not Detected (NotDetected) Ur Phencyclidine Scrn Not Detected (NotDetected) Ur Amphetamines Screen Not Detected (NotDetected) U Methamphetamines Scrn Not Detected (NotDetected) U Benzodiazepines Scrn Detected H (NotDetected) Urine Cocaine Screen Not Detected (NotDetected) U Marijuana (THC) Screen Not Detected (NotDetected) Serum Alcohol mg/dL 04/12/21 04/12/21 04/12/21 Range/Units 22:24 22:24 22:24 WBC (3.8-10.6) k/uL RBC (4.30-5.90) m/uL Hgb (13.0-17.5) gm/dL Hct (39.0-53.0) % MCV (80.0-100.0) fL MCH (25.0-35.0) pg MCHC (31.0-37.0) g/dL RDW (11.5-15.5) % Plt Count (150-450) k/uL MPV Neutrophils % % Lymphocytes % % Monocytes % % Eosinophils % % Basophils % % Neutrophils # (1.3-7.7) k/uL Lymphocytes # (1.0-4.8) k/uL Monocytes # (0-1.0) k/uL Eosinophils # (0-0.7) k/uL Basophils # (0-0.2) k/uL PT (9.0-12.0) sec INR (<1.2) APTT (22.0-30.0) sec Sodium 136 L (137-145) mmol/L Potassium 3.8 (3.5-5.1) mmol/L Chloride 98 (98-107) mmol/L Carbon Dioxide 26 (22-30) mmol/L Anion Gap 12 mmol/L BUN 46 H (9-20) mg/dL Creatinine 1.68 H (0.66-1.25) mg/dL Est GFR (CKD-EPI)AfAm 51 (>60 ml/min/1.73 sqM) Est GFR (CKD-EPI)NonAf 44 (>60 ml/min/1.73 sqM) Glucose 188 H (74-99) mg/dL POC Glucose (mg/dL) (75-99) mg/dL POC Glu P[employer] D[employer] Worker ID Calcium 9.7 (8.4-10.2) mg/dL Total Bilirubin 0.2 (0.2-1.3) mg/dL AST 26 (17-59) U/L ALT 21 (4-49) U/L Alkaline Phosphatase 75 (38-126) U/L Ammonia 15 (<30) umol/L Creatine Kinase 56 (55-170) U/L Troponin I <0.012 (0.000-0.034) ng/mL Total Protein 7.4 (6.3-8.2) g/dL Albumin 4.3 (3.5-5.0) g/dL Urine Color Urine Appearance (Clear) Urine pH (5.0-8.0) Ur Specific [place] (1.001-1.035) Urine Protein (Negative) Urine Glucose (UA) (Negative) Urine Ketones (Negative) Urine Blood (Negative) Urine Nitrite (Negative) Urine Bilirubin (Negative) Urine Urobilinogen (<2.0) mg/dL Ur Leukocyte Esterase (Negative) Urine Opiates Screen (NotDetected) Ur Oxycodone Screen (NotDetected) Urine Methadone Screen (NotDetected) Ur Propoxyphene Screen (NotDetected) Ur Barbiturates Screen (NotDetected) U Tricyclic Antidepress (NotDetected) Ur Phencyclidine Scrn (NotDetected) Ur Amphetamines Screen (NotDetected) U Methamphetamines Scrn (NotDetected) U Benzodiazepines Scrn (NotDetected) Urine Cocaine Screen (NotDetected) U Marijuana (THC) Screen (NotDetected) Serum Alcohol <10 mg/dL 04/12/21 04/12/21 Range/Units 22:30 23:44 WBC (3.8-10.6) k/uL RBC (4.30-5.90) m/uL Hgb (13.0-17.5) gm/dL Hct (39.0-53.0) % MCV (80.0-100.0) fL MCH (25.0-35.0) pg MCHC (31.0-37.0) g/dL RDW (11.5-15.5) % Plt Count (150-450) k/uL MPV Neutrophils % % Lymphocytes % % Monocytes % % Eosinophils % % Basophils % % Neutrophils # (1.3-7.7) k/uL Lymphocytes # (1.0-4.8) k/uL Monocytes # (0-1.0) k/uL Eosinophils # (0-0.7) k/uL Basophils # (0-0.2) k/uL PT (9.0-12.0) sec INR (<1.2) APTT (22.0-30.0) sec Sodium (137-145) mmol/L Potassium (3.5-5.1) mmol/L Chloride (98-107) mmol/L Carbon Dioxide (22-30) mmol/L Anion Gap mmol/L BUN (9-20) mg/dL Creatinine (0.66-1.25) mg/dL Est GFR (CKD-EPI)AfAm (>60 ml/min/1.73 sqM) Est GFR (CKD-EPI)NonAf (>60 ml/min/1.73 sqM) Glucose (74-99) mg/dL POC Glucose (mg/dL) 212 H 167 H (75-99) mg/dL POC Glu P[employer] D[employer] Worker ID Beverley Padilla Kathryn Calcium (8.4-10.2) mg/dL Total Bilirubin (0.2-1.3) mg/dL AST (17-59) U/L ALT (4-49) U/L Alkaline Phosphatase (38-126) U/L Ammonia (<30) umol/L Creatine Kinase (55-170) U/L Troponin I (0.000-0.034) ng/mL Total Protein (6.3-8.2) g/dL Albumin (3.5-5.0) g/dL Urine Color Urine Appearance (Clear) Urine pH (5.0-8.0) Ur Specific [place] (1.001-1.035) Urine Protein (Negative) Urine Glucose (UA) (Negative) Urine Ketones (Negative) Urine Blood (Negative) Urine Nitrite (Negative) Urine Bilirubin (Negative) Urine Urobilinogen (<2.0) mg/dL Ur Leukocyte Esterase (Negative) Urine Opiates Screen (NotDetected) Ur Oxycodone Screen (NotDetected) Urine Methadone Screen (NotDetected) Ur Propoxyphene Screen (NotDetected) Ur Barbiturates Screen (NotDetected) U Tricyclic Antidepress (NotDetected) Ur Phencyclidine Scrn (NotDetected) Ur Amphetamines Screen (NotDetected) U Methamphetamines Scrn (NotDetected) U Benzodiazepines Scrn (NotDetected) Urine Cocaine Screen (NotDetected) U Marijuana (THC) Screen (NotDetected) Serum Alcohol mg/dL - EKG Data -: EKG Interpreted by Me (EKG shows sinus rhythm 77 HI 186 QRS 122 QTC 468) - Radiology Data Radiology results: report reviewed (CT brain is negative for acute disease), image reviewed Disposition Clinical Impression: Altered mental status, Syncope, Weakness Disposition: ADMITTED IP TO THIS [facility] Condition: Good Is patient prescribed a controlled substance at d/c from ED?: No Referrals: Tati Dacosta DO [Primary Care Provider] - 1-2 days
[2021-04-12 22:32] LABS: Glucose,Whole Blood 212 mg/dL (75-99)
[2021-04-12 22:46] LABS: Basophils # (A) 0.1 k/uL (0-0.2); Basophils % (A) 1 %; Eosinophils # (A) 0.3 k/uL (0-0.7); Eosinophils % (A) 3 %; Lymphocytes # (A) 2.4 k/uL (1.0-4.8); Lymphocytes % (A) 27 %; MCH 32.1 pg (25.0-35.0); MCHC 33.3 g/dL (31.0-37.0); MCV 96.4 fL (80.0-100.0); Mean Platelet Volume 7.3; Monocytes # (A) 0.6 k/uL (0-1.0); Monocytes % (A) 7 %; Neutrophils # (A) 5.2 k/uL (1.3-7.7); Neutrophils % (A) 58 %; Platelet Count 353 k/uL (150-450); RBC 4.36 m/uL (4.30-5.90)
[2021-04-12 23:06] LABS: Prothrombin Time 10.6 sec (9.0-12.0)
[2021-04-12 23:26] LABS: ALT 21 U/L (4-49); AST 26 U/L (17-59); African American GFR (CKD) 51 (>60 ml/min/1.73 sqM); Albumin 4.3 g/dL (3.5-5.0); Alcohol <10 mg/dL; Alkaline Phosphatase 75 U/L (38-126); Anion Gap 12 mmol/L; Blood Urea Nitrogen 46 mg/dL (9-20); Calcium 9.7 mg/dL (8.4-10.2); Carbon Dioxide 26 mmol/L (22-30); Chloride 98 mmol/L (98-107); Creatine Kinase 56 U/L (55-170); Glucose 188 mg/dL (74-99); Non-African American GFR(CKD) 44 (>60 ml/min/1.73 sqM); Potassium 3.8 mmol/L (3.5-5.1); Sodium 136 mmol/L (137-145); Total Bilirubin 0.2 mg/dL (0.2-1.3); Total Protein 7.4 g/dL (6.3-8.2)
[2021-04-12 23:45] LABS: Glucose,Whole Blood 167 mg/dL (75-99)
[2021-04-13 00:14] LABS: Appearance,Urine Clear (Clear); Bilirubin,Urine Negative (Negative); Blood,Urine Negative (Negative); Color,Urine Yellow; Glucose,Urine (UA) 4+ (Negative); Ketones,Urine Negative (Negative); Leukocyte Esterase,Urine Negative (Negative); Nitrite,Urine Negative (Negative); Protein,Urine Negative (Negative); Specific Gravity,Urine 1.018 (1.001-1.035); Urobilinogen,Urine <2.0 mg/dL (<2.0)
--- NOTE | 2021-04-13 00:17 | CT ---
EXAMINATION TYPE: CT brain wo con DATE OF EXAM: 04/13/2021 COMPARISON: 12/26/2020 HISTORY: ETOH CT DLP: 1074.4 mGycm Automated exposure control for dose reduction was used. Ventricles and sulci appear normal. There is no mass effect nor midline shift. There is no sign of in tracranial hemorrhage. Calvarium is intact. There is no evidence of cerebral edema. Skull base is int act. There is normal aeration of the mastoid sinuses. IMPRESSION: Negative unenhanced head CT scan. There is minimal ethmoid sinusitis unchanged.
[2021-04-13 00:37] LABS: Amphetamine Screen,Urine Not Detected (NotDetected); Barbiturate Screen,Urine Not Detected (NotDetected); Benzodiazepines Screen,Urine Detected (NotDetected); Cocaine Screen,Urine Not Detected (NotDetected); Methadone Screen, Urine Not Detected (NotDetected); Opiate Screen,Urine Not Detected (NotDetected); Oxycodone Screen, Urine Not Detected (NotDetected); Phencyclidine Screen,Urine Not Detected (NotDetected); Tricyclic Antidepressant,Urine Not Detected (NotDetected); Urn Cannabinoid Scrn Not Detected (NotDetected)
[2021-04-13] MEDS ORDERED: ONDANSETRON 4 MG/2 ML VIAL IVP PRN (01:03)
[2021-04-13] MEDS ORDERED: NALOXONE 0.4 MG/ML 1 ML VIAL IV PRN (01:03)
[2021-04-13] MEDS ORDERED: MORPHINE SULFATE 4 MG/ML SYRINGE IV PRN (01:03)
[2021-04-13] MEDS: SODIUM CHLORIDE 0.9% 1,000 ML IV SCH ×3 (01:52→16:22)
[2021-04-13] MEDS ORDERED: PANTOPRAZOLE 40 MG/10 ML VIAL IV SCH (09:00)
[2021-04-13 09:33] LABS: Glucose,Whole Blood 320 mg/dL (75-99)
[2021-04-13 11:25] LABS: Glucose,Whole Blood 272 mg/dL (75-99)
[2021-04-13] MEDS: INSULIN ASPART (NovoLOG) 100 UNIT/ML VIAL SQ SCH ×3 (12:04→22:28)
[2021-04-13] MEDS ORDERED: ALBUTEROL HFA INHALER INHALATION PRN (13:06)
[2021-04-13] MEDS ORDERED: LORATADINE 10 MG TAB PO PRN (13:06)
[2021-04-13] MEDS ORDERED: NITROGLYCERIN SL TABS 0.4 MG TAB SUBLINGUAL PRN (13:06)
[2021-04-13] MEDS ORDERED: ALBUTEROL NEBULIZED 2.5 MG/3 ML INHALATION PRN (13:06)
[2021-04-13] MEDS ORDERED: FLUTICASONE 50MCG/SPRAY NASAL 16GM EA NOSTRIL PRN (13:06)
[2021-04-13] MEDS: carBAMazepine 400 MG TAB.ER.12H PO SCH (13:40)
[2021-04-13 16:44] LABS: Glucose,Whole Blood 246 mg/dL (75-99)
[2021-04-13] MEDS: DICLOFENAC SODIUM GEL 100 GM TUBE TOPICAL SCH (16:51)
[2021-04-13] MEDS ORDERED: TESTOSTERONE TOPICAL SCH ×2 (17:00)
[2021-04-13] MEDS: TAMSULOSIN 0.4 MG CAP.ER.24H PO SCH (17:08)
[2021-04-13] MEDS: PANTOPRAZOLE 40 MG TABLET PO SCH (17:08)
[2021-04-13 22:06] LABS: Glucose,Whole Blood 194 mg/dL (75-99)
[2021-04-13] MEDS: GABAPENTIN 300 MG CAP PO SCH (22:28)
[2021-04-13] MEDS: METOPROLOL SUCCINATE (ER) 50 MG TAB.ER.24H PO SCH (22:28)
[2021-04-13] MEDS: hydroCHLOROthiazide 25 MG TAB PO SCH (22:28)
[2021-04-13] MEDS: INSULIN DETEMIR (LEVEMIR) 100 UNIT/ML SYR SQ SCH (22:28)
[2021-04-13] MEDS: ATORVASTATIN 40 MG TAB PO SCH (22:28)
[2021-04-13] MEDS: OLANZapine 7.5 MG TAB PO SCH (22:58)
[2021-04-13] MEDS: SULFAMETHOX-TMP 800-160MG 1 EACH TAB PO SCH (22:58)
[2021-04-13] MEDS: PENTOXIFYLLINE 400 MG TABLET.ER PO SCH (22:58)
--- NOTE | 2021-04-14 00:36 | P.HPIM ---
History of Present Illness H&P Date: 04/13/21 Chief Complaint: altered mental status changes/syncopal episode Mr. Landaverde is a 60-year-old male with a past medical history of diabetes mellitus, hypertension, left great toe osteomyelitis/amputation, left-sided Castro's palsy, BLAYNE, bilateral lower extremity neuropathy, hypothyroidism, anxiety, bipolar disorder, PTSD, depression brought in by EMS for change in mental status. Patient is a poor historian. So tried to reach his family, his sister answered but she was not present when this episode of mental status change happened. As per discussion with his sister, he was found to be less interactive when his brother and [id number] went to meet him. Patient was out in the hot weather for few hours before this episode happened. But she was not sure on the course of the events. At the time of my examination patient is in the observation unit sitting at the end of the bed and comfortable. He mentioned that he has significant psychiatric history and chronic medical conditions. He denied having any chest pain or palpitations. No abdominal pain nausea vomiting or diarrhea. No dysuria or hematuria. He denies having any headaches, blurring of vision, double vision, hearing loss, slurred speech. Patient denies having any weakness in his extremities but complains of generalized weakness. He denies having any fevers chills or rigors. No sick contacts. In the ER at the time of admission patient's vital signs temperature 99.1, heart rate 76, respiratory 16, blood pressure 111 x 68 saturating at 98% on room air. Patient had an EKG showing normal sinus rhythm. On reviewing his labs white count of 9, hemoglobin 14, platelets 353. Sodium 136, potassium 3.8, chloride 98, bicarb 26, BUN 46, creatinine 1.68. Patient's urine is positive for 4+ glucose. And his UDS is positive for benzos. Review of Systems REVIEW OF SYSTEMS: CONSTITUTIONAL: No fever, no malaise, no fatigue. HEENT: No headache, no neck stiffness, no blurring of vision CARDIOVASCULAR: No chest pain, no palpitations PULMONARY: No cough or difficulty in breathing GASTROINTESTINAL: No Abdominal pain nausea vomiting or diarrhea NEUROLOGICAL: No weakness of extremities HEMATOLOGICAL: Denies any bleeding or petechiae. GENITOURINARY: Denies any burning micturition, frequency, or urgency. MUSCULOSKELETAL/RHEUMATOLOGICAL: Denies any joint pain, swelling, or any muscle pain. ENDOCRINE: Denies polyuria polydipsia or heat or cold intolerance The rest of the 14-point review of systems is negative. Past Medical History Past Medical History: Cancer, Chest Pain / Angina, Diabetes Mellitus, GERD/Reflux, Hyperlipidemia, Hypertension, Osteoarthritis (OA), Sleep Apnea/CPAP/BIPAP, Thyroid Disorder, Vascular Disorder Additional Past Medical History / Comment(s): Skin disorder which pt states is from being in [place]-causes sores, chronic venous stasis, pt recently had L great toe osteomylitis/amputation, 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, BLAYNE with CPAP, IDDM type II, neuropathy bilateral lower extremities, hypothroid- thyroidectomy d/t cancer, arthritis/ DJD in back and bilateral knees, obesity History of Any Multi-Drug Resistant Organisms: None Reported, MRSA Date of last positivie culture/infection: 10/31/20 MDRO Source:: MRSA TOE Past Surgical History: Joint Replacement, Tonsillectomy Additional Past Surgical History / Comment(s): L great toe amputation, L total knee arthroplasty, stephani eye surgery, thyroidectomy Past Anesthesia/Blood Transfusion Reactions: No Reported Reaction Additional Past Anesthesia/Blood Transfusion Reaction / Comment(s): had reaction to drainage tube-"had to be knocked out-woke up swinging" Past Psychological History: ADD/ADHD, Anxiety, Bipolar, Depression, PTSD Additional Psychological History / Comment(s): implusive control disorder. Pt resides with mother and father. He uses a cane to ambulate. He was in [facility]. He drives. Smoking Status: Former smoker, Second hand smoke exposure Past Alcohol Use History: None Reported Additional Past Alcohol Use History / Comment(s): Pt started smoking in 1981 and quit in 2007. He is around 2nd hand smoke. Past Drug Use History: None Reported - Past Family History Father Family Medical History: Coronary Artery Disease (CAD), Diabetes Mellitus Additional Family Medical History / Comment(s): Father has had CABG. He is 84 yrs. old. Mother Family Medical History: Cancer, Diabetes Mellitus Additional Family Medical History / Comment(s): Mother had colon cancer with surgery. She is 80 yrs old. Medications and Allergies Home Medications Medication Instructions Recorded Confirmed Type Loratadine [Claritin] 10 mg PO PC-BRKFST PRN 01/22/15 04/12/21 History Nitroglycerin Sl Tabs [Nitrostat] 0.4 mg SL Q5M PRN 01/22/15 04/12/21 History Insulin Degludec [Tresiba 60 unit SQ BID 07/17/17 04/12/21 History Flextouch U-200] Albuterol Nebulized [Ventolin 2.5 mg INHALATION RT-Q4H PRN 10/31/20 04/12/21 History Nebulized] Bydureon 2mg/0.85ml Auto Injector 2 mg SQ Q7D 10/31/20 04/12/21 History Empagliflozin [Jardiance] 25 mg PO PC-BRKFST 10/31/20 04/12/21 History Fish Oil/Dha/Epa [Fish Oil 1,200 1 cap PO PC-BRKFST 10/31/20 04/12/21 History mg Fish Oil] Fluticasone Nasal [place] [Flonase 2 spr EA NOSTRIL DAILY PRN 10/31/20 04/12/21 History Nasal [place]] Pentoxifylline [TRENtal] 400 mg PO BID 10/31/20 04/12/21 History Sildenafil Citrate 50 mg PO DAILY PRN 10/31/20 04/12/21 History Tamsulosin HCl [Flomax] 0.4 mg PO AC-SUPPER 10/31/20 04/12/21 History Testosterone [Androgel 1.62% Gel 1 pump TOPICAL Q48H 10/31/20 04/12/21 History Pump] Testosterone [Androgel 1.62% Gel 2 pump TOPICAL Q48H 10/31/20 04/12/21 History Pump] Diclofenac Sodium [Voltaren Gel] 1 applic TOPICAL AC-BID #15 gram 11/04/20 04/12/21 Rx Pantoprazole [Protonix] 40 mg PO AC-BID tablet. 11/04/20 04/12/21 Rx carBAMazepine [TEGretol] 200 mg PO PC-BRKFST #4 tab 11/04/20 04/12/21 Rx Albuterol Sulfate [Proventil Hfa] 2 puff INHALATION RT-QID PRN 12/26/20 04/12/21 History Atorvastatin [Lipitor] 40 mg PO HS 12/26/20 04/12/21 History Levothyroxine Sodium [Synthroid] 350 mcg PO DAILY 12/26/20 04/12/21 History Metoprolol Succinate [Toprol XL] 50 mg PO BID 12/26/20 04/12/21 History OLANZapine 7.5 mg PO HS 12/26/20 04/12/21 History Aspirin 325 mg PO DAILY tab 12/31/20 04/12/21 Rx Gabapentin [Neurontin] 300 mg PO BID #6 cap 12/31/20 04/12/21 Rx Baclofen [Lioresal] 20 mg PO BID PRN 04/12/21 04/12/21 History Sulfamethoxazole/Trimethoprim 1 tab PO BID 04/12/21 04/12/21 History [Bactrim DS 800-160 mg] carBAMazepine [carBAMazepine ER] 400 mg PO Q12H 04/12/21 04/12/21 History hydroCHLOROthiazide [Hydrodiuril] 25 mg PO BID 04/12/21 04/12/21 History Allergies Allergy/AdvReac Type Severity Reaction Status Date / Time codeine phosphate Allergy Dyspnea Verified 04/12/21 22:28 [From Tylenol-Codeine] levofloxacin [From Levaquin] Allergy Anaphylaxis Verified 04/12/21 22:28 Penicillins Allergy Rash/Hives Verified 04/12/21 22:28 quetiapine Allergy headache Verified 04/12/21 22:28 guaifenesin AdvReac dehydration Verified 04/12/21 22:28 meperidine HCl [From Demerol] AdvReac "altered Verified 04/12/21 22:28 state of mind" olanzapine AdvReac > 7.6 mg Verified 04/12/21 22:28 causes sleepiness phenylephrine AdvReac dehydration Verified 04/12/21 22:28 pseudoephedrine AdvReac Unknown Verified 04/12/21 22:28 [From Entex T] topiramate AdvReac Dehydration Verified 04/12/21 22:28 and Manic wool AdvReac Urticarial Verified 04/12/21 22:28 gin AdvReac Headache Uncoded 10/31/20 10:09 Physical Exam Vitals: Vital Signs Temp Pulse Pulse Resp BP BP Pulse Ox 04/13/21 13:25 98.7 F 76 16 109/55 98 04/13/21 08:18 97.7 F 98 16 135/72 98 04/13/21 06:15 68 16 132/71 97 04/13/21 01:49 99.1 F 76 16 111/68 98 04/13/21 00:00 67 18 153/95 97 04/12/21 20:06 68 18 167/72 97 04/12/21 19:59 82 18 114/67 95 Intake and Output 04/13/21 04/13/21 04/13/21 06:59 14:59 22:59 Other: Voiding Method Urinal Weight 121.109 kg PHYSICAL EXAMINATION: GENERAL: Comfortably lying up in the bed appears to be no acute distress. HEENT: Pupils are round and equally reacting to light. EOMI. No scleral icterus. No conjunctival pallor. Left sided Belly's palsy CARDIOVASCULAR: S1 and S2 present. No murmurs, rubs, or gallops. PULMONARY: Bilateral breath sounds positive. No wheeze or crackles.. ABDOMEN: Soft,non -tender, normal bowel sounds. No guarding or rigidity. MUSCULOSKELETAL: No joint swelling or deformity. Left foot is in a an ezekiel banadage. EXTREMITIES: Hyperpigmneted skin on both lower extremities NEUROLOGICAL: Gross neurological examination did not reveal any focal deficits. SKIN:No rash Results CBC & Chem 7: 04/12/21 22:24 04/12/21 22:24 Labs: Abnormal Lab Results - Last 24 Hours (Table) 04/12/21 04/12/21 04/12/21 Range/Units 22:24 22:24 22:30 Sodium 136 L (137-145) mmol/L BUN 46 H (9-20) mg/dL Creatinine 1.68 H (0.66-1.25) mg/dL Glucose 188 H (74-99) mg/dL POC Glucose (mg/dL) 212 H (75-99) mg/dL Urine Glucose (UA) 4+ H (Negative) U Benzodiazepines Scrn Detected H (NotDetected) 04/12/21 04/13/21 04/13/21 Range/Units 23:44 09:31 11:24 Sodium (137-145) mmol/L BUN (9-20) mg/dL Creatinine (0.66-1.25) mg/dL Glucose (74-99) mg/dL POC Glucose (mg/dL) 167 H 320 H 272 H (75-99) mg/dL Urine Glucose (UA) (Negative) U Benzodiazepines Scrn (NotDetected) 04/13/21 Range/Units 16:43 Sodium (137-145) mmol/L BUN (9-20) mg/dL Creatinine (0.66-1.25) mg/dL Glucose (74-99) mg/dL POC Glucose (mg/dL) 246 H (75-99) mg/dL Urine Glucose (UA) (Negative) U Benzodiazepines Scrn (NotDetected) Thrombosis Risk Factor Assmnt - Choose All That Apply Any of the Below Risk Factors Present?: Yes Each Factor Represents 1 point: Age 41-60 years, Obesity (BMI >25), Swollen legs (current) Other Risk Factors: No Other congenital or acquired thrombophilia - If yes, enter type in comment: No Thrombosis Risk Factor Assessment Total Risk Factor Score: 3 Thrombosis Risk Factor Assessment Level: Moderate Risk Assessment and Plan Assessment: ASSESSMENT Encephalopathy/syncope Generalized weakness Acute kidney injury Hypovolemic hyponatremia Poorly controlled diabetes mellitus Osteomyelitis of the left second toe Hypertension Hyperlipidemia Multiple joint osteoarthritis BLAYNE on CPAP Hypothyroid disorder History of Castro's palsy Bilateral diabetic neuropathy History of MRSA infection of the toe Anxiety with depression Bipolar disorder PTSD Impulse control disorder Former smoker Obesity with BMI of 40 PLAN: Patient was brought in for altered mental status changes/syncopal episode unclear description of the event. Will obtain a CAT scan of the head. On reviewing the labs patient's creatinine was elevated, discussion per sister he was outside in the hot weather for few hours before this incident happened. Continue with IV fluids 130 cc/h. Patient has been restarted patient has multiple chronic medical and psychiatric conditions, overall prognosis seems to be guarded. Patient has been started on his home medications. Continue with Bactrim for his osteomyelitis of the left second toe. We will repeat a.m. labs. We will continue to closely monitor blood sugars and blood pressure. Further recommendations to follow depending on the progress of the patient.
[2021-04-14] MEDS: SODIUM CHLORIDE 0.9% 1,000 ML IV SCH ×4 (00:46→21:24)
[2021-04-14] MEDS: carBAMazepine 400 MG TAB.ER.12H PO SCH ×3 (00:46→21:23)
[2021-04-14] MEDS: LEVOTHYROXINE 88 MCG TAB PO SCH (06:13)
[2021-04-14 06:57] LABS: Glucose,Whole Blood 177 mg/dL (75-99)
[2021-04-14 07:45] LABS: Basophils % (A) 1 %; Eosinophils # (A) 0.3 k/uL (0-0.7); Eosinophils % (A) 4 %; HCT 38.3 % (39.0-53.0); HGB 12.9 gm/dL (13.0-17.5); Lymphocytes # (A) 1.9 k/uL (1.0-4.8); Lymphocytes % (A) 28 %; MCH 32.5 pg (25.0-35.0); MCHC 33.6 g/dL (31.0-37.0); MCV 96.8 fL (80.0-100.0); Mean Platelet Volume 6.9; Monocytes # (A) 0.5 k/uL (0-1.0); Monocytes % (A) 7 %; Neutrophils # (A) 4.1 k/uL (1.3-7.7); Neutrophils % (A) 58 %; Platelet Count 335 k/uL (150-450); RBC 3.96 m/uL (4.30-5.90); RDW 13.7 % (11.5-15.5)
[2021-04-14] MEDS ORDERED: NON FORMULARY DRUG (Fish Oil/Dha/Epa [Fish Oil 1,200 Mg Fish Oil] 1 EACH Capsule) PO SCH (08:30)
[2021-04-14] MEDS: INSULIN ASPART (NovoLOG) 100 UNIT/ML VIAL SQ SCH ×4 (09:29→21:23)
[2021-04-14] MEDS: GABAPENTIN 300 MG CAP PO SCH ×2 (09:30→21:23)
[2021-04-14] MEDS: PANTOPRAZOLE 40 MG TABLET PO SCH ×2 (09:30→17:00)
[2021-04-14] MEDS: hydroCHLOROthiazide 25 MG TAB PO SCH ×2 (09:30→21:23)
[2021-04-14] MEDS: PENTOXIFYLLINE 400 MG TABLET.ER PO SCH ×2 (09:30→21:23)
[2021-04-14] MEDS: METOPROLOL SUCCINATE (ER) 50 MG TAB.ER.24H PO SCH ×2 (09:30→21:23)
[2021-04-14] MEDS: ASPIRIN 325 MG TAB PO SCH (09:30)
[2021-04-14] MEDS: carBAMazepine 200 MG TAB PO SCH (09:31)
[2021-04-14] MEDS: SULFAMETHOX-TMP 800-160MG 1 EACH TAB PO SCH ×2 (09:31→21:23)
[2021-04-14] MEDS: INSULIN DETEMIR (LEVEMIR) 100 UNIT/ML SYR SQ SCH ×2 (09:32→21:22)
[2021-04-14] MEDS: DICLOFENAC SODIUM GEL 100 GM TUBE TOPICAL SCH ×2 (09:38→17:04)
[2021-04-14] MEDS: PATIENT'S OWN (Empagliflozin [Jardiance] 25 MG Tablet) PO SCH (09:39)
--- NOTE | 2021-04-14 10:06 | CDI ---
Documentation Clarification Form Date: 04/14/2021 09:49:04 AM From: Nya Qiu RN CCDS Admit Date: 04/13/2021 02:40:00 PM Patient Name: Naga Landaverde Visit Number: [id number] Discharge Date: ATTENTION: The Clinical Documentation Specialists (CDI) and [facility] Coding Staff appreciate your assistance in clarifying documentation. Please respond to the clarification below the line at the bottom and electronically sign. The CDI & [facility] Coding staff will review the response and follow-up if needed. Please note: Queries are made part of the Legal Health Record. If you have any questions, please contact the author of this message via ITS. Dr. Velvet Dixon Encephalopathy is documented 04/13, H&P. Additional clarification regarding the type of encephalopathy is requested. History/Risk Factors: 60-year-old male presents to the ED with mental status change. Medical History: DM, HTN, PTSD and Sleep apnea. 04/13, H&P Clinical Indicators: Encephalopathy/syncope 04/13 H&P Labs: 04/12 Cr 1.68; Na 136 and Toxicology screen Benzodiazepine detected. CT Brain: 04/[address] scan. There is minimal ethmoid sinusitis unchanged. Treatment: 04/12 0.9NS 500ml bolus x 1; 04/13 to current 0.9NS 130mls an hour. Please clarify the type of encephalopathy, if known: [ ] Metabolic Encephalopathy [ ] Other, please specify [ ] Unable to determine Query answered on DCS 04/15 Dr Alexei: Altered mental status, most likely metabolic and toxic encephalopathy, secondary to HPI from Bactrim and using narcotics at home." (Template Last Revised: October 2020) MTDD
[2021-04-14 10:21] LABS: Anisocytosis (M) Present; Poikilocytosis (M) Present
[2021-04-14 11:41] LABS: Glucose,Whole Blood 191 mg/dL (75-99)
[2021-04-14 15:56] LABS: Hemoglobin A1C 8.2 % (4.0-6.0)
--- NOTE | 2021-04-14 16:19 | P.CNNES ---
History of Present Illness Consult date: 04/14/21 Requesting physician: Velvet Dixon Reason for Consult: Possible TIA, altered mental status History of Present Illness: Patient is a 60-year-old male came to the hospital by ambulance on 04/12/2021 at 7:55 PM. Patient does not know exact reason why he came to the hospital. He states he was acting "weird". As per EMS flow sheet, when they arrived, patient was sitting in a chair at his kitchen table. Patient's brother states that when he got home, patient was sitting slumped over in his chair. Patient's brother states when patient woke up he was not acting right. Upon EMS arrival, patient is alert and answering questions accurately and appropriately. Patient's [place] stroke scale was negative. Patient has history of bipolar disorder, ADHD. He has been taking his medications as directed. Patient was answering questions appropriately. But does not make sense when talking without being asked a question. His vital signs included blood pressure 144/82, pulse rate 84, saturation 95%, blood sugar 2:30. Temperature 98.2. Patient was brought to the hospital. Patient denies any focal symptoms or any strokelike symptoms. CT head showed no acute process. There is minimal ethmoid sinusitis. EKG shows normal sinus rhythm, rightward axis. Nonspecific intraventricular conduction delay. Patient takes insulin, Jardinece, Tegretol 400 mg every 12 hours, aspirin 325 mg, Lipitor 40 mg, olanzapine 7.5 mg, metoprolol Patient has been seen by myself on 12/26/2020 with episode of difficulty with walking and speaking. Patient's current examination is nonfocal. Patient had myoclonic jerks consistent with metabolic dysfunction. Patient has diabetes, PAD, status post left big toe amputation, bipolar disorder, history of left Castro's palsy with residual deficit. Patient had an MRI of the brain performed at that time which was normal. Carotid Doppler revealed no hemodynamically significant stenosis bilaterally. Antegrade flow in both vertebral arteries. 2-D echo at that time showed normal left-ventricular size. Normal left ventricular wall thickness. EF is 55-60%, trace MR. A1c was 6.4. Review of Systems Patient states he has bipolar disorder, ADD, PTSD and impulsive control disorder. He has amputated toe of the left foot. He has some skin changes. Denies any shortness of breath wheezing or cough. Denies any abdominal pain nausea vomiting diarrhea. No problem with the vision. 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 Past Medical History Past Medical History: Cancer, Chest Pain / Angina, Diabetes Mellitus, GERD/Reflux, Hyperlipidemia, Hypertension, Osteoarthritis (OA), Sleep Apnea/CPAP/BIPAP, Thyroid Disorder, Vascular Disorder Additional Past Medical History / Comment(s): Skin disorder which pt states is from being in [place]-causes sores, chronic venous stasis, pt recently had L great toe osteomylitis/amputation, 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, BLAYNE with CPAP, IDDM type II, neuropathy bilateral lower extremities, hypothroid- thyroidectomy d/t cancer, arthritis/ DJD in back and bilateral knees, obesity History of Any Multi-Drug Resistant Organisms: None Reported, MRSA Date of last positivie culture/infection: 10/31/20 MDRO Source:: MRSA TOE Past Surgical History: Joint Replacement, Tonsillectomy Additional Past Surgical History / Comment(s): L great toe amputation, L total knee arthroplasty, stephani eye surgery, thyroidectomy Past Anesthesia/Blood Transfusion Reactions: No Reported Reaction Additional Past Anesthesia/Blood Transfusion Reaction / Comment(s): had reaction to drainage tube-"had to be knocked out-woke up swinging" Past Psychological History: ADD/ADHD, Anxiety, Bipolar, Depression, PTSD Additional Psychological History / Comment(s): implusive control disorder. Pt resides with mother and father. He uses a cane to ambulate. He was in [place]. He drives. Smoking Status: Former smoker, Second hand smoke exposure Past Alcohol Use History: None Reported Additional Past Alcohol Use History / Comment(s): Pt started smoking in 1981 and quit in 2007. He is around 2nd hand smoke. Past Drug Use History: None Reported - Past Family History Father Family Medical History: Coronary Artery Disease (CAD), Diabetes Mellitus Additional Family Medical History / Comment(s): Father has had CABG. He is 84 yrs. old. Mother Family Medical History: Cancer, Diabetes Mellitus Additional Family Medical History / Comment(s): Mother had colon cancer with surgery. She is 80 yrs old. Medications and Allergies Home Medications Medication Instructions Recorded Confirmed Type Loratadine [Claritin] 10 mg PO PC-BRKFST PRN 01/22/15 04/12/21 History Nitroglycerin Sl Tabs [Nitrostat] 0.4 mg SL Q5M PRN 01/22/15 04/12/21 History Insulin Degludec [Tresiba 60 unit SQ BID 07/17/17 04/12/21 History Flextouch U-200] Albuterol Nebulized [Ventolin 2.5 mg INHALATION RT-Q4H PRN 10/31/20 04/12/21 History Nebulized] Bydureon 2mg/0.85ml Auto Injector 2 mg SQ Q7D 10/31/20 04/12/21 History Empagliflozin [Jardiance] 25 mg PO PC-BRKFST 10/31/20 04/12/21 History Fish Oil/Dha/Epa [Fish Oil 1,200 1 cap PO PC-BRKFST 10/31/20 04/12/21 History mg Fish Oil] Fluticasone Nasal [place] [Flonase 2 spr EA NOSTRIL DAILY PRN 10/31/20 04/12/21 History Nasal [place]] Pentoxifylline [TRENtal] 400 mg PO BID 10/31/20 04/12/21 History Sildenafil Citrate 50 mg PO DAILY PRN 10/31/20 04/12/21 History Tamsulosin HCl [Flomax] 0.4 mg PO AC-SUPPER 10/31/20 04/12/21 History Testosterone [Androgel 1.62% Gel 1 pump TOPICAL Q48H 10/31/20 04/12/21 History Pump] Testosterone [Androgel 1.62% Gel 2 pump TOPICAL Q48H 10/31/20 04/12/21 History Pump] Diclofenac Sodium [Voltaren Gel] 1 applic TOPICAL AC-BID #15 gram 11/04/20 04/12/21 Rx Pantoprazole [Protonix] 40 mg PO AC-BID tablet. 11/04/20 04/12/21 Rx carBAMazepine [TEGretol] 200 mg PO PC-BRKFST #4 tab 11/04/20 04/12/21 Rx Albuterol Sulfate [Proventil Hfa] 2 puff INHALATION RT-QID PRN 12/26/20 04/12/21 History Atorvastatin [Lipitor] 40 mg PO HS 12/26/20 04/12/21 History Levothyroxine Sodium [Synthroid] 350 mcg PO DAILY 12/26/20 04/12/21 History Metoprolol Succinate [Toprol XL] 50 mg PO BID 12/26/20 04/12/21 History OLANZapine 7.5 mg PO HS 12/26/20 04/12/21 History Aspirin 325 mg PO DAILY tab 12/31/20 04/12/21 Rx Gabapentin [Neurontin] 300 mg PO BID #6 cap 12/31/20 04/12/21 Rx Baclofen [Lioresal] 20 mg PO BID PRN 04/12/21 04/12/21 History Sulfamethoxazole/Trimethoprim 1 tab PO BID 04/12/21 04/12/21 History [Bactrim DS 800-160 mg] carBAMazepine [carBAMazepine ER] 400 mg PO Q12H 04/12/21 04/12/21 History hydroCHLOROthiazide [Hydrodiuril] 25 mg PO BID 04/12/21 04/12/21 History Allergies Allergy/AdvReac Type Severity Reaction Status Date / Time codeine phosphate Allergy Dyspnea Verified 04/12/21 22:28 [From Tylenol-Codeine] levofloxacin [From Levaquin] Allergy Anaphylaxis Verified 04/12/21 22:28 Penicillins Allergy Rash/Hives Verified 04/12/21 22:28 quetiapine Allergy headache Verified 04/12/21 22:28 guaifenesin AdvReac dehydration Verified 04/12/21 22:28 meperidine HCl [From Demerol] AdvReac "altered Verified 04/12/21 22:28 state of mind" olanzapine AdvReac > 7.6 mg Verified 04/12/21 22:28 causes sleepiness phenylephrine AdvReac dehydration Verified 04/12/21 22:28 pseudoephedrine AdvReac Unknown Verified 04/12/21 22:28 [From Entex T] topiramate AdvReac Dehydration Verified 04/12/21 22:28 and Manic wool AdvReac Urticarial Verified 04/12/21 22:28 gin AdvReac Headache Uncoded 10/31/20 10:09 Physical Examination - Vital Signs Vital Signs: Vital Signs Temp Pulse Resp BP Pulse Ox 04/14/21 11:16 98.4 F 74 16 107/66 93 L 04/13/21 20:00 79 16 04/13/21 19:03 97.8 F 79 16 138/78 97 04/13/21 13:25 98.7 F 76 16 109/55 98 Intake and Output 04/13/21 04/14/21 04/14/21 22:59 06:59 14:59 Intake Total 1040 Balance 1040 Intake: Intake, IV Titration 1040 Amount Sodium Chloride 0.9% 1, 1040 000 ml @ 130 mls/hr IV . Q7H42M [facility] Rx#:[id number] Other: Voiding Method Urinal Urinal # Voids 2 Patient is a middle aged male, appears slightly older than his stated age. Patient is alert awake oriented to time place and person. Speech and language functions are normal. Attention, concentration and fund of knowledge is slightly limited. On cranial examination, pupils are round and reacting to light, visual wolf are full on confrontation, extraocular muscles are intact with no nystagmus. Patient has chronic left facial weakness, peripheral type from previous Castro's palsy, with some possible hemifacial spasms. His tongue protrudes to the midline. Palatal elevation and sensation normal, hearing and shoulder shrug normal, facial sensation normal. On muscle strength testing, there is no pronator drift and the strength is normal in arms and legs distally and proximally. Deep tendon reflexes are hypoactive to absent and plantars downgoing on the right, cannot check on the left because of inability to talk. Sensory to touch is equal with no neglect. Cerebellar function showed no ataxia for [id number] testing. No dysdiadochokinesia. Tone and bulk of muscles normal. Gait deferred. On general examination, there is no carotid bruit or murmur, S1-S2 audible. Abdomen is soft nontender. Chest is clear. Mild peripheral edema. He has some chronic venous skin changes of his lower extremities distally. Results - Laboratory Findings CBC and BMP: 04/14/21 07:02 04/12/21 22:24 Abnormal Lab Findings: Abnormal Labs 04/12/21 04/12/21 04/12/21 22:24 22:24 22:30 RBC Hgb Hct Sodium 136 L BUN 46 H Creatinine 1.68 H Glucose 188 H POC Glucose (mg/dL) 212 H Urine Glucose (UA) 4+ H U Benzodiazepines Scrn Detected H 04/12/21 04/13/21 04/13/21 23:44 09:31 11:24 RBC Hgb Hct Sodium BUN Creatinine Glucose POC Glucose (mg/dL) 167 H 320 H 272 H Urine Glucose (UA) U Benzodiazepines Scrn 04/13/21 04/13/21 04/14/21 16:43 22:04 06:57 RBC Hgb Hct Sodium BUN Creatinine Glucose POC Glucose (mg/dL) 246 H 194 H 177 H Urine Glucose (UA) U Benzodiazepines Scrn 04/14/21 04/14/21 07:02 11:40 RBC 3.96 L Hgb 12.9 L Hct 38.3 L Sodium BUN Creatinine Glucose POC Glucose (mg/dL) 191 H Urine Glucose (UA) U Benzodiazepines Scrn Assessment and Plan Assessment: * Altered mental status, unclear etiology. No reported history of strokelike symptoms prior to arrival. Patient's examination is nonfocal. Do not appear TIA at this time. * History of left Castro's palsy, with chronic weakness of the left side of the face with some hemifacial spasms. * History of amputation of the left big toe. * Type 2 diabetes * Peripheral arterial disease * Bipolar disorder, adult ADD, PTSD. Plan: * Patient had cerebro-vascular workup performed with recent admission in December 2020. All workup was negative. Currently patient has no stroke symptoms. Examination is nonfocal. No further workup indicated. * Patient's hemoglobin 8.2. Suggest optimize control of diabetes to target A1c <7.0. * Lipid panel from 03/23/2021 showed cholesterol 173, LDL 89, HDL 32 and triglycerides 419. Continue Lipitor 40 mg. * His previous tests from December 2020 showed an MRI of the brain performed at that time which was normal. Carotid Doppler revealed no hemodynamically significant stenosis bilaterally. Antegrade flow in both vertebral arteries. 2-D echo at that time showed normal left-ventricular size. Normal left ventricular wall thickness. EF is 55-60%, trace MR. * Patient's B12 426, folate 8.7 on 12/27/2020. We will start oral replacement. Patient's TSH was abnormal 0.030. Will defer IM to address abnormal thyroid functions. * Continue aspirin 325 mg daily indefinitely for stroke prevention. * Neurologically clear.
[2021-04-14 16:31] LABS: Glucose,Whole Blood 198 mg/dL (75-99)
[2021-04-14] MEDS: TAMSULOSIN 0.4 MG CAP.ER.24H PO SCH (17:00)
[2021-04-14] MEDS: FOLIC ACID 1 MG TAB PO SCH (17:03)
[2021-04-14] MEDS: CYANOCOBALAMIN 500 MCG TAB PO SCH (17:03)
[2021-04-14 20:33] LABS: Glucose,Whole Blood 155 mg/dL (75-99)
[2021-04-14] MEDS: ATORVASTATIN 40 MG TAB PO SCH (21:23)
[2021-04-14] MEDS: OLANZapine 7.5 MG TAB PO SCH (21:23)
--- NOTE | 2021-04-14 23:01 | P.PN ---
Subjective This is a pleasant 60 years old male who presents with past medical history of multiple medical problems including but not limited to diabetes mellitus, chronic left wound culture on Bactrim. With his turbine engineer an outpatient facility, given Bactrim for 2 weeks and supposed to continue for 3 more weeks. He presents because he was found slumped over in the chair while sleeping by his brother and when he walks him up he was talking nonsense as the patient confirmed to me. However patient currently is talking neurologically, he is awake but little sleepy Celeste very easy to arouse and he stays awake. He denies any specific complaint. Gross weakness or numbness. No chest pain or dyspnea. No diarrhea. No urinary complaints He states that he takes long-acting insulin triseba 30-6 units depending on the level, and NovoLog 35-45 units depending on level as well as well oral medication of jardiance , however hemoglobin A1c is controlled with 8.1% Her creatinine on a dmission is 1.6, repeat creatinine is still pending if and when I checked it at 10-11 PM (sample patient was [facility]) because of this I ordered another start BMP which is still pending. Baseline creatinine could be 1.1-1.3 CBC is reviewed and looks stable. Objective - Vital Signs Vital signs: Vital Signs Temp 98.4 F 04/14/21 11:16 Pulse 74 04/14/21 11:16 Resp 16 04/14/21 11:16 BP 107/66 04/14/21 11:16 Pulse Ox 93 L 04/14/21 11:16 Intake & Output 04/13/21 04/14/21 04/14/21 18:59 06:59 18:59 Intake Total 1040 Balance 1040 Weight 121.109 kg Intake: Intake, IV Titration 1040 Amount Sodium Chloride 0.9% 1, 1040 000 ml @ 130 mls/hr IV . Q7H42M [facility] Rx#:[id number] Other: Voiding Method Urinal Urinal Urinal # Voids 2 - Exam -GENERAL: The patient is alert and oriented x3, drowsy, not in any acute distress. Obese HEENT: Pupils are round and equally reacting to light. EOMI. No scleral icterus. No conjunctival pallor. Normocephalic, atraumatic. No pharyngeal erythema. No thyromegaly. CARDIOVASCULAR: S1 and S2 present. No murmurs, rubs, or gallops. PULMONARY: Chest is clear to auscultation, no wheezing or crackles. ABDOMEN: Soft, nontender, nondistended, normoactive bowel sounds. No palpable organomegaly. MUSCULOSKELETAL: No joint swelling or deformity. -EXTREMITIES: No cyanosis, clubbing, or pedal edema. Very small linear ulcer of the left second toe base, no purulent discharge or surrounding cellulitis NEUROLOGICAL: Gross neurological examination did not reveal any focal deficits. SKIN: No rashes. no petechiae. - Labs CBC & Chem 7: 04/14/21 07:02 04/12/21 22:24 Labs: Abnormal Lab Results - Last 24 Hours (Table) 04/13/21 04/13/21 04/14/21 Range/Units 16:43 22:04 06:57 RBC (4.30-5.90) m/uL Hgb (13.0-17.5) gm/dL Hct (39.0-53.0) % POC Glucose (mg/dL) 246 H 194 H 177 H (75-99) mg/dL 04/14/21 04/14/21 Range/Units 07:02 11:40 RBC 3.96 L (4.30-5.90) m/uL Hgb 12.9 L (13.0-17.5) gm/dL Hct 38.3 L (39.0-53.0) % POC Glucose (mg/dL) 191 H (75-99) mg/dL Assessment and Plan Assessment: Altered mental status, most likely metabolic and toxic encephalopathy, improving Mild Acute kidney injury, present on admission Diabetes mellitus with hyperglycemia, controlled on admission with hemoglobin A1c of 8.2%. A test of the left second toe on Bactrim Possible nonadherence to medication as she supposed to be Borderline low B12, been replaced by neurologist Morbid obesity with BMI of 40.6 Plan: This is a pleasant 60 years old male who presents with altered mental status and NAOMI Monitor creatinine, if no improvement then consider holding Bactrim, hydrochlorothiazide and vitamin possible nephrology consult Check a bladder scan Neurologist on the case for discharge after replacing B12 is started. Folate is added Infectious disease consult Labs and medication were reviewed.. Continue same treatment. Continue with symptomatic treatment. Resume home medication. Monitor lytes and vitals. DVT and GI prophylaxis. Further recommendationsas per clinical course of the patient DVT prophylaxis: Subcutaneous heparin GI Prophylaxis: Pepcid PT/OT: Pending Prognosis is guarded
[2021-04-14 23:33] LABS: African American GFR (CKD) 70 (>60 ml/min/1.73 sqM); Anion Gap 7 mmol/L; Blood Urea Nitrogen 22 mg/dL (9-20); Calcium 9.1 mg/dL (8.4-10.2); Carbon Dioxide 27 mmol/L (22-30); Chloride 103 mmol/L (98-107); Glucose 137 mg/dL (74-99); Non-African American GFR(CKD) 60 (>60 ml/min/1.73 sqM); Potassium 4.1 mmol/L (3.5-5.1); Sodium 137 mmol/L (137-145)
[2021-04-15 01:45] LABS: Carbamazepine (Tegretol) 3.6 ug/mL (4.0-12.0)
[2021-04-15 03:37] LABS: African American GFR (CKD) 76.3 (60.0-200.0); Albumin 3.6 g/dL (3.80-4.90); Albumin/Globulin Ratio 1.44 (1.60-3.17); Anion Gap 10.6 mmol/L (4.00-12.00); BUN/Creat Ratio 23.33 Ratio (12.00-20.00); Calcium 8.7 mg/dL (8.7-10.3); Carbon Dioxide 27.4 mmol/L (21.6-31.8); Globulin 2.5 g/dL (1.6-3.3); Magnesium 2.2 mg/dL (1.5-2.4); Non-African American GFR(CKD) 65.8 (60.0-200.0); Phosphorus 4.5 mg/dL (2.4-5.1); Potassium 3.7 mmol/L (3.5-5.5); Total Bilirubin 0.2 mg/dL (0.2-1.2); Total Protein 6.1 g/dL (6.2-8.2)
[2021-04-15 04:09] LABS: Folate, Serum 17.4 ng/mL
--- NOTE | 2021-04-15 06:19 | P.CONS ---
History of Present Illness - Reason for Consult Consult date: 04/14/21 left foot wound Requesting physician: Caleb E Sheet - Chief Complaint mental status changes x 1 day - History of Present Illness History of present illness : Patient is a 60-year male with a past medical history significant for diabetic foot infection/wet gangrene of left big toe requiring amputation of his left big toe on 10/30/2020 culture positive for MRSA patient was treated with IV vancomycin and local wound care with wound VAC patient used to follow with Dr. Vega and [facility] wound care center however is now following with the masseur/masseuse in the outpatient setting which is currently being treated twice a week with the special antibiotic spray 2 minutes each visit along with some local wound care patient was also started on oral Bactrim DS twice a day patient was noticed to having more mental status changes for which EMS was called and and the patient was brought to the [facility] ER 2 days ago patient was complaining of decreased level of responsiveness weakness and some mental status changes denies having any fever or headache no chest pain shortness of breath or cough no abdominal pain no diarrhea denies pain to his left big toe amputation site the wound is almost healed and covered with a callus with no drainage on admission to the hospital patient was afebrile patient did have a normal white count he was noticed to have elevated creatinine and the patient is currently being treated by neurology service and possible renal insufficiency from Bactrim DS which has been put on hold ID was consulted today for further management of his left foot wound and need for antibiotic therapy Review of system: CONSTITUTIONAL: Positive for weakness however denies fever. EYES: No complaint. ENT: No complaint. RESPIRATORY: No complaint. CARDIOVASCULAR: No complaint. GENITOURINARY: No complaint. GASTROINTESTINAL: No complaint. MUSCULOSKELETAL: As per history of present illness. INTEGUMENTARY: No complaint. PSYCHOLOGIC: No complaint. ENDOCRINE: No complaint. NEUROLOGIC: As per history of present illness. Past medical history : Reviewed, documented below Past surgical history : Reviewed, documented below Social history: Reviewed, documented below Medications: Reviewed, as documented below GENERAL DESCRIPTION: Middle-aged male up in bed, no distress. No tachypnea or accessory muscle of respiration use. HEENT: Shows Pallor , no scleral icterus. Oral mucous membrane is dry. NECK: Trachea central, no thyromegaly. LUNGS: Unlabored breathing. Clear to auscultation anteriorly. No wheeze or crackle. HEART: S1, S2, regular rate and rhythm. ABDOMEN: Soft, no tenderness , guarding or rigidity EXTREMITIES: No edema of feet. Left big toe amputation site wound is almost healed covered with a calcium no swelling no redness no drainage SKIN: No rash, no masses palpable. NEUROLOGICAL: The patient is awake, alert, oriented x3, mood and affect normal. LABS AND RADIOLOGY: Reviewed results see below Assessment : Patient is 60-year male with a past medical he significant for left diabetic foot infection/medical grade of the big toe requiring left big toe amputation culture positive for MRSA that was back in October 2020, patient currently do not have any signs of cellulitis to the left big toe amputation site patient did not have any fever or any white count admitted to the hospital with possible metabolic encephalopathy could be related to the Bactrim DS Plan: 1-agree with the discontinuation of Bactrim DS as they are no signs of any cellulitis at the left big toe site 2-local wound care with dry protective dressing 3-no need for systemic antibiotic therapy We will follow on clinical condition and cultures to further adjust medication if needed Thank you for this consultation we will follow the patient along with you Past Medical History Past Medical History: Cancer, Chest Pain / Angina, Diabetes Mellitus, GERD/Reflux, Hyperlipidemia, Hypertension, Osteoarthritis (OA), Sleep Apnea/CPAP/BIPAP, Thyroid Disorder, Vascular Disorder Additional Past Medical History / Comment(s): Skin disorder which pt states is from being in [place]-causes sores, chronic venous stasis, pt recently had L great toe osteomylitis/amputation, 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, BLAYNE with CPAP, IDDM type II, neuropathy bilateral lower extremities, hypothroid- thyroidectomy d/t cancer, arthritis/ DJD in back and bilateral k nees, obesity History of Any Multi-Drug Resistant Organisms: None Reported, MRSA Year Discovered:: 10/31/20 MDRO Source:: MRSA TOE Past Surgical History: Joint Replacement, Tonsillectomy Additional Past Surgical History / Comment(s): L great toe amputation, L total knee arthroplasty, stephani eye surgery, thyroidectomy Past Anesthesia/Blood Transfusion Reactions: No Reported Reaction Additional Past Anesthesia/Blood Transfusion Reaction / Comm: had reaction to drainage tube-"had to be knocked out-woke up swinging" Past Psychological History: ADD/ADHD, Anxiety, Bipolar, Depression, PTSD Additional Psychological History / Comment(s): implusive control disorder. Pt resides with mother and father. He uses a cane to ambulate. He was in [place]. He drives. Smoking Status: Former smoker, Second hand smoke exposure Past Alcohol Use History: None Reported Additional Past Alcohol Use History / Comment(s): Pt started smoking in 1981 and quit in 2007. He is around 2nd hand smoke. Past Drug Use History: None Reported - Past Family History Father Family Medical History: Coronary Artery Disease (CAD), Diabetes Mellitus Additional Family Medical History / Comment(s): Father has had CABG. He is 84 yrs. old. Mother Family Medical History: Cancer, Diabetes Mellitus Additional Family Medical History / Comment(s): Mother had colon cancer with surgery. She is 80 yrs old. Medications and Allergies Home Medications Medication Instructions Recorded Confirmed Type Loratadine [Claritin] 10 mg PO PC-BRKFST PRN 01/22/15 04/12/21 History Nitroglycerin Sl Tabs [Nitrostat] 0.4 mg SL Q5M PRN 01/22/15 04/12/21 History Insulin Degludec [Tresiba 60 unit SQ BID 07/17/17 04/12/21 History Flextouch U-200] Albuterol Nebulized [Ventolin 2.5 mg INHALATION RT-Q4H PRN 10/31/20 04/12/21 History Nebulized] Bydureon 2mg/0.85ml Auto Injector 2 mg SQ Q7D 10/31/20 04/12/21 History Empagliflozin [Jardiance] 25 mg PO PC-BRKFST 10/31/20 04/12/21 History Fish Oil/Dha/Epa [Fish Oil 1,200 1 cap PO PC-BRKFST 10/31/20 04/12/21 History mg Fish Oil] Fluticasone Nasal [place] [Flonase 2 spr EA NOSTRIL DAILY PRN 10/31/20 04/12/21 History Nasal [place]] Pentoxifylline [TRENtal] 400 mg PO BID 10/31/20 04/12/21 History Sildenafil Citrate 50 mg PO DAILY PRN 10/31/20 04/12/21 History Tamsulosin HCl [Flomax] 0.4 mg PO AC-SUPPER 10/31/20 04/12/21 History Testosterone [Androgel 1.62% Gel 1 pump TOPICAL Q48H 10/31/20 04/12/21 History Pump] Testosterone [Androgel 1.62% Gel 2 pump TOPICAL Q48H 10/31/20 04/12/21 History Pump] Diclofenac Sodium [Voltaren Gel] 1 applic TOPICAL AC-BID #15 gram 11/04/20 04/12/21 Rx Pantoprazole [Protonix] 40 mg PO AC-BID tablet. 11/04/20 04/12/21 Rx carBAMazepine [TEGretol] 200 mg PO PC-BRKFST #4 tab 11/04/20 04/12/21 Rx Albuterol Sulfate [Proventil Hfa] 2 puff INHALATION RT-QID PRN 12/26/20 04/12/21 History Atorvastatin [Lipitor] 40 mg PO HS 12/26/20 04/12/21 History Levothyroxine Sodium [Synthroid] 350 mcg PO DAILY 12/26/20 04/12/21 History Metoprolol Succinate [Toprol XL] 50 mg PO BID 12/26/20 04/12/21 History OLANZapine 7.5 mg PO HS 12/26/20 04/12/21 History Aspirin 325 mg PO DAILY tab 12/31/20 04/12/21 Rx Gabapentin [Neurontin] 300 mg PO BID #6 cap 12/31/20 04/12/21 Rx Baclofen [Lioresal] 20 mg PO BID PRN 04/12/21 04/12/21 History Sulfamethoxazole/Trimethoprim 1 tab PO BID 04/12/21 04/12/21 History [Bactrim DS 800-160 mg] carBAMazepine [carBAMazepine ER] 400 mg PO Q12H 04/12/21 04/12/21 History hydroCHLOROthiazide [Hydrodiuril] 25 mg PO BID 04/12/21 04/12/21 History Allergies Allergy/AdvReac Type Severity Reaction Status Date / Time codeine phosphate Allergy Dyspnea Verified 04/12/21 22:28 [From Tylenol-Codeine] levofloxacin [From Levaquin] Allergy Anaphylaxis Verified 04/12/21 22:28 Penicillins Allergy Rash/Hives Verified 04/12/21 22:28 quetiapine Allergy headache Verified 04/12/21 22:28 guaifenesin AdvReac dehydration Verified 04/12/21 22:28 meperidine HCl [From Demerol] AdvReac "altered Verified 04/12/21 22:28 state of mind" olanzapine AdvReac > 7.6 mg Verified 04/12/21 22:28 causes sleepiness phenylephrine AdvReac dehydration Verified 04/12/21 22:28 pseudoephedrine AdvReac Unknown Verified 04/12/21 22:28 [From Entex T] topiramate AdvReac Dehydration Verified 04/12/21 22:28 and Manic wool AdvReac Urticarial Verified 04/12/21 22:28 gin AdvReac Headache Uncoded 10/31/20 10:09 Physical Exam Vitals: Vital Signs Temp Pulse Resp BP Pulse Ox 04/14/21 11:16 98.4 F 74 16 107/66 93 L 04/13/21 20:00 79 16 04/13/21 19:03 97.8 F 79 16 138/78 97 04/13/21 13:25 98.7 F 76 16 109/55 98 Intake and Output 04/13/21 04/14/21 04/14/21 22:59 06:59 14:59 Intake Total 1040 Balance 1040 Intake: Intake, IV Titration 1040 Amount Sodium Chloride 0.9% 1, 1040 000 ml @ 130 mls/hr IV . Q7H42M [facility] Rx#:[id number] Other: Voiding Method Urinal Urinal # Voids 2 Results CBC & Chem 7: 04/14/21 07:02 04/14/21 22:46 Labs: Abnormal Lab Results - Last 24 Hours (Table) 04/13/21 04/13/21 04/14/21 Range/Units 16:43 22:04 06:57 RBC (4.30-5.90) m/uL Hgb (13.0-17.5) gm/dL Hct (39.0-53.0) % POC Glucose (mg/dL) 246 H 194 H 177 H (75-99) mg/dL 04/14/21 04/14/21 Range/Units 07:02 11:40 RBC 3.96 L (4.30-5.90) m/uL Hgb 12.9 L (13.0-17.5) gm/dL Hct 38.3 L (39.0-53.0) % POC Glucose (mg/dL) 191 H (75-99) mg/dL
[2021-04-15 06:48] LABS: Glucose,Whole Blood 131 mg/dL (75-99)
[2021-04-15 07:45] VITALS: PULSE 73
[2021-04-15] MEDS: INSULIN ASPART (NovoLOG) 100 UNIT/ML VIAL SQ SCH ×2 (08:07→12:38)
[2021-04-15] MEDS: INSULIN DETEMIR (LEVEMIR) 100 UNIT/ML SYR SQ SCH (08:14)
[2021-04-15] MEDS: PENTOXIFYLLINE 400 MG TABLET.ER PO SCH (08:15)
[2021-04-15] MEDS: ASPIRIN 325 MG TAB PO SCH (08:15)
[2021-04-15] MEDS: GABAPENTIN 300 MG CAP PO SCH (08:15)
[2021-04-15] MEDS: METOPROLOL SUCCINATE (ER) 50 MG TAB.ER.24H PO SCH (08:15)
[2021-04-15] MEDS: carBAMazepine 400 MG TAB.ER.12H PO SCH (08:15)
[2021-04-15] MEDS: LEVOTHYROXINE 88 MCG TAB PO SCH (08:15)
[2021-04-15] MEDS: hydroCHLOROthiazide 25 MG TAB PO SCH (08:15)
[2021-04-15] MEDS: CYANOCOBALAMIN 500 MCG TAB PO SCH (08:16)
[2021-04-15] MEDS: FOLIC ACID 1 MG TAB PO SCH (08:16)
[2021-04-15] MEDS: carBAMazepine 200 MG TAB PO SCH (08:16)
[2021-04-15] MEDS: PANTOPRAZOLE 40 MG TABLET PO SCH (08:16)
[2021-04-15 10:01] LABS: African American GFR (CKD) 69.2 (60.0-200.0); BUN/Creat Ratio 15.38 Ratio (12.00-20.00); Calcium 8.8 mg/dL (8.7-10.3); Non-African American GFR(CKD) 59.7 (60.0-200.0); Potassium 4.1 mmol/L (3.5-5.5)
[2021-04-15 10:27] VITALS: BP 115/73; TEMP 97.3
[2021-04-15] MEDS: PATIENT'S OWN (Empagliflozin [Jardiance] 25 MG Tablet) PO SCH (11:05)
[2021-04-15] MEDS: SODIUM CHLORIDE 0.9% 1,000 ML IV SCH (11:05)
[2021-04-15 11:41] LABS: Glucose,Whole Blood 217 mg/dL (75-99)
[2021-04-15 13:01] VITALS: RESP 16
--- NOTE | 2021-04-15 15:03 | PN ---
PROGRESS NOTE DATE OF SERVICE: 04/15/2021 REASON FOR FOLLOWUP: Left big toe amputation site wound. INTERVAL HISTORY: The patient is afebrile. The patient is currently feeling better, breathing comfortably. Denies having any chest pain, shortness of breath or cough. No abdominal pain or any pain to the left big toe site. PHYSICAL EXAMINATION: Blood pressure 115/73 with a pulse of 73, temperature 97.3. He is 98% on room air. GENERAL DESCRIPTION: General description is a middle-aged male lying in bed in no distress. RESPIRATORY SYSTEM: Unlabored breathing. Clear to auscultation anteriorly. HEART: S1, S2. Regular rate and rhythm. ABDOMEN: Soft. No tenderness. Left foot is currently dressed. No obvious drainage on the dressing. LABS: BUN of 20, creatinine 1.3. DIAGNOSTIC IMPRESSION AND PLAN: Patient admitted to hospital with mental status changes, possible metabolic encephalitis from Bactrim. The patient does not have any active cellulitis at his left big toe amputation site. Local treatment with dry Aquacel Silver dressing. No need for antibiotic on discharge. Continue supportive care. MMODL / IJN: [id number] /
--- NOTE | 2021-04-16 00:21 | P.DS ---
Providers Date of admission: 04/13/21 14:40 Attending physician: Russell Thompson Consults: 04/13/21 16:48 Consult Physician Routine Consulting Provider: Ester Junior Consult Reason/Comments: possible TIA, AMS. Do you want consulting provider notified?: Yes 04/14/21 11:15 Consult Physician Routine Consulting Provider: Aziza Bauman Consult Reason/Comments: right foot wound Do you want consulting provider notified?: Yes Primary care physician: Tati Dacosta Hospital Course: Diagnoses: -Altered mental status, most likely metabolic and toxic encephalopathy, secondary to HPI from Bactrim and using narcotics at home. resolved -Mild Acute kidney injury, present on admission. Suspected secondary to Bactrim which was discontinued upon discharge. Creatinine improved with IV hydration -Diabetes mellitus with hyperglycemia, controlled on admission with hemoglobin A1c of 8.2%. Patient will use and Levemir 30-60 units twice a day, he was instructed to continue with 60 twice a day only and he agrees -Ulcer the left second toe, no evidence of cellulitis or underlying infection, was on Bactrim which is discontinued. ID team recommend discontinue antibiotic as well -Possible nonadherence to medication as she supposed to be -Borderline low B12, been replaced by neurologist -Morbid obesity with BMI of 40.6 Hospital course: This is a pleasant 60 years old male who presents with past medical history of multiple medical problems including but not limited to diabetes mellitus, chronic left wound culture on Bactrim. With his office systems technology instructor an outpatient facility, given Bactrim for 2 weeks and supposed to continue for 3 more weeks. He presents because he was found slumped over in the chair while sleeping by his brother and when he walks him up he was talking nonsense as the patient confirmed to me. However patient currently is talking neurologically, he is awake alert and oriented to time, place and person, he is aware to his diagnosis and to the surrounding. The other complaints His altered mental status is suspected due to worsening creatinine up to 1.6 on admission. Bactrim was discontinued which is thought to contribute to his kidney injury. There is no strong evidence of infection in his toe ulcer which is a small, closing with no purulent discharge or surrounding cellulitis. ID team agree with discontinuing Bactrim Also patient was taken Janette Penny to help him sleep (not listed in his home medication) patient was counseled to stop taking [place] for this purpose, risk of respiratory depression and are explained, he agrees to stop the medicine and to switch it to melatonin and the second, prescription for melatonin was sent to the pharmacy. Borderline low normal B12 was replaced with vitamin B12 and folate. Neurologist His diabetes is uncontrolled with hemoglobin A1c is 8.1, he wasn't very good compliant with regiment, he was taken Levemir 30-60 units twice a day based on the level, he was kept in the hospital on 60 units twice a day only and he was instructed with the same and to continue with NovoLog with meals and he agrees. has glucometer at home and he was instructed to check his glucose 4 times a day and to come to ED if his glucose less than 70 or more than 400 and he verbalized understanding and acceptance On the day of discharge he denies any other symptoms. He denies chest pain or dyspnea. No headache or weakness. No change In urine or bowel habits.. No fever. His creatinine improved to 1.3 which is within the reference range Patient agrees with plan and he agrees to go home Patient was cleared for discharge by neurologist and ID team Problems and management plan were discussed with the patient and he verbalized understanding and acceptance Patient was found stable and can be discharged home however he needs follow-up as an outpatient. Patient was instructed to follow up with PCP Olesya within one week and patient agree with the appointments made for him on 04/22 Also patient has appointment with his office systems technology instructor this coming Tuesday which he plans to keep and follow-up with Physical exam Gen: patient is a AAOx3, no distress CVS: S1-S2, RRR, no murmur Lungs: B/L CTA, no wheezing Abdomen: soft, no distention, no tenderness, positive bowel sounds Extremity: no leg edema or induration Time spent more than 35 minutes Patient Condition at Discharge: Good Plan - Discharge Summary Discharge Rx Participant: No New Discharge Prescriptions: New Folic Acid 1 mg PO DAILY #30 tab Cyanocobalamin [Vitamin B-12] 1,000 mcg PO DAILY #60 tab Melatonin 3 mg PO HS PRN 10 Days #10 tablet PRN Reason: Insomnia Continue Nitroglycerin Sl Tabs [Nitrostat] 0.4 mg SL Q5M PRN PRN Reason: Chest Pain Insulin Degludec [Tresiba Flextouch U-200 Pen] 60 unit SQ BID Testosterone [Androgel 1.62% Gel Pump] 1 pump TOPICAL Q48H Testosterone [Androgel 1.62% Gel Pump] 2 pump TOPICAL Q48H Bydureon 2mg/0.85ml Auto Injector 2 mg SQ Q7D Albuterol Nebulized [Ventolin Nebulized] 2.5 mg INHALATION RT-Q4H PRN PRN Reason: Shortness Of Breath Empagliflozin [Jardiance] 25 mg PO PC-BRKFST Fish Oil/Dha/Epa [Fish Oil 1,200 mg Fish Oil] 1 cap PO PC-BRKFST Fluticasone Nasal [place] [Flonase Nasal [place]] 2 spr EA NOSTRIL DAILY PRN PRN Reason: Allergy Symptoms Pentoxifylline [TRENtal] 400 mg PO BID Tamsulosin HCl [Flomax] 0.4 mg PO AC-SUPPER Pantoprazole [Protonix] 40 mg PO AC-BID tablet. carBAMazepine [TEGretol] 200 mg PO PC-BRKFST #4 tab Levothyroxine Sodium [Synthroid] 350 mcg PO DAILY Metoprolol Succinate [Toprol XL] 50 mg PO BID OLANZapine 7.5 mg PO HS Aspirin 325 mg PO DAILY tab hydroCHLOROthiazide [Hydrodiuril] 25 mg PO BID Albuterol Sulfate [Proventil Hfa] 2 puff INHALATION RT-QID PRN PRN Reason: Wheezing Atorvastatin [Lipitor] 40 mg PO HS Gabapentin [Neurontin] 300 mg PO BID #6 cap carBAMazepine [carBAMazepine ER] 400 mg PO Q12H Discontinued Loratadine [Claritin] 10 mg PO PC-BRKFST PRN PRN Reason: Allergy Symptoms Sildenafil Citrate 50 mg PO DAILY PRN PRN Reason: E.D. Diclofenac Sodium [Voltaren Gel] 1 applic TOPICAL AC-BID #15 gram Baclofen [Lioresal] 20 mg PO BID PRN PRN Reason: Muscle Pain Sulfamethoxazole/Trimethoprim [Bactrim DS 800-160 mg] 1 tab PO BID Discharge Medication List Nitroglycerin Sl Tabs [Nitrostat] 0.4 mg SL Q5M PRN 01/22/15 [History] Insulin Degludec [Tresiba Flextouch U-200 Pen] 60 unit SQ BID 07/17/17 [History] Albuterol Nebulized [Ventolin Nebulized] 2.5 mg INHALATION RT-Q4H PRN 10/31/20 [History] Bydureon 2mg/0.85ml Auto Injector 2 mg SQ Q7D 10/31/20 [History] Empagliflozin [Jardiance] 25 mg PO PC-BRKFST 10/31/20 [History] Fish Oil/Dha/Epa [Fish Oil 1,200 mg Fish Oil] 1 cap PO PC-BRKFST 10/31/20 [History] Fluticasone Nasal [place] [Flonase Nasal [place]] 2 spr EA NOSTRIL DAILY PRN 10/31/20 [History] Pentoxifylline [TRENtal] 400 mg PO BID 10/31/20 [History] Tamsulosin HCl [Flomax] 0.4 mg PO AC-SUPPER 10/31/20 [History] Testosterone [Androgel 1.62% Gel Pump] 1 pump TOPICAL Q48H 10/31/20 [History] Testosterone [Androgel 1.62% Gel Pump] 2 pump TOPICAL Q48H 10/31/20 [History] Pantoprazole [Protonix] 40 mg PO AC-BID tablet. 11/04/20 [Rx] carBAMazepine [TEGretol] 200 mg PO PC-BRKFST #4 tab 11/04/20 [Rx] Albuterol Sulfate [Proventil Hfa] 2 puff INHALATION RT-QID PRN 12/26/20 [History] Atorvastatin [Lipitor] 40 mg PO HS 12/26/20 [History] Levothyroxine Sodium [Synthroid] 350 mcg PO DAILY 12/26/20 [History] Metoprolol Succinate [Toprol XL] 50 mg PO BID 12/26/20 [History] OLANZapine 7.5 mg PO HS 12/26/20 [History] Aspirin 325 mg PO DAILY tab 12/31/20 [Rx] Gabapentin [Neurontin] 300 mg PO BID #6 cap 12/31/20 [Rx] carBAMazepine [carBAMazepine ER] 400 mg PO Q12H 04/12/21 [History] hydroCHLOROthiazide [Hydrodiuril] 25 mg PO BID 04/12/21 [History] Cyanocobalamin [Vitamin B-12] 1,000 mcg PO DAILY #60 tab 04/15/21 [Rx] Folic Acid 1 mg PO DAILY #30 tab 04/15/21 [Rx] Melatonin 3 mg PO HS PRN 10 Days #10 tablet 04/15/21 [Rx] Follow up Appointment(s)/Referral(s): Tati Dacosta DO [Primary Care Provider] - 04/22/21 2:00 pm [facility] [NON-STAFF] - 1 Week Patient Instructions/Handouts: Weakness (DC), Altered Mental Status (GEN) Activity/Diet/Wound Care/Special Instructions: Heart Healthy diet Activity is restricted till you see your doctor We recommend you check your blood glucose 4 times a day before each meal and at bedtime, the results on a log book and bring it to your doctor on your appointment date If your glucose is less than 70 or more than 400, then call 911 on come to em ergency room Follow-up with your office systems technology instructor in 1 week, please call to make appointment to have the contact information as you informed the medical team. you have an appointment with him this coming Tuesday as you informed the medical team Discharge Disposition: HOME WITH HOME HEALTH SERVICES
== END 2021-04-15 16:12 | disposition home health service (06) | DRG 92 ==
LOC: EC 19:55 → 1SOBS 04-13 01:03 → OBSVTOIN 04-13 14:40 → 4SSUR 04-13 18:13
PROVIDERS: ADMIT Hospitalist; ATTEND Hospitalist
DX: G92 Toxic encephalopathy (principal); E87.1 Hypo-osmolality and hyponatremia; N17.9 Acute kidney failure, unspecified; Z68.41 Body mass index [BMI] 40.0-44.9, adult; T36.8X5A Adverse effect of other systemic antibiotics, initial encounter; T40.605A Adverse effect of unspecified narcotics, initial encounter; Z86.14 Personal history of Methicillin resistant Staphylococcus aureus infection; E11.40 Type 2 diabetes mellitus with diabetic neuropathy, unspecified; E11.65 Type 2 diabetes mellitus with hyperglycemia; Z79.4 Long term (current) use of insulin; E11.51 Type 2 diabetes mellitus with diabetic peripheral angiopathy without gangrene; E11.628 Type 2 diabetes mellitus with other skin complications; E66.01 Morbid (severe) obesity due to excess calories; E78.5 Hyperlipidemia, unspecified; E86.1 Hypovolemia; E89.0 Postprocedural hypothyroidism; F31.9 Bipolar disorder, unspecified; F41.8 Other specified anxiety disorders; F43.10 Post-traumatic stress disorder, unspecified; F63.9 Impulse disorder, unspecified; F90.9 Attention-deficit hyperactivity disorder, unspecified type; G25.3 Myoclonus; G47.33 Obstructive sleep apnea (adult) (pediatric); I10 Essential (primary) hypertension; I45.9 Conduction disorder, unspecified; I87.8 Other specified disorders of veins; L08.9 Local infection of the skin and subcutaneous tissue, unspecified; L97.529 Non-pressure chronic ulcer of other part of left foot with unspecified severity; E53.8 Deficiency of other specified B group vitamins; M17.0 Bilateral primary osteoarthritis of knee; M47.9 Spondylosis, unspecified; G51.0 Bell's palsy; Z77.22 Contact with and (suspected) exposure to environmental tobacco smoke (acute) (chronic); Z79.82 Long term (current) use of aspirin; Z79.890 Hormone replacement therapy; Z79.899 Other long term (current) drug therapy; Z80.0 Family history of malignant neoplasm of digestive organs; Z82.49 Family history of ischemic heart disease and other diseases of the circulatory system; Z83.3 Family history of diabetes mellitus; Z87.891 Personal history of nicotine dependence; Z89.412 Acquired absence of left great toe; Z96.652 Presence of left artificial knee joint; Z90.89 Acquired absence of other organs; Z98.890 Other specified postprocedural states
CPT/HCPCS: 36415; 70450; 80048; 80053; 80156; 80306; 80320; 81003; 82140; 82550; 82607; 82746; 83036; 83735; 84100; 84439; 84443; 84484; 85025; 85610; 85730; 93005; 94760; 96360; 96361; 99285

== ENCOUNTER 2021-05-29 17:06 | Inpatient (IN) | payer MEDICARE, OTHER ==
[2021-05-29] MEDS ORDERED: SODIUM CHLORIDE 0.9% 500 ML 500 ML IV ONE (17:59)
[2021-05-29 18:50] LABS: Glucose,Whole Blood 129 mg/dL (75-99)
[2021-05-29 18:55] LABS: Basophils % (A) 0 %; Eosinophils # (A) 0.6 k/uL (0-0.7); Eosinophils % (A) 5 %; HGB 14.1 gm/dL (13.0-17.5); Lymphocytes % (A) 20 %; MCHC 32.8 g/dL (31.0-37.0); MCV 94.6 fL (80.0-100.0); Mean Platelet Volume 7.5; Monocytes # (A) 0.6 k/uL (0-1.0); Monocytes % (A) 6 %; Neutrophils # (A) 6.9 k/uL (1.3-7.7); Neutrophils % (A) 67 %; Platelet Count 245 k/uL (150-450); RBC 4.54 m/uL (4.30-5.90); RDW 11.9 % (11.5-15.5); WBC 10.3 k/uL (3.8-10.6)
[2021-05-29 19:03] LABS: Partial Thromboplastin Time 24.2 sec (22.0-30.0); Prothrombin Time 10.5 sec (9.0-12.0)
[2021-05-29 19:05] LABS: Albumin 3.9 g/dL (3.5-5.0); Calcium 9.3 mg/dL (8.4-10.2); Potassium 4.3 mmol/L (3.5-5.1); Total Bilirubin 0.3 mg/dL (0.2-1.3)
--- NOTE | 2021-05-29 19:36 | CT ---
EXAMINATION TYPE: CT brain wo con DATE OF EXAM: 05/29/2021 COMPARISON: CT brain 04/12/2021 HISTORY: patient poor historian CT DLP: 1202.4 mGycm Automated exposure control for dose reduction was used. FINDINGS: No acute intracranial hemorrhage, large vessel territory infarct, mass, mass effect, midline shift, e xtra-axial fluid collection or hydrocephalus. The james-white distinction is maintained. The skull base and calvarium are unremarkable appearance. The visualized paranasal sinuses are well-d eveloped and aerated. The globes and orbits are within normal limits. IMPRESSION: NO ACUTE INTRACRANIAL PROCESS.
--- NOTE | 2021-05-29 19:39 | XR ---
EXAMINATION TYPE: XR chest 2V DATE OF EXAM: 05/29/2021 COMPARISON: Chest radiograph 12/26/2020 and 06/10/2020 HISTORY: Altered mental status TECHNIQUE: Frontal and lateral views of the chest are obtained. FINDINGS: There is no focal air space opacity, pleural effusion, or pneumothorax seen. The cardiac silhouette size is within normal limits. Prominence of the inocencio. The osseous structures are intact. IMPRESSION: No acute cardiopulmonary process.
[2021-05-29 20:34] LABS: Appearance,Urine Clear (Clear); Bilirubin,Urine Negative (Negative); Blood,Urine Negative (Negative); Color,Urine Yellow; Glucose,Urine (UA) 4+ (Negative); Ketones,Urine Negative (Negative); Leukocyte Esterase,Urine Negative (Negative); Nitrite,Urine Negative (Negative); Protein,Urine Negative (Negative); Specific Gravity,Urine 1.016 (1.001-1.035); Urobilinogen,Urine <2.0 mg/dL (<2.0)
[2021-05-29 20:52] LABS: Amphetamine Screen,Urine Not Detected (NotDetected); Barbiturate Screen,Urine Not Detected (NotDetected); Benzodiazepines Screen,Urine Not Detected (NotDetected); Cocaine Screen,Urine Not Detected (NotDetected); Methadone Screen, Urine Not Detected (NotDetected); Opiate Screen,Urine Detected (NotDetected); Oxycodone Screen, Urine Not Detected (NotDetected); Phencyclidine Screen,Urine Not Detected (NotDetected); Tricyclic Antidepressant,Urine Not Detected (NotDetected); Urn Cannabinoid Scrn Not Detected (NotDetected)
[2021-05-29] MEDS ORDERED: NALOXONE 0.4 MG/ML 1 ML VIAL IV PRN (21:34)
--- NOTE | 2021-05-29 21:34 | ED ---
Altered Mental Status HPI - General Chief Complaint: Altered Mental Status Stated Complaint: Mental Health Time Seen by Provider: 05/29/21 17:43 Source: EMS Mode of arrival: EMS - History of Present Illness Initial Comments: 60 year-old male patient presents to the emergency department for evaluation of increased confusion altered behavior. Family states that his speech is slower and more confused than usual. They are concerned that he has not been taking his medications as directed. His parents recently , he was residing with them, now resides alone. Family states he is in denial about their deaths. Patient states he is feeling well but does feel confused. States he cannot get his words out like usual. He does have history of CVA. 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 Patient denies headache, blurred vision, double vision. Denies nausea or vomiting. States he is eating and drinking without difficulty. Denies chest pain, shortness of breath. Patient denies any recent rash, cough, abdominal pain, nausea, constipation, back pain, numbness, tingling, hematuria, dysuria, urinary urgency, urinary frequency, or any other complaints. - Related Data Home Medications Medication Instructions Recorded Confirmed Nitroglycerin Sl Tabs [Nitrostat] 0.4 mg SL Q5M PRN 01/22/15 05/29/21 Insulin Degludec [Tresiba See Protocol SQ BID 07/17/17 05/29/21 Flextouch U-200 Pen] Albuterol Nebulized [Ventolin 2.5 mg INHALATION RT-Q4H PRN 10/31/20 05/29/21 Nebulized] Empagliflozin [Jardiance] 25 mg PO DAILY 10/31/20 05/29/21 Fish Oil/Dha/Epa [Fish Oil 1,200 1 cap PO TID 10/31/20 05/29/21 mg Fish Oil] Fluticasone Nasal [place] [Flonase 1 spr EA NOSTRIL BID 10/31/20 05/29/21 Nasal [place]] Pentoxifylline [TRENtal] 400 mg PO BID 10/31/20 05/29/21 Tamsulosin HCl [Flomax] 0.4 mg PO AC-SUPPER 10/31/20 05/29/21 Testosterone [Androgel 1.62% Gel 1 pump TOPICAL Q48H 10/31/20 05/29/21 Pump] Testosterone [Androgel 1.62% Gel 2 pump TOPICAL Q48H 10/31/20 05/29/21 Pump] Albuterol Sulfate [Proventil Hfa] 1 puff INHALATION RT-QID PRN 12/26/20 05/29/21 Alogliptin Benzoate [Alogliptin] 25 mg PO DAILY 05/29/21 05/29/21 Artificial Tears Ointment 0.25 inch LEFT EYE HS 05/29/21 05/29/21 [Lubrifresh Pm Ointment] Atorvastatin [Lipitor] 40 mg PO HS 05/29/21 05/29/21 Baclofen [Lioresal] 20 mg PO BID PRN 05/29/21 05/29/21 Carboxymethylcellulose Sodium 2 drops BOTH EYES QID PRN 05/29/21 05/29/21 [Refresh Tears] Celecoxib [CeleBREX] 200 mg PO DAILY 05/29/21 05/29/21 Cholecalciferol [Vitamin D3 (25 50 mcg PO DAILY 05/29/21 05/29/21 Mcg = 1000 Iu)] Ciprofloxacin HCl [Cipro] 750 mg PO BID 05/29/21 05/29/21 Cyanocobalamin (Vitamin B-12) 1,000 mcg PO DAILY 05/29/21 05/29/21 [Vitamin B-12] Exenatide Microspheres [Bydureon 2 mg SQ Q7D 05/29/21 05/29/21 Bcise Auto-Injector] HYDROcodone/APAP 5-325MG [[place] 1 tab PO QID PRN 05/29/21 05/29/21 5-325] Insulin Aspart [NovoLOG Flexpen] See Protocol SQ AC-TID 05/29/21 05/29/21 Levothyroxine Sodium 300 mcg PO DAILY 05/29/21 05/29/21 Magnesium Oxide [Mag-Ox] 250 mg PO BID 05/29/21 05/29/21 Melatonin 5 mg PO HS PRN 05/29/21 05/29/21 Methocarbamol [Robaxin-750] 750 mg PO QID PRN 05/29/21 05/29/21 Metoprolol Tartrate [Lopressor] 50 mg PO BID 05/29/21 05/29/21 OLANZapine 7.5 mg PO HS 05/29/21 05/29/21 Pantoprazole [Protonix] 40 mg PO DAILY 05/29/21 05/29/21 Polyvinyl Alcohol/Povidone 1 drop BOTH EYES 5XD 05/29/21 05/29/21 [[place] Eye Drop] SILVER sulfADIAZINE Cream 1 applic TOPICAL DAILY 05/29/21 05/29/21 [Silvadene 1% Cream] Valsartan 320 mg PO DAILY 05/29/21 05/29/21 Vitamin E (Dl,Tocopheryl Acet) 400 unit PO DAILY 05/29/21 05/29/21 [Vitamin E (400 Iu = 180 mg)] carBAMazepine [TEGretol] 200 mg PO DAILY 05/29/21 05/29/21 carBAMazepine [TEGretol] 400 mg PO BID@1700,2100 05/29/21 05/29/21 diphenhydrAMINE [Benadryl] 25 mg PO QID PRN 05/29/21 05/29/21 hydroCHLOROthiazide [Hydrodiuril] 25 mg PO BID 05/29/21 05/29/21 metFORMIN HCL [Glucophage] 1,000 mg PO BID 05/29/21 05/29/21 Previous Rx's Medication Instructions Recorded Gabapentin [Neurontin] 300 mg PO BID #6 cap 12/31/20 Folic Acid 1 mg PO DAILY #30 tab 04/15/21 Allergies Allergy/AdvReac Type Severity Reaction Status Date / Time codeine phosphate Allergy Dyspnea Verified 04/12/21 22:28 [From Tylenol-Codeine] levofloxacin [From Levaquin] Allergy Anaphylaxis Verified 04/12/21 22:28 Penicillins Allergy Rash/Hives Verified 04/12/21 22:28 quetiapine Allergy headache Verified 04/12/21 22:28 guaifenesin AdvReac dehydration Verified 04/12/21 22:28 meperidine HCl [From Demerol] AdvReac "altered Verified 04/12/21 22:28 state of mind" olanzapine AdvReac > 7.6 mg Verified 04/12/21 22:28 causes sleepiness phenylephrine AdvReac dehydration Verified 04/12/21 22:28 pseudoephedrine AdvReac Unknown Verified 04/12/21 22:28 [From Entex T] topiramate AdvReac Dehydration Verified 04/12/21 22:28 and Manic wool AdvReac Urticarial Verified 04/12/21 22:28 gin AdvReac Headache Uncoded 10/31/20 10:09 Review of Systems ROS Statement: Those systems with pertinent positive or pertinent negative responses have been documented in the HPI. ROS Other: All systems not noted in ROS Statement are negative. Past Medical History Past Medical History: Cancer, Chest Pain / Angina, Diabetes Mellitus, GERD/Reflux, Hyperlipidemia, Hypertension, Osteoarthritis (OA), Sleep Apnea/CPAP/BIPAP, Thyroid Disorder, Vascular Disorder Additional Past Medical History / Comment(s): Skin disorder which pt states is from being in [place]-causes sores, chronic venous stasis, pt recently had L great toe osteomylitis/amputation, 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, BLAYNE with CPAP, IDDM type II, neuropathy bilateral lower extremities, hypothroid- thyroidectomy d/t cancer, arthritis/ DJD in back and bilateral knees, obesity History of Any Multi-Drug Resistant Organisms: None Reported, MRSA Date of last positivie culture/infection: 10/31/20 MDRO Source:: MRSA TOE Past Surgical History: Joint Replacement, Tonsillectomy Additional Past Surgical History / Comment(s): L great toe amputation, L total knee arthroplasty, stephani eye surgery, thyroidectomy Past Anesthesia/Blood Transfusion Reactions: No Reported Reaction Additional Past Anesthesia/Blood Transfusion Reaction / Comment(s): had reaction to drainage tube-"had to be knocked out-woke up swinging" Past Psychological History: ADD/ADHD, Anxiety, Bipolar, Depression, PTSD Smoking Status: Former smoker, Second hand smoke exposure Past Alcohol Use History: None Reported Past Drug Use History: None Reported - Past Family History Father Family Medical History: Coronary Artery Disease (CAD), Diabetes Mellitus Additional Family Medical History / Comment(s): Father has had CABG. He is 84 yrs. old. Mother Family Medical History: Cancer, Diabetes Mellitus Additional Family Medical History / Comment(s): Mother had colon cancer with surgery. She is 80 yrs old. General Exam General appearance: alert, in no apparent distress, other (This is a well- developed, well-nourished adult male patient in no acute distress. Vital signs upon presentation temperature 98.0F, pulse 79, respirations 18, blood pressure 141/85, pulse ox 99% on room air.) Eye exam: Present: normal appearance, PERRL, EOMI. Absent: scleral icterus, conjunctival injection, nystagmus, periorbital swelling ENT exam: Present: normal exam, normal oropharynx, mucous membranes moist Respiratory exam: Present: normal lung sounds bilaterally. Absent: respiratory distress, wheezes, rales, rhonchi, stridor Cardiovascular Exam: Present: regular rate, normal rhythm, normal heart sounds. Absent: systolic murmur, diastolic murmur, rubs, gallop, clicks GI/Abdominal exam: Present: soft, normal bowel sounds. Absent: distended, tenderness, guarding, rebound, rigid Neurological exam: Present: alert, oriented X3, CN II-XII intact Expanded Speech: Present: fluid speech Cranial nerves: EOM's Intact: Normal, Nystagmus: Normal, Facial Palsy without Forehead Movement: Abnormal Left Motor strength exam: RUE: 5, LUE: 5, RLE: 5, LLE: 5 Psychiatric exam: Present: normal affect, normal mood Skin exam: Present: warm, dry, intact, normal color. Absent: rash Course Vital Signs 05/29/21 17:40 Temperature 98 F Pulse Rate 79 Respiratory 18 Rate Blood Pressure 141/85 O2 Sat by Pulse 99 Oximetry Medical Decision Making - Medical Decision Making 60-year-old male patient presents to the emergency department today for evaluation of increased confusion altered behavior. Family is concerned he has not taken his medications appropriately. Physical examination is unremarkable. Does have a left-sided facial droop they reported this is residual from 2012. Labs reviewed and did reveal mildly elevated BUN/creatinine. Urinalysis is unremarkable. Did have opiates in his drug screen. Covid was negative. He'll be admitted to the hospital for further evaluation monitoring. Patient agrees with this plan. Patient's medical proxy "Michael" agrees with this plan. My attending is Dr. Stapleton. - Lab Data Result diagrams: 05/29/21 18:48 05/29/21 18:48 Lab Results 05/29/21 05/29/21 05/29/21 Range/Units 18:47 18:48 18:48 WBC 10.3 (3.8-10.6) k/uL RBC 4.54 (4.30-5.90) m/uL Hgb 14.1 (13.0-17.5) gm/dL Hct 43.0 (39.0-53.0) % MCV 94.6 (80.0-100.0) fL MCH 31.0 (25.0-35.0) pg MCHC 32.8 (31.0-37.0) g/dL RDW 11.9 (11.5-15.5) % Plt Count 245 (150-450) k/uL MPV 7.5 Neutrophils % 67 % Lymphocytes % 20 % Monocytes % 6 % Eosinophils % 5 % Basophils % 0 % Neutrophils # 6.9 (1.3-7.7) k/uL Lymphocytes # 2.0 (1.0-4.8) k/uL Monocytes # 0.6 (0-1.0) k/uL Eosinophils # 0.6 (0-0.7) k/uL Basophils # 0.0 (0-0.2) k/uL PT 10.5 (9.0-12.0) sec INR 1.0 (<1.2) APTT 24.2 (22.0-30.0) sec Sodium (137-145) mmol/L Potassium (3.5-5.1) mmol/L Chloride (98-107) mmol/L Carbon Dioxide (22-30) mmol/L Anion Gap mmol/L BUN (9-20) mg/dL Creatinine (0.66-1.25) mg/dL Est GFR (CKD-EPI)AfAm (>60 ml/min/1.73 sqM) Est GFR (CKD-EPI)NonAf (>60 ml/min/1.73 sqM) Glucose (74-99) mg/dL POC Glucose (mg/dL) 129 H (75-99) mg/dL POC Glu Vector Control Assistant ID Svacha, II, Arash Calcium (8.4-10.2) mg/dL Total Bilirubin (0.2-1.3) mg/dL AST (17-59) U/L ALT (4-49) U/L Alkaline Phosphatase (38-126) U/L Troponin I (0.000-0.034) ng/mL Total Protein (6.3-8.2) g/dL Albumin (3.5-5.0) g/dL Urine Color Urine Appearance (Clear) Urine pH (5.0-8.0) Ur Specific [place] (1.001-1.035) Urine Protein (Negative) Urine Glucose (UA) (Negative) Urine Ketones (Negative) Urine Blood (Negative) Urine Nitrite (Negative) Urine Bilirubin (Negative) Urine Urobilinogen (<2.0) mg/dL Ur Leukocyte Esterase (Negative) Urine Opiates Screen (NotDetected) Ur Oxycodone Screen (NotDetected) Urine Methadone Screen (NotDetected) Ur Propoxyphene Screen (NotDetected) Ur Barbiturates Screen (NotDetected) U Tricyclic Antidepress (NotDetected) Ur Phencyclidine Scrn (NotDetected) Ur Amphetamines Screen (NotDetected) U Methamphetamines Scrn (NotDetected) U Benzodiazepines Scrn (NotDetected) Urine Cocaine Screen (NotDetected) U Marijuana (THC) Screen (NotDetected) Coronavirus (PCR) (Not Detectd) 05/29/21 05/29/21 05/29/21 Range/Units 18:48 18:48 18:56 WBC (3.8-10.6) k/uL RBC (4.30-5.90) m/uL Hgb (13.0-17.5) gm/dL Hct (39.0-53.0) % MCV (80.0-100.0) fL MCH (25.0-35.0) pg MCHC (31.0-37.0) g/dL RDW (11.5-15.5) % Plt Count (150-450) k/uL MPV Neutrophils % % Lymphocytes % % Monocytes % % Eosinophils % % Basophils % % Neutrophils # (1.3-7.7) k/uL Lymphocytes # (1.0-4.8) k/uL Monocytes # (0-1.0) k/uL Eosinophils # (0-0.7) k/uL Basophils # (0-0.2) k/uL PT (9.0-12.0) sec INR (<1.2) APTT (22.0-30.0) sec Sodium 140 (137-145) mmol/L Potassium 4.3 (3.5-5.1) mmol/L Chloride 104 (98-107) mmol/L Carbon Dioxide 26 (22-30) mmol/L Anion Gap 10 mmol/L BUN 37 H (9-20) mg/dL Creatinine 1.42 H (0.66-1.25) mg/dL Est GFR (CKD-EPI)AfAm 62 (>60 ml/min/1.73 sqM) Est GFR (CKD-EPI)NonAf 54 (>60 ml/min/1.73 sqM) Glucose 141 H (74-99) mg/dL POC Glucose (mg/dL) (75-99) mg/dL POC Glu Vector Control Assistant ID Calcium 9.3 (8.4-10.2) mg/dL Total Bilirubin 0.3 (0.2-1.3) mg/dL AST 20 (17-59) U/L ALT 18 (4-49) U/L Alkaline Phosphatase 59 (38-126) U/L Troponin I <0.012 (0.000-0.034) ng/mL Total Protein 7.0 (6.3-8.2) g/dL Albumin 3.9 (3.5-5.0) g/dL Urine Color Urine Appearance (Clear) Urine pH (5.0-8.0) Ur Specific [place] (1.001-1.035) Urine Protein (Negative) Urine Glucose (UA) (Negative) Urine Ketones (Negative) Urine Blood (Negative) Urine Nitrite (Negative) Urine Bilirubin (Negative) Urine Urobilinogen (<2.0) mg/dL Ur Leukocyte Esterase (Negative) Urine Opiates Screen (NotDetected) Ur Oxycodone Screen (NotDetected) Urine Methadone Screen (NotDetected) Ur Propoxyphene Screen (NotDetected) Ur Barbiturates Screen (NotDetected) U Tricyclic Antidepress (NotDetected) Ur Phencyclidine Scrn (NotDetected) Ur Amphetamines Screen (NotDetected) U Methamphetamines Scrn (NotDetected) U Benzodiazepines Scrn (NotDetected) Urine Cocaine Screen (NotDetected) U Marijuana (THC) Screen (NotDetected) Coronavirus (PCR) Not Detected (Not Detectd) 05/29/21 Range/Units 20:21 WBC (3.8-10.6) k/uL RBC (4.30-5.90) m/uL Hgb (13.0-17.5) gm/dL Hct (39.0-53.0) % MCV (80.0-100.0) fL MCH (25.0-35.0) pg MCHC (31.0-37.0) g/dL RDW (11.5-15.5) % Plt Count (150-450) k/uL MPV Neutrophils % % Lymphocytes % % Monocytes % % Eosinophils % % Basophils % % Neutrophils # (1.3-7.7) k/uL Lymphocytes # (1.0-4.8) k/uL Monocytes # (0-1.0) k/uL Eosinophils # (0-0.7) k/uL Basophils # (0-0.2) k/uL PT (9.0-12.0) sec INR (<1.2) APTT (22.0-30.0) sec Sodium (137-145) mmol/L Potassium (3.5-5.1) mmol/L Chloride (98-107) mmol/L Carbon Dioxide (22-30) mmol/L Anion Gap mmol/L BUN (9-20) mg/dL Creatinine (0.66-1.25) mg/dL Est GFR (CKD-EPI)AfAm (>60 ml/min/1.73 sqM) Est GFR (CKD-EPI)NonAf (>60 ml/min/1.73 sqM) Glucose (74-99) mg/dL POC Glucose (mg/dL) (75-99) mg/dL POC Glu Vector Control Assistant ID Calcium (8.4-10.2) mg/dL Total Bilirubin (0.2-1.3) mg/dL AST (17-59) U/L ALT (4-49) U/L Alkaline Phosphatase (38-126) U/L Troponin I (0.000-0.034) ng/mL Total Protein (6.3-8.2) g/dL Albumin (3.5-5.0) g/dL Urine Color Yellow Urine Appearance Clear (Clear) Urine pH 6.0 (5.0-8.0) Ur Specific [place] 1.016 (1.001-1.035) Urine Protein Negative (Negative) Urine Glucose (UA) 4+ H (Negative) Urine Ketones Negative (Negative) Urine Blood Negative (Negative) Urine Nitrite Negative (Negative) Urine Bilirubin Negative (Negative) Urine Urobilinogen <2.0 (<2.0) mg/dL Ur Leukocyte Esterase Negative (Negative) Urine Opiates Screen Detected H (NotDetected) Ur Oxycodone Screen Not Detected (NotDetected) Urine Methadone Screen Not Detected (NotDetected) Ur Propoxyphene Screen Not Detected (NotDetected) Ur Barbiturates Screen Not Detected (NotDetected) U Tricyclic Antidepress Not Detected (NotDetected) Ur Phencyclidine Scrn Not Detected (NotDetected) Ur Amphetamines Screen Not Detected (NotDetected) U Methamphetamines Scrn Not Detected (NotDetected) U Benzodiazepines Scrn Not Detected (NotDetected) Urine Cocaine Screen Not Detected (NotDetected) U Marijuana (THC) Screen Not Detected (NotDetected) Coronavirus (PCR) (Not Detectd) - Radiology Data Radiology results: report reviewed, image reviewed Two-view x-ray of the chest is obtained. Report was reviewed in its entirety. Impression by Dr. Espana shows no acute cardiopulmonary process. CT brain without contrast was obtained. Report was reviewed in its entirety. Impression by Dr. Espana shows no acute intracranial process. Disposition Clinical Impression: Altered mental status Disposition: ADMITTED IP TO THIS [facility] Condition: Serious Decision to Admit Reason: Admit from EC Decision Date: 05/29/21 Decision Time: 21:34
[2021-05-30] MEDS: SODIUM CHLORIDE 0.9% 1,000 ML IV SCH (05:00)
[2021-05-30 07:41] LABS: Glucose,Whole Blood 136 mg/dL (75-99)
[2021-05-30] MEDS ORDERED: NITROGLYCERIN SL TABS 0.4 MG TAB SUBLINGUAL PRN (09:19)
[2021-05-30] MEDS ORDERED: diphenhydrAMINE 25 MG CAP PO PRN (09:19)
[2021-05-30] MEDS ORDERED: MELATONIN 5 MG TABLET PO PRN (09:19)
[2021-05-30] MEDS ORDERED: ALBUTEROL HFA INHALER INHALATION PRN (09:19)
[2021-05-30] MEDS ORDERED: ALBUTEROL NEBULIZED 2.5 MG/3 ML INHALATION PRN (09:19)
[2021-05-30 12:11] LABS: Glucose,Whole Blood 173 mg/dL (75-99)
[2021-05-30] MEDS: TAMSULOSIN 0.4 MG CAP.ER.24H PO SCH (17:18)
[2021-05-30] MEDS: carBAMazepine 200 MG TAB PO SCH ×2 (17:18→20:47)
[2021-05-30 17:20] LABS: Glucose,Whole Blood 185 mg/dL (75-99)
[2021-05-30] MEDS: INSULIN ASPART (NovoLOG) 100 UNIT/ML VIAL SQ SCH ×2 (17:22→20:45)
[2021-05-30] MEDS ORDERED: POVIDONE BOTH EYES SCH (20:00)
[2021-05-30] MEDS ORDERED: POLYVINYL ALCOHOL BOTH EYES SCH (20:00)
[2021-05-30 20:12] LABS: Glucose,Whole Blood 188 mg/dL (75-99)
[2021-05-30] MEDS: METOPROLOL TARTRATE 50 MG TAB PO SCH (20:46)
[2021-05-30] MEDS: OLANZapine 7.5 MG TAB PO SCH (20:46)
[2021-05-30] MEDS: MAGNESIUM OXIDE 400 MG TAB PO SCH (20:46)
[2021-05-30] MEDS: ATORVASTATIN 40 MG TAB PO SCH (20:46)
[2021-05-30] MEDS: GABAPENTIN 300 MG CAP PO SCH (20:46)
[2021-05-30] MEDS: metFORMIN 500 MG TAB PO SCH (20:46)
[2021-05-30] MEDS: hydroCHLOROthiazide 25 MG TAB PO SCH (20:47)
[2021-05-30] MEDS: ARTIFICIAL TEARS OINTMENT 3.5 GM TUBE LEFT EYE SCH (20:47)
[2021-05-30] MEDS: FLUTICASONE 50MCG/SPRAY NASAL 16GM EA NOSTRIL SCH (20:47)
[2021-05-30] MEDS ORDERED: INSULIN ASPART (NovoLOG) 100 UNIT/ML VIAL SQ SCH (21:00)
--- NOTE | 2021-05-30 21:00 | HP ---
HISTORY AND PHYSICAL DATE OF SERVICE: 05/30/2021 CHIEF COMPLAINT: Change in mental status. HISTORY OF PRESENT ILLNESS: This 60-year-old gentleman with a past medical history of multiple medical problems, including CVA, TIA, diabetes mellitus, GERD, hypertension, hyperlipidemia, history of DJD, history of sleep apnea, hypothyroidism, being followed by Dr. Dacosta in the outpatient setting, was admitted with change in mental status. The patient was apparently taking several medications. The patient was confused. Family states his speech is slower and the family was concerned and the patient was taken to [facility] and admitted for further evaluation and treatment. 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 There is no history of any fever, rigor or chills. After stopping the medications, sensorium is slightly improved at this time. Otherwise, CBC is within normal limits. Creatinine is 1.42, indicating some mild acute renal failure also. Urine drug screen positive for only opiates and COVID-[address] brain which was personally reviewed by me showed no acute intracranial process. There is no history of any fever, rigor or chills at this time. PAST MEDICAL HISTORY: History of chest pain, CVA, TIA, diabetes mellitus, type 2, GERD, hypertension, hyperlipidemia, history of DJD, sleep apnea. MEDICATIONS: Home medications are multiple, including metformin, HydroDIURIL, Benadryl, Tegretol, vitamin, AndroGel, Flomax, Silvadene, Trental, Protonix, Nitrostat, Lopressor, Robaxin. Doses are reviewed and other medications are also noted. ALLERGIES: ALLERGIES are multiple, including CODEINE, PENICILLIN, SEROQUEL, GUAIFENESIN, MEPERIDINE, PHENYLEPHRINE,, WOOL AND GIN. FAMILY HISTORY: History of diabetes mellitus and colon cancer in the family. SOCIAL HISTORY: Previous history of smoking. Occasional alcohol intake. REVIEW OF SYSTEMS: ENT: No diminished hearing. No diminished vision. CARDIOVASCULAR SYSTEM: As mentioned earlier. RESPIRATORY SYSTEM: As mentioned earlier. GI: As mentioned earlier. : No dysuria. NERVOUS SYSTEM: No numbness, weakness. ALLERGY/IMMUNOLOGY: No asthma or hay fever. MUSCULOSKELETAL: As mentioned earlier. HEMATOLOGY/ONCOLOGY: No history of anemia. ENDOCRINE: No history of diabetes or hypothyroidism. CONSTITUTIONAL: As mentioned earlier. DERMATOLOGY: Negative. RHEUMATOLOGY: Negative. PSYCHIATRY: As mentioned earlier. PHYSICAL EXAMINATION: Patient alert and oriented x3. Pulse 79, blood pressure 136/71, respiration 18, temperature 98.4, pulse ox 99% on room air. HEENT: Conjunctivae normal. NECK: No jugular venous distention. CARDIOVASCULAR: S1, S2 muffled. RESPIRATION: Breath sounds diminished at the bases. Scattered rhonchi and crackles. ABDOMEN: Soft, nontender. LEGS: No edema. No swelling. NERVOUS SYSTEM: No focal deficit. LABS: CBC within normal limits. Creatinine is 1.42, glucose 129. UA noted. ASSESSMENT: 1. Change in mental status, acute metabolic encephalopathy, possibly drug- induced. 2. Acute renal failure with acute tubular necrosis and dehydration, present on admission. 3. Elevated random glucose and diabetes mellitus, type 2. 4. History of cerebrovascular accident, transient ischemic attack. 5. History of chest pain. 6. History of gastroesophageal reflux disease. 7. Hypertension. 8. Hypertension. 9. Hyperlipidemia. 10.History of degenerative joint disease. 11.Hypothyroidism. 12.History of osteomyelitis and amputation. 13.History of obstructive sleep apnea. 14.History of degenerative joint disease. 15.History of MRSA. 16.History of tonsillectomy. 17.History of attention deficit disorder, attention deficit hyperactivity disorder. 18.Anxiety, bipolar, depression, posttraumatic stress disorder. 19.Obesity with body mass index of 41.9. 20.FULL CODE. RECOMMENDATIONS AND DISCUSSION: In this 60-year-old gentleman who presented with multiple complex medical issues, we will monitor the patient closely, continue the current medications, continue symptomatic treatment. Otherwise at this time I would recommend stopping the sedatives. Continue the rest of the medications. Monitor closely. Neuro checks and neurovascular workup. Prognosis is guarded because of multiple complex medical issues. Further recommendations to follow. A copy of this dictation is being forwarded to Dr. Dacosta, who is the primary physician. MMODL / IJN: [id number] / [facility]
[2021-05-30] MEDS: PENTOXIFYLLINE 400 MG TABLET.ER PO SCH (21:41)
[2021-05-31] MEDS: SODIUM CHLORIDE 0.9% 1,000 ML IV SCH ×3 (06:24→17:27)
[2021-05-31] MEDS: LEVOTHYROXINE 100 MCG TAB PO SCH (06:25)
[2021-05-31 07:48] LABS: African American GFR (CKD) 75 (>60 ml/min/1.73 sqM); Anion Gap 7 mmol/L; Blood Urea Nitrogen 29 mg/dL (9-20); Calcium 8.9 mg/dL (8.4-10.2); Carbon Dioxide 28 mmol/L (22-30); Chloride 105 mmol/L (98-107); Glucose 149 mg/dL (74-99); Non-African American GFR(CKD) 65 (>60 ml/min/1.73 sqM); Potassium 4.4 mmol/L (3.5-5.1); Sodium 140 mmol/L (137-145)
[2021-05-31 08:09] LABS: Glucose,Whole Blood 148 mg/dL (75-99)
[2021-05-31] MEDS: INSULIN ASPART (NovoLOG) 100 UNIT/ML VIAL SQ SCH ×4 (09:01→21:14)
[2021-05-31] MEDS: PANTOPRAZOLE 40 MG TABLET PO SCH (09:02)
[2021-05-31] MEDS: PENTOXIFYLLINE 400 MG TABLET.ER PO SCH ×2 (09:03→21:15)
[2021-05-31] MEDS: LINAGLIPTIN 5 MG TABLET PO SCH (09:04)
[2021-05-31] MEDS: CYANOCOBALAMIN 500 MCG TAB PO SCH (09:04)
[2021-05-31] MEDS: GABAPENTIN 300 MG CAP PO SCH ×2 (09:04→21:15)
[2021-05-31] MEDS: metFORMIN 500 MG TAB PO SCH ×2 (09:04→21:15)
[2021-05-31] MEDS: CHOLECALCIFEROL 25 MCG (1000 IU) TABLET PO SCH (09:04)
[2021-05-31] MEDS: METOPROLOL TARTRATE 50 MG TAB PO SCH ×2 (09:05→21:15)
[2021-05-31] MEDS: FOLIC ACID 1 MG TAB PO SCH (09:05)
[2021-05-31] MEDS: VITAMIN E (DL,TOCOPHERYL ACET) 400 UNIT (180 MG) CAP PO SCH (09:05)
[2021-05-31] MEDS: MAGNESIUM OXIDE 400 MG TAB PO SCH ×2 (09:05→21:15)
[2021-05-31] MEDS: NON FORMULARY DRUG (Empagliflozin [Jardiance] 25 MG Tablet) PO SCH (09:12)
[2021-05-31] MEDS: carBAMazepine 200 MG TAB PO SCH ×3 (09:42→21:16)
[2021-05-31] MEDS: FLUTICASONE 50MCG/SPRAY NASAL 16GM EA NOSTRIL SCH ×2 (09:42→21:14)
[2021-05-31] MEDS: hydroCHLOROthiazide 25 MG TAB PO SCH ×2 (09:43→21:16)
[2021-05-31] MEDS: MELOXICAM 7.5 MG TAB PO SCH (09:43)
[2021-05-31 12:14] LABS: Basophils # (A) 0.05 X 10*3/uL (0.00-0.10); Basophils % (A) 0.6 %; Eosinophils # (A) 0.41 X 10*3/uL (0.04-0.35); Eosinophils % (A) 5.1 %; HGB 13.2 g/dL (13.0-17.0); Lymphocytes # (A) 1.99 X 10*3/uL (0.90-5.00); MCH 30.8 pg (27.0-32.0); MCHC 32.2 g/dL (32.0-37.0); MCV 95.6 fL (80.0-97.0); Mean Platelet Volume 10.4 fL (9.5-12.2); Monocytes # (A) 0.74 X 10*3/uL (0.20-1.00); Monocytes % (A) 9.3 %; Neutrophils # (A) 4.77 X 10*3/uL (1.80-7.70); Neutrophils % (A) 59.9 %; Platelet Count 242 X 10*3/uL (140-440); RBC 4.29 X 10*6/uL (4.40-5.60); RDW 11.8 % (11.5-14.5); WBC 7.97 X 10*3/uL (4.50-10.00)
[2021-05-31 12:16] LABS: Glucose,Whole Blood 160 mg/dL (75-99)
[2021-05-31] MEDS: VALSARTAN 160 MG TAB PO SCH (16:09)
[2021-05-31] MEDS: TAMSULOSIN 0.4 MG CAP.ER.24H PO SCH (16:32)
[2021-05-31 17:30] LABS: Glucose,Whole Blood 131 mg/dL (75-99)
--- NOTE | 2021-05-31 18:28 | PN ---
PROGRESS NOTE DATE OF SERVICE: 05/31/2021 This 60-year-old gentleman who was admitted with change in mental status, metabolic encephalopathy, possibly drug induced changes. No chest pain. No palpitations. Patient is slightly more alert today. PHYSICAL EXAMINATION: Alert and oriented x2. Pulse 73, blood pressure 112/60, respiration 18, temperature 98.2, pulse ox 98% on room air. HEENT: Conjunctivae normal. Oral mucosa moist. NECK: No jugular venous distention. No lymph node enlargement. CARDIOVASCULAR: S1, S2, muffled. No S3, no S4, RESPIRATORY: Diminished breath sounds at the bases. A few scattered rhonchi. ABDOMEN: Soft, nontender. NERVOUS SYSTEM: No focal deficits. LABS: CBC within normal. Sodium 140, potassium 4.5, glucose 160. ASSESSMENT: 1. Change in mental status, acute metabolic encephalopathy, possibly drug induced. 2. Acute renal failure with acute tubular necrosis and dehydration, present on admission. 3. Elevated random glucose and diabetes type 2. 4. History of CVA, TIA. 5. History of chest pain. 6. History of GERD. 7. Hypertension. 8. Hyperlipidemia. 9. History of DJD. 10.History of hypothyroidism. 11.History of osteomyelitis and amputation. 12.History of sleep apnea. 13.History of DJD. 14.History of MRSA. 15.History of tonsillectomy. 16.History ADD, ADHD. 17.History of anxiety, bipolar depression, posttraumatic stress disorder. 18.Obesity with body mass index of 41.9. 19.FULL CODE. RECOMMENDATIONS: Continue current management and symptomatic treatment. Otherwise, at this time I recommend continue with current medications. Continue with PT/OT evaluation, possible rehab. Further recommendations to follow. MMODL / IJN: [id number] /
[2021-05-31 20:25] LABS: Glucose,Whole Blood 171 mg/dL (75-99)
[2021-05-31] MEDS: ARTIFICIAL TEARS OINTMENT 3.5 GM TUBE LEFT EYE SCH (21:14)
[2021-05-31] MEDS: ATORVASTATIN 40 MG TAB PO SCH (21:15)
[2021-05-31] MEDS: OLANZapine 7.5 MG TAB PO SCH (21:16)
--- NOTE | 2021-06-01 00:15 | P.CONS ---
History of Present Illness - Reason for Consult Consult date: 05/31/21 left foot wound Requesting physician: Russell Thompson - Chief Complaint confusion x 1 day - History of Present Illness History of present illness : Patient is 60-year male with a past medical he significant for left big toe amputation wound to the left index amputation site for the patient to follow-up with his docket clerk at the [facility] patient did mention medical and see his docket clerk on Tuesday and Tuesday and he did have a application of Silvadene cream followed by Unna boots patient presented to [facility] on Tuesday for evaluation of increasing confusion and altered behavior speech was slower and the patient was more confused than usual and concern for possible CVA the patient denies having any headache or URI symptoms denies any nausea no vomiting no abdominal pain or any diarrhea patient has any pain to his left foot and mention that his wound is healing well with no evidence of any cellulitis patient on presentation the hospital was afebrile patient did have a normal white count kidney function has been normal infection was consulted for management of his wound patient did have a negative Covid test and chest x-ray was negative, patient requested his dressings are to be changed as he is supposed to follow-up with his docket clerk Tuesday Review of system: CONSTITUTIONAL: Positive for weakness denies fever EYES: No complaint. ENT: No complaint. RESPIRATORY: No complaint. CARDIOVASCULAR: No complaint. GENITOURINARY: No complaint. GASTROINTESTINAL: No complaint. MUSCULOSKELETAL: As per history of present illness. INTEGUMENTARY: No complaint. PSYCHOLOGIC: No complaint. ENDOCRINE: No complaint. NEUROLOGIC: No complaint. Past medical history : Reviewed, documented below Past surgical history : Reviewed, documented below Social history: Reviewed, documented below Medications: Reviewed, as documented below EXAMINATION: Vital sigans= Reviewed and documented below GENERAL DESCRIPTION: Middle-aged male up in the chair, no distress. No tachypnea or accessory muscle of respiration use. HEENT: Shows Pallor , no scleral icterus. Oral mucous membrane is dry. NECK: Trachea central, no thyromegaly. LUNGS: Unlabored breathing. Clear to auscultation anteriorly. No wheeze or crackle. HEART: S1, S2, regular rate and rhythm. ABDOMEN: Soft, no tenderness , guarding or rigidity EXTREMITIES: No edema of feet. Left foot wound is currently dressed no drainage on the dressing SKIN: No rash, no masses palpable. NEUROLOGICAL: The patient is awake, alert, oriented x3, mood and affect normal. LABS AND RADIOLOGY: Reviewed results see below Assessment : Patient with left foot wound or separation of his left big toe for the patient currently follow-up with his local docket clerk with a local wound care provided with a Silvadene cream and Unna boots that is changed twice a week patient currently with no fever, no elevated white count and no pain to the left foot clinic suspicion for any infection and the patient mentation improved without any antibiotic therapy Plan: 1-no need for systemic antibiotic therapy 2-current dressing can be left intact and the patient was to follow his docket clerk for continue local wound care We will follow on clinical condition and cultures to further adjust medication if needed Thank you for this consultation we will follow the patient along with you 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, BLAYNE with CPAP, IDDM type II, neuropathy bilateral lower extremities, hyp othroid- thyroidectomy d/t cancer, arthritis/ DJD in back and bilateral knees, obesity History of Any Multi-Drug Resistant Organisms: None Reported, MRSA Year Discovered:: 10/31/20 MDRO Source:: MRSA TOE Past Surgical History: Joint Replacement, Tonsillectomy Additional Past Surgical History / Comment(s): L great toe amputation, L total knee arthroplasty, stephani eye surgery, thyroidectomy Past Anesthesia/Blood Transfusion Reactions: No Reported Reaction Additional Past Anesthesia/Blood Transfusion Reaction / Comm: had reaction to drainage tube-"had to be knocked out-woke up swinging" Past Psychological History: ADD/ADHD, Anxiety, Bipolar, Depression, PTSD Additional Psychological History / Comment(s): implusive control disorder. Pt resides with mother and father. He uses a cane to ambulate. He was in [place]. He drives. Smoking Status: Former smoker, Second hand smoke exposure Past Alcohol Use History: None Reported Additional Past Alcohol Use History / Comment(s): Pt started smoking in 1981 and quit in 2007. He is around 2nd hand smoke. Past Drug Use History: None Reported - Past Family History Father Family Medical History: Coronary Artery Disease (CAD), Diabetes Mellitus Additional Family Medical History / Comment(s): Father has had CABG. He is 84 yrs. old. Mother Family Medical History: Cancer, Diabetes Mellitus Additional Family Medical History / Comment(s): Mother had colon cancer with surgery. She is 80 yrs old. Medications and Allergies Home Medications Medication Instructions Recorded Confirmed Type Nitroglycerin Sl Tabs [Nitrostat] 0.4 mg SL Q5M PRN 01/22/15 05/29/21 History Insulin Degludec [Tresiba See Protocol SQ BID 07/17/17 05/29/21 History Flextouch U-200 Pen] Albuterol Nebulized [Ventolin 2.5 mg INHALATION RT-Q4H PRN 10/31/20 05/29/21 History Nebulized] Empagliflozin [Jardiance] 25 mg PO DAILY 10/31/20 05/29/21 History Fish Oil/Dha/Epa [Fish Oil 1,200 1 cap PO TID 10/31/20 05/29/21 History mg Fish Oil] Fluticasone Nasal [place] [Flonase 1 spr EA NOSTRIL BID 10/31/20 05/29/21 History Nasal [place]] Pentoxifylline [TRENtal] 400 mg PO BID 10/31/20 05/29/21 History Tamsulosin HCl [Flomax] 0.4 mg PO AC-SUPPER 10/31/20 05/29/21 History Testosterone [Androgel 1.62% Gel 1 pump TOPICAL Q48H 10/31/20 05/29/21 History Pump] Testosterone [Androgel 1.62% Gel 2 pump TOPICAL Q48H 10/31/20 05/29/21 History Pump] Albuterol Sulfate [Proventil Hfa] 1 puff INHALATION RT-QID PRN 12/26/20 05/29/21 History Gabapentin [Neurontin] 300 mg PO BID #6 cap 12/31/20 05/29/21 Rx Folic Acid 1 mg PO DAILY #30 tab 04/15/21 05/29/21 Rx Alogliptin Benzoate [Alogliptin] 25 mg PO DAILY 05/29/21 05/29/21 History Artificial Tears Ointment 0.25 inch LEFT EYE HS 05/29/21 05/29/21 History [Lubrifresh Pm Ointment] Atorvastatin [Lipitor] 40 mg PO HS 05/29/21 05/29/21 History Baclofen [Lioresal] 20 mg PO BID PRN 05/29/21 05/29/21 History Carboxymethylcellulose Sodium 2 drops BOTH EYES QID PRN 05/29/21 05/29/21 History [Refresh Tears] Celecoxib [CeleBREX] 200 mg PO DAILY 05/29/21 05/29/21 History Cholecalciferol [Vitamin D3 (25 50 mcg PO DAILY 05/29/21 05/29/21 History Mcg = 1000 Iu)] Ciprofloxacin HCl [Cipro] 750 mg PO BID 05/29/21 05/29/21 History Cyanocobalamin (Vitamin B-12) 1,000 mcg PO DAILY 05/29/21 05/29/21 History [Vitamin B-12] Exenatide Microspheres [Bydureon 2 mg SQ Q7D 05/29/21 05/29/21 History Bcise Auto-Injector] HYDROcodone/APAP 5-325MG [Allen 1 tab PO QID PRN 05/29/21 05/29/21 History 5-325] Insulin Aspart [NovoLOG Flexpen] See Protocol SQ AC-TID 05/29/21 05/29/21 History Levothyroxine Sodium 300 mcg PO DAILY 05/29/21 05/29/21 History Magnesium Oxide [Mag-Ox] 250 mg PO BID 05/29/21 05/29/21 History Melatonin 5 mg PO HS PRN 05/29/21 05/29/21 History Methocarbamol [Robaxin-750] 750 mg PO QID PRN 05/29/21 05/29/21 History Metoprolol Tartrate [Lopressor] 50 mg PO BID 05/29/21 05/29/21 History OLANZapine 7.5 mg PO HS 05/29/21 05/29/21 History Pantoprazole [Protonix] 40 mg PO DAILY 05/29/21 05/29/21 History Polyvinyl Alcohol/Povidone 1 drop BOTH EYES 5XD 05/29/21 05/29/21 History [[place]kote Eye Drop] SILVER sulfADIAZINE Cream 1 applic TOPICAL DAILY 05/29/21 05/29/21 History [Silvadene 1% Cream] Valsartan 320 mg PO DAILY 05/29/21 05/29/21 History Vitamin E (Dl,Tocopheryl Acet) 400 unit PO DAILY 05/29/21 05/29/21 History [Vitamin E (400 Iu = 180 mg)] carBAMazepine [TEGretol] 200 mg PO DAILY 05/29/21 05/29/21 History carBAMazepine [TEGretol] 400 mg PO BID@1700,2100 05/29/21 05/29/21 History diphenhydrAMINE [Benadryl] 25 mg PO QID PRN 05/29/21 05/29/21 History hydroCHLOROthiazide [Hydrodiuril] 25 mg PO BID 05/29/21 05/29/21 History metFORMIN HCL [Glucophage] 1,000 mg PO BID 05/29/21 05/29/21 History Allergies Allergy/AdvReac Type Severity Reaction Status Date / Time codeine phosphate Allergy Dyspnea Verified 04/12/21 22:28 [From Tylenol-Codeine] levofloxacin [From Levaquin] Allergy Anaphylaxis Verified 04/12/21 22:28 Penicillins Allergy Rash/Hives Verified 04/12/21 22:28 quetiapine Allergy headache Verified 04/12/21 22:28 guaifenesin AdvReac dehydration Verified 04/12/21 22:28 meperidine HCl [From Demerol] AdvReac "altered Verified 04/12/21 22:28 state of mind" olanzapine AdvReac > 7.6 mg Verified 04/12/21 22:28 causes sleepiness phenylephrine AdvReac dehydration Verified 04/12/21 22:28 pseudoephedrine AdvReac Unknown Verified 04/12/21 22:28 [From Entex T] topiramate AdvReac Dehydration Verified 04/12/21 22:28 and Manic wool AdvReac Urticarial Verified 04/12/21 22:28 gin AdvReac Headache Uncoded 10/31/20 10:09 Physical Exam Vitals: Vital Signs Temp Pulse Resp BP Pulse Ox 05/31/21 20:00 73 18 05/31/21 19:55 98.1 F 77 16 142/81 98 05/31/21 15:00 98.2 F 73 18 112/64 99 05/31/21 14:00 16 05/31/21 12:45 107/72 05/31/21 08:08 98 F 77 16 127/78 96 05/31/21 08:00 16 05/31/21 02:01 97.8 F 64 18 117/68 94 L Intake and Output 05/31/21 05/31/21 06/01/21 14:59 22:59 06:59 Intake Total 1030 Balance 1030 Intake: IV 600 Sodium Chloride 0.9% 1, 600 000 ml @ 75 mls/hr IV . [id number] [facility] Rx#:[id number] Oral 430 Other: Voiding Method Urinal Toilet Urinal # Voids 1 # Bowel Movements 1 Results CBC & Chem 7: 05/31/21 07:18 05/31/21 07:18 Labs: Abnormal Lab Results - Last 24 Hours (Table) 05/31/21 05/31/21 05/31/21 Range/Units 07:18 07:18 08:07 RBC 4.29 L (4.40-5.60) X 10*6/uL Eosinophils # 0.41 H (0.04-0.35) X 10*3/uL BUN 29 H (9-20) mg/dL Glucose 149 H (74-99) mg/dL POC Glucose (mg/dL) 148 H (75-99) mg/dL 05/31/21 05/31/21 05/31/21 Range/Units 12:15 17:26 20:24 RBC (4.40-5.60) X 10*6/uL Eosinophils # (0.04-0.35) X 10*3/uL BUN (9-20) mg/dL Glucose (74-99) mg/dL POC Glucose (mg/dL) 160 H 131 H 171 H (75-99) mg/dL
[2021-06-01] MEDS: SODIUM CHLORIDE 0.9% 1,000 ML IV SCH (03:28)
[2021-06-01] MEDS: LEVOTHYROXINE 100 MCG TAB PO SCH (05:32)
[2021-06-01 07:46] LABS: Glucose,Whole Blood 146 mg/dL (75-99)
[2021-06-01] MEDS: NON FORMULARY DRUG (Empagliflozin [Jardiance] 25 MG Tablet) PO SCH (08:48)
[2021-06-01] MEDS: PANTOPRAZOLE 40 MG TABLET PO SCH (09:39)
[2021-06-01] MEDS: METOPROLOL TARTRATE 50 MG TAB PO SCH (09:39)
[2021-06-01] MEDS: CYANOCOBALAMIN 500 MCG TAB PO SCH (09:39)
[2021-06-01] MEDS: carBAMazepine 200 MG TAB PO SCH (09:39)
[2021-06-01] MEDS: metFORMIN 500 MG TAB PO SCH (09:39)
[2021-06-01] MEDS: FLUTICASONE 50MCG/SPRAY NASAL 16GM EA NOSTRIL SCH (09:39)
[2021-06-01] MEDS: INSULIN ASPART (NovoLOG) 100 UNIT/ML VIAL SQ SCH ×2 (09:39→12:56)
[2021-06-01] MEDS: VITAMIN E (DL,TOCOPHERYL ACET) 400 UNIT (180 MG) CAP PO SCH (09:40)
[2021-06-01] MEDS: GABAPENTIN 300 MG CAP PO SCH (09:40)
[2021-06-01] MEDS: LINAGLIPTIN 5 MG TABLET PO SCH (09:40)
[2021-06-01] MEDS: MAGNESIUM OXIDE 400 MG TAB PO SCH (09:40)
[2021-06-01] MEDS: hydroCHLOROthiazide 25 MG TAB PO SCH (09:40)
[2021-06-01] MEDS: FOLIC ACID 1 MG TAB PO SCH (09:40)
[2021-06-01] MEDS: CHOLECALCIFEROL 25 MCG (1000 IU) TABLET PO SCH (09:40)
[2021-06-01] MEDS: MELOXICAM 7.5 MG TAB PO SCH (09:40)
[2021-06-01] MEDS: VALSARTAN 160 MG TAB PO SCH (09:41)
[2021-06-01] MEDS: PENTOXIFYLLINE 400 MG TABLET.ER PO SCH (09:41)
[2021-06-01] MEDS ORDERED: ACETAMINOPHEN TAB 325 MG TAB PO PRN (11:15)
[2021-06-01 12:17] LABS: Glucose,Whole Blood 197 mg/dL (75-99)
[2021-06-01 15:19] VITALS: BP 144/81; PULSE 76; RESP 18; TEMP 97.9
--- NOTE | 2021-06-01 20:48 | DS ---
DISCHARGE SUMMARY DATE OF SERVICE: 06/01/2021 FINAL DIAGNOSES: 1. Change in mental status, acute metabolic encephalopathy, possibly drug- induced. 2. Acute renal failure, acute tubular necrosis secondary to dehydration, present on admission. 3. Elevated random glucose and diabetes mellitus, type 2. 4. History of cerebrovascular accident, transient ischemic attack. 5. History of chest pain. 6. Gastroesophageal reflux disease. 7. Hypertension. 8. Hyperlipidemia. 9. History of degenerative joint disease. 10.History of hypothyroidism. 11.History of osteomyelitis and amputation. 12.History of sleep apnea. 13.History of degenerative joint disease. 14.History of MRSA. 15.History of tonsillectomy. 16.History of attention deficit disorder, attention deficit hyperactivity disorder. 17.History of anxiety, depression, bipolar and post-traumatic stress disorder. 18.Obesity with body mass index of 41.9. 19.FULL CODE. DISCHARGE DISPOSITION: The patient will be discharged in stable condition with guarded prognosis. HISTORY OF PRESENT ILLNESS: This 60-year-old gentleman with a past medical history of multiple medical problems was admitted with change in mental status, thought to be multifactorial possibly drug- induced. The patient was treated symptomatically. Patient also had dehydration and was treated with IV fluids. Patient improved significantly. The patient has some social issues. Both parents recently of COVID, apparently. On exam, vitals are stable. CARDIOVASCULAR: S1, S2 muffled. ABDOMEN: Soft. NERVOUS SYSTEM: No focal deficit. The labs are stable and the patient is extremely keen on going home. DISCHARGE ADVICE AND MEDICATIONS: 1. Diet cardiac. 2. Activity limited until followup. 3. Follow up with Dr. Dacosta in 1-2 days. 4. Home care is being arranged. 5. allogliptin 25 mg p.o. daily. 6. Androgen gel. 7. Testosterone gel. 8. Benadryl 25 mg q.i.d. p.r.n. 9. Exenatide 2 mg subcutaneously q.7 days. 10.Celebrex 200 mg p.o. daily. 11.Fish oil. 12.Flomax 0.4 before meals and at bedtime. 13.Flonase as before. 14.Metformin 1000 mg p.o. b.i.d. 15.Hydrochlorothiazide 25 mg p.o. b.i.d. 16.Jardiance 25 mg p.o. daily. 17.Levothyroxine 300 mcg p.o. daily. 18.Lipitor 40 mg at bedtime. 19.Lopressor 50 mg p.o. b.i.d. 20.Artificial Tears. 21.Magnesium oxide 250 mg p.o. b.i.d. 22.Melatonin p.r.n. 23.Nitroglycerin 0.4 sublingually p.r.n. 24.NovoLog FlexPen as before. 25.Zyprexa 7.5 mg at bedtime. 26.Protonix 40 mg p.o. daily. 27.Albuterol p.r.n. 28.Silver sulfadiazine cream. 29.Tegretol 400 mg b.i.d. and 200 mg p.o. daily. 30.Trental 400 mg p.o. b.i.d. 31.Insulin degludec 3 subcutaneously b.i.d. per protocol as before. 32.Valsartan 320 mg p.o. daily. 33.Vitamin B12, 1000 mcg p.o. daily. 34.Vitamin D3, 50 mcg p.o. daily. 35.Vitamin E 400 mg p.o. daily. 36.Folic acid 1 mg daily. 37.Neurontin 300 mg p.o. b.i.d. 38.Tylenol 650 p.o. q.4 p.r.n. 39.Thiamine 100 mg p.o. daily. MMMARILUL / CARINE: [id number] / MTDD
== END 2021-06-01 15:50 | disposition home or self-care (01) | DRG 70 ==
LOC: EC 17:06 → 6NMEDSUR 21:36 → OBSVTOIN 06-01 11:04 → UNDODISOB 06-01 15:50
PROVIDERS: ADMIT Hospitalist; ATTEND Hospitalist
DX: G93.41 Metabolic encephalopathy (principal); N17.0 Acute kidney failure with tubular necrosis; F31.30 Bipolar disorder, current episode depressed, mild or moderate severity, unspecified; Z68.41 Body mass index [BMI] 40.0-44.9, adult; I69.354 Hemiplegia and hemiparesis following cerebral infarction affecting left non-dominant side; T40.605A Adverse effect of unspecified narcotics, initial encounter; E11.42 Type 2 diabetes mellitus with diabetic polyneuropathy; Z20.822 Contact with and (suspected) exposure to COVID-19; E66.9 Obesity, unspecified; E78.5 Hyperlipidemia, unspecified; E86.0 Dehydration; E89.0 Postprocedural hypothyroidism; R01.1 Cardiac murmur, unspecified; I69.392 Facial weakness following cerebral infarction; F43.10 Post-traumatic stress disorder, unspecified; G51.0 Bell's palsy; I10 Essential (primary) hypertension; F90.9 Attention-deficit hyperactivity disorder, unspecified type; I87.8 Other specified disorders of veins; K21.9 Gastro-esophageal reflux disease without esophagitis; M19.90 Unspecified osteoarthritis, unspecified site; Z79.4 Long term (current) use of insulin; Z79.899 Other long term (current) drug therapy; Z79.1 Long term (current) use of non-steroidal anti-inflammatories (NSAID); Z79.890 Hormone replacement therapy; Z86.14 Personal history of Methicillin resistant Staphylococcus aureus infection; Z87.891 Personal history of nicotine dependence; Z96.652 Presence of left artificial knee joint; Z88.5 Allergy status to narcotic agent; Z88.0 Allergy status to penicillin; Z88.8 Allergy status to other drugs, medicaments and biological substances; Z89.412 Acquired absence of left great toe; Z89.022 Acquired absence of left finger(s); X58.XXXA Exposure to other specified factors, initial encounter; Z91.14 Patient's other noncompliance with medication regimen
CPT/HCPCS: 36415; 70450; 71046; 80048; 80053; 80306; 81003; 82075; 84484; 85025; 85610; 85730; 87635; 96360; 96361; 99285

== ENCOUNTER → 2021-08-26 | Outpatient (CLI) | payer MEDICARE, OTHER ==
--- NOTE | 2021-08-26 19:01 | US ---
EXAMINATION TYPE: US scrotum with doppler. DATE OF EXAM: 08/26/2021 COMPARISON: NONE CLINICAL HISTORY: 60-year-old male N50.819 TESTICULAR PAIN. Bilateral pain TECHNIQUE: Grayscale and color Doppler Duplex imaging performed of the scrotum. FINDINGS: EXAM MEASUREMENTS: TESTICLES: Right Testicle: 3.4 x 1.7 x 2.6 cm Left Testicle: 2.9 x 1.4 x2.7 cm EPIDIDYMIS HEAD: Right Epididymis: 1.5 x 1.8 x 1.1 cm with a cyst measuring up to 7 mm. Left Epididymis: 1.0 x 2.2 x 1.1 cm Doppler performed to assess for testicular vascularity; good bilateral color flow and waveforms are s een. There is no evidence of testicular torsion. Presence of hydroceles: Small Bilateral Presence of varicoceles: none Lens Examiner notes: Bilateral heterogenous Epididymis head Generalized scrotal skin thickening 7 mm. IMPRESSION: 1. No sonographic evidence for testicular torsion. 2. The epididymal heads are slightly heterogeneous. This may be undetectable basis. Cysts are present on the right measuring up to 7 mm. Correlate clinically to exclude epididymitis. 3. Small bilateral hydroceles. 4. Generalized scrotal skin thickening up to 7 mm could represent cellulitis. Clinically correlate.
== END | disposition home or self-care (01) ==
LOC: RADUSWWP 14:58
PROVIDERS: ATTEND Family Medicine
DX: N43.3 Hydrocele, unspecified (principal); N50.3 Cyst of epididymis; N50.89 Other specified disorders of the male genital organs
CPT/HCPCS: 76870; 93975

== ENCOUNTER → 2023-10-12 | Outpatient (CLI) | payer MEDICARE, OTHER ==
--- NOTE | 2023-10-12 16:07 | FL ---
EXAMINATION: Upper GI examination DATE: 10/12/2023 CLINICAL INDICATION: 63-year-old male R10.13, epigastric pain COMPARISON: None Total Fluoroscopy Time: 2 minutes 18 seconds 1083.17 mGycm2 DAP 42 images obtained. FINDINGS: The esophagus has a normal course, caliber, motility and mucosa. There is a tiny sliding hiatal hernia noted. There is no gastroesophageal reflux identified. The stomach and duodenum are free of any persistent filling defect and demonstrate a normal mucosal p attern. No discrete ulcer is identified. There is a prominent diverticulum of third portion of the du odenum projecting superiorly. IMPRESSION: A tiny sliding hiatal hernia and incidental diverticulum of the third portion of the duodenum. Otherw ise, unremarkable esophagram.
--- NOTE | 2023-10-12 17:22 | US ---
EXAMINATION TYPE: US abdomen complete DATE OF EXAM: 10/12/2023 COMPARISON: NONE CLINICAL INDICATION: Male, 63 years old with history of R10.13 EPIGASTRIC PAIN; Patient states that h e has a history of ulcers and abdominal pain. TECHNIQUE: Multiple sonographic images of the abdomen are obtained. FINDINGS: EXAM MEASUREMENTS: Liver Length: 22.4 cm Gallbladder Wall: 0.2 cm CBD: unable to visualize Spleen: 14.4 cm Right Kidney: 11.8 x 4.5 x 6.5 cm Left Kidney: 11.1 x 5.6 x 4.7 cm GARDE MANAGER NOTES: Limited due to overlying bowel gas and patient body habitus Pancreas: Tail obscured by overlying bowel gas Liver: Increased attenuation. Difficult to penetrate. Hepatomegaly. Gallbladder: Hydropic GB (11.7cm). Layering, internal echoes seen within the lumen. Wall WNL. Evidence for sonographic Lindsey's sign: No CBD: Unable to visualize Spleen: Mild splenomegaly Right Kidney: No hydronephrosis or masses seen as best visualized Left Kidney: No hydronephrosis or masses seen as best visualized Upper IVC: wnl Abd Aorta: Mid and distal portions obscured by gas. prox WNL. IMPRESSION: 1. Hepatomegaly with at least moderate hepatic steatosis; appropriate clinical management advised. 2. Tumefactive sludge in the gallbladder. Mild hydropic change may relate to fasting state. No anci llary findings of acute cholecystitis at this time. 3. Unable to adequately visualize the bile duct. 4. Mild splenomegaly.
== END | disposition home or self-care (01) ==
LOC: RADUSWWP 08:20
PROVIDERS: ATTEND Family Medicine
DX: K76.0 Fatty (change of) liver, not elsewhere classified (principal); K82.8 Other specified diseases of gallbladder; R16.2 Hepatomegaly with splenomegaly, not elsewhere classified
CPT/HCPCS: 74240; 76700

== ENCOUNTER 2023-12-20 06:30 | Inpatient (IN) | payer MEDICARE, OTHER ==
[2023-12-16 14:59] VITALS: BMI 39.8
[~2023-12-20 06:30] MED LIST: TRANEXAMIC 1,000 MG/100ML-NACL 1,000 MG in SALINE 1 100ML.BAG IVPB PRN
[2023-12-20] MEDS ORDERED: fentaNYL (PF) 50 MCG/ML 2 ML AMP IV PRN (07:00)
[2023-12-20] MEDS ORDERED: MIDAZOLAM 2 MG/2 ML VIAL IV PRN (07:00)
[2023-12-20 07:42] LABS: Glucose,Whole Blood 180 mg/dL (70-110)
[2023-12-20] MEDS: LACTATED RINGERS 1,000 ML IV SCH (07:48)
[2023-12-20] MEDS: MELOXICAM 7.5 MG TAB PO PRN (07:55)
[2023-12-20] MEDS: ONDANSETRON 4 MG/2 ML VIAL IVP ONE (07:55)
[2023-12-20] MEDS: ACETAMINOPHEN TAB 500 MG TAB PO PRN (07:55)
[2023-12-20] MEDS: DEXAMETHASONE SOD PHOSPHATE 4 MG/ML 1 ML VIAL IV ONE (07:55)
[2023-12-20] MEDS: GABAPENTIN 300 MG CAP PO PRN (07:59)
[2023-12-20] MEDS: MIDAZOLAM 2 MG/2 ML VIAL IVP ONE (08:32)
[2023-12-20] MEDS: fentaNYL (PF) 50 MCG/ML 2 ML AMP IVP ONE (08:35)
[2023-12-20] MEDS ORDERED: MAGNESIUM HYDROXIDE 2,400 MG/30 ML CUP PO PRN (08:42)
[2023-12-20] MEDS ORDERED: HYDROmorphone 1 MG/ML 1 ML SYRINGE IVP PRN (08:42)
[2023-12-20] MEDS ORDERED: ONDANSETRON 4 MG/2 ML VIAL IVP PRN (08:42)
[2023-12-20] MEDS ORDERED: HYDROmorphone 0.5 MG/0.5 ML SYRINGE IVP PRN (08:42)
[2023-12-20] MEDS ORDERED: NALOXONE 0.4 MG/ML 1 ML VIAL IV PRN (08:42)
[2023-12-20] MEDS ORDERED: bisacodyL 10 MG SUPP RECTAL PRN (08:42)
[2023-12-20] MEDS ORDERED: NA PHOS,M-B/NA PHOS,DI-BA 133 ML ENEMA RECTAL PRN (08:42)
[2023-12-20] MEDS ORDERED: HYDROcodone/APAP 7.5-325MG 1 EACH TAB PO PRN (08:44)
[2023-12-20] MEDS ORDERED: MIDAZOLAM 2 MG/2 ML VIAL ONE (09:00)
[2023-12-20] MEDS ORDERED: TRANEXAMIC 1,000 MG/100ML-NACL PREMIX BAG ONE (09:00)
[2023-12-20] MEDS ORDERED: GLYCOPYRROLATE 0.2 MG/ML 2 ML VIAL ONE (09:00)
[2023-12-20] MEDS ORDERED: KETAMINE HCL IN 0.9 % NACL 50 MG/5 ML SYRINGE ONE (09:00)
[2023-12-20] MEDS ORDERED: SODIUM CHLORIDE 0.9% (PF) 10 ML VIAL ONE (09:00)
[2023-12-20] MEDS ORDERED: PROPOFOL 10 MG/ML 20 ML VIAL IV ONE (09:00)
[2023-12-20] MEDS ORDERED: fentaNYL (PF) 50 MCG/ML 2 ML AMP ONE (09:00)
[2023-12-20] MEDS ORDERED: ROPIVACAINE 5 MG/ML 30 ML VIAL ONE (09:00)
[2023-12-20] MEDS: ceFAZolin 1,000 MG in SODIUM CHLORIDE 0.9% 1,000 ML IRRIGATION ONE (09:04)
[2023-12-20] MEDS: LACTATED RINGERS 1,000 ML IV ONE (09:40)
--- NOTE | 2023-12-20 10:18 | P.ANPRN ---
Procedure Note - Anesthesia - Nerve Block Performed Right Adductor Canal Infusion Time Out Performed: Yes (0832) Date of Procedure: 12/20/23 Procedure Start Time: :33 Procedure Stop Time: 08:38 Indication: Acute Post-Operative Pain, Requested by Surgeon Specifically requested for management of pain by : Hector Simmons Sedation Type: Sedate with meaningful contact maintained Preparation: Sterile Prep, Sterile Dressing Position: Supine Catheter Depth at Skin (cm): 8 Catheter: Indwelling Needle Gauge: 18 Ultrasound used to visualize needle placement: Yes Ultrasound used to observe medication spread: Yes Injectate: 0.5% Ropivacaine (see comment for volume) (15cc +10cc nacl pf) Blood Aspirated: No Pain Paresthesia on Injection Noted: No Resistance on Injection: Normal Image Stored and Saved: Yes Events: Uneventful and Well Tolerated
--- NOTE | 2023-12-20 10:19 | P.ANPRN ---
Procedure Note - Anesthesia - Nerve Block Performed Right [place] Single Time Out Performed: Yes (0832) Date of Procedure: 12/20/23 Procedure Start Time: 08:39 Procedure Stop Time: 08:41 Indication: Acute Post-Operative Pain, Requested by Surgeon Specifically requested for management of pain by : Hector Simmons Sedation Type: Sedate with meaningful contact maintained Preparation: Sterile Prep Position: Supine Catheter Depth at Skin (cm): 8 Catheter: Indwelling Needle Types: Pajunk Needle Gauge: 21 Ultrasound used to visualize needle placement: Yes Ultrasound used to observe medication spread: Yes Injectate: 0.5% Ropivacaine (see comment for volume) (15cc+10cc nacl pf) Blood Aspirated: No Pain Paresthesia on Injection Noted: No Resistance on Injection: Normal Image Stored and Saved: Yes Events: Uneventful and Well Tolerated
--- NOTE | 2023-12-20 10:48 | P.OP ---
Date of Procedure: 12/20/23 Preoperative Diagnosis: severe osteoarthritis right knee Postoperative Diagnosis: severe osteoarthritis right knee Procedure(s) Performed: right total knee arthroplasty Implants: [employer] II CR Oxinium Bi-cruciate stabilized femoral component size 7, right [employer] nonporous tibial baseplate size 6, right [employer] II, Constrained articular insert, size 10 mm, Size 5-6, right [employer] Nila II resurfacing patellar component, oval, 38 mm All components were cemented using Palacos R bone cement The articulation is Oxinium on polyethylene Anesthesia: spinal Surgeon: Hector Simmons Lawn Care Specialist #1: Carri South Estimated Blood Loss (ml): 30 Pathology: none sent Condition: stable Disposition: PACU Indications for Procedure: The patient's knee is end-stage, and conservative management has failed. The operation of knee replacement has been discussed at length in the office, as well as potential risks and complications. These are inclusive of, but not limited to: Infection, bleeding, scarring, discomfort, stiffness, blood vessel and nerve damage, need for further surgery, failure to relieve symptoms, persistence, recurrence, or worsening of problems, loosening, dislocation, wear, blood clot, pulmonary embolism, , gait dysfunction, stiffness, and other risks as discussed in the office. Patient elects to proceed and the consent form has been signed. Operative Findings: the operative findings are consistent with severe osteoarthritis of the right knee Description of Procedure: The patient was seen in the preoperative area, the consent was reviewed and the operative site was marked with a skin marker. The patient verified the procedure and the operative site. An adductor canal pain catheter and an iPACK block were placed by anesthesia in the preoperative area. The patient was then brought to the operating room and positioned on the operating room table in the supine position. Preoperative antibiotics and a gram of tranexamic acid were given intravenously. A spinal anesthetic was administered by the anesthesia department. Care was taken to make sure that all pressure points were adequately padded. A tourniquet was placed on the upper thigh and the lower extremity was prepped with ChloraPrep and draped in usual sterile fashion. A universal time-out was then performed which confirmed the patient's name, surgical site, ALLERGIES, and consent. The lower extremity was then exsanguinated and tourniquet was inflated to 250 mmHg. A standard anterior midline approach to the knee was performed. The skin and subcutaneous tissue were sharply dissected down to the patellar tendon. A medial parapatellar arthrotomy was then performed. The knee was then extended, the patellar was everted, and the knee was flexed. The infra-patellar fat pad was removed in order to enhance exposure. The anterior horns of both menisci were excised, and a release was performed to the posterior medial aspect of the knee. On gross visual inspection, there was complete loss of articular cartilage in the medial and patellofemoral joint spaces. There was also significant cartilage damage in the lateral compartment. There were multiple periarticular osteophytes globally about the knee which were then removed with a Ronguer. The femoral canal was then opened with the 9.5 mm intramedullary drill. The 8 mm intramedullary bernard was then inserted into the femoral canal with the distal femoral cutting guide set for 5 of valgus. The distal femoral cutting block was then pinned in place. The intramedullary bernard was then removed, and the distal femur was then cut. The cutting block was then removed and the cut was checked for symmetry. The resected bone was then measured to confirm the appropriate distal femoral resection. Next, the sizing guide was then placed and set for 3 external rotation based off of the epicondylar axis and Potter's line. Pins were then placed and the drill holes, and the femur was sized with the sizing stylus. The pins were then removed, and the sizing guide was then removed. The spikes of the appropriate size femoral block was then placed into the predrilled holes, and malleted into place. Two 45 mm pins were then placed into the fixation holes on the cutting block. An mike wing was then used to ensure there would be no notching with the anterior cut. The anterior condyles were cut without notching. The anterior chord cut was then performed, followed by the posterior cut, posterior chamfer cut, and the anterior chamfer cut. The collateral ligaments were protected during the entire process. The cutting block was then removed. Any remaining bone and osteophytes were removed from the femur with a Ronguer. Attention was then directed to the tibia. The remaining ACL was removed with a Ronguer, and the tibia was then gently subluxed forward with a large bent knee retractor. Any remaining menisci were excised. The posterior lateral corner was cauterized in order to coagulate the lateral geniculate artery. The extra medullary tibial cutting guide was then placed, set for the appropriate rotation, slope, and depth of resection. The proximal tibia cutting guide was then pinned in place. Proximal tibia was then cut and sized. A curved osteotome was then used to remove any posterior osteophytes from the distal femur. The femoral trial was placed. The box drill guide was then used to remove the intracondylar femoral bone. The box trial was then placed. The tibial trial was placed with the appropriate-sized insert. The knee was able to fully extend and flex to 120 and was stable throughout all range of motion. The knee was then extended and the patella was everted. Patella was then measured, and then using an osteotomy guide, the patella was cut at the appropriate level. The patellar component was sized. The patellar drill guide was placed and the patella was drilled. The patella trial was then placed. The knee was then taken through range of motion with the patella trial and the patella tracked normally using the no thumbs technique. The patella trial was then removed. The knee was then flexed and the femoral trial was then removed. The tibial was then re-exposed, and the tibial broach guide was then pinned in place after it was set for the appropriate rotation to allow for the most coverage without overhang. The tibia was then reamed and broached. The femoral canal was plugged with autologous bone. The cut surfaces of bone were then irrigated with pulsatile lavage. The knee was also irrigated with Irrisept solution. The components were then opened, the cement was mixed. Cement was placed on the backside of the femoral, tibial, and patellar componen ts. Cement was then applied to the tibial surface and pressurized into the surface using finger pressurization technique. The tibial component was then applied and excess cement was removed after it was impacted securely noted to be flush with the cut surface. In similar fashion, the cement was applied to the cut femoral surface, pressurized and using finger pressurization the component was impacted in place. Excess cement was removed. The polyethylene spacer was then implanted and locked into position. Patellar component was then applied in a similar technique and the patellar clamp was used to hold patella in place while the cement hardened. The knee was held in full extension while the cement hardened. Once the cement had fully hardened, the knee was reinspected. Any other cement extrusion was removed the final range of motion testing showed range of motion from 0-130 with excellent stability, both medial and laterally and appropriate alignment of the leg. Patella tracked normally. After the cemented hardened, the tourniquet was released and hemostasis was obtained. A second gram of transexamic acid was given intravenously. The knee was again irrigated. The knee was again taken through range of motion and found to be stable throughout all range of motion of 0-130, and the patella tracked normally. The fascia was then closed with 0 Vicryl followed by #2 strata fix suture. The subcutaneous tissue was closed with 3-0 Vicryl and 3-0 strata fix. Exofin glue was used for the skin and placed with the knee in flexion. After the glue had dried, and Optafoam silver impregnated dressing was applied. A lightly compressive dressing was applied using web roll and Stevan wrap. Patient was then transferred to the stretcher and taken to recovery room in stable con dition. Sponge and needle counts were correct. The kitchen assistant NELLY Arias was required due the complexity surgery and the need for a skilled surgical elastic knitter. She assisted in positioning, draping, retraction, and closure of the wound.
--- NOTE | 2023-12-20 11:39 | XR ---
EXAMINATION TYPE: XR knee limited RT DATE OF EXAM: 12/20/2023 COMPARISON: NONE TECHNIQUE: Two views submitted HISTORY: Post op FINDINGS: There is a prosthetic knee in near anatomic alignment. There is soft tissue edema and soft tissue e mphysema. IMPRESSION: 1. Postoperative change. Appears in near-anatomic alignment
[2023-12-20] MEDS: ROPIVACAINE 1,100 MG, SODIUM CHLORIDE 0.9% 500 ML 330 ML, EMPTY PAIN BALL 1 EACH MISCELLANE PRN (11:57)
[2023-12-20 12:11] LABS: Glucose,Whole Blood 194 mg/dL (70-110)
[2023-12-20] MEDS: SCOPOLAMINE 1 MG/72 HR PATCH TRANSDERM ONE (12:36)
[2023-12-20] MEDS: SODIUM CHLORIDE 0.9% 1,000 ML IV SCH (12:36)
[2023-12-20] MEDS ORDERED: CARBOXYMETHYLCELLULOSE SODIUM BOTH EYES PRN (13:10)
[2023-12-20] MEDS ORDERED: ALBUTEROL HFA INHALER INHALATION PRN (13:10)
[2023-12-20] MEDS: [UNRECOGNIZED DRUG - OTHER] SQ SCH (13:48)
[2023-12-20] MEDS: EXENATIDE SQ SCH (13:48)
[2023-12-20] MEDS: HYDROcodone/APAP 7.5-325MG 1 EACH TAB PO PRN (13:57)
[2023-12-20] MEDS: carBAMazepine 200 MG TAB PO SCH ×2 (14:04→17:10)
--- NOTE | 2023-12-20 16:03 | P.CONS ---
History of Present Illness - Reason for Consult Consult date: 12/20/23 Medical management, status post right knee arthroplasty - History of Present Illness This is a pleasant 63-year-old male who was admitted under orthopedic services and is status post right total knee arthroplasty, postop day 0. Patient reports he follows with Dr. Brown in the outpatient setting with a past medical history of chest pain, COPD, diabetes, GERD, deafness, hyperlipidemia, hypertension, neurologic disorder, osteoarthritis, prostate disorder, thyroid cancer with thyroidectomy, extensive degenerative joint disease with chronic back and bilateral knee pain, sleep apnea uses a CPAP, ADD/ADHD, anxiety/bipolar depression PTSD. Patient reports is a former smoker and is exposed to secondhand smoke in the home with no reported alcohol and denies any other illicit drug use. Patient reports he did undergo presurgical clearance with Dr. Brown in the outpatient setting. Patient is a diabetic and will add Accu- Cheks along with sliding scale and long-acting as needed. Home medications reviewed and resumed as appropriate and will follow along with the patient. Encouraged incentive spirometer use at least 10 times every hour while awake. Will follow-up on repeat labs in the a.m. REVIEW OF SYSTEMS: CONSTITUTIONAL: No fever, no malaise, no fatigue. HEENT: No recent visual problems or hearing problems. Denied any sore throat. CARDIOVASCULAR: No chest pain, orthopnea, PND, no palpitations, no syncope. PULMONARY: No shortness of breath, no cough, no hemoptysis. GASTROINTESTINAL: No diarrhea, no nausea, no vomiting, no abdominal pain. NEUROLOGICAL: No headaches, no weakness, no numbness. HEMATOLOGICAL: Denies any bleeding or petechiae. GENITOURINARY: Denies any burning micturition, frequency, or urgency. MUSCULOSKELETAL/RHEUMATOLOGICAL: Reports some right knee pain ENDOCRINE: Denies any polyuria or polydipsia. The rest of the 14-point review of systems is negative. PHYSICAL EXAMINATION: GENERAL: The patient is alert and oriented x3, not in any acute distress. Well developed, well nourished. Obese, elderly appearing HEENT: Pupils are round and equally reacting to light. EOMI. No scleral icterus. No conjunctival pallor. Normocephalic, atraumatic. No pharyngeal erythema. No thyromegaly. CARDIOVASCULAR: S1 and S2 present. No murmurs, rubs, or gallops. PULMONARY: Chest is clear to auscultation, no wheezing or crackles. ABDOMEN: Soft, obese, nontender, nondistended, normoactive bowel sounds. No palpable organomegaly. MUSCULOSKELETAL: No joint swelling or deformity. Right knee surgical dressing is dry and intact with Stevan wrap noted to the entire right lower extremity EXTREMITIES: No cyanosis, clubbing, or pedal edema. NEUROLOGICAL: Gross neurological examination did not reveal any focal deficits. Diffusely weak SKIN: No rashes. Assessment: Osteoarthritis, status post right total knee arthroplasty History of COPD, stable, not in exacerbation Diabetes mellitus, type II, insulin-dependent Obesity with a BMI of 39.9 Hypertension history Hyperlipidemia Sleep apnea with a CPAP History of ADD/ADHD/anxiety/bipolar depression/PTSD Former smoker Chronic back and knee pain History of degenerative joint disease History of thyroid cancer with thyroidectomy GI prophylaxis DVT prophylaxis Full code Plan: Patient is status post right knee arthroplasty postop day 0 just arrived to the unit from PACU Home medications reviewed and resumed as appropriate Will continue with Accu-Cheks before meals and at bedtime along with sliding scale and will adjust medications accordingly Encourage incentive spirometer use at least 10 times every hour while awake Awaiting PT/OT therapy evaluation likely in the a.m. Will follow-up with basic labs Encourage CPAP use if brought from home with consult to respiratory We will continue to follow with orthopedics during hospitalization. Thank you kindly for this consultation. The impression and plan of care has been dictated by Little Sumner, Nurse Practitioner as directed. Dr. David MD I have performed a history and examination and MDM of this patient, discussed the same with the dictator, and agree with the dictator's assessment and plan as written ,documented as a scribe. Based on total visit time, I have performed more than 50% of the visit. Past Medical History Past Medical History: Cancer, Chest Pain / Angina, COPD, Diabetes Mellitus, GERD/Reflux, Hearing Disorder / Deafness, Hyperlipidemia, Hypertension, Musculoskeletal Disorder, Neurologic Disorder, Osteoarthritis (OA), Prostate Disorder, Sleep Apnea/CPAP/BIPAP, Thyroid Disorder, Vascular Disorder Additional Past Medical History / Comment(s): Bilateral hearing aid use. Skin disorder "from being in [place]-causes sores". Chronic venous stasis. Hx [place] Palsy- still effects left side of face. CPAP use. IDDM type II. Neuropathy bilateral lower extremities. Hypothroid- hx thyroid cancer with thyroidectomy. DJD in back and bilateral knees. Difficulty urinating, improved with Tamsulosin. History of Any Multi-Drug Resistant Organisms: None Reported, MRSA Year Discovered:: 10/31/20 MDRO Source:: MRSA TOE Past Surgical History: Joint Replacement, Tonsillectomy Additional Past Surgical History / Comment(s): Left great toe amputation, left total knee arthroplasty, bilateral eye surgery, thyroidectomy. Past Anesthesia/Blood Transfusion Reactions: Previous Problems w/ Anesthesia Additional Past Anesthesia/Blood Transfusion Reaction / Comm: "Had reaction to drainage tube-had to be knocked out-woke up swinging." Past Psychological History: ADD/ADHD, Anxiety, Bipolar, Depression, PTSD Additional Psychological History / Comment(s): ADHD, Implusive Control Disorder. Smoking Status: Former smoker, Second hand smoke exposure Past Alcohol Use History: None Reported Additional Past Alcohol Use History / Comment(s): Started smoking in 1981 and quit in 2007. Past Drug Use History: None Reported - Past Family History Father Family Medical History: Coronary Artery Disease (CAD), Diabetes Mellitus Additional Family Medical History / Comment(s): Father had CABG. Mother Family Medical History: Cancer, Diabetes Mellitus Additional Family Medical History / Comment(s): Colon cancer. Medications and Allergies Home Medications Medication Instructions Recorded Confirmed Type Insulin Degludec [Tresiba 12 unit SQ BID 07/17/17 12/16/23 History Flextouch U-200 Pen] Empagliflozin [Jardiance] 25 mg PO DAILY 10/31/20 12/16/23 History Fish Oil/Dha/Epa [Fish Oil 1,200 1 cap PO TID 10/31/20 12/16/23 History mg Fish Oil] Fluticasone Nasal [place] [Flonase 1 spr EA NOSTRIL BID 10/31/20 12/16/23 History Nasal [place]] Pentoxifylline [TRENtal] 400 mg PO BID 10/31/20 12/16/23 History Tamsulosin HCl [Flomax] 0.4 mg PO AC-SUPPER 10/31/20 12/16/23 History Testosterone [Androgel 1.62% Gel 1 pump TOPICAL BID 10/31/20 12/16/23 History Pump] Albuterol Sulfate [Proventil Hfa] 1 puff INHALATION RT-QID PRN 12/26/20 12/20/23 History Gabapentin [Neurontin] 300 mg PO BID #6 cap 12/31/20 12/16/23 Rx Folic Acid 1 mg PO DAILY #30 tab 04/15/21 12/16/23 Rx Alogliptin Benzoate [Alogliptin] 25 mg PO DAILY 05/29/21 12/20/23 History Artificial Tears Ointment 0.25 inch LEFT EYE HS 05/29/21 12/20/23 History [Lubrifresh Pm Ointment] Atorvastatin [Lipitor] 40 mg PO HS 05/29/21 12/20/23 History Carboxymethylcellulose Sodium 2 drops BOTH EYES QID PRN 05/29/21 12/16/23 History [Refresh Tears] Cholecalciferol [Vitamin D3 (25 50 mcg PO DAILY 05/29/21 12/16/23 History Mcg = 1000 Iu)] Cyanocobalamin (Vitamin B-12) 1,000 mcg PO DAILY 05/29/21 12/16/23 History [Vitamin B-12] Exenatide Microspheres [Bydureon 2 mg SQ Q7D 05/29/21 12/16/23 History Bcise Auto-Injector] Insulin Aspart [NovoLOG Flexpen] See Protocol SQ AC-TID 05/29/21 12/16/23 History Levothyroxine Sodium 300 mcg PO QAM 05/29/21 12/20/23 History Magnesium Oxide [Mag-Ox] 250 mg PO BID 05/29/21 12/16/23 History Melatonin 5 mg PO HS 05/29/21 12/16/23 History Metoprolol Tartrate [Lopressor] 50 mg PO BID 05/29/21 12/20/23 History OLANZapine 7.5 mg PO HS 05/29/21 12/16/23 History Pantoprazole [Protonix] 40 mg PO QAM 05/29/21 12/16/23 History Polyvinyl Alcohol/Povidone 1 drop BOTH EYES 5XD 05/29/21 12/16/23 History [[place] Eye Drop] SILVER sulfADIAZINE Cream 1 applic TOPICAL DAILY 05/29/21 12/16/23 History [Silvadene 1% Cream] Valsartan 320 mg PO QAM 05/29/21 12/16/23 History Vitamin E (Dl,Tocopheryl Acet) 400 unit PO DAILY 05/29/21 12/16/23 History [Vitamin E (400 Iu = 180 mg)] carBAMazepine [TEGretol] 200 mg PO QAM 05/29/21 12/16/23 History carBAMazepine [TEGretol] 400 mg PO BID@1700,2100 05/29/21 12/16/23 History diphenhydrAMINE [Benadryl] 25 mg PO QID 05/29/21 12/16/23 History hydroCHLOROthiazide [Hydrodiuril] 25 mg PO BID 05/29/21 12/16/23 History metFORMIN HCL [Glucophage] 1,000 mg PO BID 05/29/21 12/16/23 History Thiamine [Vitamin B-1] 100 mg PO DAILY #30 tablet 06/02/21 12/16/23 Rx Acetaminophen Tab [Tylenol Tab] 1,000 mg PO Q6HR PRN 12/16/23 12/20/23 History Aspirin [Adult Low Dose Aspirin EC] 81 mg PO DAILY 12/16/23 12/16/23 History Aspirin 325 mg PO BID #60 tab 12/20/23 Rx HYDROcodone/APAP 7.5-325MG [[place] 1 - 2 tab PO Q6H PRN #32 tab 12/20/23 Rx 7.5-325] Sennosides [Senokot] 2 tab PO DAILY PRN #60 tablet 12/20/23 Rx Allergies Allergy/AdvReac Type Severity Reaction Status Date / Time codeine phosphate Allergy Dyspnea Verified 12/20/23 07:30 [From Tylenol-Codeine] levofloxacin [From Levaquin] Allergy Anaphylaxis Verified 12/20/23 07:30 Penicillins Allergy Rash/Hives Verified 12/20/23 07:30 quetiapine Allergy headache Verified 12/20/23 07:30 guaifenesin AdvReac dehydration Verified 12/20/23 07:30 meperidine HCl [From Demerol] AdvReac "altered Verified 12/20/23 07:30 state of mind" olanzapine AdvReac > 7.6 mg Verified 12/20/23 07:30 causes sleepiness phenylephrine AdvReac dehydration Verified 12/20/23 07:30 pseudoephedrine AdvReac Unknown Verified 12/20/23 07:30 [From Entex T] topiramate AdvReac Dehydration Verified 12/20/23 07:30 and Manic wool AdvReac Urticarial Verified 12/20/23 07:30 gin AdvReac Headache Uncoded 12/20/23 07:30 Physical Exam Vitals: Vital Signs Temp Pulse Resp BP Pulse Ox 12/20/23 13:03 97.8 F 68 17 126/77 97 12/20/23 12:30 69 17 135/82 96 12/20/23 12:17 59 L 17 141/79 92 L 12/20/23 12:02 70 16 137/79 95 12/20/23 11:47 60 20 141/72 100 12/20/23 11:32 61 16 124/61 94 L 12/20/23 11:17 97.7 F 73 16 113/63 99 12/20/23 08:46 73 16 133/63 98 12/20/23 07:36 97.0 F L 74 16 129/66 97 Intake and Output 12/19/23 12/20/23 12/20/23 22:59 06:59 14:59 Intake Total 1351 Output Total 30 Balance 1321 Intake: IV 1351 Output: Estimated Blood Loss 30 Other: Weight 119 kg Results Labs: Abnormal Lab Results - Last 24 Hours (Table) 12/20/23 12/20/23 Range/Units 07:39 11:59 POC Glucose (mg/dL) 180 H 194 H (70-110) mg/dL
[2023-12-20 16:20] LABS: Glucose,Whole Blood 211 mg/dL (70-110)
[2023-12-20] MEDS: TAMSULOSIN 0.4 MG CAP.ER.24H PO SCH (17:10)
[2023-12-20 20:08] LABS: Glucose,Whole Blood 188 mg/dL (70-110)
[2023-12-20] MEDS: ATORVASTATIN 40 MG TAB PO SCH (20:33)
[2023-12-20] MEDS: ASPIRIN 325 MG TAB PO SCH (20:33)
[2023-12-20] MEDS: MELATONIN 5 MG TABLET PO SCH (20:33)
[2023-12-20] MEDS: OLANZapine 7.5 MG TAB PO SCH (20:33)
[2023-12-20] MEDS: SENNOSIDES-DOCUSATE SODIUM 1 EACH TAB PO SCH (20:34)
[2023-12-20] MEDS: METOPROLOL TARTRATE 50 MG TAB PO SCH (20:34)
[2023-12-20] MEDS: ARTIFICIAL TEARS OINTMENT 3.5 GM TUBE LEFT EYE SCH (20:34)
[2023-12-20] MEDS: INSULIN DETEMIR (LEVEMIR) 100 UNIT/ML SYR SQ SCH (20:34)
[2023-12-20] MEDS: GABAPENTIN 300 MG CAP PO SCH (20:34)
[2023-12-21 06:25] LABS: Glucose,Whole Blood 202 mg/dL (70-110)
[2023-12-21] MEDS: PANTOPRAZOLE 40 MG TABLET PO SCH (06:33)
[2023-12-21] MEDS: VALSARTAN 160 MG TAB PO SCH (08:03)
[2023-12-21] MEDS: LINAGLIPTIN 5 MG TABLET PO SCH (08:03)
[2023-12-21] MEDS: DAPAGLIFLOZIN PROPANEDIOL 10 MG TABLET PO SCH (08:03)
[2023-12-21] MEDS: FOLIC ACID 1 MG TAB PO SCH (08:03)
[2023-12-21] MEDS: THIAMINE 100 MG TAB PO SCH (08:03)
[2023-12-21] MEDS: LEVOTHYROXINE 100 MCG TAB PO SCH (08:03)
--- NOTE | 2023-12-21 08:32 | P.PN ---
Progress Note - Text Progress Note Date: 12/21/23 Postoperative day # 1 status post total knee arthroplasty, and adductor canal catheter placed for postoperative analgesia, currently at ropivacaine 0.2% 8 mL per hour and continuous infusion, visual analogue scale is 4/10, patient using oral pain medication for breakthrough pain. Assessment and plan= Acute postoperative pain, adductor canal catheter for pain control, pain is well controlled we'll continue the same management.
--- NOTE | 2023-12-21 09:56 | P.PN ---
Subjective Progress Note Date: 12/21/23 This is a 63-year-old male who is status post right total knee arthroplasty. This is postoperative day #1 and patient is seen and evaluated at bedside today along with Dr. Hector Simmons. Patient states that he is groggy and sleepy this morning. Patient does not complain of pain today. Patient kept his eyes closed while being seen and evaluated at bedside, but was able to answer questions correctly and respond to commands. Objective - Vital Signs Vital signs: Vital Signs Temp 99.8 F H 12/21/23 01:24 Pulse 89 12/21/23 01:24 Resp 16 12/21/23 01:24 BP 109/66 12/21/23 01:24 Pulse Ox 92 L 12/21/23 01:24 FiO2 Intake & Output 12/20/23 12/21/23 12/21/23 18:59 06:59 18:59 Intake Total 1351 Output Total 1305 800 Balance 46 -800 Weight 119 kg Intake: IV 1351 Output: Urine 1275 800 Straight 625 Estimated Blood Loss 30 Other: Voiding Method Toilet - Exam Vital signs are stable. Patient is in no acute distress and is alert, but drowsy. Oriented 3. Calf is soft and nontender to palpation. Dressing is clean, dry, and intact. Patient has full foot and ankle motion without pain or difficulty. Sensation intact. Neurovascular status and circulatory status are intact. - Labs Labs: Abnormal Lab Results - Last 24 Hours (Table) 12/20/23 12/20/23 12/20/23 Range/Units 11:59 16:18 20:05 POC Glucose (mg/dL) 194 H 211 H 188 H (70-110) mg/dL 12/21/23 Range/Units 06:16 POC Glucose (mg/dL) 202 H (70-110) mg/dL Assessment and Plan (1) Osteoarthritis of right knee Current Visit: Yes Status: Acute Code(s): M17.11 - UNILATERAL PRIMARY OSTEOARTHRITIS, RIGHT KNEE SNOMED Code(s): 174387656498758 (2) S/P total knee arthroplasty Current Visit: Yes Status: Acute Code(s): Z96.659 - PRESENCE OF UNSPECIFIED ARTIFICIAL KNEE JOINT SNOMED Code(s): 1163816568398 Plan: #1 Continue with routine postoperative care and pain control, leave dressing in place for 7 days. Pain medicine has been decreased due to the patient's excessive tiredness. #2 Anticoagulation with aspirin. #3 Physical therapy later today once the patient is more awake. #4 Appreciate input from internal medicine. #5 Anticipate discharge home with home care or to ECF in the next 24-48 hours.
[2023-12-21] MEDS: ASPIRIN 81 MG PO SCH (10:45)
[2023-12-21 11:47] LABS: Glucose,Whole Blood 296 mg/dL (70-110)
--- NOTE | 2023-12-21 13:10 | P.DS ---
Providers Expected date of discharge: 12/21/23 Attending physician: Hector Simmons Consults: 12/20/23 08:42 Consult Physician Routine Consulting Provider: Russell Thompson Consult Reason/Comments: medical management Do you want consulting provider notified?: Yes Primary care physician: Tati Dacosta - Discharge Diagnosis(es) (1) Osteoarthritis of right knee Current Visit: Yes Status: Acute (2) S/P total knee arthroplasty Current Visit: Yes Status: Acute Hospital Course: This is a 63-year-old male with known history of degenerative arthritis of the right knee. The patient presented for evaluation as an outpatient. After discussion and consideration patient elects to proceed with total knee arthroplasty. The patient is seen preoperatively by Dr. Simmons and medically cleared for surgery by their primary care physician. Patient is admitted to [facility] on 12/20/2023 for total knee arthroplasty. The procedure is performed without complication or sequelae. The patient is doing well postoperatively. Labs and vital signs are stable on day of discharge. On day of discharge patient's knee incision is healing well. There is minimal erythema. There is no drainage noted at this time. There is minimal soft tissue swelling to the knee. Patient has full foot and ankle motion without difficulty or pain. Calf is soft and nontender to palpation. Neurovascular status to the right lower extremity is intact. Patient is discharged home in good condition. Please see med rec for accurate list of home medications. Plan - Discharge Summary Discharge Rx Participant: No New Discharge Prescriptions: New Aspirin 325 mg PO BID #60 tab HYDROcodone/APAP 7.5-325MG [[place] 7.5-325] 1 - 2 tab PO Q6H PRN #32 tab PRN Reason: Pain Sennosides [Senokot] 2 tab PO DAILY PRN #60 tablet PRN Reason: Constipation No Action Insulin Degludec [Tresiba Flextouch U-200 Pen] 12 unit SQ BID Testosterone [Androgel 1.62% Gel Pump] 1 pump TOPICAL BID Empagliflozin [Jardiance] 25 mg PO DAILY Fish Oil/Dha/Epa [Fish Oil 1,200 mg Fish Oil] 1 cap PO TID Fluticasone Nasal [place] [Flonase Nasal [place]] 1 spr EA NOSTRIL BID Pentoxifylline [TRENtal] 400 mg PO BID Tamsulosin HCl [Flomax] 0.4 mg PO AC-SUPPER Folic Acid 1 mg PO DAILY #30 tab Polyvinyl Alcohol/Povidone [[place] Eye Drop] 1 drop BOTH EYES 5XD Melatonin 5 mg PO HS Artificial Tears Ointment [Lubrifresh Pm Ointment] 0.25 inch LEFT EYE HS Insulin Aspart [NovoLOG Flexpen] See Protocol SQ AC-TID diphenhydrAMINE [Benadryl] 25 mg PO QID Cyanocobalamin (Vitamin B-12) [Vitamin B-12] 1,000 mcg PO DAILY Alogliptin Benzoate [Alogliptin] 25 mg PO DAILY carBAMazepine [TEGretol] 400 mg PO BID@1700,2100 Levothyroxine Sodium 300 mcg PO QAM metFORMIN HCL [Glucophage] 1,000 mg PO BID SILVER sulfADIAZINE Cream [Silvadene 1% Cream] 1 applic TOPICAL DAILY Thiamine [Vitamin B-1] 100 mg PO DAILY #30 tablet Acetaminophen Tab [Tylenol Tab] 1,000 mg PO Q6HR PRN PRN Reason: Pain Albuterol Sulfate [Proventil Hfa] 1 puff INHALATION RT-QID PRN PRN Reason: Shortness Of Breath Gabapentin [Neurontin] 300 mg PO BID #6 cap Vitamin E (Dl,Tocopheryl Acet) [Vitamin E (400 Iu = 180 mg)] 400 unit PO DAILY Valsartan 320 mg PO QAM Magnesium Oxide [Mag-Ox] 250 mg PO BID Cholecalciferol [Vitamin D3 (25 Mcg = 1000 Iu)] 50 mcg PO DAILY Carboxymethylcellulose Sodium [Refresh Tears] 2 drops BOTH EYES QID PRN PRN Reason: Dry Eye(S) hydroCHLOROthiazide [Hydrodiuril] 25 mg PO BID OLANZapine 7.5 mg PO HS Metoprolol Tartrate [Lopressor] 50 mg PO BID Exenatide Microspheres [Bydureon Bcise Auto-Injector] 2 mg SQ Q7D Atorvastatin [Lipitor] 40 mg PO HS carBAMazepine [TEGretol] 200 mg PO QAM Pantoprazole [Protonix] 40 mg PO QAM Aspirin [Adult Low Dose Aspirin EC] 81 mg PO DAILY Discharge Medication List Insulin Degludec [Tresiba Flextouch U-200 Pen] 12 unit SQ BID 07/17/17 [History] Empagliflozin [Jardiance] 25 mg PO DAILY 10/31/20 [History] Fish Oil/Dha/Epa [Fish Oil 1,200 mg Fish Oil] 1 cap PO TID 10/31/20 [History] Fluticasone Nasal [place] [Flonase Nasal [place]] 1 spr EA NOSTRIL BID 10/31/20 [History] Pentoxifylline [TRENtal] 400 mg PO BID 10/31/20 [History] Tamsulosin HCl [Flomax] 0.4 mg PO AC-SUPPER 10/31/20 [History] Testosterone [Androgel 1.62% Gel Pump] 1 pump TOPICAL BID 10/31/20 [History] Albuterol Sulfate [Proventil Hfa] 1 puff INHALATION RT-QID PRN 12/26/20 [History] Gabapentin [Neurontin] 300 mg PO BID #6 cap 12/31/20 [Rx] Folic Acid 1 mg PO DAILY #30 tab 04/15/21 [Rx] Alogliptin Benzoate [Alogliptin] 25 mg PO DAILY 05/29/21 [History] Artificial Tears Ointment [Lubrifresh Pm Ointment] 0.25 inch LEFT EYE HS 05/29/21 [History] Atorvastatin [Lipitor] 40 mg PO HS 05/29/21 [History] Carboxymethylcellulose Sodium [Refresh Tears] 2 drops BOTH EYES QID PRN 05/29/21 [History] Cholecalciferol [Vitamin D3 (25 Mcg = 1000 Iu)] 50 mcg PO DAILY 05/29/21 [History] Cyanocobalamin (Vitamin B-12) [Vitamin B-12] 1,000 mcg PO DAILY 05/29/21 [History] Exenatide Microspheres [Bydureon Bcise Auto-Injector] 2 mg SQ Q7D 05/29/21 [History] Insulin Aspart [NovoLOG Flexpen] See Protocol SQ AC-TID 05/29/21 [History] Levothyroxine Sodium 300 mcg PO QAM 05/29/21 [History] Magnesium Oxide [Mag-Ox] 250 mg PO BID 05/29/21 [History] Melatonin 5 mg PO HS 05/29/21 [History] Metoprolol Tartrate [Lopressor] 50 mg PO BID 05/29/21 [History] OLANZapine 7.5 mg PO HS 05/29/21 [History] Pantoprazole [Protonix] 40 mg PO QAM 05/29/21 [History] Polyvinyl Alcohol/Povidone [[place] Eye Drop] 1 drop BOTH EYES 5XD 05/29/21 [History] SILVER sulfADIAZINE Cream [Silvadene 1% Cream] 1 applic TOPICAL DAILY 05/29/21 [History] Valsartan 320 mg PO QAM 05/29/21 [History] Vitamin E (Dl,Tocopheryl Acet) [Vitamin E (400 Iu = 180 mg)] 400 unit PO DAILY 05/29/21 [History] carBAMazepine [TEGretol] 200 mg PO QAM 05/29/21 [History] carBAMazepine [TEGretol] 400 mg PO BID@1700,2100 05/29/21 [History] diphenhydrAMINE [Benadryl] 25 mg PO QID 05/29/21 [History] hydroCHLOROthiazide [Hydrodiuril] 25 mg PO BID 05/29/21 [History] metFORMIN HCL [Glucophage] 1,000 mg PO BID 05/29/21 [History] Thiamine [Vitamin B-1] 100 mg PO DAILY #30 tablet 06/02/21 [Rx] Acetaminophen Tab [Tylenol Tab] 1,000 mg PO Q6HR PRN 12/16/23 [History] Aspirin [Adult Low Dose Aspirin EC] 81 mg PO DAILY 12/16/23 [History] Aspirin 325 mg PO BID #60 tab 12/20/23 [Rx] HYDROcodone/APAP 7.5-325MG [[place] 7.5-325] 1 - 2 tab PO Q6H PRN #32 tab 12/20/23 [Rx] Sennosides [Senokot] 2 tab PO DAILY PRN #60 tablet 12/20/23 [Rx] Follow up Appointment(s)/Referral(s): [facility] - As Needed [facility] [NON-STAFF] - As Needed (Continuous Passive Motion knee machine) Hector Simmons DO [Doctor of Osteopathic Medicine] - 01/09/24 2:30 pm [facility],Clinic [REFERRING] - 1 Week Activity/Diet/Wound Care/Special Instructions: Weightbearing as tolerated with a walker. CPM 5-6h daily as tolerated. Leave dressing intact. Dressing may be removed by home care nurse or by patient in 7 days. Then change dressing twice daily until follow up. May shower with initial dressing intact and after removal. If dressing become saturated, please remove. Recommend use of compression stockings daily until follow up to help prevent swelling and blood clots. May remove at night before sleeping. Please take aspirin 325mg twice daily for 30 days to prevent blood clots. Please follow up with [facility] and call with any questions or concerns, . Discharge Disposition: HOME WITH HOME HEALTH SERVICES
[2023-12-21 15:43] LABS: Basophils # (A) 0.02 X 10*3/uL (0.00-0.10); Basophils % (A) 0.2 %; Eosinophils # (A) 0.06 X 10*3/uL (0.04-0.35); Eosinophils % (A) 0.7 %; HCT 40.8 % (39.6-50.0); HGB 13.3 g/dL (13.0-17.0); Lymphocytes % (A) 15.1 %; MCH 29.9 pg (27.0-32.0); MCHC 32.6 g/dL (32.0-37.0); MCV 91.7 FL (80.0-97.0); Monocytes # (A) 1.46 X 10*3/uL (0.20-1.00); Monocytes % (A) 16.9 %; NRBC Per 100 WBC 0 X 10*3/uL (0.00-0.01); Neutrophils # (A) 5.76 X 10*3/uL (1.80-7.70); Neutrophils % (A) 66.8 %; Platelet Count 188 X 10*3/uL (140-440); RBC 4.45 X 10*6/uL (4.40-5.60); RDW 12.9 % (11.5-14.5); WBC 8.63 X 10*3/uL (4.50-10.00)
[2023-12-21 15:53] LABS: ALT 13 U/L (10-49); AST 18 U/L (14-35); Albumin 3.6 g/dL (3.8-4.9); Albumin/Globulin Ratio 1.57 Ratio (1.60-3.17); Alkaline Phosphatase 55 U/L (41-126); BUN/Creat Ratio 20.67 Ratio (12.00-20.00); Blood Urea Nitrogen 24.8 mg/dL (9.0-27.0); Calcium 8.8 mg/dL (8.7-10.3); Chloride 100 mmol/L (96-109); Globulin 2.3 g/dL (1.6-3.3); Glucose 236 mg/dL (70-110); Magnesium 1.7 mg/dL (1.5-2.4); Potassium 4.3 mmol/L (3.5-5.5); Sodium 134 mmol/L (135-145); Total Bilirubin 0.5 mg/dL (0.3-1.2); Total Protein 5.9 g/dL (6.2-8.2)
[2023-12-21] MEDS: HYDROcodone/APAP 5-325MG 1 EACH TAB PO PRN (16:03)
[2023-12-21 17:06] LABS: Glucose,Whole Blood 314 mg/dL (70-110)
[2023-12-21 21:08] LABS: Glucose,Whole Blood 314 mg/dL (70-110)
[2023-12-22] MEDS ORDERED: Magnesium Replacement Protocol 1 EACH MISC MISCELLANE PRN (05:34)
[2023-12-22 05:50] LABS: Glucose,Whole Blood 270 mg/dL (70-110)
--- NOTE | 2023-12-22 06:11 | P.PN ---
Subjective Progress Note Date: 12/21/23 - Reason for Consult Consult date: 12/20/23 Medical management, status post right knee arthroplasty - History of Present Illness This is a pleasant 63-year-old male who was admitted under orthopedic services and is status post right total knee arthroplasty, postop day 0. Patient reports he follows with Dr. Brown in the outpatient setting with a past medical history of chest pain, COPD, diabetes, GERD, deafness, hyperlipidemia, hyp ertension, neurologic disorder, osteoarthritis, prostate disorder, thyroid cancer with thyroidectomy, extensive degenerative joint disease with chronic back and bilateral knee pain, sleep apnea uses a CPAP, ADD/ADHD, anxiety/bipolar depression PTSD. Patient reports is a former smoker and is exposed to secondhand smoke in the home with no reported alcohol and denies any other illicit drug use. Patient reports he did undergo presurgical clearance with Dr. Brown in the outpatient setting. Patient is a diabetic and will add Accu- Cheks along with sliding scale and long-acting as needed. Home medications reviewed and resumed as appropriate and will follow along with the patient. Encouraged incentive spirometer use at least 10 times every hour while awake. Will follow-up on repeat labs in the a.m. 12/21/2023 Patient is seen in follow-up today status post right total knee arthroplasty tiffany iting work with physical therapy. Patient appears groggy and somewhat lethargic today. Pain medications being adjusted and recommend limiting narcotic use and avoiding IV Dilaudid if possible. Home medications reviewed and resumed as appropriate. Blood sugars elevated and uncontrolled and will adjust insulins and continue with long-acting. Increase the dose. Encouraged to increase activity as tolerated with continued incentive spirometer use. Review of systems: Constitutional: reports of fatigue, no fever, or chills Cardiovascular: No reports of chest pain or palpitations Respiratory: No reports of shortness of breath or cough GI: No reports of nausea, vomiting, or diarrhea, reports passing gas with no bowel movement as of yet : No reports of dysuria or retention Neurovascular: reports of generalized weakness All medications have been reviewed PHYSICAL EXAMINATION: GENERAL: The patient is lethargic although easily arousable, alert and oriented x3, not in any acute distress. Well developed, well nourished. Obese, elderly appearing HEENT: Pupils are round and equally reacting to light. EOMI. No scleral icterus. No conjunctival pallor. Normocephalic, atraumatic. No pharyngeal erythema. No thyromegaly. CARDIOVASCULAR: S1 and S2 muffled PULMONARY: Diminished breath sounds bilaterally otherwise chest is clear to auscultation, no wheezing or crackles. ABDOMEN: Soft, obese, nontender, nondistended, normoactive bowel sounds. No palpable organomegaly. MUSCULOSKELETAL: No joint swelling or deformity. Right knee surgical dressing is dry and intact with Stevan wrap noted to the entire right lower extremity EXTREMITIES: No cyanosis, clubbing, or pedal edema. NEUROLOGICAL: Gross neurological examination did not reveal any focal deficits. Diffusely weak SKIN: No rashes. Assessment: Osteoarthritis, status post right total knee arthroplasty History of COPD, stable, not in exacerbation Diabetes mellitus, type II, insulin-dependent, uncontrolled with hyperglycemia Obesity with a BMI of 39.9 Hypertension history Hyperlipidemia Sleep apnea with a CPAP History of ADD/ADHD/anxiety/bipolar depression/PTSD Former smoker Chronic back and knee pain History of degenerative joint disease History of thyroid cancer with thyroidectomy GI prophylaxis DVT prophylaxis Full code Plan: Patient is status post right knee arthroplasty and somewhat groggy today. Recommend limiting IV narcotics and medications are being adjusted per orthopedics Will be monitored overnight with possible discharge in the next 24 hours Home medications reviewed and resumed as appropriate Will continue with Accu-Cheks before meals and at bedtime along with sliding scale and will adjust long-acting as blood sugars are elevated Encourage incentive spirometer use at least 10 times every hour while awake Awaiting PT/OT therapy evaluation this afternoon as patient was groggy this morning Encourage CPAP use We will continue to follow with orthopedics during hospitalization. Thank you kindly for this consultation. The impression and plan of care has been dictated by Little Sumner, Nurse Practitioner as directed. Dr. David MD I have performed a history and examination and MDM of this patient, discussed the same with the dictator, and agree with the dictator's assessment and plan as written ,documented as a scribe. Based on total visit time, I have performed more than 50% of the visit. Objective - Vital Signs Vital signs: Vital Signs Temp 99.8 F H 12/21/23 01:24 Pulse 89 12/21/23 01:24 Resp 16 12/21/23 01:24 BP 109/66 12/21/23 01:24 Pulse Ox 92 L 12/21/23 01:24 FiO2 Intake & Output 12/20/23 12/21/23 12/21/23 18:59 06:59 18:59 Intake Total 1351 Output Total 1305 800 Balance 46 -800 Weight 119 kg Intake: IV 1351 Output: Urine 1275 800 Straight 625 Estimated Blood Loss 30 Other: Voiding Method Toilet - Labs CBC & Chem 7: 12/21/23 09:00 12/21/23 09:00 Labs: Abnormal Lab Results - Last 24 Hours (Table) 12/20/23 12/20/23 12/20/23 Range/Units 11:59 16:18 20:05 POC Glucose (mg/dL) 194 H 211 H 188 H (70-110) mg/dL 12/21/23 Range/Units 06:16 POC Glucose (mg/dL) 202 H (70-110) mg/dL
[2023-12-22] MEDS: MAGNESIUM SULFATE-D5W PMX 1 GM in DEXTROSE/WATER 1 100ML.BAG IVPB ONE (06:15)
[2023-12-22] MEDS: INSULIN DETEMIR (LEVEMIR) 100 UNIT/ML SYR SQ SCH (06:16)
--- NOTE | 2023-12-22 09:20 | P.PN ---
Subjective Progress Note Date: 12/22/23 This is a 63-year-old male who is status post right total knee arthroplasty. This is postoperative day #2 and patient is seen and evaluated at bedside today. Patient states that he had difficulty with physical therapy and is now considering inpatient rehab. Patient denies any new complaints today. Objective - Vital Signs Vital signs: Vital Signs Temp 97.5 F L 12/22/23 02:00 Pulse 66 12/22/23 07:13 Resp 16 12/22/23 07:13 BP 94/51 12/22/23 07:13 Pulse Ox 95 12/22/23 07:13 FiO2 Intake & Output 12/21/23 12/22/23 12/22/23 18:59 06:59 18:59 Intake Total 480 Output Total 525 Balance 480 -525 Intake: Oral 480 Output: Urine 525 Other: Voiding Method Toilet # Voids 1 - Exam Vital signs are stable. Patient is in no acute distress and is alert and oriented 3. Calf is soft and nontender to palpation. Dressing is clean, dry, and intact. Patient has full foot and ankle motion without pain or difficulty. Sensation intact. Neurovascular status and circulatory status are intact. - Labs CBC & Chem 7: 12/21/23 09:00 12/21/23 09:00 Labs: Abnormal Lab Results - Last 24 Hours (Table) 12/21/23 12/21/23 12/21/23 Range/Units 09:00 09:00 11:46 Monocytes # 1.46 H (0.20-1.00) X 10*3/uL Sodium 134 L (135-145) mmol/L Carbon Dioxide 21.0 L (21.6-31.8) mmol/L Anion Gap 13.00 H (4.00-12.00) mmol/L BUN/Creatinine Ratio 20.67 H (12.00-20.00) Ratio Glucose 236 H (70-110) mg/dL POC Glucose (mg/dL) 296 H (70-110) mg/dL Total Protein 5.9 L (6.2-8.2) g/dL Albumin 3.6 L (3.8-4.9) g/dL Albumin/Globulin Ratio 1.57 L (1.60-3.17) Ratio 12/21/23 12/21/23 12/22/23 Range/Units 17:04 21:02 05:48 Monocytes # (0.20-1.00) X 10*3/uL Sodium (135-145) mmol/L Carbon Dioxide (21.6-31.8) mmol/L Anion Gap (4.00-12.00) mmol/L BUN/Creatinine Ratio (12.00-20.00) Ratio Glucose (70-110) mg/dL POC Glucose (mg/dL) 314 H 314 H 270 H (70-110) mg/dL Total Protein (6.2-8.2) g/dL Albumin (3.8-4.9) g/dL Albumin/Globulin Ratio (1.60-3.17) Ratio Assessment and Plan (1) Osteoarthritis of right knee Current Visit: Yes Status: Acute Code(s): M17.11 - UNILATERAL PRIMARY OSTEOARTHRITIS, RIGHT KNEE SNOMED Code(s): 546871840661827 (2) S/P total knee arthroplasty Current Visit: Yes Status: Acute Code(s): Z96.659 - PRESENCE OF UNSPECIFIED ARTIFICIAL KNEE JOINT SNOMED Code(s): 7210956230941 Plan: #1 Continue with routine postoperative care and pain control, leave dressing in place for 7 days. #2 Anticoagulation with aspirin. #3 Physical therapy today. #4 Appreciate input from internal medicine. #5 Anticipate discharge to ECF in the next 24-48 hours.
[2023-12-22 11:51] LABS: Glucose,Whole Blood 205 mg/dL (70-110)
--- NOTE | 2023-12-22 15:19 | P.PN ---
Subjective Progress Note Date: 12/22/23 - Reason for Consult Consult date: 12/20/23 Medical management, status post right knee arthroplasty - History of Present Illness This is a pleasant 63-year-old male who was admitted under orthopedic services and is status post right total knee arthroplasty, postop day 0. Patient reports he follows with Dr. Brown in the outpatient setting with a past medical history of chest pain, COPD, diabetes, GERD, deafness, hyperlipidemia, hyp ertension, neurologic disorder, osteoarthritis, prostate disorder, thyroid cancer with thyroidectomy, extensive degenerative joint disease with chronic back and bilateral knee pain, sleep apnea uses a CPAP, ADD/ADHD, anxiety/bipolar depression PTSD. Patient reports is a former smoker and is exposed to secondhand smoke in the home with no reported alcohol and denies any other illicit drug use. Patient reports he did undergo presurgical clearance with Dr. Brown in the outpatient setting. Patient is a diabetic and will add Accu- Cheks along with sliding scale and long-acting as needed. Home medications reviewed and resumed as appropriate and will follow along with the patient. Encouraged incentive spirometer use at least 10 times every hour while awake. Will follow-up on repeat labs in the a.m. 12/21/2023 Patient is seen in follow-up today status post right total knee arthroplasty tiffany iting work with physical therapy. Patient appears groggy and somewhat lethargic today. Pain medications being adjusted and recommend limiting narcotic use and avoiding IV Dilaudid if possible. Home medications reviewed and resumed as appropriate. Blood sugars elevated and uncontrolled and will adjust insulins and continue with long-acting. Increase the dose. Encouraged to increase activity as tolerated with continued incentive spirometer use. 12/22/2023 Patient is seen in follow-up today having difficulty working with physical therapy looking into possible ECF versus inpatient rehab. Orthopedics following and patient is medically stable once ECF and authorization is obtained. Patient's blood sugars remain uncontrolled and will continue to monitor and have adjusted the long-acting. Encouraged incentive spirometer use at least 10 times every hour while awake. Patient is using CPAP at night and will continue. Patient is afebrile with no reports of chest pain or shortness of breath. Patient reports continued pain in the right knee and will continue current regimen. Continue to avoid Dilaudid if possible. Review of systems: Constitutional: reports of fatigue, no fever, or chills Cardiovascular: No reports of chest pain or palpitations Respiratory: No reports of shortness of breath or cough GI: No reports of nausea, vomiting, or diarrhea, reports passing gas with no bow el movement as of yet : No reports of dysuria or retention Neurovascular: reports of generalized weakness All medications have been reviewed PHYSICAL EXAMINATION: GENERAL: The patient is slightly more awake today, alert and oriented x3, not in any acute distress. Well developed, well nourished. Obese, elderly appearing HEENT: Pupils are round and equally reacting to light. EOMI. No scleral icterus. No conjunctival pallor. Normocephalic, atraumatic. No pharyngeal erythema. No thyromegaly. CARDIOVASCULAR: S1 and S2 muffled PULMONARY: Diminished breath sounds bilaterally otherwise chest is clear to auscultation, no wheezing or crackles. ABDOMEN: Soft, obese, nontender, nondistended, normoactive bowel sounds. No palpable organomegaly. MUSCULOSKELETAL: No joint swelling or deformity. Right knee surgical dressing is dry and intact with Tsevan wrap noted to the entire right lower extremity EXTREMITIES: No cyanosis, clubbing, or pedal edema. NEUROLOGICAL: Gross neurological examination did not reveal any focal deficits. Diffusely weak SKIN: No rashes. Assessment: Osteoarthritis, status post right total knee arthroplasty History of COPD, stable, not in exacerbation Diabetes mellitus, type II, insulin-dependent, uncontrolled with hyperglycemia Obesity with a BMI of 39.9 Gait dysfunction and generalized weakness Hypertension history Hyperlipidemia Sleep apnea with a CPAP History of ADD/ADHD/anxiety/bipolar depression/PTSD Former smoker Chronic back and knee pain History of degenerative joint disease History of thyroid cancer with thyroidectomy GI prophylaxis DVT prophylaxis Full code Plan: Patient is status post right knee arthroplasty and more awake today. Recommend limiting IV narcotics and medications are being adjusted per orthopedics No acute overnight issues noted. Patient had difficulty working with physical therapy due to pain and weakness and is planning on possible ECF. Case management following working on discharge planning and will require insurance authorization Home medications reviewed and resumed as appropriate Will continue with Accu-Cheks before meals and at bedtime along with sliding scale and continue to adjust long-acting as blood sugars are elevated Encourage incentive spirometer use at least 10 times every hour while awake Encourage CPAP use Patient is medically stable for discharge to ECF once insurance authorization is obtained. We will continue to follow with orthopedics during hospitalization. Thank you kindly for this consultation. The impression and plan of care has been dictated by Little Sumner, Nurse Practitioner as directed. Dr. David MD I have performed a history and examination and MDM of this patient, discussed the same with the dictator, and agree with the dictator's assessment and plan as written ,documented as a scribe. Based on total visit time, I have performed more than 50% of the visit. Objective - Vital Signs Vital signs: Vital Signs Temp 97.5 F L 12/22/23 02:00 Pulse 66 12/22/23 07:13 Resp 16 12/22/23 07:13 BP 94/51 12/22/23 07:13 Pulse Ox 95 12/22/23 07:13 FiO2 Intake & Output 12/21/23 12/22/23 12/22/23 18:59 06:59 18:59 Intake Total 480 Output Total 525 Balance 480 -525 Intake: Oral 480 Output: Urine 525 Other: Voiding Method Toilet # Voids 1 - Labs CBC & Chem 7: 12/21/23 09:00 12/21/23 09:00 Labs: Abnormal Lab Results - Last 24 Hours (Table) 12/21/23 12/21/23 12/21/23 Range/Units 09:00 09:00 11:46 Monocytes # 1.46 H (0.20-1.00) X 10*3/uL Sodium 134 L (135-145) mmol/L Carbon Dioxide 21.0 L (21.6-31.8) mmol/L Anion Gap 13.00 H (4.00-12.00) mmol/L BUN/Creatinine Ratio 20.67 H (12.00-20.00) Ratio Glucose 236 H (70-110) mg/dL POC Glucose (mg/dL) 296 H (70-110) mg/dL Total Protein 5.9 L (6.2-8.2) g/dL Albumin 3.6 L (3.8-4.9) g/dL Albumin/Globulin Ratio 1.57 L (1.60-3.17) Ratio 12/21/23 12/21/23 12/22/23 Range/Units 17:04 21:02 05:48 Monocytes # (0.20-1.00) X 10*3/uL Sodium (135-145) mmol/L Carbon Dioxide (21.6-31.8) mmol/L Anion Gap (4.00-12.00) mmol/L BUN/Creatinine Ratio (12.00-20.00) Ratio Glucose (70-110) mg/dL POC Glucose (mg/dL) 314 H 314 H 270 H (70-110) mg/dL Total Protein (6.2-8.2) g/dL Albumin (3.8-4.9) g/dL Albumin/Globulin Ratio (1.60-3.17) Ratio
[2023-12-22 16:35] LABS: Glucose,Whole Blood 215 mg/dL (70-110)
[2023-12-22 22:40] LABS: Glucose,Whole Blood 191 mg/dL (70-110)
--- NOTE | 2023-12-23 08:59 | P.PN ---
Subjective Progress Note Date: 12/23/23 Principal diagnosis: Status post right total knee arthroplasty This is a 63 year-old male post right total knee arthroplasty. This is post-op day 3. The patient was evaluated in the recliner chair at the bedside today. The patient denies nausea, vomiting, abdominal pain, chest pain, or shortness of breath this morning. He states her pain is controlled at this time. The pat ient has been up with physical therapy. We awaiting skilled rehab placement. Objective - Vital Signs Vital signs: Vital Signs Temp 100.2 F H 12/23/23 01:45 Pulse 47 L 12/23/23 07:52 Resp 20 12/23/23 07:52 BP 135/45 12/23/23 01:45 Pulse Ox 96 12/23/23 01:45 FiO2 21 12/22/23 23:34 Intake & Output 12/22/23 12/23/23 12/23/23 18:59 06:59 18:59 Intake Total 240 600 Balance 240 600 Intake: IV 240 Sodium Chloride 0.9% 1, 240 000 ml @ 70 mls/hr IV . [id number] [facility] Rx#:[id number] Oral 600 Other: Voiding Method Toilet Toilet Bedside Commode Bedside Commode # Voids 3 - Exam The patient does not appear in acute distress. Alert and orientated x3. Dressing is clean dry and intact. Incision appears fine with no erythema or active drainage. Calf is soft and nontender. Good foot and ankle motion without difficulty. There are chronic skin changes to the right lower leg, appears stable at this time. Sensation and circulatory status is intact. - Labs CBC & Chem 7: 12/21/23 09:00 12/21/23 09:00 Labs: Abnormal Lab Results - Last 24 Hours (Table) 12/22/23 12/22/23 12/22/23 Range/Units 11:49 16:31 22:32 POC Glucose (mg/dL) 205 H 215 H 191 H (70-110) mg/dL Assessment and Plan (1) Osteoarthritis of right knee Current Visit: Yes Status: Acute Code(s): M17.11 - UNILATERAL PRIMARY OSTEOARTHRITIS, RIGHT KNEE SNOMED Code(s): 762761875057374 (2) S/P total knee arthroplasty Current Visit: Yes Status: Acute Code(s): Z96.659 - PRESENCE OF UNSPECIFIED ARTIFICIAL KNEE JOINT SNOMED Code(s): 9427838341206 (3) Hyperlipidemia Current Visit: No Status: Acute Code(s): E78.5 - HYPERLIPIDEMIA, UNSPECIFIED SNOMED Code(s): 85711960 (4) Hypertension Current Visit: No Status: Acute Code(s): I10 - ESSENTIAL (PRIMARY) HYPERTENSION SNOMED Code(s): 67572297 (5) Insulin dependent diabetes mellitus Current Visit: No Status: Acute Code(s): E11.9 - TYPE 2 DIABETES MELLITUS WITHOUT COMPLICATIONS SNOMED Code(s): 40273227 (6) Morbid obesity Current Visit: No Status: Acute Code(s): E66.01 - MORBID (SEVERE) OBESITY DUE TO EXCESS CALORIES SNOMED Code(s): 508064468 Plan: 1. Continue pain control 2. Anticoagulation with Aspirin 325 mg BID 3. Continue physical therapy and ambulation 4. Anticipate discharge to skilled rehab on 12/26/2023.
[2023-12-23] MEDS: HYDROcodone/APAP 5-325MG 1 EACH TAB PO PRN (09:31)
[2023-12-23 12:03] LABS: Glucose,Whole Blood 242 mg/dL (70-110)
--- NOTE | 2023-12-23 15:03 | XR ---
EXAMINATION TYPE: XR chest 1V portable DATE OF EXAM: 12/23/2023 COMPARISON: 05/29/2021 HISTORY: Shortness of breath TECHNIQUE: Single frontal view of the chest is obtained. FINDINGS: There is no focal air space opacity, pleural effusion, or pneumothorax seen. The cardiac silhouette size is within normal limits. The osseous structures are intact. Bilateral AC joint arth ropathy. IMPRESSION: No acute process.
[2023-12-23 15:24] LABS: Basophils % (A) 0 %; Eosinophils # (A) 0.4 k/uL (0-0.7); Eosinophils % (A) 4 %; HCT 43.5 % (39.0-53.0); HGB 13.8 gm/dL (13.0-17.5); Lymphocytes # (A) 1.4 k/uL (1.0-4.8); Lymphocytes % (A) 16 %; MCH 30.6 pg (25.0-35.0); MCHC 31.7 g/dL (31.0-37.0); MCV 96.3 fL (80.0-100.0); Mean Platelet Volume 8.7; Monocytes # (A) 0.6 k/uL (0-1.0); Monocytes % (A) 7 %; Neutrophils # (A) 6.2 k/uL (1.3-7.7); Neutrophils % (A) 70 %; Platelet Count 214 k/uL (150-450); RBC 4.52 m/uL (4.30-5.90); RDW 13.6 % (11.5-15.5); WBC 8.9 k/uL (3.8-10.6)
[2023-12-23 15:25] LABS: African American GFR (CKD) 79 (>60 ml/min/1.73 sqM); Anion Gap 10 mmol/L; Blood Urea Nitrogen 40 mg/dL (9-20); Calcium 8.6 mg/dL (8.4-10.2); Carbon Dioxide 21 mmol/L (22-30); Chloride 107 mmol/L (98-107); Glucose 196 mg/dL (74-99); Non-African American GFR(CKD) 68 (>60 ml/min/1.73 sqM); Sodium 138 mmol/L (137-145)
[2023-12-23 15:35] LABS: Potassium 5.3 mmol/L (3.5-5.1)
[2023-12-23 16:48] LABS: Glucose,Whole Blood 212 mg/dL (70-110)
[2023-12-23] MEDS ORDERED: LACTULOSE 20 GM/30 ML CUP PO PRN (20:28)
--- NOTE | 2023-12-23 20:34 | P.PN ---
Subjective Progress Note Date: 12/23/23 - Reason for Consult Consult date: 12/20/23 Medical management, status post right knee arthroplasty - History of Present Illness This is a pleasant 63-year-old male who was admitted under orthopedic services and is status post right total knee arthroplasty, postop day 0. Patient reports he follows with Dr. Brown in the outpatient setting with a past medical history of chest pain, COPD, diabetes, GERD, deafness, hyperlipidemia, hyp ertension, neurologic disorder, osteoarthritis, prostate disorder, thyroid cancer with thyroidectomy, extensive degenerative joint disease with chronic back and bilateral knee pain, sleep apnea uses a CPAP, ADD/ADHD, anxiety/bipolar depression PTSD. Patient reports is a former smoker and is exposed to secondhand smoke in the home with no reported alcohol and denies any other illicit drug use. Patient reports he did undergo presurgical clearance with Dr. Brown in the outpatient setting. Patient is a diabetic and will add Accu- Cheks along with sliding scale and long-acting as needed. Home medications reviewed and resumed as appropriate and will follow along with the patient. Encouraged incentive spirometer use at least 10 times every hour while awake. Will follow-up on repeat labs in the a.m. 12/21/2023 Patient is seen in follow-up today status post right total knee arthroplasty tiffany iting work with physical therapy. Patient appears groggy and somewhat lethargic today. Pain medications being adjusted and recommend limiting narcotic use and avoiding IV Dilaudid if possible. Home medications reviewed and resumed as appropriate. Blood sugars elevated and uncontrolled and will adjust insulins and continue with long-acting. Increase the dose. Encouraged to increase activity as tolerated with continued incentive spirometer use. 12/22/2023 Patient is seen in follow-up today having difficulty working with physical therapy looking into possible ECF versus inpatient rehab. Orthopedics following and patient is medically stable once ECF and authorization is obtained. Patient's blood sugars remain uncontrolled and will continue to monitor and have adjusted the long-acting. Encouraged incentive spirometer use at least 10 times every hour while awake. Patient is using CPAP at night and will continue. Patient is afebrile with no reports of chest pain or shortness of breath. Patient reports continued pain in the right knee and will continue current regimen. Continue to avoid Dilaudid if possible. 12/23/2023 Patient seen in follow-up today more awake and alert. Patient did have a low- grade temp last night and will order chest x-ray along with urinalysis and blood cultures to rule out any infectious source. Patient does not appear septic. Patient is currently afebrile and reports to tolerating diet with no reported nausea or vomiting. Blood sugars being monitored and will continue current regimen. Patient requires 3 night hospitalization according to Medicare guidelines to be able to go to rehab. Plan is for discharge to [facility] on Tuesday. Review of systems: Constitutional: reports of fatigue, no fever, or chills Cardiovascular: No reports of chest pain or palpitations Respiratory: No reports of shortness of breath or cough GI: No reports of nausea, vomiting, or diarrhea, reports passing gas with bowel movement : No reports of dysuria or retention Neurovascular: reports of generalized weakness All medications have been reviewed PHYSICAL EXAMINATION: GENERAL: The patient is slightly more awake today, alert and oriented x3, not in any acute distress. Well developed, well nourished. Obese, elderly appearing HEENT: Pupils are round and equally reacting to light. EOMI. No scleral icterus. No conjunctival pallor. Normocephalic, atraumatic. No pharyngeal erythema. No thyromegaly. CARDIOVASCULAR: S1 and S2 muffled PULMONARY: Diminished breath sounds bilaterally otherwise chest is clear to auscultation, no wheezing or crackles. ABDOMEN: Soft, obese, nontender, nondistended, normoactive bowel sounds. No palpable organomegaly. MUSCULOSKELETAL: No joint swelling or deformity. Right knee surgical dressing is dry and intact with Stevan wrap noted to the entire right lower extremity EXTREMITIES: No cyanosis, clubbing, or pedal edema. NEUROLOGICAL: Gross neurological examination did not reveal any focal deficits. Diffusely weak SKIN: No rashes. Assessment: Osteoarthritis, status post right total knee arthroplasty History of COPD, stable, not in exacerbation Diabetes mellitus, type II, insulin-dependent, uncontrolled with hyperglycemia Obesity with a BMI of 39.9 Gait dysfunction and generalized weakness Hypertension history Hyperlipidemia Sleep apnea with a CPAP History of ADD/ADHD/anxiety/bipolar depression/PTSD Former smoker Chronic back and knee pain History of degenerative joint disease History of thyroid cancer with thyroidectomy GI prophylaxis DVT prophylaxis Full code Plan: Patient is status post right knee arthroplasty and more awake today. Recommend limiting IV narcotics and medications are being adjusted per orthopedics No acute overnight issues noted. Patient had difficulty working with physical t herapy and recommending rehab. Patient requires 3 night hospitalization according to Medicare guidelines and discharge will be on Tuesday to ECF. Patient did have a low-grade temp and ordered a chest x-ray showing no acute process, urinalysis ordered and pending along with blood culture. Encourage incentive spirometer use and increase activity as tolerated. Patient has not had a recorded bowel movement since admission and will order scheduled bowel regimen and highly encouraged as needed medication. Potassium found to be mildly elevated above 5 and will give a dose of Lokelma. Repeat labs ordered. Home medications reviewed and resumed as appropriate Will continue with Accu-Cheks before meals and at bedtime along with sliding scale and continue to adjust long-acting as blood sugars are elevated Encourage incentive spirometer use at least 10 times every hour while awake Encourage CPAP use Patient is medically stable for discharge to ECF once insurance authorization is obtained. Again according to case management Medicare guidelines requires 3 night hospitalization. Patient will discharge on 12/26/2023. We will continue to follow with orthopedics during hospitalization. Thank you kindly for this consultation. The impression and plan of care has been dictated by Little [place]ner, Nurse Practitioner as directed. Dr. David MD I have performed a history and examination and MDM of this patient, discussed the same with the dictator, and agree with the dictator's assessment and plan as written ,documented as a scribe. Based on total visit time, I have performed more than 50% of the visit. Objective - Vital Signs Vital signs: Vital Signs Temp 100.2 F H 12/23/23 01:45 Pulse 47 L 12/23/23 07:52 Resp 20 12/23/23 07:52 BP 135/45 12/23/23 01:45 Pulse Ox 96 12/23/23 01:45 FiO2 21 12/22/23 23:34 Intake & Output 12/22/23 12/23/23 12/23/23 18:59 06:59 18:59 Intake Total 240 600 Balance 240 600 Intake: IV 240 Sodium Chloride 0.9% 1, 240 000 ml @ 70 mls/hr IV . [id number] [facility] Rx#:[id number] Oral 600 Other: Voiding Method Toilet Toilet Bedside Commode Bedside Commode # Voids 3 - Labs CBC & Chem 7: 12/23/23 14:47 12/23/23 14:47 Labs: Abnormal Lab Results - Last 24 Hours (Table) 12/22/23 12/22/23 12/22/23 Range/Units 11:49 16:31 22:32 POC Glucose (mg/dL) 205 H 215 H 191 H (70-110) mg/dL
[2023-12-23 20:51] LABS: Glucose,Whole Blood 267 mg/dL (70-110)
[2023-12-23] MEDS: LACTULOSE 20 GM/30 ML CUP PO ONE (22:09)
[2023-12-23] MEDS: SODIUM ZIRCONIUM CYCLOSILICATE 10 GM PACKET PO ONE (22:09)
[2023-12-23 22:33] LABS: Appearance,Urine Clear (Clear); Bilirubin,Urine Negative (Negative); Blood,Urine Negative (Negative); Color,Urine Colorless; Glucose,Urine (UA) 4+ (Negative); Ketones,Urine Negative (Negative); Leukocyte Esterase,Urine Negative (Negative); Nitrite,Urine Negative (Negative); PH, Urine 5.5 (5.0-8.0); Protein,Urine Trace (Negative); Specific Gravity,Urine 1.015 (1.001-1.035); Urobilinogen,Urine <2.0 mg/dL (<2.0)
[2023-12-24 06:25] LABS: Glucose,Whole Blood 168 mg/dL (70-110)
--- NOTE | 2023-12-24 08:20 | P.PN ---
Subjective Progress Note Date: 12/24/23 Principal diagnosis: Status post right total knee arthroplasty This is a 63 year-old male post right total knee arthroplasty. This is post-op day 4. The patient was evaluated in the recliner chair at the bedside today. The patient denies nausea, vomiting, abdominal pain, chest pain, or shortness of breath this morning. He states her pain is controlled at this time. The pat ient has been up with physical therapy. We awaiting skilled rehab placement. Objective - Vital Signs Vital signs: Vital Signs Temp 98.8 F 12/24/23 02:00 Pulse 78 12/24/23 02:00 Resp 16 12/23/23 14:25 BP 115/77 12/24/23 02:00 Pulse Ox 93 L 12/24/23 02:00 FiO2 21 12/22/23 23:34 Intake & Output 12/23/23 12/24/23 12/24/23 18:59 06:59 18:59 Output Total 1875 Balance -1875 Output: Urine 1875 Other: Voiding Method Toilet Toilet Bedside Commode Bedside Commode # Voids 3 - Exam The patient does not appear in acute distress. Alert and orientated x3. Dressing is clean dry and intact. Incision appears fine with no erythema or active drainage. Calf is soft and nontender. Good foot and ankle motion without difficulty. There are chronic skin changes to the right lower leg, appears stable at this time. Sensation and circulatory status is intact. - Labs CBC & Chem 7: 12/23/23 14:47 12/23/23 14:47 Labs: Abnormal Lab Results - Last 24 Hours (Table) 12/23/23 12/23/23 12/23/23 Range/Units 07:40 12:01 14:47 Potassium 5.3 H (3.5-5.1) mmol/L Carbon Dioxide 21 L (22-30) mmol/L BUN 40 H (9-20) mg/dL Glucose 196 H (74-99) mg/dL POC Glucose (mg/dL) 242 H (70-110) mg/dL Magnesium 2.5 H (1.5-2.4) mg/dL Urine Protein (Negative) Urine Glucose (UA) (Negative) 12/23/23 12/23/23 12/23/23 Range/Units 16:47 19:55 22:15 Potassium (3.5-5.1) mmol/L Carbon Dioxide (22-30) mmol/L BUN (9-20) mg/dL Glucose (74-99) mg/dL POC Glucose (mg/dL) 212 H 267 H (70-110) mg/dL Magnesium (1.5-2.4) mg/dL Urine Protein Trace H (Negative) Urine Glucose (UA) 4+ H (Negative) 12/24/23 Range/Units 05:58 Potassium (3.5-5.1) mmol/L Carbon Dioxide (22-30) mmol/L BUN (9-20) mg/dL Glucose (74-99) mg/dL POC Glucose (mg/dL) 168 H (70-110) mg/dL Magnesium (1.5-2.4) mg/dL Urine Protein (Negative) Urine Glucose (UA) (Negative) Assessment and Plan (1) Osteoarthritis of right knee Current Visit: Yes Status: Acute Code(s): M17.11 - UNILATERAL PRIMARY OSTEOARTHRITIS, RIGHT KNEE SNOMED Code(s): 986259318014742 (2) S/P total knee arthroplasty Current Visit: Yes Status: Acute Code(s): Z96.659 - PRESENCE OF UNSPECIFIED ARTIFICIAL KNEE JOINT SNOMED Code(s): 7465385907075 (3) Hyperlipidemia Current Visit: No Status: Acute Code(s): E78.5 - HYPERLIPIDEMIA, UNSPECIFIED SNOMED Code(s): 71475301 (4) Hypertension Current Visit: No Status: Acute Code(s): I10 - ESSENTIAL (PRIMARY) HYPERTENSION SNOMED Code(s): 81384380 (5) Insulin dependent diabetes mellitus Current Visit: No Status: Acute Code(s): E11.9 - TYPE 2 DIABETES MELLITUS WITHOUT COMPLICATIONS SNOMED Code(s): 82754941 (6) Morbid obesity Current Visit: No Status: Acute Code(s): E66.01 - MORBID (SEVERE) OBESITY DUE TO EXCESS CALORIES SNOMED Code(s): 221469933 Plan: 1. Continue pain control 2. Anticoagulation with Aspirin 325 mg BID 3. Continue physical therapy and ambulation 4. Anticipate discharge to skilled rehab on 12/26/2023.
[2023-12-24 09:17] LABS: Basophils # (A) 0.04 X 10*3/uL (0.00-0.10); Basophils % (A) 0.5 %; Eosinophils # (A) 0.29 X 10*3/uL (0.04-0.35); Eosinophils % (A) 3.6 %; HCT 35.3 % (39.6-50.0); HGB 11.6 g/dL (13.0-17.0); Lymphocytes # (A) 1.42 X 10*3/uL (0.90-5.00); Lymphocytes % (A) 17.6 %; MCH 30.3 pg (27.0-32.0); MCHC 32.9 g/dL (32.0-37.0); MCV 92.2 FL (80.0-97.0); Mean Platelet Volume 10.5 FL (9.5-12.2); Monocytes # (A) 0.88 X 10*3/uL (0.20-1.00); Monocytes % (A) 10.9 %; NRBC Per 100 WBC 0 X 10*3/uL (0.00-0.01); Neutrophils # (A) 5.41 X 10*3/uL (1.80-7.70); Neutrophils % (A) 67.2 %; Platelet Count 217 X 10*3/uL (140-440); RBC 3.83 X 10*6/uL (4.40-5.60); RDW 13.2 % (11.5-14.5); WBC 8.06 X 10*3/uL (4.50-10.00)
[2023-12-24 09:43] LABS: ALT 49 U/L (10-49); AST 53 U/L (14-35); Albumin 3.2 g/dL (3.8-4.9); Albumin/Globulin Ratio 1.28 Ratio (1.60-3.17); Alkaline Phosphatase 66 U/L (41-126); BUN/Creat Ratio 27.08 Ratio (12.00-20.00); Blood Urea Nitrogen 35.2 mg/dL (9.0-27.0); Calcium 8.7 mg/dL (8.7-10.3); Chloride 107 mmol/L (96-109); Globulin 2.5 g/dL (1.6-3.3); Glucose 176 mg/dL (70-110); Potassium 4.4 mmol/L (3.5-5.5); Sodium 141 mmol/L (135-145); Total Bilirubin 0.4 mg/dL (0.3-1.2); Total Protein 5.7 g/dL (6.2-8.2)
[2023-12-24 11:59] LABS: Glucose,Whole Blood 265 mg/dL (70-110)
[2023-12-24] MEDS ORDERED: DEXTROSE 50% SYRINGE 50 ML IVP PRN ×2 (12:18)
[2023-12-24] MEDS: INSULIN ASPART (NovoLOG) 100 UNIT/ML VIAL SQ SCH ×2 (12:40)
[2023-12-24 16:56] LABS: Glucose,Whole Blood 147 mg/dL (70-110)
--- NOTE | 2023-12-24 18:41 | P.PN ---
Subjective Progress Note Date: 12/24/23 This is a pleasant 63-year-old male who was admitted under orthopedic services and is status post right total knee arthroplasty, postop day 0. Patient reports he follows with Dr. Brown in the outpatient setting with a past medical history of chest pain, COPD, diabetes, GERD, deafness, hyperlipidemia, hy pertension, neurologic disorder, osteoarthritis, prostate disorder, thyroid cancer with thyroidectomy, extensive degenerative joint disease with chronic back and bilateral knee pain, sleep apnea uses a CPAP, ADD/ADHD, anxiety/bipolar depression PTSD. Patient reports is a former smoker and is exposed to secondhand smoke in the home with no reported alcohol and denies any other illicit drug use. Patient reports he did undergo presurgical clearance with Dr. Brown in the outpatient setting. Patient is a diabetic and will add Accu- Cheks along with sliding scale and long-acting as needed. Home medications reviewed and resumed as appropriate and will follow along with the patient. Encouraged incentive spirometer use at least 10 times every hour while awake. Will follow-up on repeat labs in the a.m. 12/21/2023 Patient is seen in follow-up today status post right total knee arthroplasty aw aiting work with physical therapy. Patient appears groggy and somewhat lethargic today. Pain medications being adjusted and recommend limiting narcotic use and avoiding IV Dilaudid if possible. Home medications reviewed and resumed as appropriate. Blood sugars elevated and uncontrolled and will adjust insulins and continue with long-acting. Increase the dose. Encouraged to increase activity as tolerated with continued incentive spirometer use. 12/22/2023 Patient is seen in follow-up today having difficulty working with physical therapy looking into possible ECF versus inpatient rehab. Orthopedics following and patient is medically stable once ECF and authorization is obtained. Patient 's blood sugars remain uncontrolled and will continue to monitor and have adjusted the long-acting. Encouraged incentive spirometer use at least 10 times every hour while awake. Patient is using CPAP at night and will continue. Patient is afebrile with no reports of chest pain or shortness of breath. Patient reports continued pain in the right knee and will continue current regimen. Continue to avoid Dilaudid if possible. 12/23/2023 Patient seen in follow-up today more awake and alert. Patient did have a low- grade temp last night and will order chest x-ray along with urinalysis and blood cultures to rule out any infectious source. Patient does not appear septic. Patient is currently afebrile and reports to tolerating diet with no reported nausea or vomiting. Blood sugars being monitored and will continue current regimen. Patient requires 3 night hospitalization according to Medicare guidelines to be able to go to rehab. Plan is for discharge to [facility] on Tuesday. 12/24/2023 Patient is evaluated today in follow up on the medical floor. He continues to report pain to the right knee with mild ankle edema noted with chronic hyperpigmentation noted to the right lower extremity. Plan for discharge to rehab Tuesday. Blood glucose remains elevated and meal time and sliding scale i nsulin has been added in addition to the levemir for improved glycemic control to promote wound healing. Review of systems: Constitutional: reports of fatigue, no fever, or chills Cardiovascular: No reports of chest pain or palpitations Respiratory: No reports of shortness of breath or cough GI: No reports of nausea, vomiting, or diarrhea, reports passing gas with bowel movement : No reports of dysuria or retention Neurovascular: reports of generalized weakness All medications have been reviewed PHYSICAL EXAMINATION: GENERAL: The patient is slightly more awake today, alert and oriented x3, not in any acute distress. Well developed, well nourished. Obese, elderly appearing HEENT: Pupils are round and equally reacting to light. EOMI. No scleral icterus. No conjunctival pallor. Normocephalic, atraumatic. No pharyngeal erythema. No thyromegaly. CARDIOVASCULAR: S1 and S2 muffled PULMONARY: Diminished breath sounds bilaterally otherwise chest is clear to auscultation, no wheezing or crackles. ABDOMEN: Soft, obese, nontender, nondistended, normoactive bowel sounds. No palpable organomegaly. MUSCULOSKELETAL: No joint swelling or deformity. Right knee surgical dressing is dry and intact with Stevan wrap noted to the entire right lower extremity EXTREMITIES: No cyanosis, clubbing, or pedal edema. NEUROLOGICAL: Gross neurological examination did not reveal any focal deficits. Diffusely weak SKIN: No rashes. Assessment: Osteoarthritis, status post right total knee arthroplasty History of COPD, stable, not in exacerbation Diabetes mellitus, type II, insulin-dependent, uncontrolled with hyperglycemia Obesity with a BMI of 39.9 Gait dysfunction and generalized weakness Hypertension history Hyperlipidemia Sleep apnea with a CPAP History of ADD/ADHD/anxiety/bipolar depression/PTSD Former smoker Chronic back and knee pain History of degenerative joint disease History of thyroid cancer with thyroidectomy GI prophylaxis DVT prophylaxis Full code Plan: Patient is status post right knee arthroplasty and more awake today. Recommend limiting IV narcotics and medications are being adjusted per orthopedics No acute overnight issues noted. Patient had difficulty working with physical therapy and recommending rehab. Patient requires 3 night hospitalization acco rding to Medicare guidelines and discharge will be on Tuesday to [facility]. Patient did have a low-grade temp and ordered a chest x-ray showing no acute process, urinalysis ordered and pending along with blood culture. Encourage incentive spirometer use and increase activity as tolerated. Patient has not had a recorded bowel movement since admission and will order scheduled bowel regimen and highly encouraged as needed medication. Potassium found to be mildly elevated above 5 and will give a dose of Lokelma. Repeat labs ordered. Home medications reviewed and resumed as appropriate Will continue with Accu-Cheks before meals and at bedtime along with sliding scale and continue to adjust long-acting as blood sugars are elevated Encourage incentive spirometer use at least 10 times every hour while awake Encourage CPAP use Patient is medically stable for discharge to ECF once insurance authorization is obtained. Again according to case management Medicare guidelines requires 3 night hospitalization. Patient will discharge on 12/26/2023. We will continue to follow with orthopedics during hospitalization. Thank you kindly for this consultation. The impression and plan of care has been dictated by Jyotsna Davies Nurse Practitioner as directed. Dr. David MD I have performed a history and physical examination and medical decision making of this patient, discussed the same with the dictator, and agree with the dictators assessment and plan as written, documented as a scribe. Based on total visit time, I have performed more than 50% of this visit. Objective - Vital Signs Vital signs: Vital Signs Temp 99.3 F 12/24/23 07:34 Pulse 74 12/24/23 07:34 Resp 18 12/24/23 07:34 BP 100/62 12/24/23 07:34 Pulse Ox 96 12/24/23 07:34 FiO2 21 12/22/23 23:34 Intake & Output 12/23/23 12/24/23 12/24/23 18:59 06:59 18:59 Output Total 1875 Balance -1875 Output: Urine 1875 Other: Voiding Method Toilet Toilet Bedside Commode Bedside Commode # Voids 3 - Labs CBC & Chem 7: 12/24/23 05:58 12/24/23 05:58 Labs: Abnormal Lab Results - Last 24 Hours (Table) 12/23/23 12/23/23 12/23/23 Range/Units 07:40 12:01 14:47 Potassium 5.3 H (3.5-5.1) mmol/L Carbon Dioxide 21 L (22-30) mmol/L BUN 40 H (9-20) mg/dL Glucose 196 H (74-99) mg/dL POC Glucose (mg/dL) 242 H (70-110) mg/dL Magnesium 2.5 H (1.5-2.4) mg/dL Urine Protein (Negative) Urine Glucose (UA) (Negative) 12/23/23 12/23/23 12/23/23 Range/Units 16:47 19:55 22:15 Potassium (3.5-5.1) mmol/L Carbon Dioxide (22-30) mmol/L BUN (9-20) mg/dL Glucose (74-99) mg/dL POC Glucose (mg/dL) 212 H 267 H (70-110) mg/dL Magnesium (1.5-2.4) mg/dL Urine Protein Trace H (Negative) Urine Glucose (UA) 4+ H (Negative) 12/24/23 Range/Units 05:58 Potassium (3.5-5.1) mmol/L Carbon Dioxide (22-30) mmol/L BUN (9-20) mg/dL Glucose (74-99) mg/dL POC Glucose (mg/dL) 168 H (70-110) mg/dL Magnesium (1.5-2.4) mg/dL Urine Protein (Negative) Urine Glucose (UA) (Negative)
[2023-12-24 20:06] LABS: Glucose,Whole Blood 175 mg/dL (70-110)
[2023-12-25 06:21] LABS: Glucose,Whole Blood 174 mg/dL (70-110)
--- NOTE | 2023-12-25 09:10 | P.PN ---
Subjective Progress Note Date: 12/25/23 Principal diagnosis: Status post right total knee arthroplasty This is a 63 year-old male post right total knee arthroplasty. This is post-op day 5. The patient was evaluated in the recliner chair at the bedside today. The patient denies nausea, vomiting, abdominal pain, chest pain, or shortness of breath this morning. He states her pain is controlled at this time. The pat ient has been up with physical therapy. We awaiting skilled rehab placement. Objective - Vital Signs Vital signs: Vital Signs Temp 98.8 F 12/25/23 07:52 Pulse 83 12/25/23 07:52 Resp 17 12/25/23 07:52 BP 126/80 12/25/23 07:52 Pulse Ox 95 12/25/23 07:52 FiO2 21 12/22/23 23:34 Intake & Output 12/24/23 12/25/23 12/25/23 18:59 06:59 18:59 Intake Total 222 Output Total 1325 700 Balance -1325 -478 Intake: Oral 222 Output: Urine 1325 700 - Exam The patient does not appear in acute distress. Alert and orientated x3. Dressing is clean dry and intact. Incision appears fine with no erythema or active drainage. Calf is soft and nontender. Good foot and ankle motion without difficulty. There are chronic skin changes to the right lower leg, appears stable at this time. Sensation and circulatory status is intact. - Labs CBC & Chem 7: 12/24/23 05:58 12/24/23 05:58 Labs: Abnormal Lab Results - Last 24 Hours (Table) 12/24/23 12/24/23 12/24/23 Range/Units 05:58 05:58 11:57 RBC 3.83 L (4.40-5.60) X 10*6/uL Hgb 11.6 L (13.0-17.0) g/dL Hct 35.3 L (39.6-50.0) % Carbon Dioxide 21.0 L (21.6-31.8) mmol/L Anion Gap 13.00 H (4.00-12.00) mmol/L BUN 35.2 H (9.0-27.0) mg/dL BUN/Creatinine Ratio 27.08 H (12.00-20.00) Ratio Glucose 176 H (70-110) mg/dL POC Glucose (mg/dL) 265 H (70-110) mg/dL AST 53 H (14-35) U/L Total Protein 5.7 L (6.2-8.2) g/dL Albumin 3.2 L (3.8-4.9) g/dL Albumin/Globulin Ratio 1.28 L (1.60-3.17) Ratio 12/24/23 12/24/23 12/25/23 Range/Units 16:54 20:05 06:20 RBC (4.40-5.60) X 10*6/uL Hgb (13.0-17.0) g/dL Hct (39.6-50.0) % Carbon Dioxide (21.6-31.8) mmol/L Anion Gap (4.00-12.00) mmol/L BUN (9.0-27.0) mg/dL BUN/Creatinine Ratio (12.00-20.00) Ratio Glucose (70-110) mg/dL POC Glucose (mg/dL) 147 H 175 H 174 H (70-110) mg/dL AST (14-35) U/L Total Protein (6.2-8.2) g/dL Albumin (3.8-4.9) g/dL Albumin/Globulin Ratio (1.60-3.17) Ratio Microbiology - Last 24 Hours (Table) 12/23/23 14:56 Blood Culture - Preliminary Blood Assessment and Plan (1) Osteoarthritis of right knee Current Visit: Yes Status: Acute Code(s): M17.11 - UNILATERAL PRIMARY OSTEOARTHRITIS, RIGHT KNEE SNOMED Code(s): 592960283533711 (2) S/P total knee arthroplasty Current Visit: Yes Status: Acute Code(s): Z96.659 - PRESENCE OF UNSPECIFIED ARTIFICIAL KNEE JOINT SNOMED Code(s): 2476367975985 (3) Hyperlipidemia Current Visit: No Status: Acute Code(s): E78.5 - HYPERLIPIDEMIA, UNSPECIFIED SNOMED Code(s): 26286993 (4) Hypertension Current Visit: No Status: Acute Code(s): I10 - ESSENTIAL (PRIMARY) HYPERTENSION SNOMED Code(s): 85697114 (5) Insulin dependent diabetes mellitus Current Visit: No Status: Acute Code(s): E11.9 - TYPE 2 DIABETES MELLITUS WITHOUT COMPLICATIONS SNOMED Code(s): 31487847 (6) Morbid obesity Current Visit: No Status: Acute Code(s): E66.01 - MORBID (SEVERE) OBESITY DUE TO EXCESS CALORIES SNOMED Code(s): 330028071 Plan: 1. Continue pain control 2. Anticoagulation with Aspirin 325 mg BID 3. Continue physical therapy and ambulation 4. Anticipate discharge to skilled rehab on 12/26/2023.
[2023-12-25 10:01] LABS: BUN/Creat Ratio 27.25 Ratio (12.00-20.00); Blood Urea Nitrogen 32.7 mg/dL (9.0-27.0); Chloride 106 mmol/L (96-109); Glucose 176 mg/dL (70-110); Potassium 4.9 mmol/L (3.5-5.5); Sodium 141 mmol/L (135-145)
[2023-12-25 10:02] LABS: Calcium 8.8 mg/dL (8.7-10.3); Carbon Dioxide 22.2 mmol/L (21.6-31.8)
[2023-12-25 11:45] LABS: Glucose,Whole Blood 186 mg/dL (70-110)
--- NOTE | 2023-12-25 16:25 | P.PN ---
Subjective Progress Note Date: 12/25/23 This is a pleasant 63-year-old male who was admitted under orthopedic services and is status post right total knee arthroplasty, postop day 0. Patient reports he follows with Dr. Brown in the outpatient setting with a past medical history of chest pain, COPD, diabetes, GERD, deafness, hyperlipidemia, hy pertension, neurologic disorder, osteoarthritis, prostate disorder, thyroid cancer with thyroidectomy, extensive degenerative joint disease with chronic back and bilateral knee pain, sleep apnea uses a CPAP, ADD/ADHD, anxiety/bipolar depression PTSD. Patient reports is a former smoker and is exposed to secondhand smoke in the home with no reported alcohol and denies any other illicit drug use. Patient reports he did undergo presurgical clearance with Dr. Brown in the outpatient setting. Patient is a diabetic and will add Accu- Cheks along with sliding scale and long-acting as needed. Home medications reviewed and resumed as appropriate and will follow along with the patient. Encouraged incentive spirometer use at least 10 times every hour while awake. Will follow-up on repeat labs in the a.m. 12/21/2023 Patient is seen in follow-up today status post right total knee arthroplasty aw aiting work with physical therapy. Patient appears groggy and somewhat lethargic today. Pain medications being adjusted and recommend limiting narcotic use and avoiding IV Dilaudid if possible. Home medications reviewed and resumed as appropriate. Blood sugars elevated and uncontrolled and will adjust insulins and continue with long-acting. Increase the dose. Encouraged to increase activity as tolerated with continued incentive spirometer use. 12/22/2023 Patient is seen in follow-up today having difficulty working with physical therapy looking into possible ECF versus inpatient rehab. Orthopedics following and patient is medically stable once ECF and authorization is obtained. Patient 's blood sugars remain uncontrolled and will continue to monitor and have adjusted the long-acting. Encouraged incentive spirometer use at least 10 times every hour while awake. Patient is using CPAP at night and will continue. Patient is afebrile with no reports of chest pain or shortness of breath. Patient reports continued pain in the right knee and will continue current regimen. Continue to avoid Dilaudid if possible. 12/23/2023 Patient seen in follow-up today more awake and alert. Patient did have a low- grade temp last night and will order chest x-ray along with urinalysis and blood cultures to rule out any infectious source. Patient does not appear septic. Patient is currently afebrile and reports to tolerating diet with no reported nausea or vomiting. Blood sugars being monitored and will continue current regimen. Patient requires 3 night hospitalization according to Medicare guidelines to be able to go to rehab. Plan is for discharge to [facility] on Tuesday. 12/24/2023 Patient is evaluated today in follow up on the medical floor. He continues to report pain to the right knee with mild ankle edema noted with chronic hyperpigmentation noted to the right lower extremity. Plan for discharge to rehab Tuesday. Blood glucose remains elevated and meal time and sliding scale i nsulin has been added in addition to the levemir for improved glycemic control to promote wound healing. 12/25/2023 Patient is evaluated today in follow up sitting up in the chair. No acute events overnight. Reports improve pain control to the right knee. His blood glucose has come down to the 170s and will remain on levemir sliding scale and scheduled insulin. Patient is hemodynamically stable and is being followed closely by orthopedics. Review of systems: Constitutional: reports of fatigue, no fever, or chills Cardiovascular: No reports of chest pain or palpitations Respiratory: No reports of shortness of breath or cough GI: No reports of nausea, vomiting, or diarrhea, reports passing gas with bowel movement : No reports of dysuria or retention Neurovascular: reports of generalized weakness All medications have been reviewed PHYSICAL EXAMINATION: GENERAL: The patient is slightly more awake today, alert and oriented x3, not in any acute distress. Well developed, well nourished. Obese, elderly appearing HEENT: Pupils are round and equally reacting to light. EOMI. No scleral icterus. No conjunctival pallor. Normocephalic, atraumatic. No pharyngeal erythema. No thyromegaly. CARDIOVASCULAR: S1 and S2 muffled PULMONARY: Diminished breath sounds bilaterally otherwise chest is clear to auscultation, no wheezing or crackles. ABDOMEN: Soft, obese, nontender, nondistended, normoactive bowel sounds. No palpable organomegaly. MUSCULOSKELETAL: No joint swelling or deformity. Right knee surgical dressing is dry and intact with Stevan wrap noted to the entire right lower extremity EXTREMITIES: No cyanosis, clubbing, or pedal edema. NEUROLOGICAL: Gross neurological examination did not reveal any focal deficits. Diffusely weak SKIN: No rashes. Assessment: Osteoarthritis, status post right total knee arthroplasty History of COPD, stable, not in exacerbation Diabetes mellitus, type II, insulin-dependent, uncontrolled with hyperglycemia Obesity with a BMI of 39.9 Gait dysfunction and generalized weakness Hypertension history Hyperlipidemia Sleep apnea with a CPAP History of ADD/ADHD/anxiety/bipolar depression/PTSD Former smoker Chronic back and knee pain History of degenerative joint disease History of thyroid cancer with thyroidectomy GI prophylaxis DVT prophylaxis Full code Plan: Continue to limit IV narcotics. Continue on bowel regimen. Patient requires 3 night hospitalization according to Medicare guidelines inorder to qualify for subacuter rehab and discharge will be on Tuesday to [facility]. Patient did have a low-grade temp and ordered a chest x-ray showing no acute process, urinalysis not suggestive of infection and blood cultures are negative so far. Encourage incentive spirometer use and increase activity as tolerated. Potassium found to be mildly elevated above 5 and received a dose of lokelma. Repeat labs ordered. Home medications reviewed and resumed as appropriate Will continue with Accu-Cheks before meals and at bedtime along with sliding scale and continue to adjust long-acting as blood sugars are elevated Encourage incentive spirometer use at least 10 times every hour while awake Encourage CPAP use Can discontinue IV fluids. Patient is medically stable for discharge to [facility] once insurance authorization is obtained. Again according to case management Medicare guidelines requires 3 night hospitalization. Patient will discharge on 12/26/2023. We will continue to follow with orthopedics during hospitalization. Thank you kindly for this consultation. The impression and plan of care has been dictated by Jyotsna Davies, Nurse Practitioner as directed. Dr. David MD I have performed a history and physical examination and medical decision making of this patient, discussed the same with the dictator, and agree with the dictators assessment and plan as written, documented as a scribe. Based on total visit time, I have performed more than 50% of this visit. Objective - Vital Signs Vital signs: Vital Signs Temp 98.9 F 12/25/23 14:12 Pulse 69 12/25/23 14:12 Resp 18 12/25/23 14:12 BP 130/74 12/25/23 14:12 Pulse Ox 100 12/25/23 14:12 FiO2 21 12/22/23 23:34 Intake & Output 12/24/23 12/25/23 12/25/23 18:59 06:59 18:59 Intake Total 222 Output Total 3922 916 2193 Balance -1783 -878 1123 Intake: Oral 222 Output: Urine 3144 685 2525 - Labs CBC & Chem 7: 12/24/23 05:58 12/25/23 04:14 Labs: Abnormal Lab Results - Last 24 Hours (Table) 12/24/23 12/24/23 12/25/23 Range/Units 16:54 20:05 04:14 Anion Gap (4.00-12.00) mmol/L BUN (9.0-27.0) mg/dL BUN/Creatinine Ratio (12.00-20.00) Ratio Glucose (70-110) mg/dL POC Glucose (mg/dL) 147 H 175 H (70-110) mg/dL Hemoglobin A1c 7.9 H (<=6.0) % 12/25/23 12/25/23 12/25/23 Range/Units 04:14 06:20 11:44 Anion Gap 12.80 H (4.00-12.00) mmol/L BUN 32.7 H (9.0-27.0) mg/dL BUN/Creatinine Ratio 27.25 H (12.00-20.00) Ratio Glucose 176 H (70-110) mg/dL POC Glucose (mg/dL) 174 H 186 H (70-110) mg/dL Hemoglobin A1c (<=6.0) % Microbiology - Last 24 Hours (Table) 12/23/23 14:56 Blood Culture - Preliminary Blood Assessment and Plan Time with Patient: Less than 30
[2023-12-25 16:30] LABS: Glucose,Whole Blood 161 mg/dL (70-110)
[2023-12-25 20:19] LABS: Glucose,Whole Blood 184 mg/dL (70-110)
[2023-12-25] MEDS: HYDROmorphone 0.5 MG/0.5 ML SYRINGE IVP PRN (23:09)
[2023-12-26 06:22] LABS: Glucose,Whole Blood 139 mg/dL (70-110)
--- NOTE | 2023-12-26 08:57 | US ---
EXAMINATION TYPE: US venous doppler duplex LE RT DATE OF EXAM: 12/26/2023 8:15 AM COMPARISON: NONE CLINICAL INDICATION: Male, 63 years old with history of rule out dvt, increased swelling/red/pain; In creased swelling/pain/redness right leg. No hx of DVT. Patient takes baby aspirin. Knee replacement 3 days ago per patient. SIDE PERFORMED: Right TECHNIQUE: The lower extremity deep venous system is examined utilizing real time linear array sonog ney with graded compression, doppler sonography and color-flow sonography. VESSELS IMAGED: Common Femoral Vein Deep Femoral Vein Greater Saphenous Vein * Femoral Vein Popliteal Vein Small Saphenous Vein * Proximal Calf Veins (* superficial vessels) Right Leg: *Right greater saphenous vein appears to compress incompletely within a segment at the di stal thigh. Color flow seen within with defect along vessel wall. Superficial thrombus. No evidence of DVT. Duplicate distal left femoral vein noted. IMPRESSION: 1. Findings are compatible greater saphenous SVG. 2. There is no diagnostic evidence of DVT.
--- NOTE | 2023-12-26 09:19 | P.PN ---
Subjective Progress Note Date: 12/26/23 This is a 63-year-old male who is status post right total knee arthroplasty. This is postoperative day #6 and patient is seen and evaluated at bedside today. Patient states that he is awaiting on discharge to rehab. Per nursing, the patient had more pain in the right leg overnight. Patient states that his pain is controlled this morning. Objective - Vital Signs Vital signs: Vital Signs Temp 98.6 F 12/26/23 08:00 Pulse 65 12/26/23 08:00 Resp 18 12/26/23 08:00 BP 135/84 12/26/23 08:00 Pulse Ox 99 12/26/23 08:00 FiO2 21 12/22/23 23:34 Intake & Output 12/25/23 12/26/23 12/26/23 18:59 06:59 18:59 Output Total 1625 1750 Balance -1625 -1750 Output: Urine 1625 1750 Other: # Voids 3 - Exam Vital signs are stable. Patient is in no acute distress and is alert and oriented 3. Calf with mild-moderate swelling present. Dressing is clean, dry, and intact. Patient has full foot and ankle motion without pain or difficulty. Chronic skin changes to the right lower leg. Sensation intact. Neurovascular status and circulatory status are intact. - Labs CBC & Chem 7: 12/24/23 05:58 12/25/23 04:14 Labs: Abnormal Lab Results - Last 24 Hours (Table) 12/25/23 12/25/23 12/25/23 Range/Units 04:14 04:14 11:44 Anion Gap 12.80 H (4.00-12.00) mmol/L BUN 32.7 H (9.0-27.0) mg/dL BUN/Creatinine Ratio 27.25 H (12.00-20.00) Ratio Glucose 176 H (70-110) mg/dL POC Glucose (mg/dL) 186 H (70-110) mg/dL Hemoglobin A1c 7.9 H (<=6.0) % 12/25/23 12/25/23 12/26/23 Range/Units 16:29 20:18 06:20 Anion Gap (4.00-12.00) mmol/L BUN (9.0-27.0) mg/dL BUN/Creatinine Ratio (12.00-20.00) Ratio Glucose (70-110) mg/dL POC Glucose (mg/dL) 161 H 184 H 139 H (70-110) mg/dL Hemoglobin A1c (<=6.0) % Microbiology - Last 24 Hours (Table) 12/23/23 14:56 Blood Culture - Preliminary Blood Assessment and Plan (1) Osteoarthritis of right knee Current Visit: Yes Status: Acute Code(s): M17.11 - UNILATERAL PRIMARY OSTEOARTHRITIS, RIGHT KNEE SNOMED Code(s): 182775193059513 (2) S/P total knee arthroplasty Current Visit: Yes Status: Acute Code(s): Z96.659 - PRESENCE OF UNSPECIFIED ARTIFICIAL KNEE JOINT SNOMED Code(s): 8408536441489 Plan: #1 Continue with routine postoperative care and pain control, leave dressing in place for 7 days. #2 Anticoagulation with aspirin. #3 Physical therapy today. #4 Appreciate input from internal medicine. #5 Doppler ultrasound today to rule out DVT. Anticipate discharge to ECF later today. Planning to discharge patient on oral cephalexin as a precaution due to chronic skin changes of the right lower extremity.
--- NOTE | 2023-12-26 09:24 | P.DS ---
Providers Date of admission: 12/22/23 12:09 Expected date of discharge: 12/26/23 Attending physician: Hector Simmons Consults: 12/20/23 08:42 Consult Physician Routine Consulting Provider: Russell Thompson Consult Reason/Comments: medical management Do you want consulting provider notified?: Yes Primary care physician: Tati Dacosta - Discharge Diagnosis(es) (1) Osteoarthritis of right knee Current Visit: Yes Status: Acute (2) S/P total knee arthroplasty Current Visit: Yes Status: Acute Hospital Course: This is a 63-year-old male with known history of degenerative arthritis of the right knee. The patient presented for evaluation as an outpatient. After discussion and consideration patient elects to proceed with total knee arthroplasty. The patient is seen preoperatively by Dr. Simmons and medically cleared for surgery by their primary care physician. Patient is admitted to [facility] on 12/20/2023 for total knee arthroplasty. The procedure is performed without complication or sequelae. The patient is doing well postoperatively. Labs and vital signs are stable on day of discharge. A Doppler ultrasound of the right lower extremity is negative for DVT. On day of discharge patient's knee incision is healing well. There is minimal erythema. There is no drainage noted at this time. There is minimal soft tissue swelling to the knee. Chronic skin changes to the right lower extremity are stable. Patient has full foot and ankle motion without difficulty or pain. Calf is soft and nontender to palpation. Neurovascular status to the right lower extremity is intact. Patient is discharged to rehab in good condition. Please see med rec for accurate list of home medications. Plan - Discharge Summary Discharge Rx Participant: No New Discharge Prescriptions: New Aspirin 325 mg PO BID #60 tab Sennosides [Senokot] 2 tab PO DAILY PRN #60 tablet PRN Reason: Constipation Na Phos,M-B/Na Phos,Di-Ba [Fleet Adult] 133 ml RECTAL DAILY PRN each PRN Reason: Constipation Magnesium Hydroxide [Milk of Magnesia] 2,400 mg PO DAILY PRN ml PRN Reason: Constipation HYDROcodone/APAP 5-325MG [[place] 5-325] 1 - 2 tab PO Q6HR PRN #32 tab PRN Reason: Pain bisacodyL [Dulcolax] 10 mg RECTAL DAILY PRN suppositor PRN Reason: Constipation Cephalexin [Keflex] 500 mg PO Q6HR 7 Days #28 cap Continue Testosterone [Androgel 1.62% Gel Pump] 1 pump TOPICAL BID Empagliflozin [Jardiance] 25 mg PO DAILY Fish Oil/Dha/Epa [Fish Oil 1,200 mg Fish Oil] 1 cap PO TID Fluticasone Nasal Metz [Flonase Nasal Metz] 1 spr EA NOSTRIL BID Pentoxifylline [TRENtal] 400 mg PO BID Tamsulosin HCl [Flomax] 0.4 mg PO AC-SUPPER Folic Acid 1 mg PO DAILY #30 tab Polyvinyl Alcohol/Povidone [[place] Eye Drop] 1 drop BOTH EYES 5XD Melatonin 5 mg PO HS Artificial Tears Ointment [Lubrifresh Pm Ointment] 0.25 inch LEFT EYE HS Insulin Aspart [NovoLOG Flexpen] See Protocol SQ AC-TID diphenhydrAMINE [Benadryl] 25 mg PO QID Cyanocobalamin (Vitamin B-12) [Vitamin B-12] 1,000 mcg PO DAILY Alogliptin Benzoate [Alogliptin] 25 mg PO DAILY carBAMazepine [TEGretol] 400 mg PO BID@1700,2100 Levothyroxine Sodium 300 mcg PO QAM metFORMIN HCL [Glucophage] 1,000 mg PO BID SILVER sulfADIAZINE Cream [Silvadene 1% Cream] 1 applic TOPICAL DAILY Thiamine [Vitamin B-1] 100 mg PO DAILY #30 tablet Acetaminophen Tab [Tylenol] 1,000 mg PO Q6HR PRN PRN Reason: Pain Gabapentin [Neurontin] 300 mg PO BID #6 cap Albuterol Sulfate [Proventil Hfa] 1 puff INHALATION RT-QID PRN PRN Reason: Shortness Of Breath Vitamin E (Dl,Tocopheryl Acet) [Vitamin E (400 Iu = 180 mg)] 400 unit PO DAILY Valsartan 320 mg PO QAM Magnesium Oxide [Mag-Ox] 250 mg PO BID Cholecalciferol [Vitamin D3 (25 Mcg = 1000 Iu)] 50 mcg PO DAILY Carboxymethylcellulose Sodium [Refresh Tears] 2 drops BOTH EYES QID PRN PRN Reason: Dry Eye(S) OLANZapine 7.5 mg PO HS Metoprolol Tartrate [Lopressor] 50 mg PO BID Exenatide Microspheres [Bydureon Bcise Auto-Injector] 2 mg SQ Q7D Atorvastatin [Lipitor] 40 mg PO HS carBAMazepine [TEGretol] 200 mg PO QAM Pantoprazole [Protonix] 40 mg PO QAM Aspirin [Adult Low Dose Aspirin EC] 81 mg PO DAILY Changed Insulin Degludec [Tresiba Flextouch U-200 Pen] 15 unit SQ BID #0 Discontinued hydroCHLOROthiazide [Hydrodiuril] 25 mg PO BID Discharge Medication List Empagliflozin [Jardiance] 25 mg PO DAILY 10/31/20 [History] Fish Oil/Dha/Epa [Fish Oil 1,200 mg Fish Oil] 1 cap PO TID 10/31/20 [History] Fluticasone Nasal Metz [Flonase Nasal Metz] 1 spr EA NOSTRIL BID 10/31/20 [History] Pentoxifylline [TRENtal] 400 mg PO BID 10/31/20 [History] Tamsulosin HCl [Flomax] 0.4 mg PO AC-SUPPER 10/31/20 [History] Testosterone [Androgel 1.62% Gel Pump] 1 pump TOPICAL BID 10/31/20 [History] Albuterol Sulfate [Proventil Hfa] 1 puff INHALATION RT-QID PRN 12/26/20 [History] Folic Acid 1 mg PO DAILY #30 tab 04/15/21 [Rx] Alogliptin Benzoate [Alogliptin] 25 mg PO DAILY 05/29/21 [History] Artificial Tears Ointment [Lubrifresh Pm Ointment] 0.25 inch LEFT EYE HS 05/29/21 [History] Atorvastatin [Lipitor] 40 mg PO HS 05/29/21 [History] Carboxymethylcellulose Sodium [Refresh Tears] 2 drops BOTH EYES QID PRN 05/29/21 [History] Cholecalciferol [Vitamin D3 (25 Mcg = 1000 Iu)] 50 mcg PO DAILY 05/29/21 [History] Cyanocobalamin (Vitamin B-12) [Vitamin B-12] 1,000 mcg PO DAILY 05/29/21 [History] Exenatide Microspheres [Bydureon Bcise Auto-Injector] 2 mg SQ Q7D 05/29/21 [History] Insulin Aspart [NovoLOG Flexpen] See Protocol SQ AC-TID 05/29/21 [History] Levothyroxine Sodium 300 mcg PO QAM 05/29/21 [History] Magnesium Oxide [Mag-Ox] 250 mg PO BID 05/29/21 [History] Melatonin 5 mg PO HS 05/29/21 [History] Metoprolol Tartrate [Lopressor] 50 mg PO BID 05/29/21 [History] OLANZapine 7.5 mg PO HS 05/29/21 [History] Pantoprazole [Protonix] 40 mg PO QAM 05/29/21 [History] Polyvinyl Alcohol/Povidone [[place] Eye Drop] 1 drop BOTH EYES 5XD 05/29/21 [History] SILVER sulfADIAZINE Cream [Silvadene 1% Cream] 1 applic TOPICAL DAILY 05/29/21 [History] Valsartan 320 mg PO QAM 05/29/21 [History] Vitamin E (Dl,Tocopheryl Acet) [Vitamin E (400 Iu = 180 mg)] 400 unit PO DAILY 05/29/21 [History] carBAMazepine [TEGretol] 200 mg PO QAM 05/29/21 [History] carBAMazepine [TEGretol] 400 mg PO BID@1700,2100 05/29/21 [History] diphenhydrAMINE [Benadryl] 25 mg PO QID 05/29/21 [History] metFORMIN HCL [Glucophage] 1,000 mg PO BID 05/29/21 [History] Thiamine [Vitamin B-1] 100 mg PO DAILY #30 tablet 06/02/21 [Rx] Acetaminophen Tab [Tylenol] 1,000 mg PO Q6HR PRN 12/16/23 [History] Aspirin [Adult Low Dose Aspirin EC] 81 mg PO DAILY 12/16/23 [History] Aspirin 325 mg PO BID #60 tab 12/20/23 [Rx] Sennosides [Senokot] 2 tab PO DAILY PRN #60 tablet 12/20/23 [Rx] HYDROcodone/APAP 5-325MG [[place] 5-325] 1 - 2 tab PO Q6HR PRN #32 tab 12/22/23 [Rx] Gabapentin [Neurontin] 300 mg PO BID #6 cap 12/23/23 [Rx] Insulin Degludec [Tresiba Flextouch U-200 Pen] 15 unit SQ BID #0 12/23/23 [Rx] Magnesium Hydroxide [Milk of Magnesia] 2,400 mg PO DAILY PRN ml 12/23/23 [Rx] Na Phos,M-B/Na Phos,Di-Ba [Fleet Adult] 133 ml RECTAL DAILY PRN each 12/23/23 [Rx] bisacodyL [Dulcolax] 10 mg RECTAL DAILY PRN suppositor 12/23/23 [Rx] Cephalexin [Keflex] 500 mg PO Q6HR 7 Days #28 cap 12/26/23 [Rx] Follow up Appointment(s)/Referral(s): [facility],Home Care [NON-STAFF] - As Needed [facility],Equipment [NON-STAFF] - As Needed (Continuous Passive Motion knee machine) [facility], [NON-STAFF] - As Needed Hector Simmons DO [Doctor of Osteopathic Medicine] - 01/09/24 2:30 pm [facility],Clinic [REFERRING] - 1 Week (Please call for follow-up appointment. Please call for follow-up appointment.) Activity/Diet/Wound Care/Special Instructions: Weightbearing as tolerated with a walker. CPM 5-6h daily as tolerated. Leave dressing intact. Dressing may be removed by home care nurse or by patient in 7 days. Then change dressing twice daily until follow up. May shower with initial dressing intact and after removal. If dressing become saturated, please remove. Recommend use of compression stockings daily until follow up to help prevent swelling and blood clots. May remove at night before sleeping. Please take aspirin 325mg twice daily for 30 days to prevent blood clots. Please follow up with [facility] and call with any questions or concerns, . Discharge Disposition: TRANSFER TO SNF/ECF
[2023-12-26 11:12] LABS: Glucose,Whole Blood 194 mg/dL (70-110)
[2023-12-26 16:04] LABS: Glucose,Whole Blood 166 mg/dL (70-110)
[2023-12-26 20:32] LABS: Glucose,Whole Blood 267 mg/dL (70-110)
--- NOTE | 2023-12-26 21:48 | P.PN ---
Subjective Progress Note Date: 12/26/23 This is a pleasant 63-year-old male who was admitted under orthopedic services and is status post right total knee arthroplasty, postop day 0. Patient reports he follows with Dr. Brown in the outpatient setting with a past medical history of chest pain, COPD, diabetes, GERD, deafness, hyperlipidemia, hy pertension, neurologic disorder, osteoarthritis, prostate disorder, thyroid cancer with thyroidectomy, extensive degenerative joint disease with chronic back and bilateral knee pain, sleep apnea uses a CPAP, ADD/ADHD, anxiety/bipolar depression PTSD. Patient reports is a former smoker and is exposed to secondhand smoke in the home with no reported alcohol and denies any other illicit drug use. Patient reports he did undergo presurgical clearance with Dr. Brown in the outpatient setting. Patient is a diabetic and will add Accu- Cheks along with sliding scale and long-acting as needed. Home medications reviewed and resumed as appropriate and will follow along with the patient. Encouraged incentive spirometer use at least 10 times every hour while awake. Will follow-up on repeat labs in the a.m. 12/21/2023 Patient is seen in follow-up today status post right total knee arthroplasty aw aiting work with physical therapy. Patient appears groggy and somewhat lethargic today. Pain medications being adjusted and recommend limiting narcotic use and avoiding IV Dilaudid if possible. Home medications reviewed and resumed as appropriate. Blood sugars elevated and uncontrolled and will adjust insulins and continue with long-acting. Increase the dose. Encouraged to increase activity as tolerated with continued incentive spirometer use. 12/22/2023 Patient is seen in follow-up today having difficulty working with physical therapy looking into possible ECF versus inpatient rehab. Orthopedics following and patient is medically stable once ECF and authorization is obtained. Patient 's blood sugars remain uncontrolled and will continue to monitor and have adjusted the long-acting. Encouraged incentive spirometer use at least 10 times every hour while awake. Patient is using CPAP at night and will continue. Patient is afebrile with no reports of chest pain or shortness of breath. Patient reports continued pain in the right knee and will continue current regimen. Continue to avoid Dilaudid if possible. 12/23/2023 Patient seen in follow-up today more awake and alert. Patient did have a low- grade temp last night and will order chest x-ray along with urinalysis and blood cultures to rule out any infectious source. Patient does not appear septic. Patient is currently afebrile and reports to tolerating diet with no reported nausea or vomiting. Blood sugars being monitored and will continue current regimen. Patient requires 3 night hospitalization according to Medicare guidelines to be able to go to rehab. Plan is for discharge to [facility] on Tuesday. 12/24/2023 Patient is evaluated today in follow up on the medical floor. He continues to report pain to the right knee with mild ankle edema noted with chronic hyperpigmentation noted to the right lower extremity. Plan for discharge to rehab Tuesday. Blood glucose remains elevated and meal time and sliding scale i nsulin has been added in addition to the levemir for improved glycemic control to promote wound healing. 12/25/2023 Patient is evaluated today in follow up sitting up in the chair. No acute events overnight. Reports improve pain control to the right knee. His blood glucose has come down to the 170s and will remain on levemir sliding scale and scheduled insulin. Patient is hemodynamically stable and is being followed closely by orthopedics. 12/26/2023 Patient is evaluated today on the medical floor, pending discharge to subacute rehab. He does have increasing swelling to the right lower extremity and had a venous doppler done which reveals no acute DVT. He denies shortness of breath. No chest pain. Bowels are moving. Tolerating diet. Review of systems: Constitutional: reports of fatigue, no fever, or chills Cardiovascular: No reports of chest pain or palpitations Respiratory: No reports of shortness of breath or cough GI: No reports of nausea, vomiting, or diarrhea, reports passing gas with bowel movement : No reports of dysuria or retention Neurovascular: reports of generalized weakness All medications have been reviewed PHYSICAL EXAMINATION: GENERAL: The patient is slightly more awake today, alert and oriented x3, not in any acute distress. Well developed, well nourished. Obese, elderly appearing HEENT: Pupils are round and equally reacting to light. EOMI. No scleral icterus. No conjunctival pallor. Normocephalic, atraumatic. No pharyngeal erythema. No th yromegaly. CARDIOVASCULAR: S1 and S2 muffled PULMONARY: Diminished breath sounds bilaterally otherwise chest is clear to auscultation, no wheezing or crackles. ABDOMEN: Soft, obese, nontender, nondistended, normoactive bowel sounds. No palpable organomegaly. MUSCULOSKELETAL: No joint swelling or deformity. Right knee surgical dressing is dry and intact with Stevan wrap noted to the entire right lower extremity EXTREMITIES: No cyanosis, clubbing, or pedal edema. Right lower extremity edema. Pitting +1. NEUROLOGICAL: Gross neurological examination did not reveal any focal deficits. Diffusely weak SKIN: No rashes. Assessment: Osteoarthritis, status post right total knee arthroplasty History of COPD, stable, not in exacerbation Diabetes mellitus, type II, insulin-dependent, uncontrolled with hyperglycemia Obesity with a BMI of 39.9 Gait dysfunction and generalized weakness Hypertension history Hyperlipidemia Sleep apnea with a CPAP History of ADD/ADHD/anxiety/bipolar depression/PTSD Former smoker Chronic back and knee pain History of degenerative joint disease History of thyroid cancer with thyroidectomy GI prophylaxis DVT prophylaxis Full code Plan: Continue to limit IV narcotics. Continue on bowel regimen. Patient requires 3 night hospitalization according to Medicare guidelines inorder to qualify for subacuter rehab and discharge will be on Tuesday to [facility]. Patient reports having pieces of this home cpap missing and will have to get one ordered for rehab discharge was held. Patient did have a low-grade temp and ordered a chest x-ray showing no acute process, urinalysis not suggestive of infection and blood cultures are negative so far. Encourage incentive spirometer use and increase activity as tolerated. Now afebrile. Will continue with Accu-Cheks before meals and at bedtime along with sliding scale and continue to adjust long-acting as blood sugars are elevated Encourage incentive spirometer use at least 10 times every hour while awake Encourage CPAP use Can discontinue IV fluids. Patient is medically stable for discharge to [facility] once insurance authorization is obtained. Again according to case management Medicare guidelines requires 3 night hospitalization. We will continue to follow with orthopedics during hospitalization. Thank you kindly for this consultation. The impression and plan of care has been dictated by Nurse Annelise Pr actitioner as directed. Dr. David MD I have performed a history and physical examination and medical decision making of this patient, discussed the same with the dictator, and agree with the dicta tors assessment and plan as written, documented as a scribe. Based on total visit time, I have performed more than 50% of this visit. Objective - Vital Signs Vital signs: Vital Signs Temp 98.6 F 12/26/23 08:00 Pulse 65 12/26/23 08:00 Resp 18 12/26/23 08:00 BP 135/84 12/26/23 08:00 Pulse Ox 99 12/26/23 08:00 FiO2 21 12/22/23 23:34 Intake & Output 12/25/23 12/26/23 12/26/23 18:59 06:59 18:59 Output Total 1625 1750 Balance -1625 -1750 Output: Urine 1625 1750 Other: Voiding Method Toilet Bedside Commode # Voids 3 - Labs CBC & Chem 7: 12/24/23 05:58 12/25/23 04:14 Labs: Abnormal Lab Results - Last 24 Hours (Table) 12/25/23 12/25/23 12/26/23 Range/Units 16:29 20:18 06:20 POC Glucose (mg/dL) 161 H 184 H 139 H (70-110) mg/dL 12/26/23 Range/Units 11:10 POC Glucose (mg/dL) 194 H (70-110) mg/dL Microbiology - Last 24 Hours (Table) 12/23/23 14:56 Blood Culture - Preliminary Blood Assessment and Plan Time with Patient: Less than 30
[2023-12-27 05:59] LABS: Glucose,Whole Blood 279 mg/dL (70-110)
[2023-12-27 11:30] LABS: Glucose,Whole Blood 194 mg/dL (70-110)
[2023-12-27 14:25] VITALS: BP 122/69; PULSE 73; TEMP 98.6
[2023-12-27 14:26] VITALS: RESP 17
--- NOTE | 2023-12-28 08:58 | P.PN ---
Subjective Progress Note Date: 12/27/23 This is a pleasant 63-year-old male who was admitted under orthopedic services and is status post right total knee arthroplasty, postop day 0. Patient reports he follows with Dr. Brown in the outpatient setting with a past medical history of chest pain, COPD, diabetes, GERD, deafness, hyperlipidemia, hy pertension, neurologic disorder, osteoarthritis, prostate disorder, thyroid cancer with thyroidectomy, extensive degenerative joint disease with chronic back and bilateral knee pain, sleep apnea uses a CPAP, ADD/ADHD, anxiety/bipolar depression PTSD. Patient reports is a former smoker and is exposed to secondhand smoke in the home with no reported alcohol and denies any other illicit drug use. Patient reports he did undergo presurgical clearance with Dr. Brown in the outpatient setting. Patient is a diabetic and will add Accu- Cheks along with sliding scale and long-acting as needed. Home medications reviewed and resumed as appropriate and will follow along with the patient. Encouraged incentive spirometer use at least 10 times every hour while awake. Will follow-up on repeat labs in the a.m. 12/21/2023 Patient is seen in follow-up today status post right total knee arthroplasty aw aiting work with physical therapy. Patient appears groggy and somewhat lethargic today. Pain medications being adjusted and recommend limiting narcotic use and avoiding IV Dilaudid if possible. Home medications reviewed and resumed as appropriate. Blood sugars elevated and uncontrolled and will adjust insulins and continue with long-acting. Increase the dose. Encouraged to increase activity as tolerated with continued incentive spirometer use. 12/22/2023 Patient is seen in follow-up today having difficulty working with physical therapy looking into possible ECF versus inpatient rehab. Orthopedics following and patient is medically stable once ECF and authorization is obtained. Patient 's blood sugars remain uncontrolled and will continue to monitor and have adjusted the long-acting. Encouraged incentive spirometer use at least 10 times every hour while awake. Patient is using CPAP at night and will continue. Patient is afebrile with no reports of chest pain or shortness of breath. Patient reports continued pain in the right knee and will continue current regimen. Continue to avoid Dilaudid if possible. 12/23/2023 Patient seen in follow-up today more awake and alert. Patient did have a low- grade temp last night and will order chest x-ray along with urinalysis and blood cultures to rule out any infectious source. Patient does not appear septic. Patient is currently afebrile and reports to tolerating diet with no reported nausea or vomiting. Blood sugars being monitored and will continue current regimen. Patient requires 3 night hospitalization according to Medicare guidelines to be able to go to rehab. Plan is for discharge to [facility] on Tuesday. 12/24/2023 Patient is evaluated today in follow up on the medical floor. He continues to report pain to the right knee with mild ankle edema noted with chronic hyperpigmentation noted to the right lower extremity. Plan for discharge to rehab Tuesday. Blood glucose remains elevated and meal time and sliding scale i nsulin has been added in addition to the levemir for improved glycemic control to promote wound healing. 12/25/2023 Patient is evaluated today in follow up sitting up in the chair. No acute events overnight. Reports improve pain control to the right knee. His blood glucose has come down to the 170s and will remain on levemir sliding scale and scheduled insulin. Patient is hemodynamically stable and is being followed closely by orthopedics. 12/26/2023 Patient is evaluated today on the medical floor, pending discharge to subacute rehab. He does have increasing swelling to the right lower extremity and had a venous doppler done which reveals no acute DVT. He denies shortness of breath. No chest pain. Bowels are moving. Tolerating diet. 12/27/2023 Patient evaluated in follow up today on the medical floor. Discharge was held overnight due to concerns for missing pieces to the patients CPAP machine which were identified in the room. Patient reports some discomfort to the right knee when he is up ambulating. He will need subacute rehab and has completed his 3 nights of IP hospital stay and will be transferred to [facility]. Review of systems: Constitutional: reports of fatigue, no fever, or chills Cardiovascular: No reports of chest pain or palpitations Respiratory: No reports of shortness of breath or cough GI: No reports of nausea, vomiting, or diarrhea, reports passing gas with bowel movement : No reports of dysuria or retention Neurovascular: reports of generalized weakness All medications have been reviewed PHYSICAL EXAMINATION: GENERAL: The patient is slightly more awake today, alert and oriented x3, not in any acute distress. Well developed, well nourished. Obese, elderly appearing HEENT: Pupils are round and equally reacting to light. EOMI. No scleral icterus. No conjunctival pallor. Normocephalic, atraumatic. No pharyngeal erythema. No thyromegaly. CARDIOVASCULAR: S1 and S2 muffled PULMONARY: Diminished breath sounds bilaterally otherwise chest is clear to auscultation, no wheezing or crackles. ABDOMEN: Soft, obese, nontender, nondistended, normoactive bowel sounds. No palpable organomegaly. MUSCULOSKELETAL: No joint swelling or deformity. Right knee surgical dressing is dry and intact with Stevan wrap noted to the entire right lower extremity EXTREMITIES: No cyanosis, clubbing, or pedal edema. Right lower extremity edema. Pitting +1. NEUROLOGICAL: Gross neurological examination did not reveal any focal deficits. Diffusely weak SKIN: No rashes. Assessment: Osteoarthritis, status post right total knee arthroplasty History of COPD, stable, not in exacerbation Diabetes mellitus, type II, insulin-dependent, uncontrolled with hyperglycemia Obesity with a BMI of 39.9 Gait dysfunction and generalized weakness Hypertension history Hyperlipidemia Sleep apnea with a CPAP History of ADD/ADHD/anxiety/bipolar depression/PTSD Former smoker Chronic back and knee pain History of degenerative joint disease History of thyroid cancer with thyroidectomy GI prophylaxis DVT prophylaxis Full code Plan: Continue to limit IV narcotics. Continue on bowel regimen. Patient requires 3 night hospitalization according to Medicare guidelines inorder to qualify for subacuter rehab and discharge will be on Tuesday to [facility]. Discharge held to find pieces of his home CPAP which have been found. Patient did have a low-grade temp and ordered a chest x-ray showing no acute process, urinalysis not suggestive of infection and blood cultures are negative so far. Encourage incentive spirometer use and increase activity as tolerated. Now afebrile. Will continue with Accu-Cheks before meals and at bedtime along with sliding scale and continue to adjust long-acting as blood sugars are elevated Encourage incentive spirometer use at least 10 times every hour while awake Encourage CPAP use Can discontinue IV fluids. Patient is medically stable for discharge to [facility] once insurance authorization is obtained. Again according to case management Medicare guidelines requires 3 night hospitalization. He is medically stable for discharge to subacute rehab today. Orthopedics recommending Aspirin 325 mg BID for the next 30 days for DVT proph ylaxis. Patient is disharged on empiric antibiotic coverage with oral keflex cor 7 days. We will continue to follow with orthopedics during hospitalization. Thank you kindly for this consultation. The impression and plan of care has been dictated by Jyotsna Davies, Nurse Practitioner as directed. Dr. David MD I have performed a history and physical examination and medical decision making of this patient, discussed the same with the dictator, and agree with the dictators assessment and plan as written, documented as a scribe. Based on total visit time, I have performed more than 50% of this visit. Objective - Vital Signs Vital signs: Vital Signs Temp 98.6 F 12/27/23 07:19 Pulse 73 12/27/23 08:00 Resp 17 12/27/23 08:00 BP 122/69 12/27/23 07:19 Pulse Ox 95 12/27/23 07:19 FiO2 21 12/22/23 23:34 Intake & Output 12/26/23 12/27/23 12/27/23 18:59 06:59 18:59 Output Total 100 600 Balance -100 -600 Output: Urine 100 600 Other: Voiding Method Toilet Toilet Toilet Bedside Commode Urinal Urinal # Voids 1 - Labs CBC & Chem 7: 12/24/23 05:58 12/25/23 04:14 Labs: Abnormal Lab Results - Last 24 Hours (Table) 12/26/23 12/26/23 12/27/23 Range/Units 16:02 20:30 05:58 POC Glucose (mg/dL) 166 H 267 H 279 H (70-110) mg/dL 12/27/23 Range/Units 11:29 POC Glucose (mg/dL) 194 H (70-110) mg/dL Microbiology - Last 24 Hours (Table) 12/23/23 14:56 Blood Culture - Preliminary Blood Assessment and Plan Time with Patient: Less than 30
== END 2023-12-27 13:36 | DRG 470 ==
LOC: OR 06:30 → 4SSUR 11:13 → OR 12-22 12:09 → 4SSUR 12-22 12:09
PROVIDERS: ADMIT Orthopaedic Surgery; ATTEND Orthopaedic Surgery
PROC: 3E0T3BZ Introduction of Anesthetic Agent into Peripheral Nerves and Plexi, Percutaneous Approach (ICD-10-PCS; 2023-12-20)
PROC: 0SRC0J9 Replacement of Right Knee Joint with Synthetic Substitute, Cemented, Open Approach (ICD-10-PCS; principal; 2023-12-20 09:10)
DX: M17.11 Unilateral primary osteoarthritis, right knee (principal); Z68.39 Body mass index [BMI] 39.0-39.9, adult; I10 Essential (primary) hypertension; E66.01 Morbid (severe) obesity due to excess calories; E89.0 Postprocedural hypothyroidism; E11.42 Type 2 diabetes mellitus with diabetic polyneuropathy; G47.30 Sleep apnea, unspecified; E78.5 Hyperlipidemia, unspecified; Z87.891 Personal history of nicotine dependence; F31.9 Bipolar disorder, unspecified; F43.10 Post-traumatic stress disorder, unspecified; G89.29 Other chronic pain; H91.90 Unspecified hearing loss, unspecified ear; I87.8 Other specified disorders of veins; J44.9 Chronic obstructive pulmonary disease, unspecified; Z77.22 Contact with and (suspected) exposure to environmental tobacco smoke (acute) (chronic); Z79.82 Long term (current) use of aspirin; Z79.4 Long term (current) use of insulin; Z79.84 Long term (current) use of oral hypoglycemic drugs; Z79.899 Other long term (current) drug therapy; Z82.49 Family history of ischemic heart disease and other diseases of the circulatory system; Z96.652 Presence of left artificial knee joint; Z85.850 Personal history of malignant neoplasm of thyroid; Z97.4 Presence of external hearing-aid; Z88.5 Allergy status to narcotic agent; Z88.0 Allergy status to penicillin; Z88.8 Allergy status to other drugs, medicaments and biological substances; F90.9 Attention-deficit hyperactivity disorder, unspecified type; E11.65 Type 2 diabetes mellitus with hyperglycemia
CPT/HCPCS: 64448; 64999; 71045; 80048; 80053; 81003; 83036; 83735; 83880; 85025; 87040; 93005; 94660

== ENCOUNTER 2024-02-27 10:09 | Emergency (ER) | payer MEDICARE, OTHER ==
--- NOTE | 2024-02-27 10:20 | ED ---
Wound/Laceration HPI - General Chief Complaint: Wound/Laceration Stated Complaint: L foot sore/black toes Time Seen by Provider: 02/27/24 10:19 Source: patient, RN notes reviewed Mode of arrival: wheelchair Limitations: no limitations - History of Present Illness Initial Comments: 63-year-old male with history of T2DM who presents to the with chief co mplaint of left foot digit discoloration and wounds. States that his most recent appointment with his guest request runner roughly 10 days ago where they were managing his chronic left foot wounds. He said over the past few days he noticed the left great toe having increasing erythema to the chest. States that he has been bleeding with a cane since his total right knee replacement in November. Patient had his left great toe amputated fevers, chills, nausea, vomiting, weakness. Denies recent injuries to the left foot. - Related Data Home Medications Medication Instructions Recorded Confirmed Empagliflozin [Jardiance] 25 mg PO DAILY 10/31/20 12/16/23 Fish Oil/Dha/Epa [Fish Oil 1,200 1 cap PO TID 10/31/20 12/16/23 mg Fish Oil] Fluticasone Nasal [place] [Flonase 1 spr EA NOSTRIL BID 10/31/20 12/16/23 Nasal [place]] Pentoxifylline [TRENtal] 400 mg PO BID 10/31/20 12/16/23 Tamsulosin HCl [Flomax] 0.4 mg PO AC-SUPPER 10/31/20 12/16/23 Testosterone [Androgel 1.62% Gel 1 pump TOPICAL BID 10/31/20 12/16/23 Pump] Albuterol Sulfate [Proventil Hfa] 1 puff INHALATION RT-QID PRN 12/26/20 12/20/23 Alogliptin Benzoate [Alogliptin] 25 mg PO DAILY 05/29/21 12/20/23 Artificial Tears Ointment 0.25 inch LEFT EYE HS 05/29/21 12/20/23 [Lubrifresh Pm Ointment] Atorvastatin [Lipitor] 40 mg PO HS 05/29/21 12/20/23 Carboxymethylcellulose Sodium 2 drops BOTH EYES QID PRN 05/29/21 12/16/23 [Refresh Tears] Cholecalciferol [Vitamin D3 (25 50 mcg PO DAILY 05/29/21 12/16/23 Mcg = 1000 Iu)] Cyanocobalamin (Vitamin B-12) 1,000 mcg PO DAILY 05/29/21 12/16/23 [Vitamin B-12] Exenatide Microspheres [Bydureon 2 mg SQ Q7D 05/29/21 12/16/23 Bcise Auto-Injector] Insulin Aspart [NovoLOG Flexpen] See Protocol SQ AC-TID 05/29/21 12/16/23 Levothyroxine Sodium 300 mcg PO QAM 05/29/21 12/20/23 Magnesium Oxide [Mag-Ox] 250 mg PO BID 05/29/21 12/16/23 Melatonin 5 mg PO HS 05/29/21 12/16/23 Metoprolol Tartrate [Lopressor] 50 mg PO BID 05/29/21 12/20/23 OLANZapine 7.5 mg PO HS 05/29/21 12/16/23 Pantoprazole [Protonix] 40 mg PO QAM 05/29/21 12/16/23 Polyvinyl Alcohol/Povidone 1 drop BOTH EYES 5XD 05/29/21 12/16/23 [[place] Eye Drop] SILVER sulfADIAZINE Cream 1 applic TOPICAL DAILY 05/29/21 12/16/23 [Silvadene 1% Cream] Valsartan 320 mg PO QAM 05/29/21 12/16/23 Vitamin E (Dl,Tocopheryl Acet) 400 unit PO DAILY 05/29/21 12/16/23 [Vitamin E (400 Iu = 180 mg)] carBAMazepine [TEGretol] 200 mg PO QAM 05/29/21 12/16/23 carBAMazepine [TEGretol] 400 mg PO BID@1700,2100 05/29/21 12/16/23 diphenhydrAMINE [Benadryl] 25 mg PO QID 05/29/21 12/16/23 metFORMIN HCL [Glucophage] 1,000 mg PO BID 05/29/21 12/16/23 Acetaminophen Tab [Tylenol] 1,000 mg PO Q6HR PRN 12/16/23 12/20/23 Aspirin [Adult Low Dose Aspirin EC] 81 mg PO DAILY 12/16/23 12/16/23 Previous Rx's Medication Instructions Recorded Folic Acid 1 mg PO DAILY #30 tab 04/15/21 Thiamine [Vitamin B-1] 100 mg PO DAILY #30 tablet 06/02/21 Aspirin 325 mg PO BID #60 tab 12/20/23 Sennosides [Senokot] 2 tab PO DAILY PRN #60 tablet 12/20/23 HYDROcodone/APAP 5-325MG [[place] 1 - 2 tab PO Q6HR PRN #32 tab 12/22/23 5-325] Insulin Degludec [Tresiba 15 unit SQ BID #0 12/23/23 Flextouch U-200 Pen] Magnesium Hydroxide [Milk of 2,400 mg PO DAILY PRN ml 12/23/23 Magnesia] Na Phos,M-B/Na Phos,Di-Ba [Fleet 133 ml RECTAL DAILY PRN each 12/23/23 Adult] bisacodyL [Dulcolax] 10 mg RECTAL DAILY PRN suppositor 12/23/23 Cephalexin [Keflex] 500 mg PO Q6HR 7 Days #28 cap 12/26/23 Gabapentin [Neurontin] 300 mg PO BID 3 Days #6 cap 12/27/23 Sulfamethox-Tmp 800-160Mg [Bactrim 1 each PO Q12HR #20 tab 02/27/24 Ds] Allergies Allergy/AdvReac Type Severity Reaction Status Date / Time codeine phosphate Allergy Dyspnea Verified 02/27/24 10:15 [From Tylenol-Codeine] levofloxacin [From Levaquin] Allergy Anaphylaxis Verified 02/27/24 10:15 Penicillins Allergy Rash/Hives Verified 02/27/24 10:15 quetiapine Allergy headache Verified 02/27/24 10:15 guaifenesin AdvReac dehydration Verified 02/27/24 10:15 meperidine HCl [From Demerol] AdvReac "altered Verified 02/27/24 10:15 state of mind" olanzapine AdvReac > 7.6 mg Verified 02/27/24 10:15 causes sleepiness phenylephrine AdvReac dehydration Verified 02/27/24 10:15 pseudoephedrine AdvReac Unknown Verified 02/27/24 10:15 [From Entex T] topiramate AdvReac Dehydration Verified 02/27/24 10:15 and Manic wool AdvReac Urticarial Verified 02/27/24 10:15 gin AdvReac Headache Uncoded 02/27/24 10:15 Review of Systems ROS Statement: Those systems with pertinent positive or pertinent negative responses have been documented in the HPI. ROS Other: All systems not noted in ROS Statement are negative. 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, BLAYNE with CPAP, IDDM type II, neuropathy bilateral lower extremities, hypothroid- thyroidectomy d/t cancer, arthritis/ DJD in back and bilateral knees, obesity, History of Any Multi-Drug Resistant Organisms: ESBL, MRSA Date of last positivie culture/infection: 12/30/20 ESBL; 10/31/20 MRSA MDRO Source:: Toe Left Second ESBL; Toe Right First MRSA Past Surgical History: Joint Replacement, Tonsillectomy Additional Past Surgical History / Comment(s): L great toe amputation, L total knee arthroplasty, stephani eye surgery, thyroidectomy Past Anesthesia/Blood Transfusion Reactions: No Reported Reaction Additional Past Anesthesia/Blood Transfusion Reaction / Comment(s): had reaction to drainage tube-"had to be knocked out-woke up swinging" Past Psychological History: ADD/ADHD, Anxiety, Bipolar, Depression, PTSD Smoking Status: Former smoker, Second hand smoke exposure Past Alcohol Use History: None Reported Past Drug Use History: None Reported - Past Family History Father Family Medical History: Coronary Artery Disease (CAD), Diabetes Mellitus Additional Family Medical History / Comment(s): Father had CABG. Mother Family Medical History: Cancer, Diabetes Mellitus Additional Family Medical History / Comment(s): Colon cancer. General Exam Limitations: no limitations General appearance: alert, in no apparent distress Head exam: Present: atraumatic, normocephalic, normal inspection Eye exam: Present: normal appearance, PERRL, EOMI. Absent: scleral icterus, conjunctival injection, periorbital swelling ENT exam: Present: normal exam, mucous membranes moist Neck exam: Present: normal inspection. Absent: tenderness, meningismus, lymphadenopathy Respiratory exam: Present: normal lung sounds bilaterally. Absent: respiratory distress, wheezes, rales, rhonchi, stridor Cardiovascular Exam: Present: regular rate, normal rhythm, normal heart sounds. Absent: systolic murmur, diastolic murmur, rubs, gallop, clicks GI/Abdominal exam: Present: soft, normal bowel sounds. Absent: distended, tenderness, guarding, rebound, rigid Left Foot/Toe exam: Present: tenderness, swelling, erythema, amputation (first digit). Absent: normal inspection, full ROM Neurovascular tendon exam: Present: tendon deficit (history of tendon surgery to digits). Absent: extremity cold to touch Back exam: Present: normal inspection Skin exam: Present: warm, dry, intact, normal color. Absent: rash Course Vital Signs 02/27/24 02/27/24 02/27/24 10:10 11:00 11:30 Temperature 97.4 F L Pulse Rate 82 78 75 Respiratory 20 20 20 Rate Blood Pressure 138/80 111/71 115/69 O2 Sat by Pulse 100 95 97 Oximetry 02/27/24 12:00 Temperature Pulse Rate 74 Respiratory 20 Rate Blood Pressure 110/65 O2 Sat by Pulse 96 Oximetry Medical Decision Making - Medical Decision Making Was pt. sent in by a medical professional or institution (, PA, SAP PI DEVELOPER, urgent care, hospital, or jail...) When possible be specific @ -No Did you speak to anyone other than the patient for history (EMS, parent, family, police, friend...)? What history was obtained from this source @ -No Did you review nursing and triage notes (agree or disagree)? Why? @ -I reviewed and agree with nursing and triage notes Were old charts reviewed (outside hosp., previous admission, EMS record, old EKG, old radiological studies, urgent care reports/EKG's, jail records)? Report findings @ reviewed the patient's ultrasound of the right lower extremity was completed on 12/26/2023 revealed that he had a greater saphenous SVG, no evidence for DVT. also reviewed previous labs, patient has a chronically elevated BUN and glucose. Differential Diagnosis (chest pain, altered mental status, abdominal pain women, abdominal pain men, vaginal bleeding, weakness, fever, dyspnea, syncope, headache, dizziness, GI bleed, back pain, seizure, CVA, palpatations, mental health, musculoskeletal)? @ -Osteomyelitis, cellulitis, chronic wound, this list is not all inclusive. EKG interpreted by me (3pts min.). @ -None X-rays interpreted by me (1pt min.). @ -X-ray of the left foot reveals no evidence for acute fracture, post amputation. First digit with no osseous erosion identified and soft tissue swelling is present. Posterior subluxation of the second and third digit at the metatarsophalangeal joints. CT interpreted by me (1pt min.). @ -None done U/S interpreted by me (1pt. min.). @ -None done What testing was considered but not performed or refused? (CT, X-rays, U/S, labs)? Why? @ -None What meds were considered but not given or refused? Why? @ -None Did you discuss the management of the patient with other professionals (professionals i.e. , PA, SAP PI DEVELOPER, lab, RT, psych nurse, social professionals, consumer analyst, teacher, human resource officer, telephonic nurse case manager)? Give summary @ -No Was smoking cessation discussed for >3mins.? @ -No Was critical care preformed (if so, how long)? @ -No Were there social determinants of health that impacted care today? How? (Homelessness, low income, unemployed, alcoholism, drug addiction, transportation, low edu. Level, literacy, decrease access to med. care, halfway, rehab)? @ -No Was there de-escalation of care discussed even if they declined (Discuss DNR or withdrawal of care, Hospice)? DNR status @ -No What co-morbidities impacted this encounter? (DM, HTN, Smoking, COPD, CAD, Cancer, CVA, ARF, Chemo, Hep., AIDS, mental health diagnosis, sleep apnea, morbid obesity)? @ -None Was patient admitted / discharged? Hospital course, mention meds given and route, prescriptions, significant lab abnormalities, going to OR and other pertinent info. @ -63-year-old male with left foot chronic wounds. On examination patient's foot is warm and there is a palpable strong 2+ pedal pulse. There is a amputation to the first digit with the surrounding skin is erythematous with signs of purulence, no active drainage. There is tenderness to the fourth digit with mild discoloration to the distal digit. Patient vitals are stable upon arrival. He will be evaluated via laboratory studies addition to x-ray imaging. CBC and coagulation profile unremarkable. CMP elevated glucose of 180, nonelevated. xray no acute process at this time, no signs of bony erosion or fracture. Patient states that he has a follow-up appointment scheduled with guest request runner on Tuesday for further evaluation. Due to signs concerning for potential early cellulitis he will be discharged home with oral Bactrim. Patient states that he is taking Bactrim in the past and has no allergy to this medication. All questions answered at bedside and strict return parameters discussed with patient he is verbalized understanding. Case discussed with Dr. Mejia. Undiagnosed new problem with uncertain prognosis? @ -No Drug Therapy requiring intensive monitoring for toxicity (Heparin, Nitro, Insulin, Cardizem)? @ -No Were any procedures done? @ -No Diagnosis/symptom? @ -diabetic ulcer, cellulitis, chronic wounds Acute, or Chronic, or Acute on Chronic? @ -acute Uncomplicated (without systemic symptoms) or Complicated (systemic symptoms)? @ -uncomplicated Side effects of treatment? @ -No Exacerbation, Progression, or Severe Exacerbation? @ -No Poses a threat to life or bodily function? How? (Chest pain, [place], [place], pneumonia, PE, COPD, DKA, ARF, appy, cholecystitis, CVA, Diverticulitis, Homicidal, Suicidal, threat to staff... and all critical care pts) @ -No - Lab Data Result diagrams: 02/27/24 10:43 02/27/24 10:43 Lab Results 02/27/24 02/27/24 02/27/24 Range/Units 10:43 10:43 10:43 WBC 6.8 (3.8-10.6) k/uL RBC 4.69 (4.30-5.90) m/uL Hgb 13.6 (13.0-17.5) gm/dL Hct 42.7 (39.0-53.0) % MCV 91.1 (80.0-100.0) fL MCH 29.0 (25.0-35.0) pg MCHC 31.8 (31.0-37.0) g/dL RDW 13.5 (11.5-15.5) % Plt Count 252 (150-450) k/uL MPV 7.7 Neutrophils % (Manual) 74 % Lymphocytes % (Manual) 10 % Monocytes % (Manual) 13 % Eosinophils % (Manual) 3 % Neutrophils # (Manual) 5.03 (1.3-7.7) k/uL Lymphocytes # (Manual) 0.68 L (1.0-4.8) k/uL Monocytes # (Manual) 0.88 (0-1.0) k/uL Eosinophils # (Manual) 0.20 (0-0.7) k/uL Nucleated RBCs 0 (0-0) /100 WBC Manual Slide Review Performed PT 10.5 (10.0-12.5) sec INR 0.9 (<1.2) APTT 28.4 (22.0-30.0) sec Sodium 138 (137-145) mmol/L Potassium 4.5 (3.5-5.1) mmol/L Chloride 104 (98-107) mmol/L Carbon Dioxide 23 (22-30) mmol/L Anion Gap 11 mmol/L BUN 35 H (9-20) mg/dL Creatinine 1.15 (0.66-1.25) mg/dL Est GFR (CKD-EPI)AfAm 79 (>60 ml/min/1.73 sqM) Est GFR (CKD-EPI)NonAf 68 (>60 ml/min/1.73 sqM) Glucose 180 H (74-99) mg/dL Plasma Lactic Acid Jt (0.7-2.0) mmol/L Calcium 8.8 (8.4-10.2) mg/dL Total Bilirubin 0.5 (0.2-1.3) mg/dL AST 32 (17-59) U/L ALT 26 (4-49) U/L Alkaline Phosphatase 66 (38-126) U/L Total Protein 7.3 (6.3-8.2) g/dL Albumin 4.0 (3.5-5.0) g/dL 02/27/24 Range/Units 10:43 WBC (3.8-10.6) k/uL RBC (4.30-5.90) m/uL Hgb (13.0-17.5) gm/dL Hct (39.0-53.0) % MCV (80.0-100.0) fL MCH (25.0-35.0) pg MCHC (31.0-37.0) g/dL RDW (11.5-15.5) % Plt Count (150-450) k/uL MPV Neutrophils % (Manual) % Lymphocytes % (Manual) % Monocytes % (Manual) % Eosinophils % (Manual) % Neutrophils # (Manual) (1.3-7.7) k/uL Lymphocytes # (Manual) (1.0-4.8) k/uL Monocytes # (Manual) (0-1.0) k/uL Eosinophils # (Manual) (0-0.7) k/uL Nucleated RBCs (0-0) /100 WBC Manual Slide Review PT (10.0-12.5) sec INR (<1.2) APTT (22.0-30.0) sec Sodium (137-145) mmol/L Potassium (3.5-5.1) mmol/L Chloride (98-107) mmol/L Carbon Dioxide (22-30) mmol/L Anion Gap mmol/L BUN (9-20) mg/dL Creatinine (0.66-1.25) mg/dL Est GFR (CKD-EPI)AfAm (>60 ml/min/1.73 sqM) Est GFR (CKD-EPI)NonAf (>60 ml/min/1.73 sqM) Glucose (74-99) mg/dL Plasma Lactic Acid Jt 1.4 (0.7-2.0) mmol/L Calcium (8.4-10.2) mg/dL Total Bilirubin (0.2-1.3) mg/dL AST (17-59) U/L ALT (4-49) U/L Alkaline Phosphatase (38-126) U/L Total Protein (6.3-8.2) g/dL Albumin (3.5-5.0) g/dL Disposition Clinical Impression: Chronic wound of extremity, Diabetic ulcer of left foot, Cellulitis Disposition: HOME SELF-CARE Condition: Good Instructions (If sedation given, give patient instructions): Diabetic Foot Ulcers (ED) Additional Instructions: Return to the emergency department if your symptoms worsen or not improved. Complete full course of antibiotics as prescribed. Keep scheduled appointment with your guest request runner on Tuesday for further evaluation. Prescriptions: Sulfamethox-Tmp 800-160Mg [Bactrim Ds] 1 each PO Q12HR #20 tab Is patient prescribed a controlled substance at d/c from ED?: No Referrals: Tati Dacosta DO [Primary Care Provider] - 1-2 days Time of Disposition: 12:23
[2024-02-27 11:11] LABS: INR 0.9 (<1.2); Partial Thromboplastin Time 28.4 sec (22.0-30.0); Prothrombin Time 10.5 sec (10.0-12.5)
[2024-02-27 11:12] LABS: HCT 42.7 % (39.0-53.0); HGB 13.6 gm/dL (13.0-17.5); MCHC 31.8 g/dL (31.0-37.0); MCV 91.1 fL (80.0-100.0); Mean Platelet Volume 7.7; Platelet Count 252 k/uL (150-450); RBC 4.69 m/uL (4.30-5.90); RDW 13.5 % (11.5-15.5); WBC 6.8 k/uL (3.8-10.6)
[2024-02-27 11:21] LABS: ALT 26 U/L (4-49); AST 32 U/L (17-59); African American GFR (CKD) 79 (>60 ml/min/1.73 sqM); Alkaline Phosphatase 66 U/L (38-126); Anion Gap 11 mmol/L; Blood Urea Nitrogen 35 mg/dL (9-20); Calcium 8.8 mg/dL (8.4-10.2); Carbon Dioxide 23 mmol/L (22-30); Chloride 104 mmol/L (98-107); Glucose 180 mg/dL (74-99); Non-African American GFR(CKD) 68 (>60 ml/min/1.73 sqM); Potassium 4.5 mmol/L (3.5-5.1); Sodium 138 mmol/L (137-145); Total Bilirubin 0.5 mg/dL (0.2-1.3); Total Protein 7.3 g/dL (6.3-8.2)
--- NOTE | 2024-02-27 11:52 | XR ---
EXAMINATION TYPE: XR foot complete LT DATE OF EXAM: 02/27/2024 11:19 AM CLINICAL INDICATION:Male, 63 years old with history of digit discoloration, hx of wounds; [facility] COMPARISON: 12/31/2020 TECHNIQUE: XR foot complete LT examined in the AP, oblique, and lateral projections. FINDINGS: Amputation changes of the first digit at the metatarsophalangeal joint. No evidence of osseous erosio n at this joint. There is soft tissue swelling over the plantar surface of the forefoot. Calcaneal Achilles enthesophyte formation and calcaneal plantar spurring are present. Posterior sublu xation of the second and third digit at the metatarsophalangeal joints. IMPRESSION: 1. No evidence of acute fracture. 2. Post amputation changes of the first digit. No osseous erosion identified. Soft tissue swelling p resent. 3. Posterior subluxation of the second and third digit at the metatarsophalangeal joints.
[2024-02-27 12:23] LABS: Lymphocytes # (M) 0.68 k/uL (1.0-4.8); Monocytes # (M) 0.88 k/uL (0-1.0); Neutrophils # (M) 5.03 k/uL (1.3-7.7); Neutrophils % (M) 74 %; Nucleated Red Blood Cells 0 /100 WBC (0-0); Total Cells Counted 100
[2024-02-27 13:31] VITALS: BP 126/73; PULSE 73; RESP 16; TEMP 97.9
== END 2024-02-27 13:25 | disposition home or self-care (01) ==
LOC: EC 10:09
DX: L97.529 Non-pressure chronic ulcer of other part of left foot with unspecified severity (principal); E11.621 Type 2 diabetes mellitus with foot ulcer; Z87.891 Personal history of nicotine dependence; Z88.0 Allergy status to penicillin; Z88.1 Allergy status to other antibiotic agents; Z88.5 Allergy status to narcotic agent; Z88.6 Allergy status to analgesic agent; Z88.8 Allergy status to other drugs, medicaments and biological substances; Z86.73 Personal history of transient ischemic attack (TIA), and cerebral infarction without residual deficits
CPT/HCPCS: 36415; 80053; 83605; 85025; 85610; 85730; 99283

== ENCOUNTER 2024-03-02 16:36 | Inpatient (IN) | payer MEDICARE, OTHER ==
--- NOTE | 2024-03-02 17:04 | ED ---
Extremity Problem HPI - General Chief complaint: Extremity Problem,Nontraumatic Stated complaint: Abn Labs Time Seen by Provider: 03/02/24 16:50 Source: patient, RN notes reviewed Mode of arrival: wheelchair Limitations: no limitations - History of Present Illness Initial comments: 63-year-old male with history of type 2 diabetes presenting with left foot wound. He states he was sent from [facility] for IV antibiotics. States these ulcerations are chronic. He has a history of a left great toe amputation. Denies foot pain. He is able to ambulate well. Denies trauma or injury. Denies fever or chills. He was seen here 1 week ago for this and was discharged with oral antibiotics. He reports he had tendons removed in the second and fourth digits of left foot, therefore he only has range of motion of third and fifth digits. - Related Data Home Medications Medication Instructions Recorded Confirmed Empagliflozin [Jardiance] 25 mg PO DAILY 10/31/20 03/02/24 Fish Oil/Dha/Epa [Fish Oil 1,200 1 cap PO TID 10/31/20 03/02/24 mg Fish Oil] Fluticasone Nasal Nash [Flonase 1 spr EA NOSTRIL BID 10/31/20 03/02/24 Nasal Nash] Pentoxifylline [TRENtal] 400 mg PO BID 10/31/20 03/02/24 Tamsulosin HCl [Flomax] 0.4 mg PO AC-SUPPER 10/31/20 03/02/24 Testosterone [Androgel 1.62% Gel 1 pump TOPICAL BID 10/31/20 03/02/24 Pump] Albuterol Sulfate [Proventil Hfa] 1 puff INHALATION RT-QID PRN 12/26/20 03/02/24 Alogliptin Benzoate [Alogliptin] 25 mg PO DAILY 05/29/21 03/02/24 Artificial Tears Ointment 0.25 inch LEFT EYE HS 05/29/21 03/02/24 [Lubrifresh Pm Ointment] Atorvastatin [Lipitor] 40 mg PO HS 05/29/21 03/02/24 Carboxymethylcellulose Sodium 2 drops BOTH EYES QID PRN 05/29/21 03/02/24 [Refresh Tears] Cholecalciferol [Vitamin D3 (25 50 mcg PO DAILY 05/29/21 03/02/24 Mcg = 1000 Iu)] Cyanocobalamin (Vitamin B-12) 1,000 mcg PO DAILY 05/29/21 03/02/24 [Vitamin B-12] Exenatide Microspheres [Bydureon 2 mg SQ FR 05/29/21 03/02/24 Bcise Auto-Injector] Insulin Aspart [NovoLOG Flexpen] See Protocol SQ AC-TID 05/29/21 03/02/24 Levothyroxine Sodium 300 mcg PO DAILY 05/29/21 03/02/24 Magnesium Oxide [Mag-Ox] 250 mg PO BID 05/29/21 03/02/24 Melatonin 5 mg PO HS 05/29/21 03/02/24 Metoprolol Tartrate [Lopressor] 50 mg PO BID 05/29/21 03/02/24 OLANZapine 7.5 mg PO HS 05/29/21 03/02/24 Pantoprazole [Protonix] 40 mg PO DAILY 05/29/21 03/02/24 Polyvinyl Alcohol/Povidone 1 drop BOTH EYES 5XD 05/29/21 03/02/24 [[place] Eye Drop] Valsartan 320 mg PO DAILY 05/29/21 03/02/24 Vitamin E (Dl,Tocopheryl Acet) 400 unit PO DAILY 05/29/21 03/02/24 [Vitamin E (400 Iu = 180 mg)] carBAMazepine [TEGretol] 200 mg PO DAILY 05/29/21 03/02/24 carBAMazepine [TEGretol] 400 mg PO BID@1700,2100 05/29/21 03/02/24 diphenhydrAMINE [Benadryl] 25 mg PO QID 05/29/21 03/02/24 metFORMIN HCL [Glucophage] 1,000 mg PO BID 05/29/21 03/02/24 Acetaminophen Tab [Tylenol] 1,000 mg PO Q6HR PRN 12/16/23 03/02/24 Aspirin [Adult Low Dose Aspirin EC] 81 mg PO DAILY 12/16/23 03/02/24 Insulin Degludec [Tresiba 15 unit SQ AC-BID 03/02/24 03/02/24 Flextouch U-200 Pen] Sildenafil Citrate [Viagra] 100 mg PO DIRECTED PRN 03/02/24 03/02/24 Sulfamethox-Tmp 800-160Mg [Bactrim 1 tab PO Q12HR 03/02/24 03/02/24 Ds] Previous Rx's Medication Instructions Recorded Folic Acid 1 mg PO DAILY #30 tab 04/15/21 Thiamine [Vitamin B-1] 100 mg PO DAILY #30 tablet 06/02/21 Aspirin 325 mg PO BID #60 tab 12/20/23 Sennosides [Senokot] 2 tab PO DAILY PRN #60 tablet 12/20/23 HYDROcodone/APAP 5-325MG [[place] 1 - 2 tab PO Q6HR PRN #32 tab 12/22/23 5-325] Magnesium Hydroxide [Milk of 2,400 mg PO DAILY PRN ml 12/23/23 Magnesia] Na Phos,M-B/Na Phos,Di-Ba [Fleet 133 ml RECTAL DAILY PRN each 12/23/23 Adult] bisacodyL [Dulcolax] 10 mg RECTAL DAILY PRN suppositor 12/23/23 Gabapentin [Neurontin] 300 mg PO BID 3 Days #6 cap 12/27/23 Allergies Allergy/AdvReac Type Severity Reaction Status Date / Time codeine phosphate Allergy Dyspnea Verified 03/02/24 16:40 [From Tylenol-Codeine] levofloxacin [From Levaquin] Allergy Anaphylaxis Verified 03/02/24 16:40 Penicillins Allergy Rash/Hives Verified 03/02/24 16:40 quetiapine Allergy headache Verified 03/02/24 16:40 guaifenesin AdvReac dehydration Verified 03/02/24 16:40 meperidine HCl [From Demerol] AdvReac "altered Verified 03/02/24 16:40 state of mind" olanzapine AdvReac > 7.6 mg Verified 03/02/24 16:40 causes sleepiness phenylephrine AdvReac dehydration Verified 03/02/24 16:40 pseudoephedrine AdvReac Unknown Verified 03/02/24 16:40 [From Entex T] topiramate AdvReac Dehydration Verified 03/02/24 16:40 and Manic wool AdvReac Urticarial Verified 03/02/24 16:40 gin AdvReac Headache Uncoded 02/27/24 10:15 Review of Systems ROS Statement: Those systems with pertinent positive or pertinent negative responses have been documented in the HPI. ROS Other: All systems not noted in ROS Statement are negative. 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, BLAYNE with CPAP, IDDM type II, neuropathy bilateral lower extremities, hypothroid- thyroidectomy d/t cancer, arthritis/ DJD in back and bilateral knees, obesity, History of Any Multi-Drug Resistant Organisms: ESBL, MRSA Date of last positivie culture/infection: 12/30/20 ESBL; 10/31/20 MRSA MDRO Source:: Toe Left Second ESBL; Toe Right First MRSA Past Surgical History: Joint Replacement, Tonsillectomy Additional Past Surgical History / Comment(s): L great toe amputation, L total knee arthroplasty, stephani eye surgery, thyroidectomy Past Anesthesia/Blood Transfusion Reactions: No Reported Reaction Additional Past Anesthesia/Blood Transfusion Reaction / Comment(s): had reaction to drainage tube-"had to be knocked out-woke up swinging" Past Psychological History: ADD/ADHD, Anxiety, Bipolar, Depression, PTSD Smoking Status: Former smoker, Second hand smoke exposure Past Alcohol Use History: None Reported Past Drug Use History: None Reported - Past Family History Father Family Medical History: Coronary Artery Disease (CAD), Diabetes Mellitus Additional Family Medical History / Comment(s): Father had CABG. Mother Family Medical History: Cancer, Diabetes Mellitus Additional Family Medical History / Comment(s): Colon cancer. General Exam Limitations: no limitations General appearance: alert, in no apparent distress Head exam: Present: atraumatic, normocephalic, normal inspection Respiratory exam: Present: normal lung sounds bilaterally. Absent: respiratory distress, wheezes, rales, rhonchi, stridor Cardiovascular Exam: Present: regular rate, normal rhythm, normal heart sounds. Absent: systolic murmur, diastolic murmur, rubs, gallop, clicks Left Knee exam: Present: normal inspection, full ROM. Absent: tenderness, swelling Lower Leg exam: Present: normal inspection, full ROM. Absent: tenderness, swelling Ankle exam: Present: normal inspection, full ROM. Absent: tenderness, swelling Foot/Toe exam: Present: full ROM (Full range of motion of third and fifth digits, patient had tendons removed and second and fourth digits). Absent: normal inspection (2 grade 1 diabetic ulcerations present on ventral aspect of left foot, 1 ulceration present on distal aspect of second digit, 1 ulceration present on distal aspect of fourth digit), tenderness, swelling Neurovascular tendon exam: Present: no vascular compromise. Absent: pulse deficit, abnormal cap refill, sensory deficit Course Vital Signs 03/02/24 03/02/24 03/02/24 16:38 18:47 20:00 Temperature 98.1 F 98.0 F 98.3 F Pulse Rate 84 76 75 Pulse Rate [ 74 Right] Respiratory 16 18 18 Rate Blood Pressure 130/67 102/56 111/63 Blood Pressure 114/74 [Right Arm] O2 Sat by Pulse 97 95 98 Oximetry Medical Decision Making - Medical Decision Making Was pt. sent in by a medical professional or institution (, PA, SYSTEMS SECURITY ANALYST, urgent care, hospital, or usp...) When possible be specific @ -Sent by Dr. Roberts from [facility] for IV antibiotics for left foot ulcerations Did you speak to anyone other than the patient for history (EMS, parent, family, police, friend...)? What history was obtained from this source @ -No Did you review nursing and triage notes (agree or disagree)? Why? @ -I reviewed and agree with nursing and triage notes Were old charts reviewed (outside hosp., previous admission, EMS record, old EKG, old radiological studies, urgent care reports/EKG's, usp records)? Report findings @ -No old charts were reviewed Differential Diagnosis (chest pain, altered mental status, abdominal pain women, abdominal pain men, vaginal bleeding, weakness, fever, dyspnea, syncope, headache, dizziness, GI bleed, back pain, seizure, CVA, palpatations, mental health, musculoskeletal)? @ -Differential Musculoskeletal Diabetic foot ulcerations, muscular strain, contusion, ligament sprain, fracture, arthritis, septic arthritis, bursitis, cellulitis, muscle spasm, nerve compression, DVT, arterial occlusion, herpes zoster, electrolyte abnormality, tumor.... This is not meant to be in all inclusive list EKG interpreted by me (3pts min.). @ -As above X-rays interpreted by me (1pt min.). @ -X-ray revealed no change compared to 78 CT interpreted by me (1pt min.). @ -None done U/S interpreted by me (1pt. min.). @ -None done What testing was considered but not performed or refused? (CT, X-rays, U/S, labs)? Why? @ -None What meds were considered but not given or refused? Why? @ -None Did you discuss the management of the patient with other professionals (professionals i.e. , PA, SYSTEMS SECURITY ANALYST, lab, RT, psych nurse, rn social work, die casting machine maintainer, teacher, seaman officer, correctional counselor/case manager)? Give summary @ -I spoke with [facility] regarding this case who accepts admission at this time for IV antibiotics for diabetic foot ulcerations Was smoking cessation discussed for >3mins.? @ -No Was critical care preformed (if so, how long)? @ -No Were there social determinants of health that impacted care today? How? (Homelessness, low income, unemployed, alcoholism, drug addiction, transportation, low edu. Level, literacy, decrease access to med. care, fpc, rehab)? @ -No Was there de-escalation of care discussed even if they declined (Discuss DNR or withdrawal of care, Hospice)? DNR status @ -No What co-morbidities impacted this encounter? (DM, HTN, Smoking, COPD, CAD, Ca ncer, CVA, ARF, Chemo, Hep., AIDS, mental health diagnosis, sleep apnea, morbid obesity)? @ -DM Was patient admitted / discharged? Hospital course, mention meds given and route, prescriptions, significant lab abnormalities, going to OR and other pertinent info. @ -Patient was admitted. Patient was seen and evaluated for left foot wound, sent by conveyor operator for IV antibiotics. Patient is afebrile, nontachycardic. Physical examination reveals 4 grade 1 ulcerations on left foot. Lab work including CBC, CMP, coags, CRP remarkable for C-reactive protein 2.7, creatinine 1.52, BUN 51, CO2 19. Potassium is 5.7 however is hemolyzed. White blood cell count is within normal limits. EKG reveals normal sinus rhythm with right bundle branch block. Patient is started on IV vancomycin due to penicillin allergy. I spoke with [facility] hospitalist regarding this case to accept admission at this time for IV antibiotics for diabetic foot ulcerations. Patient is agreeable to this plan. Case was discussed with my attending Dr. Durham. Undiagnosed new problem with uncertain prognosis? @ -No Drug Therapy requiring intensive monitoring for toxicity (Heparin, Nitro, Insulin, Cardizem)? @ -No Were any procedures done? @ -No Diagnosis/symptom? @ -Diabetic foot ulcerations of left foot Acute, or Chronic, or Acute on Chronic? @ -Acute Uncomplicated (without systemic symptoms) or Complicated (systemic symptoms)? @ -Uncomplicated Side effects of treatment? @ -No Exacerbation, Progression, or Severe Exacerbation? @ -No Poses a threat to life or bodily function? How? (Chest pain, USA, PR, pneumonia, PE, COPD, DKA, ARF, appy, cholecystitis, CVA, Diverticulitis, Homicidal, Suicidal, threat to staff... and all critical care pts) @ -Possibly - Lab Data Result diagrams: 03/02/24 17:19 03/02/24 17:19 Lab Results 03/02/24 03/02/24 03/02/24 Range/Units 17:19 17:19 17:19 WBC 7.6 (3.8-10.6) k/uL RBC 4.16 L (4.30-5.90) m/uL Hgb 12.3 L (13.0-17.5) gm/dL Hct 38.0 L (39.0-53.0) % MCV 91.3 (80.0-100.0) fL MCH 29.5 (25.0-35.0) pg MCHC 32.3 (31.0-37.0) g/dL RDW 13.4 (11.5-15.5) % Plt Count 311 (150-450) k/uL MPV 7.8 Neutrophils % 64 % Lymphocytes % 25 % Monocytes % 4 % Eosinophils % 4 % Basophils % 0 % Neutrophils # 4.8 (1.3-7.7) k/uL Lymphocytes # 1.9 (1.0-4.8) k/uL Monocytes # 0.3 (0-1.0) k/uL Eosinophils # 0.3 (0-0.7) k/uL Basophils # 0.0 (0-0.2) k/uL PT 10.9 (10.0-12.5) sec INR 1.0 (<1.2) APTT 28.3 (22.0-30.0) sec Sodium 138 (137-145) mmol/L Potassium 5.7 H (3.5-5.1) mmol/L Chloride 107 (98-107) mmol/L Carbon Dioxide 19 L (22-30) mmol/L Anion Gap 12 mmol/L BUN 51 H (9-20) mg/dL Creatinine 1.52 H (0.66-1.25) mg/dL Est GFR (CKD-EPI)AfAm 56 (>60 ml/min/1.73 sqM) Est GFR (CKD-EPI)NonAf 49 (>60 ml/min/1.73 sqM) Glucose 116 H (74-99) mg/dL Calcium 9.0 (8.4-10.2) mg/dL Total Bilirubin 0.8 (0.2-1.3) mg/dL AST 34 (17-59) U/L ALT 19 (4-49) U/L Alkaline Phosphatase 44 (38-126) U/L C-Reactive Protein 2.7 H (<1.0) mg/dL Total Protein 7.3 (6.3-8.2) g/dL Albumin 4.1 (3.5-5.0) g/dL - EKG Data -: EKG Interpreted by [facility] E[facility] Comments: EKG reveals normal sinus rhythm with right bundle branch block. Ventricular rate 75 bpm, [place] interval 208, QRS duration 170, QT/QTc 429/457. Disposition Clinical Impression: Diabetic foot ulcer Disposition: ADMITTED IP TO THIS [facility] Time of Disposition: 19:25
[2024-03-02 17:34] LABS: Basophils % (A) 0 %; Eosinophils # (A) 0.3 k/uL (0-0.7); Eosinophils % (A) 4 %; HGB 12.3 gm/dL (13.0-17.5); Lymphocytes # (A) 1.9 k/uL (1.0-4.8); Lymphocytes % (A) 25 %; MCH 29.5 pg (25.0-35.0); MCHC 32.3 g/dL (31.0-37.0); MCV 91.3 fL (80.0-100.0); Mean Platelet Volume 7.8; Monocytes # (A) 0.3 k/uL (0-1.0); Monocytes % (A) 4 %; Neutrophils # (A) 4.8 k/uL (1.3-7.7); Neutrophils % (A) 64 %; Platelet Count 311 k/uL (150-450); RBC 4.16 m/uL (4.30-5.90); RDW 13.4 % (11.5-15.5); WBC 7.6 k/uL (3.8-10.6)
[2024-03-02 17:47] LABS: ALT 19 U/L (4-49); AST 34 U/L (17-59); African American GFR (CKD) 56 (>60 ml/min/1.73 sqM); Anion Gap 12 mmol/L; Blood Urea Nitrogen 51 mg/dL (9-20); C Reactive Protein 2.7 mg/dL (<1.0); Carbon Dioxide 19 mmol/L (22-30); Chloride 107 mmol/L (98-107); Glucose 116 mg/dL (74-99); Non-African American GFR(CKD) 49 (>60 ml/min/1.73 sqM); Sodium 138 mmol/L (137-145); Total Bilirubin 0.8 mg/dL (0.2-1.3)
[2024-03-02 17:54] LABS: Albumin 4.1 g/dL (3.5-5.0); Alkaline Phosphatase 44 U/L (38-126); Potassium 5.7 mmol/L (3.5-5.1); Total Protein 7.3 g/dL (6.3-8.2)
--- NOTE | 2024-03-02 18:26 | XR ---
PROCEDURE: XR foot complete LT - 3V DATE AND TIME: 03/02/2024 5:44 PM CLINICAL INDICATION: PHH; left foot ulcerations TECHNIQUE: Department protocol COMPARISON: XR 02/27/2024 at 1126 hours FINDINGS / IMPRESSION: No interval radiographic change when compared with the radiographs from 02/27/2024.
[2024-03-02] MEDS ORDERED: NALOXONE 0.4 MG/ML 1 ML VIAL IV PRN (19:20)
[2024-03-02] MEDS ORDERED: VANCOMYCIN IV PER PHARMACY 1 EACH MISC MISCELLANE PRN (19:23)
[2024-03-02] MEDS: SODIUM CHLORIDE 0.9% 1,000 ML IV SCH (20:01)
[2024-03-02] MEDS: VANCOMYCIN 1,750 MG in SODIUM CHLORIDE 0.9% 500 ML 500 ML IVPB ONE (20:02)
[2024-03-02 20:24] LABS: Partial Thromboplastin Time 28.3 sec (22.0-30.0); Prothrombin Time 10.9 sec (10.0-12.5)
[2024-03-02 21:27] LABS: Glucose,Whole Blood 118 mg/dL (70-110)
[2024-03-02] MEDS: OLANZapine 7.5 MG TAB PO SCH (22:04)
[2024-03-02] MEDS: GABAPENTIN 300 MG CAP PO SCH (22:04)
[2024-03-02] MEDS: carBAMazepine 200 MG TAB PO SCH (22:04)
[2024-03-02] MEDS: ACETAMINOPHEN TAB 325 MG TAB PO PRN (22:04)
[2024-03-02] MEDS: MELATONIN 5 MG TABLET PO SCH (22:04)
[2024-03-02] MEDS: METOPROLOL TARTRATE 50 MG TAB PO SCH (22:04)
[2024-03-03 01:34] LABS: Glucose,Whole Blood 123 mg/dL (70-110)
[2024-03-03 07:04] LABS: Glucose,Whole Blood 118 mg/dL (70-110)
[2024-03-03 09:40] LABS: ALT 16 U/L (10-49); AST 16 U/L (14-35); Albumin 3.7 g/dL (3.8-4.9); Albumin/Globulin Ratio 1.37 Ratio (1.60-3.17); Alkaline Phosphatase 61 U/L (41-126); BUN/Creat Ratio 25.59 Ratio (12.00-20.00); Blood Urea Nitrogen 43.5 mg/dL (9.0-27.0); Calcium 8.8 mg/dL (8.7-10.3); Carbon Dioxide 22.7 mmol/L (21.6-31.8); Chloride 104 mmol/L (96-109); Globulin 2.7 g/dL (1.6-3.3); Glucose 118 mg/dL (70-110); Potassium 4.3 mmol/L (3.5-5.5); Sodium 138 mmol/L (135-145); Total Bilirubin 0.2 mg/dL (0.3-1.2); Total Protein 6.4 g/dL (6.2-8.2)
[2024-03-03] MEDS ORDERED: HYDROcodone/APAP 5-325MG 1 EACH TAB PO PRN (11:09)
[2024-03-03 11:56] LABS: Glucose,Whole Blood 161 mg/dL (70-110)
[2024-03-03] MEDS: LEVOTHYROXINE 100 MCG TAB PO SCH (12:18)
[2024-03-03] MEDS: carBAMazepine 200 MG TAB PO SCH (12:19)
[2024-03-03] MEDS: INSULIN ASPART (NovoLOG) 100 UNIT/ML VIAL SQ SCH (12:44)
--- NOTE | 2024-03-03 14:33 | P.HPIM ---
History of Present Illness H&P Date: 03/03/24 History of present illness; patient is a 63-year-old male with past medical history significant for COPD, diabetes, GERD, deafness, hyperlipidemia, hypertension, neurologic disorder, osteoarthritis, prostate disorder, thyroid cancer with thyroidectomy anxiety/bipolar depression PTSD presented to the ER for evaluation of a left foot wound. Patient has been following up outpatient with slitter and rewinder for his chronic left foot wounds. Patient was also seen in the ER a week ago for left foot discoloration and wound and at the time was discharged on oral antibiotics. Patient has history of ulcers on left foot and had a left great toe amputation. Denies any fever or chills. There was no complaint of chest pain or shortness of breath. There was no current nausea, abdominal pain. Because of the symptoms, patient presented to ER Initial lab work done in the ER showed WBC 7.6, hemoglobin 12.3, platelet count 311, sodium 130, potassium 5.7, BUN 51, creatinine 1.52 glucose 116 total bilirubin 0.8, AST 34, ALT 19, CRP 2.7 EKG done in the ER showed heart rate of75 , no ST segment elevation or d epression seen, no T-wave inversions seen. X-ray foot done showed no acute findings Patient admitted to internal medicine service REVIEW OF SYSTEMS: CONSTITUTIONAL: No fever, no malaise, no fatigue. HEENT: No recent visual problems or hearing problems. Denied any sore throat. CARDIOVASCULAR: No chest pain, orthopnea, PND, no palpitations, no syncope. PULMONARY: No shortness of breath, no cough, no hemoptysis. GASTROINTESTINAL: No diarrhea, no nausea, no vomiting, no abdominal pain. NEUROLOGICAL: No headaches, no weakness, no numbness. HEMATOLOGICAL: Denies any bleeding or petechiae. GENITOURINARY: Denies any burning micturition, frequency, or urgency. MUSCULOSKELETAL/RHEUMATOLOGICAL: As mentioned above ENDOCRINE: Denies any polyuria or polydipsia. The rest of the 14-point review of systems is negative. PHYSICAL EXAMINATION: GENERAL: The patient is alert and oriented x3, not in any acute distress. Well developed, well nourished. HEENT: Pupils are round and equally reacting to light. EOMI. No scleral icterus. No conjunctival pallor. Normocephalic, atraumatic. No pharyngeal erythema. No thyromegaly. CARDIOVASCULAR: S1 and S2 present. No murmurs, rubs, or gallops. PULMONARY: Chest is clear to auscultation, no wheezing or crackles. ABDOMEN: Soft, nontender, nondistended, normoactive bowel sounds. No palpable organomegaly. MUSCULOSKELETAL: No joint swelling or deformity. EXTREMITIES: No cyanosis, clubbing, or pedal edema. NEUROLOGICAL: Gross neurological examination did not reveal any focal deficits. SKIN: No rashes. Assessment and plan Left foot diabetic ulcer Hyperkalemia Acute kidney injury History of COPD, stable, not in exacerbation Diabetes mellitus, type II, insulin-dependent Obesity with a BMI of 39.9 Hypertension history Hyperlipidemia Sleep apnea with a CPAP History of ADD/ADHD/anxiety/bipolar depression/PTSD Former smoker Chronic back and knee pain History of degenerative joint disease History of thyroid cancer with thyroidectomy Monitor vital signs Monitor CBC Monitor CMP Monitor blood cultures Ordered wound cultures Ordered CRP, ESR Ordered Pro-Clifford Ordered pharmacy dose vancomycin Monitor blood sugar levels, start sliding scale insulin Consult ID Resume home meds Labs and medication were reviewed.. Continue same treatment. Continue with symptomatic treatment. Resume home medication. Monitor labs and vitals. DVT and GI prophylaxis. Further recommendations as per clinical course of the patient Dictation was produced using [employer] dictation software. please excuse any grammatical, word or spelling errors. 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, BLAYNE with CPAP, IDDM type II, neuropathy bilateral lower extremities, hypothroid- thyroidectomy d/t cancer, arthritis/ DJD in back and bilateral knees, obesity, History of Any Multi-Drug Resistant Organisms: ESBL, MRSA Date of last positivie culture/infection: 12/30/20 ESBL; 10/31/20 MRSA MDRO Source:: Toe Left Second ESBL; Toe Right First MRSA Past Surgical History: Joint Replacement, Tonsillectomy Additional Past Surgical History / Comment(s): L great toe amputation, L total knee arthroplasty, stephani eye surgery, thyroidectomy Past Anesthesia/Blood Transfusion Reactions: No Reported Reaction Additional Past Anesthesia/Blood Transfusion Reaction / Comment(s): had reaction to drainage tube-"had to be knocked out-woke up swinging" Past Psychological History: ADD/ADHD, Anxiety, Bipolar, Depression, PTSD Smoking Status: Former smoker, Second hand smoke exposure Past Alcohol Use History: None Reported Past Drug Use History: None Reported - Past Family History Father Family Medical History: Coronary Artery Disease (CAD), Diabetes Mellitus Additional Family Medical History / Comment(s): Father had CABG. Mother Family Medical History: Cancer, Diabetes Mellitus Additional Family Medical History / Comment(s): Colon cancer. Medications and Allergies Home Medications Medication Instructions Recorded Confirmed Type Empagliflozin [Jardiance] 25 mg PO DAILY 10/31/20 03/02/24 History Fish Oil/Dha/Epa [Fish Oil 1,200 1 cap PO TID 10/31/20 03/02/24 History mg Fish Oil] Fluticasone Nasal [place] [Flonase 1 spr EA NOSTRIL BID 10/31/20 03/02/24 History Nasal [place]] Pentoxifylline [TRENtal] 400 mg PO BID 10/31/20 03/02/24 History Tamsulosin HCl [Flomax] 0.4 mg PO AC-SUPPER 10/31/20 03/02/24 History Testosterone [Androgel 1.62% Gel 1 pump TOPICAL BID 10/31/20 03/02/24 History Pump] Albuterol Sulfate [Proventil Hfa] 1 puff INHALATION RT-QID PRN 12/26/20 03/02/24 History Folic Acid 1 mg PO DAILY #30 tab 04/15/21 03/02/24 Rx Alogliptin Benzoate [Alogliptin] 25 mg PO DAILY 05/29/21 03/02/24 History Artificial Tears Ointment 0.25 inch LEFT EYE HS 05/29/21 03/02/24 History [Lubrifresh Pm Ointment] Atorvastatin [Lipitor] 40 mg PO HS 05/29/21 03/02/24 History Carboxymethylcellulose Sodium 2 drops BOTH EYES QID PRN 05/29/21 03/02/24 History [Refresh Tears] Cholecalciferol [Vitamin D3 (25 50 mcg PO DAILY 05/29/21 03/02/24 History Mcg = 1000 Iu)] Cyanocobalamin (Vitamin B-12) 1,000 mcg PO DAILY 05/29/21 03/02/24 History [Vitamin B-12] Exenatide Microspheres [Bydureon 2 mg SQ FR 05/29/21 03/02/24 History Bcise Auto-Injector] Insulin Aspart [NovoLOG Flexpen] See Protocol SQ AC-TID 05/29/21 03/02/24 History Levothyroxine Sodium 300 mcg PO DAILY 05/29/21 03/02/24 History Magnesium Oxide [Mag-Ox] 250 mg PO BID 05/29/21 03/02/24 History Melatonin 5 mg PO HS 05/29/21 03/02/24 History Metoprolol Tartrate [Lopressor] 50 mg PO BID 05/29/21 03/02/24 History OLANZapine 7.5 mg PO HS 05/29/21 03/02/24 History Pantoprazole [Protonix] 40 mg PO DAILY 05/29/21 03/02/24 History Polyvinyl Alcohol/Povidone 1 drop BOTH EYES 5XD 05/29/21 03/02/24 History [[place] Eye Drop] Valsartan 320 mg PO DAILY 05/29/21 03/02/24 History Vitamin E (Dl,Tocopheryl Acet) 400 unit PO DAILY 05/29/21 03/02/24 History [Vitamin E (400 Iu = 180 mg)] carBAMazepine [TEGretol] 200 mg PO DAILY 05/29/21 03/02/24 History carBAMazepine [TEGretol] 400 mg PO BID@1700,2100 05/29/21 03/02/24 History diphenhydrAMINE [Benadryl] 25 mg PO QID 05/29/21 03/02/24 History metFORMIN HCL [Glucophage] 1,000 mg PO BID 05/29/21 03/02/24 History Thiamine [Vitamin B-1] 100 mg PO DAILY #30 tablet 06/02/21 03/02/24 Rx Acetaminophen Tab [Tylenol] 1,000 mg PO Q6HR PRN 12/16/23 03/02/24 History Aspirin [Adult Low Dose Aspirin EC] 81 mg PO DAILY 12/16/23 03/02/24 History Aspirin 325 mg PO BID #60 tab 12/20/23 03/02/24 Rx Sennosides [Senokot] 2 tab PO DAILY PRN #60 tablet 12/20/23 03/02/24 Rx HYDROcodone/APAP 5-325MG [[place] 1 - 2 tab PO Q6HR PRN #32 tab 12/22/23 03/02/24 Rx 5-325] Magnesium Hydroxide [Milk of 2,400 mg PO DAILY PRN ml 12/23/23 03/02/24 Rx Magnesia] Na Phos,M-B/Na Phos,Di-Ba [Fleet 133 ml RECTAL DAILY PRN each 12/23/23 03/02/24 Rx Adult] bisacodyL [Dulcolax] 10 mg RECTAL DAILY PRN suppositor 12/23/23 03/02/24 Rx Gabapentin [Neurontin] 300 mg PO BID 3 Days #6 cap 12/27/23 03/02/24 Rx Insulin Degludec [Tresiba 15 unit SQ AC-BID 03/02/24 03/02/24 History Flextouch U-200 Pen] Sildenafil Citrate [Viagra] 100 mg PO DIRECTED PRN 03/02/24 03/02/24 History Sulfamethox-Tmp 800-160Mg [Bactrim 1 tab PO Q12HR 03/02/24 03/02/24 History Ds] Allergies Allergy/AdvReac Type Severity Reaction Status Date / Time codeine phosphate Allergy Dyspnea Verified 03/02/24 16:40 [From Tylenol-Codeine] levofloxacin [From Levaquin] Allergy Anaphylaxis Verified 03/02/24 16:40 Penicillins Allergy Rash/Hives Verified 03/02/24 16:40 quetiapine Allergy headache Verified 03/02/24 16:40 guaifenesin AdvReac dehydration Verified 03/02/24 16:40 meperidine HCl [From Demerol] AdvReac "altered Verified 03/02/24 16:40 state of mind" olanzapine AdvReac > 7.6 mg Verified 03/02/24 16:40 causes sleepiness phenylephrine AdvReac dehydration Verified 03/02/24 16:40 pseudoephedrine AdvReac Unknown Verified 03/02/24 16:40 [From Entex T] topiramate AdvReac Dehydration Verified 03/02/24 16:40 and Manic wool AdvReac Urticarial Verified 03/02/24 16:40 gin AdvReac Headache Uncoded 02/27/24 10:15 Physical Exam Vitals: Vital Signs Temp Pulse Pulse Pulse Resp BP BP 03/03/24 07:05 97.8 F 68 20 112/71 03/03/24 02:00 98.0 F 71 16 107/59 03/02/24 21:09 97.1 F L 74 18 110/67 03/02/24 20:00 98.3 F 75 74 18 111/63 114/74 03/02/24 18:47 98.0 F 76 18 102/56 03/02/24 16:38 98.1 F 84 16 130/67 Pulse Ox 03/03/24 07:05 96 03/03/24 02:00 95 03/02/24 21:09 100 03/02/24 20:00 98 03/02/24 18:47 95 03/02/24 16:38 97 Intake and Output 03/02/24 03/03/24 03/03/24 22:59 06:59 14:59 Other: Voiding Method Toilet # Voids 2 1 # Bowel Movements 1 Weight 118.841 kg Results CBC & Chem 7: 03/02/24 17:19 03/03/24 05:06 Labs: Abnormal Lab Results - Last 24 Hours (Table) 03/02/24 03/02/24 03/02/24 Range/Units 17:19 17:19 21:25 RBC 4.16 L (4.30-5.90) m/uL Hgb 12.3 L (13.0-17.5) gm/dL Hct 38.0 L (39.0-53.0) % Potassium 5.7 H (3.5-5.1) mmol/L Carbon Dioxide 19 L (22-30) mmol/L BUN 51 H (9-20) mg/dL Creatinine 1.52 H (0.66-1.25) mg/dL Est GFR (CKD-EPI) (>=60) BUN/Creatinine Ratio (12.00-20.00) Ratio Glucose 116 H (74-99) mg/dL POC Glucose (mg/dL) 118 H (70-110) mg/dL Total Bilirubin (0.3-1.2) mg/dL C-Reactive Protein 2.7 H (<1.0) mg/dL Albumin (3.8-4.9) g/dL Albumin/Globulin Ratio (1.60-3.17) Ratio 03/03/24 03/03/24 03/03/24 Range/Units 01:33 05:06 07:03 RBC (4.30-5.90) m/uL Hgb (13.0-17.5) gm/dL Hct (39.0-53.0) % Potassium (3.5-5.1) mmol/L Carbon Dioxide (22-30) mmol/L BUN 43.5 H (9-20) mg/dL Creatinine 1.7 H (0.66-1.25) mg/dL Est GFR (CKD-EPI) 45 L (>=60) BUN/Creatinine Ratio 25.59 H (12.00-20.00) Ratio Glucose 118 H (74-99) mg/dL POC Glucose (mg/dL) 123 H 118 H (70-110) mg/dL Total Bilirubin 0.2 L (0.3-1.2) mg/dL C-Reactive Protein (<1.0) mg/dL Albumin 3.7 L (3.8-4.9) g/dL Albumin/Globulin Ratio 1.37 L (1.60-3.17) Ratio Thrombosis Risk Factor Assmnt - Choose All That Apply Each Factor Represents 1 point: Age 41-60 years Other Risk Factors: No Thrombosis Risk Factor Assessment Total Risk Factor Score: 1 Thrombosis Risk Factor Assessment Level: Low Risk
[2024-03-03 17:07] LABS: Glucose,Whole Blood 130 mg/dL (70-110)
[2024-03-03] MEDS: TAMSULOSIN 0.4 MG CAP.ER.24H PO SCH (17:36)
[2024-03-03] MEDS: polyethylene glycoL 3350 17 GM POWD.PACK PO PRN (18:05)
[2024-03-03 19:55] LABS: Glucose,Whole Blood 139 mg/dL (70-110)
[2024-03-03] MEDS: INSULIN DETEMIR (LEVEMIR) 100 UNIT/ML SYR SQ SCH (20:15)
[2024-03-03] MEDS: FLUTICASONE NASAL 50MCG/SPRAY 16GM BTL EA NOSTRIL SCH (20:16)
[2024-03-03] MEDS: ATORVASTATIN 40 MG TAB PO SCH (20:16)
[2024-03-03] MEDS: VANCOMYCIN 1,750 MG in SODIUM CHLORIDE 0.9% 500 ML 500 ML IVPB SCH (20:27)
--- NOTE | 2024-03-03 22:41 | P.CONS ---
History of Present Illness - Reason for Consult Consult date: 03/03/24 Left diabetic foot ulcer and cellulitis Requesting physician: Bryn Hawthorne - Chief Complaint Left foot wound and swelling x days - History of Present Illness Patient is a 63-year-old male with a past medical history significant for diabetes mellitus hypertension hyperlipidemia osteoarthritis previous history of left big toe diabetic foot infection status post left big toe amputation patient apparently did have a wound on the plantar aspect of the left foot at the base of the first metatarsal as well as third metatarsal patient mention he noticed some discoloration of his toe tip for the patient was seen and [facility] on 02/27/2024 has been diagnosed with a possible cellulitis and discharged on oral antibiotic however the patient not sure about the name of those antibiotics patient subsequently did follow-up with his product evangelist who thought he did have extensive diabetic foot infection and need to be admitted to hospital for IV antibiotic therapy for the patient presenting back to the hospital yesterday was evaluated by the ER physician on presentation to the hospital the patient was afebrile and no fever have been recorded subsequently patient was not tachycardic mildly hypotensive but not hypoxic, patient did have a white count of 7.6 BUN/creatinine has been mildly elevated liver enzymes are normal blood culture done which are currently pending patient did have a foot x-ray no interval radiographic change patient was started on vancomycin has been admitted to hospital infectious disease was consulted for further management of antibiotic therapy Review of Systems Positive point and negatives has been mentioned in the HPI, complete review of systems was performed and all other systems are negative 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, BLAYNE with CPAP, IDDM type II, neuropathy bilateral lower extremities, hypothroid- thyroidectomy d/t cancer, arthritis/ DJD in back and bilateral knees, obesity, History of Any Multi-Drug Resistant Organisms: ESBL, MRSA Year Discovered:: 12/30/20 ESBL; 3/12/21 MRSA MDRO Source:: Toe Left Second ESBL; Toe Right First MRSA Past Surgical History: Joint Replacement, Tonsillectomy Additional Past Surgical History / Comment(s): L great toe amputation, L total knee arthroplasty, stephani eye surgery, thyroidectomy Past Anesthesia/Blood Transfusion Reactions: No Reported Reaction Additional Past Anesthesia/Blood Transfusion Reaction / Comm: had reaction to drainage tube-"had to be knocked out-woke up swinging" Past Psychological History: ADD/ADHD, Anxiety, Bipolar, Depression, PTSD Smoking Status: Former smoker, Second hand smoke exposure Past Alcohol Use History: None Reported Past Drug Use History: None Reported - Past Family History Father Family Medical History: Coronary Artery Disease (CAD), Diabetes Mellitus Additional Family Medical History / Comment(s): Father had CABG. Mother Family Medical History: Cancer, Diabetes Mellitus Additional Family Medical History / Comment(s): Colon cancer. Medications and Allergies Home Medications Medication Instructions Recorded Confirmed Type Empagliflozin [Jardiance] 25 mg PO DAILY 10/31/20 03/02/24 History Fish Oil/Dha/Epa [Fish Oil 1,200 1 cap PO TID 10/31/20 03/02/24 History mg Fish Oil] Fluticasone Nasal [place] [Flonase 1 spr EA NOSTRIL BID 10/31/20 03/02/24 History Nasal [place]] Pentoxifylline [TRENtal] 400 mg PO BID 10/31/20 03/02/24 History Tamsulosin HCl [Flomax] 0.4 mg PO AC-SUPPER 10/31/20 03/02/24 History Testosterone [Androgel 1.62% Gel 1 pump TOPICAL BID 10/31/20 03/02/24 History Pump] Albuterol Sulfate [Proventil Hfa] 1 puff INHALATION RT-QID PRN 12/26/20 03/02/24 History Folic Acid 1 mg PO DAILY #30 tab 04/15/21 03/02/24 Rx Alogliptin Benzoate [Alogliptin] 25 mg PO DAILY 05/29/21 03/02/24 History Artificial Tears Ointment 0.25 inch LEFT EYE HS 05/29/21 03/02/24 History [Lubrifresh Pm Ointment] Atorvastatin [Lipitor] 40 mg PO HS 05/29/21 03/02/24 History Carboxymethylcellulose Sodium 2 drops BOTH EYES QID PRN 05/29/21 03/02/24 History [Refresh Tears] Cholecalciferol [Vitamin D3 (25 50 mcg PO DAILY 05/29/21 03/02/24 History Mcg = 1000 Iu)] Cyanocobalamin (Vitamin B-12) 1,000 mcg PO DAILY 05/29/21 03/02/24 History [Vitamin B-12] Exenatide Microspheres [Bydureon 2 mg SQ FR 05/29/21 03/02/24 History Bcise Auto-Injector] Insulin Aspart [NovoLOG Flexpen] See Protocol SQ AC-TID 05/29/21 03/02/24 History Levothyroxine Sodium 300 mcg PO DAILY 05/29/21 03/02/24 History Magnesium Oxide [Mag-Ox] 250 mg PO BID 05/29/21 03/02/24 History Melatonin 5 mg PO HS 05/29/21 03/02/24 History Metoprolol Tartrate [Lopressor] 50 mg PO BID 05/29/21 03/02/24 History OLANZapine 7.5 mg PO HS 05/29/21 03/02/24 History Pantoprazole [Protonix] 40 mg PO DAILY 05/29/21 03/02/24 History Polyvinyl Alcohol/Povidone 1 drop BOTH EYES 5XD 05/29/21 03/02/24 History [[place] Eye Drop] Valsartan 320 mg PO DAILY 05/29/21 03/02/24 History Vitamin E (Dl,Tocopheryl Acet) 400 unit PO DAILY 05/29/21 03/02/24 History [Vitamin E (400 Iu = 180 mg)] carBAMazepine [TEGretol] 200 mg PO DAILY 05/29/21 03/02/24 History carBAMazepine [TEGretol] 400 mg PO BID@1700,2100 05/29/21 03/02/24 History diphenhydrAMINE [Benadryl] 25 mg PO QID 05/29/21 03/02/24 History metFORMIN HCL [Glucophage] 1,000 mg PO BID 05/29/21 03/02/24 History Thiamine [Vitamin B-1] 100 mg PO DAILY #30 tablet 06/02/21 03/02/24 Rx Acetaminophen Tab [Tylenol] 1,000 mg PO Q6HR PRN 12/16/23 03/02/24 History Aspirin [Adult Low Dose Aspirin EC] 81 mg PO DAILY 12/16/23 03/02/24 History Aspirin 325 mg PO BID #60 tab 12/20/23 03/02/24 Rx Sennosides [Senokot] 2 tab PO DAILY PRN #60 tablet 12/20/23 03/02/24 Rx HYDROcodone/APAP 5-325MG [[place] 1 - 2 tab PO Q6HR PRN #32 tab 12/22/23 03/02/24 Rx 5-325] Magnesium Hydroxide [Milk of 2,400 mg PO DAILY PRN ml 12/23/23 03/02/24 Rx Magnesia] Na Phos,M-B/Na Phos,Di-Ba [Fleet 133 ml RECTAL DAILY PRN each 12/23/23 03/02/24 Rx Adult] bisacodyL [Dulcolax] 10 mg RECTAL DAILY PRN suppositor 12/23/23 03/02/24 Rx Gabapentin [Neurontin] 300 mg PO BID 3 Days #6 cap 12/27/23 03/02/24 Rx Insulin Degludec [Tresiba 15 unit SQ AC-BID 03/02/24 03/02/24 History Flextouch U-200 Pen] Sildenafil Citrate [Viagra] 100 mg PO DIRECTED PRN 03/02/24 03/02/24 History Sulfamethox-Tmp 800-160Mg [Bactrim 1 tab PO Q12HR 03/02/24 03/02/24 History Ds] Allergies Allergy/AdvReac Type Severity Reaction Status Date / Time codeine phosphate Allergy Dyspnea Verified 03/02/24 16:40 [From Tylenol-Codeine] levofloxacin [From Levaquin] Allergy Anaphylaxis Verified 03/02/24 16:40 Penicillins Allergy Rash/Hives Verified 03/02/24 16:40 quetiapine Allergy headache Verified 03/02/24 16:40 guaifenesin AdvReac dehydration Verified 03/02/24 16:40 meperidine HCl [From Demerol] AdvReac "altered Verified 03/02/24 16:40 state of mind" olanzapine AdvReac > 7.6 mg Verified 03/02/24 16:40 causes sleepiness phenylephrine AdvReac dehydration Verified 03/02/24 16:40 pseudoephedrine AdvReac Unknown Verified 03/02/24 16:40 [From Entex T] topiramate AdvReac Dehydration Verified 03/02/24 16:40 and Manic wool AdvReac Urticarial Verified 03/02/24 16:40 gin AdvReac Headache Uncoded 02/27/24 10:15 Physical Exam Vitals: Vital Signs Temp Pulse Pulse Pulse Resp BP BP 03/03/24 07:05 97.8 F 68 20 112/71 03/03/24 02:00 98.0 F 71 16 107/59 03/02/24 21:09 97.1 F L 74 18 110/67 03/02/24 20:00 98.3 F 75 74 18 111/63 114/74 03/02/24 18:47 98.0 F 76 18 102/56 03/02/24 16:38 98.1 F 84 16 130/67 Pulse Ox 03/03/24 07:05 96 03/03/24 02:00 95 03/02/24 21:09 100 03/02/24 20:00 98 03/02/24 18:47 95 03/02/24 16:38 97 Intake and Output 03/02/24 03/03/24 03/03/24 22:59 06:59 14:59 Other: Voiding Method Toilet # Voids 2 1 # Bowel Movements 1 Weight 118.841 kg GENERAL DESCRIPTION: Middle-aged male lying in bed, no distress. No tachypnea or accessory muscle of respiration use. HEENT: Shows Pallor , no scleral icterus. Oral mucous membrane is dry. No pharyngeal erythema or thrush NECK: Trachea central, no thyromegaly. LUNGS: Unlabored breathing. Clear to auscultation anteriorly. No wheeze or crackle. HEART: S1, S2, regular rate and rhythm. No loud murmur ABDOMEN: Soft, no tenderness , guarding or rigidity, no organomegaly EXTREMITIES: Left foot with repeat amputation he did have a wound at the base of the left big toe amputation site also wound to the second and third toe and the wound on the plantar aspect SKIN: No rash, no masses palpable. NEUROLOGICAL: The patient is awake, alert, oriented x3, mood and affect normal. Results CBC & Chem 7: 03/02/24 17:19 03/03/24 05:06 Labs: Abnormal Lab Results - Last 24 Hours (Table) 03/02/24 03/02/24 03/02/24 Range/Units 17:19 17:19 21:25 RBC 4.16 L (4.30-5.90) m/uL Hgb 12.3 L (13.0-17.5) gm/dL Hct 38.0 L (39.0-53.0) % Potassium 5.7 H (3.5-5.1) mmol/L Carbon Dioxide 19 L (22-30) mmol/L BUN 51 H (9-20) mg/dL Creatinine 1.52 H (0.66-1.25) mg/dL Est GFR (CKD-EPI) (>=60) BUN/Creatinine Ratio (12.00-20.00) Ratio Glucose 116 H (74-99) mg/dL POC Glucose (mg/dL) 118 H (70-110) mg/dL Total Bilirubin (0.3-1.2) mg/dL C-Reactive Protein 2.7 H (<1.0) mg/dL Albumin (3.8-4.9) g/dL Albumin/Globulin Ratio (1.60-3.17) Ratio 03/03/24 03/03/24 03/03/24 Range/Units 01:33 05:06 07:03 RBC (4.30-5.90) m/uL Hgb (13.0-17.5) gm/dL Hct (39.0-53.0) % Potassium (3.5-5.1) mmol/L Carbon Dioxide (22-30) mmol/L BUN 43.5 H (9-20) mg/dL Creatinine 1.7 H (0.66-1.25) mg/dL Est GFR (CKD-EPI) 45 L (>=60) BUN/Creatinine Ratio 25.59 H (12.00-20.00) Ratio Glucose 118 H (74-99) mg/dL POC Glucose (mg/dL) 123 H 118 H (70-110) mg/dL Total Bilirubin 0.2 L (0.3-1.2) mg/dL C-Reactive Protein (<1.0) mg/dL Albumin 3.7 L (3.8-4.9) g/dL Albumin/Globulin Ratio 1.37 L (1.60-3.17) Ratio Assessment and Plan (1) Diabetic foot infection Current Visit: Yes Status: Acute Code(s): E11.628 - TYPE 2 DIABETES MELLITUS WITH OTHER SKIN COMPLICATIONS; L08.9 - LOCAL INFECTION OF THE SKIN AND SUBCUTANEOUS TISSUE, UNSP SNOMED Code(s): 741451301 (2) Diabetic foot ulcer Current Visit: Yes Status: Acute Code(s): E11.621 - TYPE 2 DIABETES MELLITUS WITH FOOT ULCER; L97.509 - NON-PRESSURE CHRONIC ULCER OTH PRT UNSP FOOT W UNSP SEVERITY SNOMED Code(s): 593346853 (3) Allergy to multiple antibiotics Current Visit: Yes Status: Acute Code(s): Z88.1 - ALLERGY STATUS TO OTHER ANTIBIOTIC AGENTS SNOMED Code(s): 849235330 Plan: Patient with left diabetic foot ulcers and concern for possible cellulitis fail ing outpatient oral Bactrim DS therapy. 2patient with multiple antibiotic ALLERGIES that would limit the number of antibiotic safe to use. 3mild renal insufficiency high risk of nephrotoxicity 4-local culture has been obtained to guide further antibiotic therapy 5-consult vascular surgery for possible debridement and deep culture 6-vancomycin pharmacy to dose target trough of 15 while watching kidney function and Vanco trough closely We will follow on clinical condition and cultures to further adjust medication if needed Thank you for this consultation we will follow the patient along with you Dictation was produced using [employer] dictation software. please excuse any grammatical, word or spelling errors. Time with Patient: Greater than 30
[2024-03-04 07:02] LABS: Glucose,Whole Blood 125 mg/dL (70-110)
[2024-03-04] MEDS: CYANOCOBALAMIN 500 MCG TAB PO SCH (08:19)
[2024-03-04] MEDS: THIAMINE 100 MG TAB PO SCH (08:19)
[2024-03-04] MEDS: VITAMIN E (DL,TOCOPHERYL ACET) 400 UNIT (180 MG) CAP PO SCH (08:19)
[2024-03-04] MEDS: PANTOPRAZOLE 40 MG TABLET PO SCH (08:20)
[2024-03-04] MEDS: FOLIC ACID 1 MG TAB PO SCH (08:20)
[2024-03-04] MEDS: ASPIRIN 81 MG PO SCH (08:20)
[2024-03-04 12:04] LABS: Glucose,Whole Blood 133 mg/dL (70-110)
--- NOTE | 2024-03-04 12:54 | P.PN ---
Subjective Progress Note Date: 03/04/24 Principal diagnosis: Reason for follow-up is left diabetic foot ulcer and cellulitis Patient is a 63-year-old male with a past medical history significant for diabetes mellitus hypertension hyperlipidemia osteoarthritis previous history of left big toe diabetic foot infection status post left big toe amputation now presented to hospital with left foot wound concerning for cellulitis x-ray did not show any interval change. On today's evaluation that is 03/04/2024, Patient is afebrile this morning and denies any chills, patient mention breathing comfortably and is currently on room air, patient denies any chest pain occasional cough patient denies any abdominal pain no diarrhea no nausea no vomiting denies any worsening pain to the left foot. Labs no new lab has been repeated today cultures are currently pending Objective - Vital Signs Vital signs: Vital Signs Temp 98.3 F 03/04/24 07:02 Pulse 68 03/04/24 07:02 Resp 16 03/04/24 07:02 BP 104/65 03/04/24 07:02 Pulse Ox 93 L 03/04/24 07:02 FiO2 Intake & Output 03/03/24 03/04/24 03/04/24 18:59 06:59 18:59 Other: Voiding Method Toilet Toilet Toilet # Voids 1 1 2 # Bowel Movements 1 - Exam GENERAL DESCRIPTION: Middle-age male lying in bed in no distress RESPIRATORY SYSTEM: Unlabored breathing , decreased breath sounds at bases HEART: S1 S2 regular rate and rhythm , ABDOMEN: Soft , no tenderness EXTREMITIES: Left foot is currently dressed - Labs CBC & Chem 7: 03/02/24 17:19 03/03/24 05:06 Labs: Abnormal Lab Results - Last 24 Hours (Table) 03/03/24 03/03/24 03/04/24 Range/Units 17:06 19:45 07:00 POC Glucose (mg/dL) 130 H 139 H 125 H (70-110) mg/dL 03/04/24 Range/Units 12:02 POC Glucose (mg/dL) 133 H (70-110) mg/dL Microbiology - Last 24 Hours (Table) 03/02/24 17:15 Blood Culture - Preliminary Blood 03/02/24 17:00 Blood Culture - Preliminary Blood Assessment and Plan (1) Diabetic foot infection Current Visit: Yes Status: Acute Code(s): E11.628 - TYPE 2 DIABETES MELLITUS WITH OTHER SKIN COMPLICATIONS; L08.9 - LOCAL INFECTION OF THE SKIN AND SUBCUTANEOUS TISSUE, UNSP SNOMED Code(s): 634039743 (2) Diabetic foot ulcer Current Visit: Yes Status: Acute Code(s): E11.621 - TYPE 2 DIABETES MELLITUS WITH FOOT ULCER; L97.509 - NON-PRESSURE CHRONIC ULCER OTH PRT UNSP FOOT W UNSP SEVERITY SNOMED Code(s): 611367845 (3) Allergy to multiple antibiotics Current Visit: Yes Status: Acute Code(s): Z88.1 - ALLERGY STATUS TO OTHER ANTIBIOTIC AGENTS SNOMED Code(s): 772944186 Plan: Patient with left diabetic foot ulcers and concern for possible cellulitis failing outpatient oral Bactrim DS therapy. 2patient with multiple antibiotic ALLERGIES that would limit the number of antibiotic safe to use. 3mild renal insufficiency high risk of nephrotoxicity 4-local culture currently pending 5- vascular surgery consult for possible debridement and deep culture, pending 6-patient to continue with vancomycin pharmacy to dose target trough of 15 while watching kidney function and Vanco trough closely Dictation was produced using [employer] dictation software. please excuse any grammatical, word or spelling errors. Time with Patient: Less than 30
--- NOTE | 2024-03-04 13:37 | P.PN ---
Subjective Progress Note Date: 03/04/24 patient is a 63-year-old male with past medical history significant for COPD, diabetes, GERD, deafness, hyperlipidemia, hypertension, neurologic disorder, osteoarthritis, prostate disorder, thyroid cancer with thyroidectomy anxiety/bipolar depression PTSD presented to the ER for evaluation of a left foot wound. Patient has been following up outpatient with tax accounting manager for his chronic left foot wounds. Patient was also seen in the ER a week ago for left foot discoloration and wound and at the time was discharged on oral antibiotics. Patient has history of ulcers on left foot and had a left great toe amputation. Denies any fever or chills. There was no complaint of chest pain or shortness of breath. There was no current nausea, abdominal pain. Because of the symptoms, patient presented to ER Initial lab work done in the ER showed WBC 7.6, hemoglobin 12.3, platelet count 311, sodium 130, potassium 5.7, BUN 51, creatinine 1.52 glucose 116 total bilirubin 0.8, AST 34, ALT 19, CRP 2.7 EKG done in the ER showed heart rate of75 , no ST segment elevation or depression seen, no T-wave inversions seen. X-ray foot done showed no acute findings Patient admitted to internal medicine service 03/04. Patient seen and examined. States he feels better compared to yesterday REVIEW OF SYSTEMS: CONSTITUTIONAL: No fever, no malaise,. CARDIOVASCULAR: No chest pain, no palpitations, no syncope. PULMONARY: No shortness of breath, no cough, GASTROINTESTINAL: No diarrhea, no nausea, no vomiting, no abdominal pain. NEUROLOGICAL: No headaches, no weakness, GENERAL: The patient is alert and oriented x3, not in any acute distress. Well developed, well nourished. HEENT: Pupils are round and equally reacting to light. EOMI. No scleral icterus. No conjunctival pallor. Normocephalic, atraumatic. No pharyngeal erythema. No thyromegaly. CARDIOVASCULAR: S1 and S2 present. No murmurs, rubs, or gallops. PULMONARY: Chest is clear to auscultation, no wheezing or crackles. ABDOMEN: Soft, nontender, nondistended, normoactive bowel sounds. No palpable organomegaly. MUSCULOSKELETAL: Left foot bandaged seen EXTREMITIES: No cyanosis, clubbing, or pedal edema. NEUROLOGICAL: Gross neurological examination did not reveal any focal deficits. SKIN: No rashes. Assessment and plan Left foot diabetic ulcer Hyperkalemia Acute kidney injury History of COPD, stable, not in exacerbation Diabetes mellitus, type II, insulin-dependent Obesity with a BMI of 39.9 Hypertension history Hyperlipidemia Sleep apnea with a CPAP History of ADD/ADHD/anxiety/bipolar depression/PTSD Former smoker Chronic back and knee pain History of degenerative joint disease History of thyroid cancer with thyroidectomy Monitor vital signs Monitor CBC Monitor CMP Continue wound care Follow-up on blood cultures Continue pharmacy vancomycin ID following Labs and medication were reviewed.. Continue same treatment. Continue with symptomatic treatment. Resume home medication. Monitor labs and vitals. DVT and GI prophylaxis. Further recommendations as per clinical course of the patient Dictation was produced using [employer] dictation software. please excuse any grammatical, word or spelling errors. Objective - Vital Signs Vital signs: Vital Signs Temp 98.4 F 03/04/24 13:02 Pulse 67 03/04/24 13:02 Resp 18 03/04/24 13:02 BP 124/80 03/04/24 13:02 Pulse Ox 98 03/04/24 13:02 FiO2 Intake & Output 03/03/24 03/04/24 03/04/24 18:59 06:59 18:59 Other: Voiding Method Toilet Toilet Toilet # Voids 1 1 2 # Bowel Movements 1 - Labs CBC & Chem 7: 03/02/24 17:19 03/03/24 05:06 Labs: Abnormal Lab Results - Last 24 Hours (Table) 03/03/24 03/03/24 03/04/24 Range/Units 17:06 19:45 07:00 POC Glucose (mg/dL) 130 H 139 H 125 H (70-110) mg/dL 03/04/24 Range/Units 12:02 POC Glucose (mg/dL) 133 H (70-110) mg/dL Microbiology - Last 24 Hours (Table) 03/02/24 17:15 Blood Culture - Preliminary Blood 03/02/24 17:00 Blood Culture - Preliminary Blood
[2024-03-04 17:09] LABS: Glucose,Whole Blood 126 mg/dL (70-110)
[2024-03-04 20:35] LABS: Glucose,Whole Blood 148 mg/dL (70-110)
[2024-03-05 07:20] LABS: Glucose,Whole Blood 97 mg/dL (70-110)
[2024-03-05 12:50] LABS: Glucose,Whole Blood 121 mg/dL (70-110)
--- NOTE | 2024-03-05 13:38 | P.PN ---
Subjective Progress Note Date: 03/05/24 patient is a 63-year-old male with past medical history significant for COPD, diabetes, GERD, deafness, hyperlipidemia, hypertension, neurologic disorder, osteoarthritis, prostate disorder, thyroid cancer with thyroidectomy anxiety/bipolar depression PTSD presented to the ER for evaluation of a left foot wound. Patient has been following up outpatient with can sorter for his chronic left foot wounds. Patient was also seen in the ER a week ago for left foot discoloration and wound and at the time was discharged on oral antibiotics. Patient has history of ulcers on left foot and had a left great toe amputation. Denies any fever or chills. There was no complaint of chest pain or shortness of breath. There was no current nausea, abdominal pain. Because of the symptoms, patient presented to ER Initial lab work done in the ER showed WBC 7.6, hemoglobin 12.3, platelet count 311, sodium 130, potassium 5.7, BUN 51, creatinine 1.52 glucose 116 total bilirubin 0.8, AST 34, ALT 19, CRP 2.7 EKG done in the ER showed heart rate of75 , no ST segment elevation or depression seen, no T-wave inversions seen. X-ray foot done showed no acute findings Patient admitted to internal medicine service 03/04. Patient seen and examined. States he feels better compared to yesterday 03/05. Patient examined. Laying comfortably in the bed. Denies any fever or chills. Denies lethargy or weakness. Tolerating diet. REVIEW OF SYSTEMS: CONSTITUTIONAL: No fever, no malaise,. CARDIOVASCULAR: No chest pain, no palpitations, no syncope. PULMONARY: No shortness of breath, no cough, GASTROINTESTINAL: No diarrhea, no nausea, no vomiting, no abdominal pain. NEUROLOGICAL: No headaches, no weakness, GENERAL: The patient is alert and oriented x3, not in any acute distress. Well developed, well nourished. HEENT: Pupils are round and equally reacting to light. EOMI. No scleral icterus. No conjunctival pallor. Normocephalic, atraumatic. No pharyngeal erythema. No thyromegaly. CARDIOVASCULAR: S1 and S2 present. No murmurs, rubs, or gallops. PULMONARY: Chest is clear to auscultation, no wheezing or crackles. ABDOMEN: Soft, nontender, nondistended, normoactive bowel sounds. No palpable organomegaly. MUSCULOSKELETAL: Left foot bandaged seen EXTREMITIES: No cyanosis, clubbing, or pedal edema. NEUROLOGICAL: Gross neurological examination did not reveal any focal deficits. SKIN: No rashes. Assessment and plan Left foot diabetic ulcer Hyperkalemia Acute kidney injury History of COPD, stable, not in exacerbation Diabetes mellitus, type II, insulin-dependent Obesity with a BMI of 39.9 Hypertension history Hyperlipidemia Sleep apnea with a CPAP History of ADD/ADHD/anxiety/bipolar depression/PTSD Former smoker Chronic back and knee pain History of degenerative joint disease History of thyroid cancer with thyroidectomy Monitor vital signs Monitor CBC Monitor CMP Continue wound care Follow-up on blood cultures Continue pharmacy vancomycin Continue home meds Vascular surgery consulted ID following Labs and medication were reviewed.. Continue same treatment. Continue with symptomatic treatment. Resume home medication. Monitor labs and vitals. DVT and GI prophylaxis. Further recommendations as per clinical course of the patient Dictation was produced using [employer] dictation software. please excuse any grammatical, word or spelling errors. Objective - Vital Signs Vital signs: Vital Signs Temp 97.6 F 03/05/24 12:08 Pulse 65 03/05/24 12:08 Resp 16 03/05/24 12:08 BP 133/83 03/05/24 12:08 Pulse Ox 99 03/05/24 12:08 FiO2 Intake & Output 03/04/24 03/05/24 03/05/24 18:59 06:59 18:59 Other: Voiding Method Toilet Toilet Toilet # Voids 1 4 - Labs CBC & Chem 7: 03/02/24 17:19 03/03/24 05:06 Labs: Abnormal Lab Results - Last 24 Hours (Table) 03/04/24 03/04/24 03/05/24 Range/Units 17:08 20:31 12:49 POC Glucose (mg/dL) 126 H 148 H 121 H (70-110) mg/dL Microbiology - Last 24 Hours (Table) 03/03/24 12:32 Gram Stain - Preliminary Foot - Left 03/02/24 17:15 Blood Culture - Preliminary Blood 03/02/24 17:00 Blood Culture - Preliminary Blood
[2024-03-05 16:58] LABS: Glucose,Whole Blood 124 mg/dL (70-110)
[2024-03-05] MEDS: ALBUTEROL HFA INHALER INHALATION PRN (18:27)
[2024-03-05 20:14] LABS: Glucose,Whole Blood 166 mg/dL (70-110)
[2024-03-06 06:24] LABS: Glucose,Whole Blood 102 mg/dL (70-110)
[2024-03-06 07:15] LABS: ALT 16 U/L (4-49); AST 18 U/L (17-59); African American GFR (CKD) >90 (>60 ml/min/1.73 sqM); Albumin 3.7 g/dL (3.5-5.0); Albumin/Globulin Ratio 1.2; Alkaline Phosphatase 59 U/L (38-126); Anion Gap 5 mmol/L; Blood Urea Nitrogen 20 mg/dL (9-20); Calcium 8.8 mg/dL (8.4-10.2); Carbon Dioxide 23 mmol/L (22-30); Chloride 113 mmol/L (98-107); Globulin 3.1 g/dL; Glucose 107 mg/dL (74-99); Non-African American GFR(CKD) 88 (>60 ml/min/1.73 sqM); Potassium 4.9 mmol/L (3.5-5.1); Sodium 141 mmol/L (137-145); Total Bilirubin 0.3 mg/dL (0.2-1.3); Total Protein 6.8 g/dL (6.3-8.2)
[2024-03-06 07:24] LABS: Glucose,Whole Blood 111 mg/dL (70-110)
[2024-03-06 11:14] LABS: Basophils # (A) 0.03 X 10*3/uL (0.00-0.10); Basophils % (A) 0.5 %; Eosinophils # (A) 0.24 X 10*3/uL (0.04-0.35); Eosinophils % (A) 3.7 %; HCT 40.4 % (39.6-50.0); HGB 12.8 g/dL (13.0-17.0); Lymphocytes # (A) 2.02 X 10*3/uL (0.90-5.00); MCH 29.3 pg (27.0-32.0); MCHC 31.7 g/dL (32.0-37.0); MCV 92.4 FL (80.0-97.0); Mean Platelet Volume 10.5 FL (9.5-12.2); Monocytes # (A) 0.47 X 10*3/uL (0.20-1.00); Monocytes % (A) 7.2 %; NRBC Per 100 WBC 0 X 10*3/uL (0.00-0.01); Neutrophils # (A) 3.74 X 10*3/uL (1.80-7.70); Neutrophils % (A) 57.4 %; Platelet Count 310 X 10*3/uL (140-440); RBC 4.37 X 10*6/uL (4.40-5.60); RDW 13.1 % (11.5-14.5); WBC 6.51 X 10*3/uL (4.50-10.00)
[2024-03-06 12:04] LABS: Glucose,Whole Blood 114 mg/dL (70-110)
--- NOTE | 2024-03-06 14:36 | P.PN ---
Subjective Progress Note Date: 03/05/24 Principal diagnosis: Reason for follow-up is left diabetic foot ulcer and cellulitis Patient is a 63-year-old male with a past medical history significant for diabetes mellitus hypertension hyperlipidemia osteoarthritis previous history of left big toe diabetic foot infection status post left big toe amputation now presented to hospital with left foot wound concerning for cellulitis x-ray did not show any interval change. On today's evaluation that is 03/05/2024,the patient denies any fever or any chills, patient is breathing comfortably on room air, the patient denies chest pain shortness of breath and no significant cough, patient denies abdominal pain, no nausea vomiting or diarrhea. Denies any worsening pain to the left foot wound area. No new lab has been drawn today Objective - Vital Signs Vital signs: Vital Signs Temp 97.6 F 03/05/24 12:08 Pulse 65 03/05/24 12:08 Resp 16 03/05/24 12:08 BP 133/83 03/05/24 12:08 Pulse Ox 99 03/05/24 12:08 FiO2 Intake & Output 03/04/24 03/05/24 03/05/24 18:59 06:59 18:59 Other: Voiding Method Toilet Toilet Toilet # Voids 1 4 - Exam GENERAL DESCRIPTION: Middle-age male lying in bed in no distress RESPIRATORY SYSTEM: Unlabored breathing , decreased breath sounds at bases HEART: S1 S2 regular rate and rhythm , ABDOMEN: Soft , no tenderness EXTREMITIES: Left foot is currently dressed - Labs CBC & Chem 7: 03/06/24 06:29 03/06/24 06:29 Labs: Abnormal Lab Results - Last 24 Hours (Table) 03/04/24 03/05/24 03/05/24 Range/Units 20:31 12:49 16:57 POC Glucose (mg/dL) 148 H 121 H 124 H (70-110) mg/dL Microbiology - Last 24 Hours (Table) 03/03/24 12:32 Gram Stain - Preliminary Foot - Left 03/02/24 17:15 Blood Culture - Preliminary Blood 03/02/24 17:00 Blood Culture - Preliminary Blood Assessment and Plan (1) Diabetic foot infection Current Visit: Yes Status: Acute Code(s): E11.628 - TYPE 2 DIABETES MELLITUS WITH OTHER SKIN COMPLICATIONS; L08.9 - LOCAL INFECTION OF THE SKIN AND SUBCUTANEOUS TISSUE, UNSP SNOMED Code(s): 703775246 (2) Diabetic foot ulcer Current Visit: Yes Status: Acute Code(s): E11.621 - TYPE 2 DIABETES MELLITUS WITH FOOT ULCER; L97.509 - NON-PRESSURE CHRONIC ULCER OTH PRT UNSP FOOT W UNSP SEVERITY SNOMED Code(s): 703205153 (3) Allergy to multiple antibiotics Current Visit: Yes Status: Acute Code(s): Z88.1 - ALLERGY STATUS TO OTHER ANTIBIOTIC AGENTS SNOMED Code(s): 267523379 Plan: Patient with left diabetic foot ulcers and concern for possible cellulitis failing outpatient oral Bactrim DS therapy. 2patient with multiple antibiotic ALLERGIES that would limit the number of a ntibiotic safe to use. 3mild renal insufficiency high risk of nephrotoxicity 4-local culture currently pending 5- vascular surgery consult for possible debridement and deep culture, which is currently pending 6-patient to continue with vancomycin pharmacy to dose target trough of 15 and monitor clinical course closely Dictation was produced using [employer] dictation software. please excuse any gram matical, word or spelling errors. Time with Patient: Less than 30
--- NOTE | 2024-03-06 15:08 | P.PN ---
Subjective Progress Note Date: 03/06/24 Principal diagnosis: Reason for follow-up is left diabetic foot ulcer and cellulitis Patient is a 63-year-old male with a past medical history significant for diabetes mellitus hypertension hyperlipidemia osteoarthritis previous history of left big toe diabetic foot infection status post left big toe amputation now presented to hospital with left foot wound concerning for cellulitis x-ray did not show any interval change. On today's evaluation that is 03/06/2024,the patient remains to be afebrile, patient is on room air not requiring supplemental oxygen and denies any shortness of breath no chest pain or cough.Patient denies having any nausea or vomiting, no abdominal pain and no diarrhea has been reported and denies any worsening pain to the left foot. Patient white count 6.51, creatinine 0.93 culture has been negative so far Objective - Vital Signs Vital signs: Vital Signs Temp 97.5 F L 03/06/24 11:59 Pulse 62 03/06/24 11:59 Resp 16 03/06/24 11:59 BP 121/82 03/06/24 11:59 Pulse Ox 100 03/06/24 11:59 FiO2 Intake & Output 03/05/24 03/06/24 03/06/24 18:59 06:59 18:59 Intake Total 900 Balance 900 Intake: Intake, IV Titration 900 Amount Sodium Chloride 0.9% 1, 900 000 ml @ 75 mls/hr IV . [id number] [facility] Rx#:[id number] Other: Voiding Method Toilet Toilet # Voids 3 - Exam GENERAL DESCRIPTION: Middle-age male lying in bed in no distress RESPIRATORY SYSTEM: Unlabored breathing , decreased breath sounds at bases HEART: S1 S2 regular rate and rhythm , ABDOMEN: Soft , no tenderness EXTREMITIES: Left foot is currently dressed - Labs CBC & Chem 7: 03/06/24 06:29 03/06/24 06:29 Labs: Abnormal Lab Results - Last 24 Hours (Table) 03/05/24 03/05/24 03/06/24 Range/Units 16:57 20:13 06:29 RBC (4.40-5.60) X 10*6/uL Hgb (13.0-17.0) g/dL MCHC (32.0-37.0) g/dL Chloride 113 H (98-107) mmol/L Glucose 107 H (74-99) mg/dL POC Glucose (mg/dL) 124 H 166 H (70-110) mg/dL 03/06/24 03/06/24 03/06/24 Range/Units 06:29 07:23 12:02 RBC 4.37 L (4.40-5.60) X 10*6/uL Hgb 12.8 L (13.0-17.0) g/dL MCHC 31.7 L (32.0-37.0) g/dL Chloride (98-107) mmol/L Glucose (74-99) mg/dL POC Glucose (mg/dL) 111 H 114 H (70-110) mg/dL Microbiology - Last 24 Hours (Table) 03/02/24 17:15 Blood Culture - Preliminary Blood 03/02/24 17:00 Blood Culture - Preliminary Blood 03/03/24 12:32 Anaerobic Culture - Preliminary Foot - Left 03/03/24 12:32 Gram Stain - Final Foot - Left Wound Culture - Final Assessment and Plan (1) Diabetic foot infection Current Visit: Yes Status: Acute Code(s): E11.628 - TYPE 2 DIABETES MELLITUS WITH OTHER SKIN COMPLICATIONS; L08.9 - LOCAL INFECTION OF THE SKIN AND SUBCUTANEOUS TISSUE, UNSP SNOMED Code(s): 304915747 (2) Diabetic foot ulcer Current Visit: Yes Status: Acute Code(s): E11.621 - TYPE 2 DIABETES MELLITUS WITH FOOT ULCER; L97.509 - NON-PRESSURE CHRONIC ULCER OTH PRT UNSP FOOT W UNSP SEVERITY SNOMED Code(s): 853710008 (3) Allergy to multiple antibiotics Current Visit: Yes Status: Acute Code(s): Z88.1 - ALLERGY STATUS TO OTHER ANTIBIOTIC AGENTS SNOMED Code(s): 054058678 Plan: Patient with left diabetic foot ulcers and concern for possible cellulitis failing outpatient oral Bactrim DS therapy. 2patient with multiple antibiotic ALLERGIES that would limit the number of antibiotic safe to use. 3-local culture currently so far negative 5- vascular surgery consult for possible debridement and deep culture, which is currently pending 6-with a culture negative we will discontinue vancomycin consider cefazolin and oral Flagyl pending anaerobe cultures Dictation was produced using [employer] dictation software. please excuse any grammatical, word or spelling errors. Time with Patient: Less than 30
[2024-03-06 17:01] LABS: Glucose,Whole Blood 116 mg/dL (70-110)
[2024-03-06] MEDS: metroNIDAZOLE 500 MG TAB PO SCH (17:09)
[2024-03-06] MEDS ORDERED: VANCOMYCIN TROUGH DUE 1 EACH MISC MISCELLANE ONE (19:00)
[2024-03-06 19:41] LABS: Glucose,Whole Blood 159 mg/dL (70-110)
--- NOTE | 2024-03-06 21:23 | P.PN ---
Subjective Progress Note Date: 03/06/24 patient is a 63-year-old male with past medical history significant for COPD, diabetes, GERD, deafness, hyperlipidemia, hypertension, neurologic disorder, osteoarthritis, prostate disorder, thyroid cancer with thyroidectomy anxiety/bipolar depression PTSD presented to the ER for evaluation of a left foot wound. Patient has been following up outpatient with florist's decorator for his chronic left foot wounds. Patient was also seen in the ER a week ago for left foot discoloration and wound and at the time was discharged on oral antibiotics. Patient has history of ulcers on left foot and had a left great toe amputation. Denies any fever or chills. There was no complaint of chest pain or shortness of breath. There was no current nausea, abdominal pain. Because of the symptoms, patient presented to ER Initial lab work done in the ER showed WBC 7.6, hemoglobin 12.3, platelet count 311, sodium 130, potassium 5.7, BUN 51, creatinine 1.52 glucose 116 total bilirubin 0.8, AST 34, ALT 19, CRP 2.7 EKG done in the ER showed heart rate of75 , no ST segment elevation or depression seen, no T-wave inversions seen. X-ray foot done showed no acute findings Patient admitted to internal medicine service 03/04. Patient seen and examined. States he feels better compared to yesterday 03/05. Patient examined. Laying comfortably in the bed. Denies any fever or chills. Denies lethargy or weakness. Tolerating diet. 03/06/2024 Patient evaluated in follow up today on the medical floor. Sitting up in bed. No acute complaints. Patient with multiple wounds to the left foot. He will be evaluated by vascular will likely need surgical debridement of wounds. Continues on IV vancomycin. Labs today reveal white blood cell count of 6.51, hgb 12.8. Sodium 141, potassium 4.9, BUN 20, creatinine 0.93. Hemodynamically stable. REVIEW OF SYSTEMS: CONSTITUTIONAL: No fever, no malaise,. CARDIOVASCULAR: No chest pain, no palpitations, no syncope. PULMONARY: No shortness of breath, no cough, GASTROINTESTINAL: No diarrhea, no nausea, no vomiting, no abdominal pain. NEUROLOGICAL: No headaches, no weakness, GENERAL: The patient is alert and oriented x3, not in any acute distress. Well developed, well nourished. HEENT: Pupils are round and equally reacting to light. EOMI. No scleral icterus. No conjunctival pallor. Normocephalic, atraumatic. No pharyngeal erythema. No thyromegaly. CARDIOVASCULAR: S1 and S2 present. No murmurs, rubs, or gallops. PULMONARY: Chest is clear to auscultation, no wheezing or crackles. ABDOMEN: Soft, nontender, nondistended, normoactive bowel sounds. No palpable organomegaly. MUSCULOSKELETAL: Left foot bandaged seen EXTREMITIES: No cyanosis, clubbing, or pedal edema. NEUROLOGICAL: Gross neurological examination did not reveal any focal deficits. SKIN: No rashes. Assessment and plan Left foot diabetic ulcer Hyperkalemia Acute kidney injury, prerenal. History of COPD, stable, not in exacerbation Diabetes mellitus, type II, insulin-dependent Obesity with a BMI of 39.9 Hypertension history Hyperlipidemia Sleep apnea with a CPAP History of ADD/ADHD/anxiety/bipolar depression/PTSD Former smoker Chronic back and knee pain History of degenerative joint disease History of thyroid cancer with thyroidectomy GI prophylaxis DVT prophylaxis Full Code Plan Continue IV vancomcyin per ID, monitor cultures Vascular consultation pending Continue accuchecks ACHS Monitor renal function Continue local wound care with [facility] PT/OT consultation may need half-way on discharge. Monitor blood work. The impression and plan of care has been dictated by Jyotsna Davies Nurse Practitioner as directed. Dr. David MD I have performed a history and physical examination and medical decision making of this patient, discussed the same with the dictator, and agree with the dictators assessment and plan as written, documented as a scribe. Based on total visit time, I have performed more than 50% of this visit. Objective - Vital Signs Vital signs: Vital Signs Temp 97.7 F 03/06/24 19:12 Pulse 67 03/06/24 19:12 Resp 18 03/06/24 19:12 BP 126/78 03/06/24 19:12 Pulse Ox 99 03/06/24 19:12 FiO2 Intake & Output 03/06/24 03/06/24 03/07/24 06:59 18:59 06:59 Other: Voiding Method Toilet # Voids 3 2 - Labs CBC & Chem 7: 03/06/24 06:29 03/06/24 06:29 Labs: Abnormal Lab Results - Last 24 Hours (Table) 03/06/24 03/06/24 03/06/24 Range/Units 06:29 06:29 07:23 RBC 4.37 L (4.40-5.60) X 10*6/uL Hgb 12.8 L (13.0-17.0) g/dL MCHC 31.7 L (32.0-37.0) g/dL Chloride 113 H (98-107) mmol/L Glucose 107 H (74-99) mg/dL POC Glucose (mg/dL) 111 H (70-110) mg/dL 03/06/24 03/06/24 03/06/24 Range/Units 12:02 17:00 19:37 RBC (4.40-5.60) X 10*6/uL Hgb (13.0-17.0) g/dL MCHC (32.0-37.0) g/dL Chloride (98-107) mmol/L Glucose (74-99) mg/dL POC Glucose (mg/dL) 114 H 116 H 159 H (70-110) mg/dL Microbiology - Last 24 Hours (Table) 03/02/24 17:15 Blood Culture - Preliminary Blood 03/02/24 17:00 Blood Culture - Preliminary Blood 03/03/24 12:32 Anaerobic Culture - Preliminary Foot - Left 03/03/24 12:32 Gram Stain - Final Foot - Left Wound Culture - Final Assessment and Plan Time with Patient: Less than 30
[2024-03-07 07:28] LABS: Glucose,Whole Blood 114 mg/dL (70-110)
[2024-03-07] MEDS: HEPARIN SODIUM,PORCINE 5,000 UNIT/ML 1 ML VIAL SQ SCH (08:52)
[2024-03-07 10:54] LABS: Basophils # (A) 0.04 X 10*3/uL (0.00-0.10); Basophils % (A) 0.6 %; Eosinophils # (A) 0.22 X 10*3/uL (0.04-0.35); Eosinophils % (A) 3.4 %; HCT 37.8 % (39.6-50.0); Lymphocytes # (A) 2.18 X 10*3/uL (0.90-5.00); Lymphocytes % (A) 33.2 %; MCH 28.6 pg (27.0-32.0); MCHC 31.7 g/dL (32.0-37.0); MCV 90.2 FL (80.0-97.0); Mean Platelet Volume 9.8 FL (9.5-12.2); Monocytes # (A) 0.55 X 10*3/uL (0.20-1.00); Monocytes % (A) 8.4 %; NRBC Per 100 WBC 0 X 10*3/uL (0.00-0.01); Neutrophils # (A) 3.55 X 10*3/uL (1.80-7.70); Neutrophils % (A) 54.1 %; Platelet Count 312 X 10*3/uL (140-440); RBC 4.19 X 10*6/uL (4.40-5.60); RDW 13.3 % (11.5-14.5); WBC 6.56 X 10*3/uL (4.50-10.00)
[2024-03-07 11:00] LABS: Blood Urea Nitrogen 17.6 mg/dL (9.0-27.0); Calcium 8.7 mg/dL (8.7-10.3); Carbon Dioxide 22.8 mmol/L (21.6-31.8); Chloride 108 mmol/L (96-109); Glucose 115 mg/dL (70-110); Potassium 4.8 mmol/L (3.5-5.5); Sodium 142 mmol/L (135-145)
[2024-03-07 12:16] LABS: Glucose,Whole Blood 123 mg/dL (70-110)
--- NOTE | 2024-03-07 12:32 | P.PN ---
Subjective Progress Note Date: 03/07/24 Principal diagnosis: Reason for follow-up is left diabetic foot ulcer and cellulitis Patient is a 63-year-old male with a past medical history significant for diabetes mellitus hypertension hyperlipidemia osteoarthritis previous history of left big toe diabetic foot infection status post left big toe amputation now presented to hospital with left foot wound concerning for cellulitis x-ray did not show any interval change. On today's evaluation that is 03/07/2024, the patient continues to be afebrile, the patient is on room air and breathing comfortably, the Pt denies having any chest pain or cough, the patient denies having any abdominal pain no vomiting or any diarrhea and denies any worsening pain to the left foot. Patient white count 6.56, creatinine 1.0 culture remains to be negative Objective - Vital Signs Vital signs: Vital Signs Temp 97.8 F 03/07/24 07:24 Pulse 66 03/07/24 07:24 Resp 16 03/07/24 08:00 BP 124/80 03/07/24 07:24 Pulse Ox 97 03/07/24 07:24 FiO2 Intake & Output 03/06/24 03/07/24 03/07/24 18:59 06:59 18:59 Other: Voiding Method Toilet # Voids 2 1 - Exam GENERAL DESCRIPTION: Middle-age male lying in bed in no distress RESPIRATORY SYSTEM: Unlabored breathing , decreased breath sounds at bases HEART: S1 S2 regular rate and rhythm , ABDOMEN: Soft , no tenderness EXTREMITIES: Left foot is currently dressed - Labs CBC & Chem 7: 03/07/24 06:07 03/07/24 05:37 Labs: Abnormal Lab Results - Last 24 Hours (Table) 03/06/24 03/06/24 03/07/24 Range/Units 17:00 19:37 05:37 RBC (4.40-5.60) X 10*6/uL Hgb (13.0-17.0) g/dL Hct (39.6-50.0) % MCHC (32.0-37.0) g/dL Glucose 115 H (70-110) mg/dL POC Glucose (mg/dL) 116 H 159 H (70-110) mg/dL 03/07/24 03/07/24 03/07/24 Range/Units 06:07 07:26 12:15 RBC 4.19 L (4.40-5.60) X 10*6/uL Hgb 12.0 L (13.0-17.0) g/dL Hct 37.8 L (39.6-50.0) % MCHC 31.7 L (32.0-37.0) g/dL Glucose (70-110) mg/dL POC Glucose (mg/dL) 114 H 123 H (70-110) mg/dL Assessment and Plan (1) Diabetic foot infection Current Visit: Yes Status: Acute Code(s): E11.628 - TYPE 2 DIABETES MELLITUS WITH OTHER SKIN COMPLICATIONS; L08.9 - LOCAL INFECTION OF THE SKIN AND SUBCUTANEOUS TISSUE, UNSP SNOMED Code(s): 481772321 (2) Diabetic foot ulcer Current Visit: Yes Status: Acute Code(s): E11.621 - TYPE 2 DIABETES MELLITUS WITH FOOT ULCER; L97.509 - NON-PRESSURE CHRONIC ULCER OTH PRT UNSP FOOT W UNSP SEVERITY SNOMED Code(s): 812905950 (3) Allergy to multiple antibiotics Current Visit: Yes Status: Acute Code(s): Z88.1 - ALLERGY STATUS TO OTHER ANTIBIOTIC AGENTS SNOMED Code(s): 932202706 Plan: 1patient with left diabetic foot ulcers and concern for possible cellulitis failing outpatient oral Bactrim DS therapy. 2patient with multiple antibiotic ALLERGIES that would limit the number of antibiotic safe to use. 3-local culture currently so far negative 4- vascular surgery consult for possible debridement and deep culture, which is currently pending 5-patient to continue with cefazolin and oral Flagyl, may consider oral Keflex and Flagyl on discharge Dictation was produced using [employer] dictation software. please excuse any grammatical, word or spelling errors. Time with Patient: Less than 30
[2024-03-07] MEDS: LIDOCAINE 1% INJ 10MG/ML (20 ML MDV) SQ STA (15:30)
--- NOTE | 2024-03-07 15:53 | P.GSCN ---
History of Present Illness History of present illness: 63-year-old gentleman with history of diabetes hypertension patient came to the hospital with history of callus formation noted on the plantar aspect of the right foot this patient had a right big toe patient done about 4 years ago patient' last follow-up and was following a boarding room fixer and he has been treated with local wound care. Patient has a callus on the plantar aspect of the right foot base of the big toe, callus formation on the plantar aspect which is dry callus no drainage noted and also there is a callus formation noted in the fourth toe without any drainage Patient is under care of infectious disease patient has multiple drug allergies Chest is clear good entry both lung. Second sound present Abdomen soft nontender Vascular femorals are 2+ dorsal pedis 1+ left foot has a callus formation on the plantar aspect and a ulcer on the plantar aspect base of the big toe which needs debridement and culture patient has no fever or chills 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, BLAYNE with CPAP, IDDM type II, neuropathy bilateral lower extremities, hypothroid- thyroidectomy d/t cancer, arthritis/ DJD in back and bilateral knees, obesity, History of Any Multi-Drug Resistant Organisms: ESBL, MRSA Year Discovered:: 12/30/20 ESBL; 10/31/20 MRSA MDRO Source:: Toe Left Second ESBL; Toe Right First MRSA Past Surgical History: Joint Replacement, Tonsillectomy Additional Past Surgical History / Comment(s): L great toe amputation, L total knee arthroplasty, stephani eye surgery, thyroidectomy Past Anesthesia/Blood Transfusion Reactions: No Reported Reaction Additional Past Anesthesia/Blood Transfusion Reaction / Comm: had reaction to drainage tube-"had to be knocked out-woke up swinging" Past Psychological History: ADD/ADHD, Anxiety, Bipolar, Depression, PTSD Smoking Status: Former smoker, Second hand smoke exposure Past Alcohol Use History: None Reported Past Drug Use History: None Reported - Past Family History Father Family Medical History: Coronary Artery Disease (CAD), Diabetes Mellitus Additional Family Medical History / Comment(s): Father had CABG. Mother Family Medical History: Cancer, Diabetes Mellitus Additional Family Medical History / Comment(s): Colon cancer. Medications and Allergies Home Medications Medication Instructions Recorded Confirmed Type Empagliflozin [Jardiance] 25 mg PO DAILY 10/31/20 03/02/24 History Fish Oil/Dha/Epa [Fish Oil 1,200 1 cap PO TID 10/31/20 03/02/24 History mg Fish Oil] Fluticasone Nasal [place] [Flonase 1 spr EA NOSTRIL BID 10/31/20 03/02/24 History Nasal [place]] Pentoxifylline [TRENtal] 400 mg PO BID 10/31/20 03/02/24 History Tamsulosin HCl [Flomax] 0.4 mg PO AC-SUPPER 10/31/20 03/02/24 History Testosterone [Androgel 1.62% Gel 1 pump TOPICAL BID 10/31/20 03/02/24 History Pump] Albuterol Sulfate [Proventil Hfa] 1 puff INHALATION RT-QID PRN 12/26/20 03/02/24 History Folic Acid 1 mg PO DAILY #30 tab 04/15/21 03/02/24 Rx Alogliptin Benzoate [Alogliptin] 25 mg PO DAILY 05/29/21 03/02/24 History Artificial Tears Ointment 0.25 inch LEFT EYE HS 05/29/21 03/02/24 History [Lubrifresh Pm Ointment] Atorvastatin [Lipitor] 40 mg PO HS 05/29/21 03/02/24 History Carboxymethylcellulose Sodium 2 drops BOTH EYES QID PRN 05/29/21 03/02/24 History [Refresh Tears] Cholecalciferol [Vitamin D3 (25 50 mcg PO DAILY 05/29/21 03/02/24 History Mcg = 1000 Iu)] Cyanocobalamin (Vitamin B-12) 1,000 mcg PO DAILY 05/29/21 03/02/24 History [Vitamin B-12] Exenatide Microspheres [Bydureon 2 mg SQ FR 05/29/21 03/02/24 History Bcise Auto-Injector] Insulin Aspart [NovoLOG Flexpen] See Protocol SQ AC-TID 05/29/21 03/02/24 History Levothyroxine Sodium 300 mcg PO DAILY 05/29/21 03/02/24 History Magnesium Oxide [Mag-Ox] 250 mg PO BID 05/29/21 03/02/24 History Melatonin 5 mg PO HS 05/29/21 03/02/24 History Metoprolol Tartrate [Lopressor] 50 mg PO BID 05/29/21 03/02/24 History OLANZapine 7.5 mg PO HS 05/29/21 03/02/24 History Pantoprazole [Protonix] 40 mg PO DAILY 05/29/21 03/02/24 History Polyvinyl Alcohol/Povidone 1 drop BOTH EYES 5XD 05/29/21 03/02/24 History [[place] Eye Drop] Valsartan 320 mg PO DAILY 05/29/21 03/02/24 History Vitamin E (Dl,Tocopheryl Acet) 400 unit PO DAILY 05/29/21 03/02/24 History [Vitamin E (400 Iu = 180 mg)] carBAMazepine [TEGretol] 200 mg PO DAILY 05/29/21 03/02/24 History carBAMazepine [TEGretol] 400 mg PO BID@1700,2100 05/29/21 03/02/24 History diphenhydrAMINE [Benadryl] 25 mg PO QID 05/29/21 03/02/24 History metFORMIN HCL [Glucophage] 1,000 mg PO BID 05/29/21 03/02/24 History Thiamine [Vitamin B-1] 100 mg PO DAILY #30 tablet 06/02/21 03/02/24 Rx Acetaminophen Tab [Tylenol] 1,000 mg PO Q6HR PRN 12/16/23 03/02/24 History Aspirin [Adult Low Dose Aspirin EC] 81 mg PO DAILY 12/16/23 03/02/24 History Aspirin 325 mg PO BID #60 tab 12/20/23 03/02/24 Rx Sennosides [Senokot] 2 tab PO DAILY PRN #60 tablet 12/20/23 03/02/24 Rx HYDROcodone/APAP 5-325MG [[place] 1 - 2 tab PO Q6HR PRN #32 tab 12/22/23 03/02/24 Rx 5-325] Magnesium Hydroxide [Milk of 2,400 mg PO DAILY PRN ml 12/23/23 03/02/24 Rx Magnesia] Na Phos,M-B/Na Phos,Di-Ba [Fleet 133 ml RECTAL DAILY PRN each 12/23/23 03/02/24 Rx Adult] bisacodyL [Dulcolax] 10 mg RECTAL DAILY PRN suppositor 12/23/23 03/02/24 Rx Gabapentin [Neurontin] 300 mg PO BID 3 Days #6 cap 12/27/23 03/02/24 Rx Insulin Degludec [Tresiba 15 unit SQ AC-BID 03/02/24 03/02/24 History Flextouch U-200 Pen] Sildenafil Citrate [Viagra] 100 mg PO DIRECTED PRN 03/02/24 03/02/24 History Sulfamethox-Tmp 800-160Mg [Bactrim 1 tab PO Q12HR 03/02/24 03/02/24 History Ds] Allergies Allergy/AdvReac Type Severity Reaction Status Date / Time codeine phosphate Allergy Dyspnea Verified 03/02/24 16:40 [From Tylenol-Codeine] levofloxacin [From Levaquin] Allergy Anaphylaxis Verified 03/02/24 16:40 Penicillins Allergy Rash/Hives Verified 03/02/24 16:40 quetiapine Allergy headache Verified 03/02/24 16:40 guaifenesin AdvReac dehydration Verified 03/02/24 16:40 meperidine HCl [From Demerol] AdvReac "altered Verified 03/02/24 16:40 state of mind" olanzapine AdvReac > 7.6 mg Verified 03/02/24 16:40 causes sleepiness phenylephrine AdvReac dehydration Verified 03/02/24 16:40 pseudoephedrine AdvReac Unknown Verified 03/02/24 16:40 [From Entex T] topiramate AdvReac Dehydration Verified 03/02/24 16:40 and Manic wool AdvReac Urticarial Verified 03/02/24 16:40 gin AdvReac Headache Uncoded 02/27/24 10:15 Surgical - Exam Vital Signs Temp Pulse Resp BP Pulse Ox 98.1 F 84 16 130/67 97 03/02/24 16:38 03/02/24 16:38 03/02/24 16:38 03/02/24 16:38 03/02/24 16:38 Results - Labs 03/07/24 06:07 03/07/24 05:37 Abnormal Lab Results - Last 24 Hours (Table) 03/06/24 03/06/24 03/07/24 Range/Units 17:00 19:37 05:37 RBC (4.40-5.60) X 10*6/uL Hgb (13.0-17.0) g/dL Hct (39.6-50.0) % MCHC (32.0-37.0) g/dL Glucose 115 H (70-110) mg/dL POC Glucose (mg/dL) 116 H 159 H (70-110) mg/dL 03/07/24 03/07/24 03/07/24 Range/Units 06:07 07:26 12:15 RBC 4.19 L (4.40-5.60) X 10*6/uL Hgb 12.0 L (13.0-17.0) g/dL Hct 37.8 L (39.6-50.0) % MCHC 31.7 L (32.0-37.0) g/dL Glucose (70-110) mg/dL POC Glucose (mg/dL) 114 H 123 H (70-110) mg/dL Diabetes panel 03/07/24 Range/Units 05:37 Sodium 142 (135-145) mmol/L Potassium 4.8 (3.5-5.5) mmol/L Chloride 108 (96-109) mmol/L Carbon Dioxide 22.8 (21.6-31.8) mmol/L BUN 17.6 (9.0-27.0) mg/dL Creatinine 1.0 (0.6-1.5) mg/dL Glucose 115 H (70-110) mg/dL Calcium 8.7 (8.7-10.3) mg/dL Calcium panel 03/07/24 Range/Units 05:37 Calcium 8.7 (8.7-10.3) mg/dL Pituitary panel 03/07/24 Range/Units 05:37 Sodium 142 (135-145) mmol/L Potassium 4.8 (3.5-5.5) mmol/L Chloride 108 (96-109) mmol/L Carbon Dioxide 22.8 (21.6-31.8) mmol/L BUN 17.6 (9.0-27.0) mg/dL Creatinine 1.0 (0.6-1.5) mg/dL Glucose 115 H (70-110) mg/dL Calcium 8.7 (8.7-10.3) mg/dL Adrenal panel 03/07/24 Range/Units 05:37 Sodium 142 (135-145) mmol/L Potassium 4.8 (3.5-5.5) mmol/L Chloride 108 (96-109) mmol/L Carbon Dioxide 22.8 (21.6-31.8) mmol/L BUN 17.6 (9.0-27.0) mg/dL Creatinine 1.0 (0.6-1.5) mg/dL Glucose 115 H (70-110) mg/dL Calcium 8.7 (8.7-10.3) mg/dL
--- NOTE | 2024-03-07 15:56 | P.PCN ---
Description of Procedure: Preop diagnosis wound left foot plantar aspect measurement is 1 x 1/2 cm at the base of the big toe with patient also has a callus formation on plantar aspect without any drainage or sign of infection Postoperative with the same postdebridement measurement is 1 by half 6 cm x 0.5 cm 1% lidocaine was infiltrated left foot left foot was prepped and using knife we excised the superficial debridement down to was tissue some devitalized tissue was removed which was sent for culture no active bleeding was noted wound was irrigated with hydroperoxide and saline then we placed Medihoney gel pressure dressing applied patient tarted the procedure well Plan is patient can go home from if is okay with the infectious disease I can follow this patient in the wound clinic on Tuesday
[2024-03-07 17:13] LABS: Glucose,Whole Blood 110 mg/dL (70-110)
[2024-03-07 19:51] LABS: Glucose,Whole Blood 142 mg/dL (70-110)
--- NOTE | 2024-03-07 21:34 | P.PN ---
Subjective Progress Note Date: 03/07/24 patient is a 63-year-old male with past medical history significant for COPD, diabetes, GERD, deafness, hyperlipidemia, hypertension, neurologic disorder, osteoarthritis, prostate disorder, thyroid cancer with thyroidectomy anxiety/bipolar depression PTSD presented to the ER for evaluation of a left foot wound. Patient has been following up outpatient with stem roller for his chronic left foot wounds. Patient was also seen in the ER a week ago for left foot discoloration and wound and at the time was discharged on oral antibiotics. Patient has history of ulcers on left foot and had a left great toe amputation. Denies any fever or chills. There was no complaint of chest pain or shortness of breath. There was no current nausea, abdominal pain. Because of the symptoms, patient presented to ER Initial lab work done in the ER showed WBC 7.6, hemoglobin 12.3, platelet count 311, sodium 130, potassium 5.7, BUN 51, creatinine 1.52 glucose 116 total bilirubin 0.8, AST 34, ALT 19, CRP 2.7 EKG done in the ER showed heart rate of75 , no ST segment elevation or depression seen, no T-wave inversions seen. X-ray foot done showed no acute findings Patient admitted to internal medicine service 03/04. Patient seen and examined. States he feels better compared to yesterday 03/05. Patient examined. Laying comfortably in the bed. Denies any fever or chills. Denies lethargy or weakness. Tolerating diet. 03/06/2024 Patient evaluated in follow up today on the medical floor. Sitting up in bed. No acute complaints. Patient with multiple wounds to the left foot. He will be evaluated by vascular will likely need surgical debridement of wounds. Continues on IV vancomycin. Labs today reveal white blood cell count of 6.51, hgb 12.8. Sodium 141, potassium 4.9, BUN 20, creatinine 0.93. Hemodynamically stable. 03/07/2024 Patient has evaluated today in follow up. Patient sitting up on the edge of bed. Awaiting evaluation by vascular surgery pending debridement. Hemodynamically stable. REVIEW OF SYSTEMS: CONSTITUTIONAL: No fever, no malaise,. CARDIOVASCULAR: No chest pain, no palpitations, no syncope. PULMONARY: No shortness of breath, no cough, GASTROINTESTINAL: No diarrhea, no nausea, no vomiting, no abdominal pain. NEUROLOGICAL: No headaches, no weakness, GENERAL: The patient is alert and oriented x3, not in any acute distress. Well developed, well nourished. HEENT: Pupils are round and equally reacting to light. EOMI. No scleral icterus. No conjunctival pallor. Normocephalic, atraumatic. No pharyngeal erythema. No thyromegaly. CARDIOVASCULAR: S1 and S2 present. No murmurs, rubs, or gallops. PULMONARY: Chest is clear to auscultation, no wheezing or crackles. ABDOMEN: Soft, nontender, nondistended, normoactive bowel sounds. No palpable organomegaly. MUSCULOSKELETAL: Left foot bandaged seen EXTREMITIES: No cyanosis, clubbing, or pedal edema. NEUROLOGICAL: Gross neurological examination did not reveal any focal deficits. SKIN: No rashes. Assessment and plan Left foot diabetic ulcer Hyperkalemia Acute kidney injury, prerenal. History of COPD, stable, not in exacerbation Diabetes mellitus, type II, insulin-dependent Obesity with a BMI of 39.9 Hypertension history Hyperlipidemia Sleep apnea with a CPAP History of ADD/ADHD/anxiety/bipolar depression/PTSD Former smoker Chronic back and knee pain History of degenerative joint disease History of thyroid cancer with thyroidectomy GI prophylaxis DVT prophylaxis Full Code Plan Continue IV vancomcyin per ID, monitor cultures Vascular consultation pending Continue accuchecks ACHS Monitor renal function Continue local wound care with [facility] PT/OT consultation may need nursing home on discharge. Monitor blood work. The impression and plan of care has been dictated by Nurse Annelise Pr actitioner as directed. Dr. David MD I have performed a history and physical examination and medical decision making of this patient, discussed the same with the dictator, and agree with the dicta tors assessment and plan as written, documented as a scribe. Based on total visit time, I have performed more than 50% of this visit. Objective - Vital Signs Vital signs: Vital Signs Temp 97.8 F 03/07/24 07:24 Pulse 66 03/07/24 07:24 Resp 16 03/07/24 08:00 BP 124/80 03/07/24 07:24 Pulse Ox 97 03/07/24 07:24 FiO2 Intake & Output 03/06/24 03/07/24 03/07/24 18:59 06:59 18:59 Other: Voiding Method Toilet # Voids 2 1 - Labs CBC & Chem 7: 03/07/24 06:07 03/07/24 05:37 Labs: Abnormal Lab Results - Last 24 Hours (Table) 03/06/24 03/06/24 03/07/24 Range/Units 17:00 19:37 05:37 RBC (4.40-5.60) X 10*6/uL Hgb (13.0-17.0) g/dL Hct (39.6-50.0) % MCHC (32.0-37.0) g/dL Glucose 115 H (70-110) mg/dL POC Glucose (mg/dL) 116 H 159 H (70-110) mg/dL 03/07/24 03/07/24 03/07/24 Range/Units 06:07 07:26 12:15 RBC 4.19 L (4.40-5.60) X 10*6/uL Hgb 12.0 L (13.0-17.0) g/dL Hct 37.8 L (39.6-50.0) % MCHC 31.7 L (32.0-37.0) g/dL Glucose (70-110) mg/dL POC Glucose (mg/dL) 114 H 123 H (70-110) mg/dL Assessment and Plan Time with Patient: Less than 30
[2024-03-08 00:24] VITALS: TEMP 97.6
[2024-03-08 07:30] LABS: Glucose,Whole Blood 123 mg/dL (70-110)
[2024-03-08 07:55] VITALS: BP 128/80; PULSE 64; RESP 17
--- NOTE | 2024-03-08 12:33 | P.PN ---
Subjective Progress Note Date: 03/08/24 Principal diagnosis: Reason for follow-up is left diabetic foot ulcer and cellulitis Patient is a 63-year-old male with a past medical history significant for diabetes mellitus hypertension hyperlipidemia osteoarthritis previous history of left big toe diabetic foot infection status post left big toe amputation now presented to hospital with left foot wound concerning for cellulitis x-ray did not show any interval change. On today's evaluation that is 03/08/2024, Patient is afebrile patient is currently on room air and denies having any shortness of breath, the patient denies any chest pain or cough, the patient denies any nausea vomiting did not have any abdominal pain and no diarrhea, denies pain to the left foot mention feeling better wants to go home. Initial culture has been negative so far with repeat cultures pending Objective - Vital Signs Vital signs: Vital Signs Temp 97.6 F 03/08/24 07:27 Pulse 64 03/08/24 07:27 Resp 17 03/08/24 07:27 BP 128/80 03/08/24 07:27 Pulse Ox 98 03/08/24 07:27 FiO2 Intake & Output 03/07/24 03/08/24 03/08/24 18:59 06:59 18:59 Intake Total 1620 Balance 1620 Intake: Oral 1620 Other: Voiding Method Toilet Toilet Toilet # Voids 3 1 # Bowel Movements 0 - Exam GENERAL DESCRIPTION: Middle-age male lying in bed in no distress RESPIRATORY SYSTEM: Unlabored breathing , decreased breath sounds at bases HEART: S1 S2 regular rate and rhythm , ABDOMEN: Soft , no tenderness EXTREMITIES: Left foot is currently dressed - Labs CBC & Chem 7: 03/07/24 06:07 03/07/24 05:37 Labs: Abnormal Lab Results - Last 24 Hours (Table) 03/07/24 03/07/24 03/07/24 Range/Units 05:37 06:07 12:15 RBC 4.19 L (4.40-5.60) X 10*6/uL Hgb 12.0 L (13.0-17.0) g/dL Hct 37.8 L (39.6-50.0) % MCHC 31.7 L (32.0-37.0) g/dL Glucose 115 H (70-110) mg/dL POC Glucose (mg/dL) 123 H (70-110) mg/dL 03/07/24 03/08/24 Range/Units 19:47 07:28 RBC (4.40-5.60) X 10*6/uL Hgb (13.0-17.0) g/dL Hct (39.6-50.0) % MCHC (32.0-37.0) g/dL Glucose (70-110) mg/dL POC Glucose (mg/dL) 142 H 123 H (70-110) mg/dL Microbiology - Last 24 Hours (Table) 03/07/24 15:34 Gram Stain - Preliminary Foot - Left 03/02/24 17:15 Blood Culture - Final Blood 03/02/24 17:00 Blood Culture - Final Blood 03/03/24 12:32 Anaerobic Culture - Final Foot - Left Assessment and Plan (1) Diabetic foot infection Current Visit: Yes Status: Acute Code(s): E11.628 - TYPE 2 DIABETES MELLITUS WITH OTHER SKIN COMPLICATIONS; L08.9 - LOCAL INFECTION OF THE SKIN AND SUBCUTANEOUS TISSUE, UNSP SNOMED Code(s): 365056295 (2) Diabetic foot ulcer Current Visit: Yes Status: Acute Code(s): E11.621 - TYPE 2 DIABETES MELLITUS WITH FOOT ULCER; L97.509 - NON-PRESSURE CHRONIC ULCER OTH PRT UNSP FOOT W UNSP SEVERITY SNOMED Code(s): 708489882 (3) Allergy to multiple antibiotics Current Visit: Yes Status: Acute Code(s): Z88.1 - ALLERGY STATUS TO OTHER A NTIBIOTIC AGENTS SNOMED Code(s): 082043719 Plan: 1patient with left diabetic foot ulcers and concern for possible cellulitis failing outpatient oral Bactrim DS therapy. 2patient with multiple antibiotic ALLERGIES that would limit the number of antibiotic safe to use. 3-local culture currently so far negative 4- vascular surgery has evaluated some bedside debridement per discussion does not seem to be any abscess or deep infection 5-patient mention feeling better wants to go home we will consider 10-day course of oral Keflex and Flagyl on discharge and close outpatient follow-up discussed with [facility] for admitting team Dictation was produced using [employer] dictation software. please excuse any grammatical, word or spelling errors. Time with Patient: Less than 30
--- NOTE | 2024-03-10 17:23 | P.DS ---
Providers Date of admission: 03/02/24 19:08 Attending physician: Bryn Hawthorne MD Consults: 03/03/24 11:09 Consult Physician Routine Consulting Provider: Aziza Bauman Consult Reason/Comments: Left foot diabetic ulcer Do you want consulting provider notified?: Yes 03/03/24 12:38 Consult Physician Routine Consulting Provider: Mick Vega Consult Reason/Comments: known, left foot ulcer Do you want consulting provider notified?: Yes Primary care physician: Tati Dacosta Hospital Course: Final Diagnosis Left foot diabetic ulcer Hyperkalemia Acute kidney injury, prerenal. History of COPD, stable, not in exacerbation Diabetes mellitus, type II, insulin-dependent Obesity with a BMI of 39.9 Hypertension history Hyperlipidemia Sleep apnea with a CPAP History of ADD/ADHD/anxiety/bipolar depression/PTSD Former smoker Chronic back and knee pain History of degenerative joint disease History of thyroid cancer with thyroidectomy Discharge Disposition Patient is stable for discharge home. As mentioned patient will continue on oral ceftin and oral metronidazole for the next 10 days. Patient will follow up with Dr. Bauman in the office and also to follow up with Dr. Vega in the wound care center on Tuesday. Patient to follow up with PCP Dr. Tati Dacosta has an appt made for March 13 at 1120 am. Hospital Course This patient is a 63-year-old male with past medical history significant for COPD, diabetes, GERD, deafness, hyperlipidemia, hypertension, neurologic disorder, osteoarthritis, prostate disorder, thyroid cancer with thyroidectomy anxiety/bipolar depression PTSD presented to the ER for evaluation of a left foot wound. Patient has been following up outpatient with radio/tv technician for his chronic left foot wounds. Patient was also seen in the ER a week ago for left foot discoloration and wound and at the time was discharged on oral antibiotics. Patient has history of ulcers on left foot and had a left great toe amputation. Denies any fever or chills. There was no complaint of chest pain or shortness of breath. There was no current nausea, abdominal pain. Because of the symptoms, patient presented to ER. Initial lab work done in the ER showed WBC 7.6, hemoglobin 12.3, platelet count 311, sodium 130, potassium 5.7, BUN 51, creatinine 1.52 glucose 116 total bilirubin 0.8, AST 34, ALT 19, CRP 2.7 EKG done in the ER showed heart rate of75 , no ST segment elevation or depres umer seen, no T-wave inversions seen.X-ray foot done showed no acute findings. Patient admitted to internal medicine service, Infectious disease and Dr. Vega with vascular services was consulted. Patient had surgical debridement of the left foot wound on the toe amputation site. Cultures have been negative. Patient has been continued on IV antibiotics with IV cefazolin while in the hospital. ID has cleared patient to discharge on 10 days of oral ceftin and oral flagyl. He is not having any chest pain or shortness of breath. Hemodynamically stable. Please see medication reconciliation for a list of current medications. Thank you for allowing us to participate in the care of this patient. The impression and plan of care has been dictated by Jyotsna Davies, Nurse Practitioner as directed. Dr. David MD I have performed a history and physical examination and medical decision making of this patient, discussed the same with the dictator, and agree with the dictators assessment and plan as written, documented as a scribe. Based on total visit time, I have performed more than 50% of this visit. Patient Condition at Discharge: Good Plan - Discharge Summary Discharge Rx Participant: Yes New Discharge Prescriptions: New metroNIDAZOLE [Flagyl] 500 mg PO TID 10 Days #30 tab Cephalexin [Keflex] 500 mg PO Q8HR 10 Days #30 cap Continue Testosterone [Androgel 1.62% Gel Pump] 1 pump TOPICAL BID Empagliflozin [Jardiance] 25 mg PO DAILY Fish Oil/Dha/Epa [Fish Oil 1,200 mg Fish Oil] 1 cap PO TID Fluticasone Nasal [place] [Flonase Nasal [place]] 1 spr EA NOSTRIL BID Pentoxifylline [TRENtal] 400 mg PO BID Tamsulosin HCl [Flomax] 0.4 mg PO AC-SUPPER Folic Acid 1 mg PO DAILY #30 tab Polyvinyl Alcohol/Povidone [[place] Eye Drop] 1 drop BOTH EYES 5XD Melatonin 5 mg PO HS Artificial Tears Ointment [Lubrifresh Pm Ointment] 0.25 inch LEFT EYE HS Insulin Aspart [NovoLOG Flexpen] See Protocol SQ AC-TID diphenhydrAMINE [Benadryl] 25 mg PO QID Cyanocobalamin (Vitamin B-12) [Vitamin B-12] 1,000 mcg PO DAILY Alogliptin Benzoate [Alogliptin] 25 mg PO DAILY carBAMazepine [TEGretol] 400 mg PO BID@1700,2100 Levothyroxine Sodium 300 mcg PO DAILY metFORMIN HCL [Glucophage] 1,000 mg PO BID Thiamine [Vitamin B-1] 100 mg PO DAILY #30 tablet Acetaminophen Tab [Tylenol] 1,000 mg PO Q6HR PRN PRN Reason: Pain Aspirin 325 mg PO BID #60 tab Sennosides [Senokot] 2 tab PO DAILY PRN #60 tablet PRN Reason: Constipation Na Phos,M-B/Na Phos,Di-Ba [Fleet Adult] 133 ml RECTAL DAILY PRN each PRN Reason: Constipation Magnesium Hydroxide [Milk of Magnesia] 2,400 mg PO DAILY PRN ml PRN Reason: Constipation Gabapentin [Neurontin] 300 mg PO BID 3 Days #6 cap Insulin Degludec [Tresiba Flextouch U-200 Pen] 15 unit SQ AC-BID Sildenafil Citrate [Viagra] 100 mg PO DIRECTED PRN PRN Reason: E.D. Albuterol Sulfate [Proventil Hfa] 1 puff INHALATION RT-QID PRN PRN Reason: Shortness Of Breath Vitamin E (Dl,Tocopheryl Acet) [Vitamin E (400 Iu = 180 mg)] 400 unit PO IRON LY Valsartan 320 mg PO DAILY Magnesium Oxide [Mag-Ox] 250 mg PO BID Cholecalciferol [Vitamin D3 (25 Mcg = 1000 Iu)] 50 mcg PO DAILY Carboxymethylcellulose Sodium [Refresh Tears] 2 drops BOTH EYES QID PRN PRN Reason: Dry Eye(S) OLANZapine 7.5 mg PO HS Metoprolol Tartrate [Lopressor] 50 mg PO BID Exenatide Microspheres [Bydureon Bcise Auto-Injector] 2 mg SQ FR Atorvastatin [Lipitor] 40 mg PO HS carBAMazepine [TEGretol] 200 mg PO DAILY Pantoprazole [Protonix] 40 mg PO DAILY Aspirin [Adult Low Dose Aspirin EC] 81 mg PO DAILY HYDROcodone/APAP 5-325MG [[place] 5-325] 1 - 2 tab PO Q6HR PRN #32 tab PRN Reason: Pain bisacodyL [Dulcolax] 10 mg RECTAL DAILY PRN suppositor PRN Reason: Constipation Sulfamethox-Tmp 800-160Mg [Bactrim DS 800-160 mg] 1 tab PO Q12HR Discharge Medication List Empagliflozin [Jardiance] 25 mg PO DAILY 10/31/20 [History] Fish Oil/Dha/Epa [Fish Oil 1,200 mg Fish Oil] 1 cap PO TID 10/31/20 [History] Fluticasone Nasal [place] [Flonase Nasal [place]] 1 spr EA NOSTRIL BID 10/31/20 [History] Pentoxifylline [TRENtal] 400 mg PO BID 10/31/20 [History] Tamsulosin HCl [Flomax] 0.4 mg PO AC-SUPPER 10/31/20 [History] Testosterone [Androgel 1.62% Gel Pump] 1 pump TOPICAL BID 10/31/20 [History] Albuterol Sulfate [Proventil Hfa] 1 puff INHALATION RT-QID PRN 12/26/20 [History] Folic Acid 1 mg PO DAILY #30 tab 04/15/21 [Rx] Alogliptin Benzoate [Alogliptin] 25 mg PO DAILY 05/29/21 [History] Artificial Tears Ointment [Lubrifresh Pm Ointment] 0.25 inch LEFT EYE HS 05/29/21 [History] Atorvastatin [Lipitor] 40 mg PO HS 05/29/21 [History] Carboxymethylcellulose Sodium [Refresh Tears] 2 drops BOTH EYES QID PRN 05/29/21 [History] Cholecalciferol [Vitamin D3 (25 Mcg = 1000 Iu)] 50 mcg PO DAILY 05/29/21 [His tory] Cyanocobalamin (Vitamin B-12) [Vitamin B-12] 1,000 mcg PO DAILY 05/29/21 [History] Exenatide Microspheres [Bydureon Bcise Auto-Injector] 2 mg SQ FR 05/29/21 [History] Insulin Aspart [NovoLOG Flexpen] See Protocol SQ AC-TID 05/29/21 [History] Levothyroxine Sodium 300 mcg PO DAILY 05/29/21 [History] Magnesium Oxide [Mag-Ox] 250 mg PO BID 05/29/21 [History] Melatonin 5 mg PO HS 05/29/21 [History] Metoprolol Tartrate [Lopressor] 50 mg PO BID 05/29/21 [History] OLANZapine 7.5 mg PO HS 05/29/21 [History] Pantoprazole [Protonix] 40 mg PO DAILY 05/29/21 [History] Polyvinyl Alcohol/Povidone [[place] Eye Drop] 1 drop BOTH EYES 5XD 05/29/21 [History] Valsartan 320 mg PO DAILY 05/29/21 [History] Vitamin E (Dl,Tocopheryl Acet) [Vitamin E (400 Iu = 180 mg)] 400 unit PO DAILY 05/29/21 [History] carBAMazepine [TEGretol] 200 mg PO DAILY 05/29/21 [History] carBAMazepine [TEGretol] 400 mg PO BID@1700,2100 05/29/21 [History] diphenhydrAMINE [Benadryl] 25 mg PO QID 05/29/21 [History] metFORMIN HCL [Glucophage] 1,000 mg PO BID 05/29/21 [History] Thiamine [Vitamin B-1] 100 mg PO DAILY #30 tablet 06/02/21 [Rx] Acetaminophen Tab [Tylenol] 1,000 mg PO Q6HR PRN 12/16/23 [History] Aspirin [Adult Low Dose Aspirin EC] 81 mg PO DAILY 12/16/23 [History] Aspirin 325 mg PO BID #60 tab 12/20/23 [Rx] Sennosides [Senokot] 2 tab PO DAILY PRN #60 tablet 12/20/23 [Rx] HYDROcodone/APAP 5-325MG [[place] 5-325] 1 - 2 tab PO Q6HR PRN #32 tab 12/22/23 [Rx] Magnesium Hydroxide [Milk of Magnesia] 2,400 mg PO DAILY PRN ml 12/23/23 [Rx] Na Phos,M-B/Na Phos,Di-Ba [Fleet Adult] 133 ml RECTAL DAILY PRN each 12/23/23 [Rx] bisacodyL [Dulcolax] 10 mg RECTAL DAILY PRN suppositor 12/23/23 [Rx] Gabapentin [Neurontin] 300 mg PO BID 3 Days #6 cap 12/27/23 [Rx] Insulin Degludec [Tresiba Flextouch U-200 Pen] 15 unit SQ AC-BID 03/02/24 [History] Sildenafil Citrate [Viagra] 100 mg PO DIRECTED PRN 03/02/24 [History] Sulfamethox-Tmp 800-160Mg [Bactrim DS 800-160 mg] 1 tab PO Q12HR 03/02/24 [History] Cephalexin [Keflex] 500 mg PO Q8HR 10 Days #30 cap 03/08/24 [Rx] metroNIDAZOLE [Flagyl] 500 mg PO TID 10 Days #30 tab 03/08/24 [Rx] Follow up Appointment(s)/Referral(s): Tati Dacosta DO [Primary Care Provider] - 03/13/24 11:20 am (appointment with [facility] [NON-STAFF] - 03/12/24 3:00 pm (appointment is with Dr. Vega) Mick Vega MD [STAFF PHYSICIAN] - 3 Days Aziza Bauman MD [STAFF PHYSICIAN] - 1 Week (please call to schedule a follow up appointment) Ambulatory/Diagnostic Orders: Basic Metabolic Panel [LAB.AMB] Time Frame: 4 Days, Location: None Selected Complete Blood Count w/diff [LAB.AMB] Location: None Selected Patient Instructions/Handouts: Cephalexin (By mouth), Metronidazole (By mouth) Activity/Diet/Wound Care/Special Instructions: Please make appt at wound clinic for Tuesday Continue with Medihoney topical daily kerlex daily and as needed if dressing falls off Discharge Disposition: HOME WITH HOME HEALTH SERVICES
== END 2024-03-08 13:21 | disposition home health service (06) | DRG 623 ==
LOC: EC 16:36 → 5NMEDONC 19:08
PROVIDERS: ADMIT Internal Medicine; ATTEND Internal Medicine
PROC: 0JBR0ZZ Excision of Left Foot Subcutaneous Tissue and Fascia, Open Approach (ICD-10-PCS; principal; 2024-03-07)
DX: E11.621 Type 2 diabetes mellitus with foot ulcer (principal); L03.116 Cellulitis of left lower limb; N17.9 Acute kidney failure, unspecified; E11.628 Type 2 diabetes mellitus with other skin complications; E87.5 Hyperkalemia; F31.9 Bipolar disorder, unspecified; Z88.0 Allergy status to penicillin; Z88.5 Allergy status to narcotic agent; Z88.8 Allergy status to other drugs, medicaments and biological substances; E66.9 Obesity, unspecified; G51.0 Bell's palsy; I87.8 Other specified disorders of veins; B96.89 Other specified bacterial agents as the cause of diseases classified elsewhere; E11.42 Type 2 diabetes mellitus with diabetic polyneuropathy; Z89.412 Acquired absence of left great toe; Z86.14 Personal history of Methicillin resistant Staphylococcus aureus infection; G47.33 Obstructive sleep apnea (adult) (pediatric); E78.5 Hyperlipidemia, unspecified; F41.9 Anxiety disorder, unspecified; F43.10 Post-traumatic stress disorder, unspecified; F90.9 Attention-deficit hyperactivity disorder, unspecified type; Z68.39 Body mass index [BMI] 39.0-39.9, adult; J44.9 Chronic obstructive pulmonary disease, unspecified; G47.30 Sleep apnea, unspecified; G89.29 Other chronic pain; M54.9 Dorsalgia, unspecified; Z77.22 Contact with and (suspected) exposure to environmental tobacco smoke (acute) (chronic); L97.529 Non-pressure chronic ulcer of other part of left foot with unspecified severity; H91.90 Unspecified hearing loss, unspecified ear; Z79.4 Long term (current) use of insulin; I10 Essential (primary) hypertension; Z79.82 Long term (current) use of aspirin; Z79.84 Long term (current) use of oral hypoglycemic drugs; Z79.890 Hormone replacement therapy; Z79.899 Other long term (current) drug therapy; Z82.49 Family history of ischemic heart disease and other diseases of the circulatory system; Z85.850 Personal history of malignant neoplasm of thyroid; Z87.891 Personal history of nicotine dependence; Z88.1 Allergy status to other antibiotic agents; Z96.652 Presence of left artificial knee joint
CPT/HCPCS: 36415; 80048; 80053; 85025; 85610; 85730; 86140; 87040; 87070; 87075; 87205; 93005; 94640; 96365; 99285

== ENCOUNTER → 2025-01-29 | Outpatient (CLI) | payer MEDICARE, OTHER ==
--- NOTE | 2025-02-04 23:18 | MR ---
EXAMINATION TYPE: MR shoulder RT wo con DATE OF EXAM: 01/29/2025 5:15 PM COMPARISON: Prior right shoulder MRI 2018. CLINICAL INDICATION: Male, 64 years old with history of M75.101 UNSP ROTATR-CUFF TEAR/RUPTR OF RIGHT SHOUL, RT shoulder pain since 2018, Injured by a fall, Difficult to raise arm IV Contrast: cc (None if empty) TECHNIQUE: Multiplanar, multisequence imaging of the right shoulder is performed without contrast. FINDINGS: Rotator Cuff: Full-thickness retracted tear of supraspinatus and infraspinatus tendons are redemonstr ated. Heterogeneous but intact subscapularis tendon. Severe atrophy of infraspinatus muscle bulk. The re is now moderate atrophy of the supraspinatus muscle bulk. Acromioclavicular Joint: Moderate to severe narrowing and spurring is redemonstrated. Glenohumeral Joint: High riding humeral head again seen. Narrowing is redemonstrated. Labrum: Increased signal superior labrum suggests tear. Biceps Tendon: The long head of biceps is in normal location within bicipital groove. Bone marrow signal: Heterogeneity consistent with red marrow reconversion is present. Other: No additional significant abnormality is appreciated. IMPRESSION: Persistent full-thickness tears of the supraspinatus and infraspinatus tendons with high running colt ral head suggesting underlying instability. More prominent muscular atrophy is noted. Moderate to adv anced AC joint arthropathy again seen. , [facility], Workstation: [email or web address], 02/04/2025 11:16 PM
== END | disposition home or self-care (01) ==
LOC: RADMRIMAIN 15:55
PROVIDERS: ATTEND Family Medicine
DX: S46.011A Strain of muscle(s) and tendon(s) of the rotator cuff of right shoulder, initial encounter (principal); M19.011 Primary osteoarthritis, right shoulder